=== PATIENT | female | born 1995 | race Caucasian/White ===

== ENCOUNTER 2020-01-22 12:12 | Inpatient (IN) | payer MEDICAID ==
[~2020-01-22] VITALS: Ht 165.1 cm; Wt 64.2 kg
[~2020-01-22 12:12] MED LIST: NO HOME MEDS
[2020-01-22] MEDS ORDERED: acetaminophen 325mg tablet PO PRN (14:10)
[2020-01-22] MEDS ORDERED: mag hydrox/Alum hydrox/simeth 30ml oral suspension PO PRN (14:10)
[2020-01-22] MEDS ORDERED: loperamide 2mg capsule PO PRN (14:10)
--- NOTE | 2020-01-22 18:29 | NUR ---
Nursing Admit Note: Patient admitted to [facility] on 01/21/20. She was brought to [facility] on 01/22/20 at 1350 and placed on a 5150 for GD. Patient is unable to provide food, clothing, or halfway for herself due to exasperated mental health condition that includes delusional an disorganized thought process. Patients mother reports that patient has not been sleeping for the last 5days and has not been medication compliant. Patient makes statements that are aggressive like I dont know you, you fucking bitch and then Please pray for me, Im scared. She is not cooperative with assessment or questions.
[2020-01-22 19:00] VITALS: BP 117/71
[2020-01-22] MEDS: LORazepam 1 MG tablet PO PRN (19:56)
[2020-01-22] MEDS: traZODone 50mg tablet PO PRN (19:57)
--- NOTE | 2020-01-23 00:13 | NUR ---
REFUSED MRSA SWAB TWICE.
[2020-01-23] MEDS: LORazepam 1 MG tablet PO PRN ×4 (02:59→15:45)
[2020-01-23] MEDS: traZODone 50mg tablet PO PRN (02:59)
--- NOTE | 2020-01-23 05:39 | NUR ---
Nursing Progress Note: Legal hold: 5150 Client on voluntary/involuntary status for GD. Report received from SHELLIE Law with use of SBAR. Why are they here: Patient admitted to [facility] on 01/21/20. She was brought to [facility] on 01/22/20 at 1350 and placed on a 5150 for GD. Patient is unable to provide food, clothing, or usp for herself due to exasperated mental health condition that includes delusional an disorganized thought process. Patients mother reports that patient has not been sleeping for the last 5days and has not been medication compliant. Patient makes statements that are aggressive like I dont know you, you fucking bitch and then Please pray for me, Im scared. She is not cooperative with assessment or questions. Assessment What has happened this shift: Patient observed laying in bed at the beginning of shift. Shortly after patient observed holding a conversation with herself in different accents. When this software writer approach the patient she agitatedly questioned, "What do you want?" Joggle Press Operator then offered patient Ativan r/t visible agitation and anxiety as patient began pacing her room and talking rapidly. Patient stated, "I don't care what you give me I am " and theatrically placed hand around her neck and hung her head. Patient received both PRN Ativan and Trazodone at this time. She then stated, "Oooh yay more drugs. Nighty night." Patient later in the shift escalated again and found with her bedding piled on top of her night stand as she paced her room. She agreed to take PRNs Trazodone and Ativan again and while taking them states, "here you go making me sleepy sleepy once again." Shortly after patient yelling in her room again and this time found nude by this software writer. When questioned if her clothing was off she stated, "what do you think and stomped back to the bathroom." Patient compliant with putting her clothing back and was provided third dose of Ativan. S/I, H/I: Unable to assess A/VH: Unable to assess- appears to be responding to internal stimuli Sleep: Refe refer to sleep assessment ADL's: Needs staff direction Group attendance: No groups this shift Were meds taken: No scheduled meds; PRNs provided Any med S/E: None reported, none observed. Mental Status Exam Appearance: Disheveled, green unit scrubs Eye contact: Avoidant Behavior: Isolative, resistive, agitated Speech: Yelling, hyperverbal Mood: Agitated Affect: Labile Thought process: Tangential Thought Content: Unable to assess Cognition: Unable to assess Insight: Poor Judgment: Poor Interventions PRN's used: Ativan x3, Trazodone x2 Therapeutic interventions: Introduced self and established rapport, ensured contract for safety, maintained a safe and supportive environment, provided clear and simple instructions, reoriented to reality as needed, monitored behavior and provided redirection as needed, and maintained Q 15min safety checks. Restraints/seclusion/emergency medication: None. Justification of Continued Inpatient Treatment: Pt. requires interruption of current crisis, medication adjustments, and a safe and supportive environment
[2020-01-23 07:01] LABS: CHOL/HDL RATIO 2.3 (0.00-4.99); CHOLESTEROL 131 MG/DL (0-200); HDL CHOLESTEROL 56 MG/DL (35-60); LDL CHOLESTEROL 63 MG/DL (50-100); TRIGLYCERIDES 42 MG/DL (20-135)
[2020-01-23 07:23] LABS: HEMOGLOBIN A1C 5.5 % (4.5-6.2)
[2020-01-23 07:41] VITALS: BP 120/73
[2020-01-23] MEDS ORDERED: tuberculin, purif. prot. deriv. 5 units/0.1ml ID ONE (09:40)
--- NOTE | 2020-01-23 14:59 | NUR ---
PHONE CALL W/MOM Sample Wrapper was informed that Steffen's mom did not know her whereabouts. Asked Steffen if she could call her mom and she said that medical technical writer could. Clarified that medical technical writer would inform her mother where she is. Steffen was speaking in different accents and stated she either wants to go to [facility] or home. She did not want to speak with medical technical writer. Caller her mother, Sara (ph# [phone]), and informed her that Steffen is at [facility]. She thanked medical technical writer for calling and stated she was quite happy Steffen is not at [facility] again. She reported Steffen had not slept for the past several days and she had been staying up with her. She reported Steffen had not been taking her medication or was taking incorrectly. Suggested she may want to wait a day or two to visit. CHACHO uS
--- NOTE | 2020-01-23 18:05 | NUR ---
Nursing Progress Note: Legal hold: 5150, GD Report received from JERRY Ortiz with use of SBAR. Why are they here: Patient admitted to [facility] on 01/21/20. She was brought to [facility] on 01/22/20 at 1350 and placed on a 5150 for GD. Patient is unable to provide food, clothing, or snf for herself due to exasperated mental health condition that includes delusional an disorganized thought process. Patients mother reports that patient has not been sleeping for the last 5days and has not been medication compliant. Assessment What has happened this shift: Patient is observed standing in front of her mirror and yelling/talking to herself. She is not wanting to engage in conversation. Patient does go to the group room for breakfast but is only observed playing with her food. After knocking first patient invites RN into her room and talks. Patient states I wanna go back to [facility]! No, home with the green grass. I just wanna sleep and all through the night I hear [place]k, squeak (patient makes nighttime animal noises and looks back and forth across the room). Patient huffs and puts her head in her hands then says and the nurse comes in here and says why are you naked and I was like I dont know, there was a boy over there (looks at wall)! Patient agrees to take an Ativan and requests water. When RN returns patient takes the medication in an aggressive manner from RN and mumbles to self. She then holds RNs hand and asks How are fish? RN and patient discuss pets and patient tells RN she is no longer working. Conversation increases in loose associations. MRSA swab collected and sent to lab. PPD placed 01/23/20 at 1338 in patients LFA Patient is observed stacking bedding and trash cans in her room. Patient appears anxious, offered Ativan, patient refused. S/I, H/I: Unable to assess A/VH: Unable to assess- appears to be responding to internal stimuli Sleep: 2hrs NOC ADL's: Needs staff direction Group attendance: No groups this shift Were meds taken: No scheduled meds; PRNs provided Any med S/E: None reported, none observed. Mental Status Exam Appearance: Disheveled, green unit scrubs Eye contact: Avoidant Behavior: Isolative, resistive, and agitated Speech: hyperverbal Mood: Agitated Affect: Labile Thought process: Tangential, loose associations Thought Content: Unable to assess Cognition: Unable to assess Insight: Poor Judgment: Poor Interventions PRN's used: Ativan x1 Therapeutic interventions: 1:1 therapeutic assessment, maintained safe therapeutic milieu, provided active listening with positive reinforcement, provided medication administration/education/monitoring as needed; Q15 safety checks. Restraints/seclusion/emergency medication: N/A Justification of Continued Inpatient Treatment: Continued therapeutic support and medication management needed to provide stabilization, prevent decompensation, and improve coping mechanisms decreasing risk to patient and re-admittance.
[2020-01-23 19:00] VITALS: BP 125/74
[2020-01-23] MEDS ORDERED: LORazepam 1 MG tablet PO ONE (19:30)
--- NOTE | 2020-01-23 19:39 | NUR ---
Client temp was 100.4. A Rapid Flu Test was ordered. Client was given 300 mg Seroquel Tab PO and 2 mg Ativan Tab PO was administered. Client was encouraged to stay in room pending results of Flu test.
[2020-01-23] MEDS ORDERED: quetiapine 100mg tablet PO ONE (19:45)
[2020-01-23] MEDS: quetiapine 100mg tablet PO SCH (20:44)
--- NOTE | 2020-01-23 22:40 | NUR ---
Nurse Note: Patient allowed staff to retake temperature. Oral temp at 2130 was 98.7. Patient uncooperative for flu swab. Patient has not been drinking her water, and has been dumping her water pitcher on her floor along with refusing meals. Encouragement needed for patient to drink fluids at this time.
--- NOTE | 2020-01-23 22:43 | NUR ---
Nursing Progress Note: Legal hold: 5150, GD Report received from JERRY Zuñiga with use of SBAR. Why are they here: Patient admitted to [facility] on 01/21/20. She was brought to [facility] on 01/22/20 at 1350 and placed on a 5150 for GD. Patient is unable to provide food, clothing, or prison for herself due to exasperated mental health condition that includes delusional an disorganized thought process. Patients mother reports that patient has not been sleeping for the last 5days and has not been medication compliant. Assessment What has happened this shift: Patient is uncooperative this evening for assessment, at change of shift patient is noted to be hiding in a [place] corner on the phone, it is determined that patient was calling 911 as dispatched called the unit to inform them of her calls. Patients temp is noted to be 100.[address] is informed and order for influenza testing is ordered. patient is uncooperative for influenza testing. She is agreeable to take her medications. About an hour after patient takes her medications influenza swab is tried again and patient is uncooperative again. She does allow staff to obtain another temperature which at this time is 98.7. It is noted that patient has not been drinking her meals and dumping out all her water pitchers. Patient is encouraged to drink fluids. Will continue to monitor patient and try to obtain flu swab. S/I, H/I: Unable to assess A/VH: Unable to assess- appears to be responding to internal stimuli Sleep: Currently sleeping, see sleep assessment ADL's: Needs staff direction Group attendance: No groups this shift Were meds taken: Yes Any med S/E: None reported, none observed. Mental Status Exam Appearance: Disheveled, green unit scrubs Eye contact: Avoidant Behavior: Isolative, resistive, and agitated Speech: Hyperverbal Mood: Agitated Affect: Labile Thought process: Tangential, loose associations Thought Content: Unable to assess Cognition: Unable to assess Insight: Poor Judgment: Poor Interventions PRN's used: Ativan x1 Therapeutic interventions: 1:1 therapeutic assessment, maintained safe therapeutic milieu, provided active listening with positive reinforcement, provided medication administration/education/monitoring as needed; Q15 safety checks. Restraints/seclusion/emergency medication: N/A Justification of Continued Inpatient Treatment: Continued therapeutic support and medication management needed to provide stabilization, prevent decompensation, and improve coping mechanisms decreasing risk to patient and re-admittance.
[2020-01-24 07:31] VITALS: BP 111/84
[2020-01-24] MEDS: ARIPIPRAZOLE 10 MG TABLET PO SCH (09:10)
--- NOTE | 2020-01-24 14:25 | NUR ---
PSYCHOSOCIAL ASSESSMENT Steffen is a 24 y/o single female who was initially brought to [facility] by her mother as a walk-in. Steffen had been sleeping very little for the previous 5 days, was experiencing anxiety, paranoia, hearing voices, disorganized thoughts, mood lability, and presented as delusional. Steffen has a history of being diagnosed with Schizoaffective Disorer, Bipolar Type. She is connected with [facility] and sees Dr Fisher. Plan is for her to go to [facility] upon discharge. Steffen was a poor historian and continues to be disorganized, delusional, paranoid, with rapid pressured speech. CHACHO Su Addendum: 01/24/20 at 1426 by Vicky Mora Amended: Links added.
--- NOTE | 2020-01-24 17:43 | NUR ---
Nursing Progress Note: Legal hold: 5150, GD Report received from JERRY Tejeda with use of SBAR. Why are they here: Patient admitted to [facility] on 01/21/20. She was brought to [facility] on 01/22/20 at 1350 and placed on a 5150 for GD. Patient is unable to provide food, clothing, or usp for herself due to exasperated mental health condition that includes delusional an disorganized thought process. Patients mother reports that patient has not been sleeping for the last 5days and has not been medication compliant. Assessment What has happened this shift: Patient temp 98.7 this AM. Pt denies any flu symptoms at this time. Pt spent most of this shift in her room. Pt was handed 8 cups of 8ozs of water today and with supervision drank all of the glasses. She also ate with a P&J sandwich, a bag of chips, a cheese stick, applesauce and dinner with prompting throughout and supervision. Pt will not eat or drink if left to do it on her own. Thought process remains tangential w/loose associations. S/I, H/I: Unable to assess A/VH: Unable to assess- appears to be RIS Sleep: Awake throughout the shift ADL's: Remained in hospital scrubs throughout the day Group attendance: Attended outside group Were Meds taken: Yes Any med S/E: None reported, none observed. Mental Status Exam Appearance: Disheveled, green unit scrubs Eye contact: Fair Behavior: Isolative Speech: pressured at times Mood: Sad/irritable Affect: Labile Thought process: Tangential, loose associations Thought Content: Unable to assess Cognition: Unable to assess Insight: Poor Judgment: Poor Interventions PRN's used: N/A Therapeutic interventions: Provided therapeutic communications and active listening, prompted and encouraged pt by sitting w/her to eat and drink fluids, medication administration/education/monitoring, maintained q 15 min. safety checks. Restraints/seclusion/emergency medication: N/A Justification of Continued Inpatient Treatment: Continued therapeutic support and medication management needed to provide stabilization, prevent decompensation, and improve coping mechanisms decreasing risk to patient and re-admittance.
[2020-01-24] MEDS: QUEtiapine 25mg tablet PO SCH (18:16)
[2020-01-24 19:00] VITALS: BP 142/89
[2020-01-24] MEDS: oseltamivir phos 75mg capsule PO SCH (20:00)
[2020-01-24] MEDS: LORazepam 1 MG tablet PO PRN (20:22)
[2020-01-24] MEDS: quetiapine 100mg tablet PO SCH (20:22)
--- NOTE | 2020-01-25 03:36 | NUR ---
Nursing Progress Note: Legal hold: 5150, GD Report received from JERRY Law with use of SBAR. Why are they here: Patient admitted to [facility] on 01/21/20. She was brought to [facility] on 01/22/20 at 1350 and placed on a 5150 for GD. Patient is unable to provide food, clothing, or fdc for herself due to exasperated mental health condition that includes delusional an disorganized thought process. Patients mother reports that patient has not been sleeping for the last 5days and has not been medication compliant. Assessment What has happened this shift: Patient temp is 99.1 this evening. She denies any flu symptoms and refuses to be flu swabbed. patient presents as delusional, disorganized and paranoid of staff. She is not cooperative for assessment and becomes agitated when staff is in her room. She does take her PM medications, but expresses discontent about it. When she does approach staff most of her words come out as word salad, it appears like she is trying to express something but it is incoherent. Fluids encouraged this evening. S/I, H/I: Unable to assess A/VH: Unable to assess- appears to be RIS Sleep: See sleep assessment ADL's: Remained in hospital scrubs Group attendance: Attended outside group Were Meds taken: Yes Any med S/E: None reported, none observed. Mental Status Exam Appearance: Disheveled, green unit scrubs Eye contact: Fair Behavior: Isolative Speech: Pressured Mood: Irritable, paranoid Affect: Labile Thought process: Tangential, loose associations Thought Content: Unable to assess Cognition: Unable to assess Insight: Poor Judgment: Poor Interventions PRN's used: Ativan Therapeutic interventions: Provided therapeutic communications and active listening, prompted and encouraged pt by sitting w/her to eat and drink fluids, medication administration/education/monitoring, maintained q 15 min. safety checks. Restraints/seclusion/emergency medication: N/A Justification of Continued Inpatient Treatment: Continued therapeutic support and medication management needed to provide stabilization, prevent decompensation, and improve coping mechanisms decreasing risk to patient and re-admittance.
[2020-01-25] MEDS: LORazepam 1 MG tablet PO PRN ×3 (06:23→21:13)
[2020-01-25 07:56] VITALS: BP 115/75
[2020-01-25] MEDS: oseltamivir phos 75mg capsule PO SCH ×2 (08:00→09:33)
[2020-01-25] MEDS: QUEtiapine 25mg tablet PO SCH ×3 (08:38→19:47)
[2020-01-25] MEDS: ARIPIPRAZOLE 10 MG TABLET PO SCH (08:38)
--- NOTE | 2020-01-25 16:08 | NUR ---
Nursing Progress Note: Legal hold: 5250, GD Report received from JERRY Tejeda with use of SBAR. Why are they here: Patient admitted to [facility] on 01/21/20. She was brought to [facility] on 01/22/20 at 1350 and placed on a 5150 for GD. Patient is unable to provide food, clothing, or fci for herself due to exasperated mental health condition that includes delusional an disorganized thought process. Patients mother reports that patient has not been sleeping for the last 5days and has not been medication compliant. Assessment What has happened this shift: Patient up in her room at the BR sink. Pt remains delusional states, "I know about the coding" then shouts "boom, boom." She endorses that she hears voices stating, "but not at the minute." Pt was observed throwing paper pamphlets all over her room later she picked them up on her own. Pt drank 600mL H2O this shift. S/I, H/I: denies A/VH: Unable to assess- appears to be RIS Sleep: Awake all shift ADL's: Remained in hospital scrubs Group attendance: Did not go out this shift Were Meds taken: Yes Any med S/E: None reported, none observed. Mental Status Exam Appearance: Disheveled, green unit scrubs Eye contact: Fair Behavior: Isolative, angry today after served 5250 Speech: pressured at times Mood: Sad/irritable Affect: Labile Thought process: Tangential, loose associations Thought Content: Unable to assess Cognition: Unable to assess Insight: Poor Judgment: Poor Interventions PRN's used: N/A Therapeutic interventions: Provided therapeutic communications and active listening, prompted and encouraged pt by sitting w/her to drink fluids, medication administration/education/monitoring, maintained q 15 min. safety checks. Restraints/seclusion/emergency medication: N/A Justification of Continued Inpatient Treatment: Continued therapeutic support and medication management needed to provide stabilization, prevent decompensation, and improve coping mechanisms decreasing risk to patient and re-admittance.
[2020-01-25 20:05] VITALS: BP 118/82
[2020-01-25] MEDS: quetiapine 100mg tablet PO SCH (21:13)
[2020-01-25] MEDS ORDERED: OLANZapine 2.5MG tablet PO ONE (22:30)
--- NOTE | 2020-01-26 01:42 | NUR ---
Nursing Progress Note: Legal hold: 5250, GD Report received from JERRY Law with use of SBAR. Why are they here: Patient admitted to [facility] on 01/21/20. She was brought to [facility] on 01/22/20 at 1350 and placed on a 5150 for GD. Patient is unable to provide food, clothing, or intermediate for herself due to exasperated mental health condition that includes delusional an disorganized thought process. Patients mother reports that patient has not been sleeping for the last 5 days and has not been medication compliant. Assessment What has happened this shift: Pt hypomanic, thoughts are disorganized tangential "I came here because they cancelled January Mad" Pt Laughs and smiles inappropriately. Cooperative and pleasant took all medications. Unable to sleep pt agreed to take something for sleep if the DrAmparo would order something. YARI Gonzalez Ordered 5 mg Zyprexa x1 Pt took. Pt continued to be restless making several trips to Nurses station. Fell asleep at 0130. S/I, H/I: denies A/VH: Unable to assess- appears to be RIS Sleep: Fell asleep at 0130 ADL's: Remained in hospital scrubs Group attendance: NA Were Meds taken: Yes Any med S/E: None reported, none observed. Mental Status Exam Appearance: Disheveled, green unit scrubs Eye contact: Fair Behavior: Isolative, angry today after served 5250 Speech: pressured at times Mood: Sad/irritable Affect: Labile Thought process: Tangential, loose associations Thought Content: Unable to assess Cognition: Unable to assess Insight: Poor Judgment: Poor Interventions PRN's used: Ativan for anxiety x1 Zyprexa for sleep. Therapeutic interventions: Provided therapeutic communications and active listening, prompted and encouraged pt by sitting w/her to drink fluids, medication administration/education/monitoring, maintained q 15 min. safety checks. Restraints/seclusion/emergency medication: N/A Justification of Continued Inpatient Treatment: Continued therapeutic support and medication management needed to provide stabilization, prevent decompensation, and improve coping mechanisms decreasing risk to patient and re-admittance.
[2020-01-26] MEDS: LORazepam 1 MG tablet PO PRN ×2 (03:47→08:13)
[2020-01-26] MEDS ORDERED: OLANZapine 2.5MG tablet PO ONE (04:00)
[2020-01-26] MEDS: diphenhydrAMINE 25mg capsule PO PRN ×2 (04:35→15:01)
--- NOTE | 2020-01-26 05:19 | NUR ---
Pt slept about one hour up again becoming agitated order for 10 Zyprexa 50 Benadryl obtained and given 430. Pt is still awake encouraged to lay down and try to sleep.
[2020-01-26 07:43] VITALS: BP 112/72
[2020-01-26] MEDS: ARIPIPRAZOLE 10 MG TABLET PO SCH (08:13)
[2020-01-26] MEDS: oseltamivir phos 75mg capsule PO SCH (08:13)
[2020-01-26] MEDS: QUEtiapine 25mg tablet PO SCH ×3 (08:14→17:57)
--- NOTE | 2020-01-26 14:33 | NUR ---
Met with Steffen in the tv room. She was looking out the window and flipping through a Kin Mora book. She was friendly and talkative. Speech was disorganized with oriental orthodox preoccupation. She reported she was really tired and did not sleep much last night. She was emotionally labile throughout the conversation. She has been accepted at [facility] when she is ready to discharge. CHACHO Su
--- NOTE | 2020-01-26 14:45 | NUR ---
Nursing Progress Note: Legal hold: 5250, GD Report received from JERRY Tomlin with use of SBAR. Why are they here: Patient admitted to [facility] on 01/21/20. She was brought to [facility] on 01/22/20 at 1350 and placed on a 5150 for GD. Patient is unable to provide food, clothing, or correction for herself due to exasperated mental health condition that includes delusional an disorganized thought process. Patients mother reports that patient has not been sleeping for the last 5 days and has not been medication compliant. Assessment What has happened this shift: Pt standing at the BR sink scrubbing her hands over and over at he start of the shift. Pt distracted by this nurse and moved over to the corner of her room standing at the bedside table she began speaking in a loud voice, "I'm not eating because you put something in my food, you're a Julian you have my father's heart, I know you do the night I was at [facility] I saw the eye, eyeron on the ceiling, I heard my daughter is that you put down coding not schizophrenia." She is compliant with taking her medications. She continues to need reminders to drink fluids, she is doing better eating on her own. S/I, H/I: denies A/VH: Unable to assess Sleep: Slept in the afternoon ADL's: Remained in hospital scrubs Group attendance: NA Were Meds taken: Yes Any med S/E: None reported, none observed. Mental Status Exam Appearance: Disheveled, green unit scrubs Eye contact: Fair Behavior: hypomanic Speech: Pressured Mood: Irritable Affect: Labile Thought process: Tangential, loose associations Thought Content: Unable to assess Cognition: Unable to assess Insight: Poor Judgment: Poor Interventions PRN's used: Ativan x1, Benadryl x1 Therapeutic interventions: Provided therapeutic communications w/active listening, encouraged pt to eat and drink, prompted pt to slow down on washing her hands and to not rub them dry with a rough paper towel, provided a soft cloth, edication administration/education/monitoring, maintained q 15 min. safety checks. Restraints/seclusion/emergency medication: N/A Justification of Continued Inpatient Treatment: Continued therapeutic support and medication management needed to provide stabilization, prevent decompensation, and improve coping mechanisms decreasing risk to patient and re-admittance.
[2020-01-26 20:09] VITALS: BP 133/85
[2020-01-26] MEDS: quetiapine 100mg tablet PO SCH (20:21)
--- NOTE | 2020-01-26 21:40 | NUR ---
Nursing Progress Note: Legal hold: 5250, GD Report received from JERRY Law with use of SBAR. Why are they here: Patient admitted to [facility] on 01/21/20. She was brought to [facility] on 01/22/20 at 1350 and placed on a 5150 for GD. Patient is unable to provide food, clothing, or correction for herself due to exasperated mental health condition that includes delusional an disorganized thought process. Patients mother reports that patient has not been sleeping for the last 5 days and has not been medication compliant. Assessment What has happened this shift: The patient was seen in the rec room for 1:1. She is unable to complete thoughts, and is delusional and tangential. She will start with one thought, stop, look away, then on to another thought. She was willing to take her medications, but was paranoid about what they were, and what for. She went to bed right after HS med pass. S/I, H/I: Denies A/VH: Denies Sleep: See sleep assessment ADL's: Independent Group attendance: NA Were Meds taken: Yes Any med S/E: None reported, none observed. Mental Status Exam Appearance: Disheveled young lady with long black hair wearing green unit scrubs Eye contact: Fair Behavior: Isolative, angry, irritable Speech: pressured at times Mood: Irritable Affect: Labile Thought process: Tangential, loose associations Thought Content: Unable to assess Cognition: Unable to assess Insight: Poor Judgment: Poor Interventions PRN's used: Therapeutic interventions: Provided therapeutic communications and active listening, prompted and encouraged pt by sitting w/her to drink fluids, medication administration/education/monitoring, maintained q 15 min. safety checks. Restraints/seclusion/emergency medication: N/A Justification of Continued Inpatient Treatment: Continued therapeutic support and medication management needed to provide stabilization, prevent decompensation, and improve coping mechanisms decreasing risk to patient and re-admittance.
[2020-01-27] MEDS: oseltamivir phos 75mg capsule PO SCH (07:34)
[2020-01-27] MEDS: QUEtiapine 25mg tablet PO SCH ×3 (07:34→18:42)
[2020-01-27] MEDS: ARIPIPRAZOLE 10 MG TABLET PO SCH (07:34)
[2020-01-27 07:37] VITALS: BP 89/63
--- NOTE | 2020-01-27 11:22 | NUR ---
Initial: Pt admit w/ schizoaffective disorder bipolar type and delusions on 5150 per MD. PO 75-100% avg regular diet meeting needs. LBM 01/24. No nutrition concerns at this time. Will continue to monitor. Rec: 1. continue regular diet 2. bowel care as needed 3. wt per rx Addendum: 01/27/20 at [address] Amended: Links added.
--- NOTE | 2020-01-27 17:22 | NUR ---
Nursing Progress Note: Legal hold: 5250, GD Report received from JERRY Gandhi with use of SBAR. Why are they here: Patient admitted to [facility] on 01/21/20. She was brought to [facility] on 01/22/20 at 1350 and placed on a 5150 for GD. Patient is unable to provide food, clothing, or custodial for herself due to exasperated mental health condition that includes delusional an disorganized thought process. Patients mother reports that patient has not been sleeping for the last 5 days and has not been medication compliant. Assessment What has happened this shift: Patient is resting in bed peacefully at change of shift. She is tangential and appears paranoid, making statements, "you know what is best for me", "you're trying to poison me", when given her medications, however, she does take her medications. She is seen sitting in her room and occasionally in the day room. She appears to be responding to internal stimuli at times, talking to people who are not there, but she refuses to participate in assessment. S/I, H/I: unable to assess, but does not make any statements nor does she exhibit self injurious or injurious behaviors A/VH: Unable to assess Sleep: up all shift ADL's: Remained in hospital scrubs Group attendance: NA Were Meds taken: Yes Any med S/E: None reported, none observed. Mental Status Exam Appearance: Disheveled, green unit scrubs Eye contact: Fair Behavior: hypomanic Speech: Pressured Mood: Irritable Affect: Labile Thought process: Tangential, loose associations Thought Content: Unable to assess Cognition: Unable to assess Insight: Poor Judgment: Poor Interventions PRN's used: none Therapeutic interventions: Provided therapeutic communications w/active listening, encouraged pt to eat and drink, prompted pt to slow down on washing her hands and to not rub them dry with a rough paper towel, provided a soft cloth, education administration/education/monitoring, maintained q 15 min. safety checks. Restraints/seclusion/emergency medication: N/A Justification of Continued Inpatient Treatment: Continued therapeutic support and medication management needed to provide stabilization, prevent decompensation, and improve coping mechanisms decreasing risk to patient and re-admittance.
[2020-01-27 19:07] VITALS: BP 124/75
[2020-01-27] MEDS: quetiapine 100mg tablet PO SCH (20:56)
[2020-01-27] MEDS: LORazepam 1 MG tablet PO PRN (21:50)
--- NOTE | 2020-01-28 02:25 | NUR ---
Nursing Progress Note: Legal hold: 5250, GD Report received from JERRY Gandhi with use of SBAR. Why are they here: Patient admitted to [facility] on 01/21/20. She was brought to [facility] on 01/22/20 at 1350 and placed on a 5150 for GD. Patient is unable to provide food, clothing, or longterm for herself due to exasperated mental health condition that includes delusional an disorganized thought process. Patients mother reports that patient has not been sleeping for the last 5 days and has not been medication compliant. Assessment What has happened this shift: Pt was in the group room at change of shift. She was responding to internal stimuli but pleasantly interacting with staff and other patients. She later went into her room and was loudly talking to herself. Went into talk w/patient and she was crouched in the corner of her room crying and shouted she was "praying to God". Pt was med compliant but agitated during med pass and grabbed her med cup forcefully, took her meds, and threw her med cup on her bed. Pt continued to talk to herself and took her bedding off her bed. Pt asked if she looked weird because she wasnt wearing her clothing then decided she would stay in scrubs. Pt was offered clean bedding and she declined stating she would make it herself. Pt is labile, laughing then crying and yelling, smiling and pleasant then agitated. S/I, H/I: unable to assess A/VH: Responding to internal stimuli Sleep: pt sleeping well ADL's: Remained in hospital scrubs Group attendance: NA Were Meds taken: Yes Any med S/E: None reported, none observed. Mental Status Exam Appearance: Disheveled, green unit scrubs Eye contact: Fair Behavior: hypomanic Speech: Pressured Mood: Irritable Affect: Labile Thought process: Tangential, loose associations Thought Content: Unable to assess Cognition: Unable to assess Insight: Poor Judgment: Poor Interventions PRN's used: none Therapeutic interventions: Provided therapeutic communications w/active listening, encouraged pt to eat and drink, prompted pt to slow down on washing her hands and to not rub them dry with a rough paper towel, provided a soft cloth, education administration/education/monitoring, maintained q 15 min. safety checks. Restraints/seclusion/emergency medication: N/A Justification of Continued Inpatient Treatment: Continued therapeutic support and medication management needed to provide stabilization, prevent decompensation, and improve coping mechanisms decreasing risk to patient and re-admittance. Addendum: 01/28/20 at 0401 by Jane Osorio RN Pt woke and was talking to herself, labile crying laughing. Pt is attempting to explain "the meaning of life" by drawing directions in the air w/her hands. Pt speech is disorganized, hyperreligious, pt is having some thought blocking. She is unable to state why she is here. She reports a headache. Pt was assisted with making her bed and she appears tired but is having difficulty going back to sleep. Pt was given prn ativan and tylenol
[2020-01-28] MEDS: acetaminophen 325mg tablet PO PRN (03:57)
[2020-01-28] MEDS: LORazepam 1 MG tablet PO PRN ×2 (03:57→12:07)
[2020-01-28] MEDS: oseltamivir phos 75mg capsule PO SCH (08:19)
[2020-01-28] MEDS: QUEtiapine 25mg tablet PO SCH ×3 (08:19→17:28)
[2020-01-28] MEDS: ARIPIPRAZOLE 10 MG TABLET PO SCH (08:19)
[2020-01-28 08:33] VITALS: BP 120/81
[2020-01-28] MEDS: diphenhydrAMINE 25mg capsule PO PRN (12:07)
--- NOTE | 2020-01-28 13:34 | NUR ---
Nursing Progress Note: Legal hold: 5250 for GD Report received from JERRY Gandhi with use of SBAR. Why are they here: Patient admitted to [facility] on 01/21/20. She was brought to [facility] on 01/22/20 at 1350 and placed on a 5150 for GD. Patient is unable to provide food, clothing, or residential for herself due to exasperated mental health condition that includes delusional an disorganized thought process. Patients mother reports that patient has not been sleeping for the last 5 days and has not been medication compliant. Assessment What has happened this shift: Pt is labile, disorganized, paranoid, and delusional. Pt initially presented as pleasant and bright before breakfast. She introduced herself as "Susana." She was cooperative with medications, smiled and commented on how this RN's hair reminded her of her mother's. Pt's speech was pressured and she was tangential. Pt did not have a water pitcher in her room so one was provided for her. Pt stated, "I don't drink much water, I stopped after 4th grade, you know, the stress from high school, I know I should drink more, my dad says I should drink more." Pt nervously laughed. Pt observed fervently washing her hands and cleaning her sink and her room. Pt comes out of her room and spends some time in the community room watching TV. Pt attempted to be helpful with redirecting another pt out of the community room. Around 1100 heard pt loudly responding to internal stimuli in her room. She was agitated;talking and yelling at unseen persons as well as banging and slapping things like her night stand. Speech was extremely pressured. Knocked on pt's room door before entering, announced this RN's presence and offered pt some PO PRN medications Ativan 1 mg and Benadryl 50 mg. Pt observed with some psychomotor agitation; rapid body movements and gestures. Her room was spotless there was no water pitcher or anything else in sight on her night stand, bedside table or shelves, there was a large pool of blue soap in her sink. Asked pt where her water pitcher had gone. Pt angrily replied that this RN had said someone would bring her water but no one ever did. (This RN had witnessed the PCT bring the pitcher of water to her room.) Pt loudly exclaimed, "You totally forgot! That's alright, I forgive you!" Pt refused to take the medication, stating that we were trying to control her life, trying to drug her. Attempted reality orientation that she was here to get well and we were trying to help her so she could get back to living her life. Pt replied, "you're lying! I can see it in your eyes!" "I see visions, I see dicks floating in the air and eyeballs." Pt took the water this nurse had brought her but adamantly refused the medication. As this RN left the room heard the pt loudly state to unseen persons, "you don't have to knock like her." She went on to have an animated one sided conversation though remained in her room. Around an hour later asked the molded candles wicker to accompany this RN to the pt's room as a show of support in trying to get pt to take her routine Seroquel as well as the PRNs. Pt was sitting on her bed, pt looked despondent. Pt stated, "I don't care, drug me up." Pt took her Seroquel as well as PO prn Ativan 1 mg & Benadryl 50 mg @ 1207. After lunch pt approached this RN asking if we could talk, if everyone could get together and talk. Pt was tearful. Found pt sitting in her room. Pt stated, "you're just here to give me more pills and drug me up." Reminded pt that she had asked to talk, reassured pt that this nurse was not trying to give her anymore pills. Pt was tearful, pt stated that she hurt, she was in pain, she dramatically placed her hand over her heart. Pt was speaking of emotional pain not chest pain. Pt stated again that we were trying to control her life. After expressing how she felt, pt was not receptive to therapeutic conversation but wished to continue making paranoid, accusatory statements, reality orientation ineffective. Reassured pt that she was safe, that staff was here to help and left the pt alone in her room. S/I, H/I: Pt too disorganized to answer the questions. A/VH: Pt observed responding to internal stimuli, speaking/yelling at unseen persons, pt states she sees visions of dicks and eyeballs. Sleep: Per noc shift report, pt only slept 3 hours last night despite PRN medication. Pt did not nap during the day. ADL's: Independent, needs encouragement to drink fluids. Group attendance: No groups today. Were Meds taken: Yes though reluctantly. Any med S/E: None noted or reported. Mental Status Exam Appearance: Disheveled young woman with medium length brown hair down, dressed in clean, green hospital scrubs. Eye contact: Good Behavior: Disorganized, hypomanic, obsessively cleans her room over and over again. Speech: Pressured Mood: Labile Affect: Labile Thought process: Paranoid, delusional, disorganized with loose associations, racing thoughts. Thought Content: We are trying to drug her up and control her life. Cognition: A/O X 3 Insight: Poor Judgment: Poor Interventions PRN's used: Ativan 1 mg, Benadryl 50 mg Therapeutic interventions: Establishment of rapport, 1:1 assessment, active listening, medication administration/education/monitoring, encouragement to drink fluids, behavior monitoring and intervention; reality orientation, verbal de-escalation, redirection, show of support, positive reinforcement, Q 15 min safety checks. Restraints/seclusion/emergency medication: N/A Justification of Continued Inpatient Treatment: Continued therapeutic support and medication management needed to provide stabilization, prevent decompensation, and improve coping mechanisms decreasing risk to patient and re-admittance. Addendum: 01/28/20 at 1741 by Clarita Finney RN (Lee) Pt is calm and cooperative at this time, she seems much less disorganized. Pt stated that she doesn't eat much "because I think that the food is poisoned." Pt stated it in such a way to indicated that she was aware that this was a symptom, not said in a paranoid fashion. Then pt stated that a lot of foods hurt her stomach and this just started around a year ago. Pt states she like almond milk and salads, chicken caesar salad in particular. Modified diet to request almond milk and salads with lunch and dinner. Pt indicated that she would like to speak with a hotel superintendent. Put in dietary consult order. Addendum: 01/28/20 at 1742 by Clarita Finney RN (Lee) Pt slept for awhile after lunch.
--- NOTE | 2020-01-28 19:08 | NUR ---
Nutrition consult re: poor PO. Spoke with bedside RN reporting poor PO r/t possible paranoia with un-packaged foods, RN states pt requesting almond milk, salads, and may benefit from some pre-packaged foods. PO intake average of 43% over the course of her admission with six meals >75% PO intake. D/w dietary to send almond milk with meals and variety of pre-packaged sandwiches with lunch and dinner. Rec: 1. continue regular diet- send almond milk with meals per patient request and trial sending pre-packaged sandwiches with lunch and dinner. 2. bowel care as needed 3. wt per rx Addendum: 01/28/20 at [address] Amended: Links added.
[2020-01-28] MEDS: temazepam 15mg capsule PO PRN (20:21)
[2020-01-28] MEDS: quetiapine 100mg tablet PO SCH (20:21)
[2020-01-28 20:31] VITALS: BP 126/79
[2020-01-29] MEDS: LORazepam 1 MG tablet PO PRN ×2 (01:36→07:56)
--- NOTE | 2020-01-29 01:45 | NUR ---
Nursing Progress Note: Legal hold: 5250 for GD Report received from JERRY Gandhi with use of SBAR. Why are they here: Patient admitted to [facility] on 01/21/20. She was brought to [facility] on 01/22/20 at 1350 and placed on a 5150 for GD. Patient is unable to provide food, clothing, or intermediate for herself due to exasperated mental health condition that includes delusional an disorganized thought process. Patients mother reports that patient has not been sleeping for the last 5 days and has not been medication compliant. Assessment What has happened this shift: Pt was walking in the [place] at change of shift, she states she would like to talk and she reports having a good day. 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 Pt continues to have disorganized thought and is unable to answer questions appropriately. She is pleasant cooperative and took medications at [facility] easily. About 0130 pt woke and began loudly conversing alone in her room. As I walked into the room, pt took her pitcher of water and threw it at the mirror above her sink. She yelled "dont worry about it I got it!" I told pt I would bring in some towels and handed her a prn. 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 Explained to pt I am giving her ativan, she replies "Ok boomer, It's a song alright?" She takes prn then I took in towels to clean up the water. Pt thanked me for the towels and whispered, "I will lower my voice now, it will be ok." Pt is quietly cleaning her room and when checked on she states "Im ok, Im at a peace." However speech is somewhat pressured. Pts arms were very red at beginning of shift and she was showing me them and reports "this is eczema, it reminds me of nicole, he's my brother." Pt was observed squeezing her arms tightly and scratching them. She shows me lotion she has in the room and states the lotion is helping. She also reports never having eczema prior to today. When pt woke later in the night her arms still appear to be reddened but seem to be improving. She began splashing her arms with water. No broken skin noted. Asked pt if she was having itching again, she replied in a sarcastic tone, "they're ok, youre not my mother." Pt took Benadryl prn. S/I, H/I: unable to assess A/VH: Pt observed responding to internal stimuli, speaking/yelling at unseen persons Sleep: not sleeping well this shift. ADL's: Independent Group attendance: No groups today. Were Meds taken: Yes Any med S/E: None noted or reported. Mental Status Exam Appearance: disheveled, wearing green scrubs Eye contact: Good Behavior: Disorganized, hypomanic, obsessively cleans her room over and over again. Speech: Pressured Mood: Labile Affect: Labile Thought process: Paranoid, delusional, disorganized with loose associations, racing thoughts. Thought Content: God, praying, Cognition: A/O X 3 Insight: Poor Judgment: Poor Interventions PRN's used: Ativan 1 mg, Benadryl 50mg Therapeutic interventions: Establishment of rapport, 1:1 assessment, active listening, medication administration/education/monitoring, encouragement to drink fluids, behavior monitoring and intervention; reality orientation, verbal de-escalation, redirection, show of support, positive reinforcement, Q 15 min safety checks. Restraints/seclusion/emergency medication: N/A Justification of Continued Inpatient Treatment: Continued therapeutic support and medication management needed to provide stabilization, prevent decompensation, and improve coping mechanisms decreasing risk to patient and re-admittance. Addendum: 01/29/20 at 0614 by Jane Osorio RN pt did not go back to sleep, came out at change of shift and is "holding a meeting' with staff. 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 pt states she wants a decrease in her medicine because she was lowering her medicine before she came in.
[2020-01-29 07:56] VITALS: BP 133/89
[2020-01-29] MEDS: oseltamivir phos 75mg capsule PO SCH (07:56)
[2020-01-29] MEDS: ARIPIPRAZOLE 10 MG TABLET PO SCH (07:56)
[2020-01-29] MEDS: QUEtiapine 25mg tablet PO SCH ×3 (07:56→17:47)
--- NOTE | 2020-01-29 15:07 | NUR ---
PHONE CALL W/MOM: SARA Gonzalez's mom, Sara, called. Steffen Gonzalez signed consent for Sara. Called Sara back (ph# [phone]) and she reported Steffen Gonzalez requested she drop off some clothing. Sara reported she will call magazine writer tomorrow and meet magazine writer in the lobby with Steffen Gonzalez's belongings. CHACHO Su
--- NOTE | 2020-01-29 16:33 | NUR ---
Nursing Progress Note: Legal hold: 5250 for GD Report received from JERRY Gandhi with use of SBAR. Why are they here: Patient admitted to [facility] on 01/21/20. She was brought to [facility] on 01/22/20 at 1350 and placed on a 5150 for GD. Patient is unable to provide food, clothing, or residential for herself due to exasperated mental health condition that includes delusional an disorganized thought process. Patients mother reports that patient has not been sleeping for the last 5 days and has not been medication compliant. Assessment What has happened this shift: Pt was friendlier and more cooperative with staff today. Pt admits to AH, denies CAH, denies VH. Pt appeared fearful/paranoid while talking to this nurse about the voices. Pt softly stated, "I'm talking to you in code." When went to give pt her morning meds, pt was in the bathroom. This nurse could see under the bathroom door that the pt's breakfast tray was on the bathroom floor with pt standing in front of it facing away from the toilet. Carter pt rummaging on tray then saw pt's green nonskid sock cladded feet turn around to face the toilet and heard pt flush the toilet, pt then turned around to face the tray on the floor once more. This RN left the room and returned a few minutes later. Pt and breakfast tray were out of the bathroom. It appeared that greater than 50% of food was still on the pt's breakfast tray. Pt stated to this RN, "I'm sorry I was rude to you." (Pt had not been rude to this RN today.) Pt went on to say, "I told Dr Freitas...I don't want to have to take pills but..." Pt waved her hands up around her head. Pt took her medication. Pt continues to be disorganized though is more pleasantly psychotic today. Pt's verbalizations are tangential and often nonsensical but she is smiling while verbalizing them. Pt showered today. Later in the afternoon the SW approached this RN to ask if I had seen the pt's arms, that they were really red. PCT approached a few minutes later to ask the same. Assessed pt's arms. Redness noted below the elbows down to her wrists and upper portions of her hands. Pt had been seen before vigorously washing her hands and arms repeatedly at her bedroom sink with soap and water. Pt denies any itching, no s/sx of dyspnea or SOB, no wheals noted. No other areas of pt's skin are reddened; no redness on legs, torso, abdomen, or face. Pt's arms had been bare this morning and this RN had not noticed the redness. Pt stated that it looks like eczema like Sam has. She also stated that she had applied lotion to her arms and she had rubbed it in really good, pt mimed vigorous rubbing motion. Noted silicone containing protective hypoallergenic lotion on the shelf in her room. Reassessed pt's arms around an hour or so later. Arms were less red, some areas of dry roughened skin patches noted. It appears as though her skin may have been irritated from excessive washing, scrubbing, and rubbing. Reported to lost charge card clerk, PA had left for the day. Will continue to monitor and endorse to evening shift to do the same. S/I, H/I: Pt denies. A/VH: Pt admits to AH, denies VH. Did not observe pt talking or yelling to herself today. Sleep: Per noc shift report, pt slept 4 hours last night after taking both Ativan and Restoril. ADL's: Independent, needs encouragement to drink fluids. Group attendance: No groups today. Were Meds taken: Yes Any med S/E: Redness on lower arms only, though does not have the appearance of an allergic reaction and pt has no s/sx of an adverse reaction to meds. Mental Status Exam Appearance: Clean, dressed in clean [facility] scrubs, wearing a knit cap today. Eye contact: Good Behavior: Disorganized, restless, obsessively cleans her room and washes her hands/arms over and over again. Speech: Pressured, nonsensical at times. Mood: Improved, somewhat elevated. Affect: Bright, anxious Thought process: Paranoid, tangential, racing thoughts. Thought Content: Thinks she has eczema, doesn't like that she needs to take pills. Cognition: A/O X 3 Insight: Poor Judgment: Poor Interventions PRN's used: Ativan 1 mg @ 0756 Therapeutic interventions: 1:1 assessment, active listening, therapeutic conversation, ensured contract for safety, medication administration/education/monitoring, encouragement to drink fluids, reflection, positive reinforcement, behavior monitoring and intervention; reality orientation, redirection, Q 15 min safety checks. Restraints/seclusion/emergency medication: N/A Justification of Continued Inpatient Treatment: Continued therapeutic support and medication management needed to provide stabilization, prevent decompensation, and improve coping mechanisms decreasing risk to patient and re-admittance.
[2020-01-29 19:00] VITALS: BP 102/77
[2020-01-29] MEDS: quetiapine 100mg tablet PO SCH (20:46)
[2020-01-29] MEDS: acetaminophen 325mg tablet PO PRN (20:55)
[2020-01-29] MEDS: temazepam 15mg capsule PO PRN ×2 (22:15→23:23)
[2020-01-30] MEDS: LORazepam 1 MG tablet PO PRN ×2 (02:42→09:26)
[2020-01-30 04:15] LABS: CLARITY,URINE SLIGHTLY CLOUDY (Clear); COLOR,URINE YELLOW (Yellow); GLUCOSE, URINE NEGATIVE (Neg); KETONES,URINE NEGATIVE (Neg); LEUKOCYTE ESTERASE ,URINE NEGATIVE (Neg); NITRITES, URINE NEGATIVE (Neg); OCCULT BLOOD,URINE NEGATIVE (Neg); PROTEIN,URINE NEGATIVE (Neg); UROBILINOGEN,URINE 0.2 E.U/dL (0.2-1.0)
[2020-01-30 04:21] LABS: UA COLLECTION TYPE CLN CATCH MIDSTREAM
[2020-01-30 04:23] LABS: BACTERIA,URINE 1+ /HPF (Neg); RBC,URINE NONE SEEN /HPF (0-2); SQUAMOUS EPITHELIAL CELL,UR MODERATE /LPF (FEW); WBC,URINE 50-100 /HPF (0-4)
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
[2020-01-30] MEDS: diphenhydrAMINE 25mg capsule PO PRN (07:04)
[2020-01-30] MEDS: oseltamivir phos 75mg capsule PO SCH (07:05)
[2020-01-30] MEDS: ARIPIPRAZOLE 10 MG TABLET PO SCH (07:06)
[2020-01-30] MEDS: QUEtiapine 25mg tablet PO SCH ×3 (07:06→17:05)
[2020-01-30 07:16] VITALS: BP 122/75
[2020-01-30] MEDS: clonazePAM 1mg tablet PO SCH ×2 (12:54→20:38)
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
[2020-01-30 19:06] VITALS: BP 129/92
[2020-01-30] MEDS: quetiapine 100mg tablet PO SCH (20:38)
[2020-01-30] MEDS: lithium carbonate 150mg capsule PO SCH (20:38)
--- NOTE | 2020-01-31 02:59 | NUR ---
Nursing Progress Note: Legal hold: 5250 for GD Report received from JERRY Bajwa with use of SBAR. Why are they here: Patient admitted to [facility] on 01/21/20. She was brought to [facility] on 01/22/20 at 1350 and placed on a 5150 for GD. Patient is unable to provide food, clothing, or mcfp for herself due to exasperated mental health condition that includes delusional an disorganized thought process. Patients mother reports that patient has not been sleeping for the last 5 days and has not been medication compliant. Assessment What has happened this shift: Patient pacing in her bedroom and responding to internal stimuli at the beginning of shift. Shortly after patient approached this administrative underwriter asking how to help "the two ladies behind [her]" and requesting gloves to help. Refrigeration Service Inspector asked patient if she felt she was experiencing A/VH in which she denied and administrative underwriter explained the "two ladies" she's talking about were not visible to others and she stated, "right right, they are not real," smiled thanked administrative underwriter and went back to her bedroom to lay down. Later in the shift patient came and wrote a note sitting in the hallway; her writing was presented to staff and placed in her folder upon request. Patient continues to report sexuality and mosque comments about demons and visuals of people in her bedroom. Patient remains pleasant and cooperative with care; compliant with medications. [place] 900mg and Clonazepam 1mg started this shift with no ASE reported or observed. Patient's bilateral forearms remain red and dry but patient reports improvement with lotion use and is encouraged to continue use. No comments of discomfort during urination and no urgency of frequent urination reported or observed this shift. S/I, H/I: Patient denies A/VH: +A/VH but patient continues to deny Sleep: Refer to sleep assessment ADL's: Independent, needs encouragement to drink fluids. Group attendance: No groups this shift Were Meds taken: Yes Any med S/E: Redness on lower arms only, though does not have the appearance of an allergic reaction and pt has no s/sx of an adverse reaction to meds. Mental Status Exam Appearance: Clean, dressed in clean [facility] hospital scrubs, wearing a knit cap. Eye contact: Good Behavior: Disorganized, restless, pacing, obsessively cleans her room and washes her hands/arms Speech: Hyperverbal, pressured, nonsensical at times. Mood: Euphoric Affect: Labile Thought process: Tangential Thought Content: Hypersexual, adventism Cognition: A/O X 3 Insight: Poor Judgment: Poor Interventions PRN's used: None Therapeutic interventions: 1:1 assessment, active listening, therapeutic conversation, ensured contract for safety, medication administration/education/monitoring, encouragement to drink fluids, reflection, positive reinforcement, behavior monitoring and intervention; reality orientation, redirection, Q 15 min safety checks. Restraints/seclusion/emergency medication: N/A Justification of Continued Inpatient Treatment: Continued therapeutic support and medication management needed to provide stabilization, prevent decompensation, and improve coping mechanisms decreasing risk to patient and re-admittance.
[2020-01-31] MEDS: ARIPIPRAZOLE 10 MG TABLET PO SCH (07:43)
[2020-01-31] MEDS: oseltamivir phos 75mg capsule PO SCH (07:43)
[2020-01-31] MEDS: QUEtiapine 25mg tablet PO SCH ×3 (07:43→17:41)
[2020-01-31] MEDS: clonazePAM 1mg tablet PO SCH ×3 (07:43→20:31)
[2020-01-31 08:56] VITALS: BP 119/72
--- NOTE | 2020-01-31 13:13 | NUR ---
NURSING PROGRESS NOTE Legal hold: 5250 for GD Report received from JERRY Rodriguez with use of SBAR. Why are they here: Patient admitted to [facility] on 01/21/20. She was brought to [facility] on 01/22/20 at 1350 and placed on a 5150 for GD. Patient is unable to provide food, clothing, or halfway for herself due to exasperated mental health condition that includes delusional an disorganized thought process. Patients mother reports that patient has not been sleeping for the last 5 days and has not been medication compliant. Assessment What has happened this shift: Awake in room at change of shift, up and pacing around in room. Tangential and disorganized thinking. Cooperative and smiling, polite demeanor. Med compliant. RIS behind bed curtain in room, having full on conversation with someone she believed was in room, talking about malcolm virus, colors, and clothing. Has reddened bilateral forearms. Stated, "I am washing them, I guess I shouldn't wash them so much, but it's OK if I put on lotion, it feels better." No open areas on skin. Encouraged to give her arms a rest and no need to "wash", she agreed. TAC cream is ordered for possible eczema on forearms per SAMMY Kumar. S/I, H/I: Patient denies A/VH: +A/VH but patient continues to deny Sleep: Refer to sleep assessment ADL's: Independent Group attendance: No groups this shift Were Meds taken: Yes Any med S/E: Reddened bilat forearms, MERCHANDISE DISPLAYER aware Mental Status Exam Appearance: Clean and neat Eye contact: Good Behavior: Disorganized, restless, pacing, obsessively cleans her room and washes her hands/arms Speech: Hyperverbal, pressured, nonsensical at times. Mood: Euphoric Affect: Labile Thought process: Tangential Thought Content: unable to assess Cognition: Alert Insight: Poor Judgment: Poor Interventions PRN's used: None Therapeutic interventions: 1:1 assessment, active listening, therapeutic conversation, ensured contract for safety, medication administration/education/monitoring, encouragement to drink fluids, reflection, positive reinforcement, behavior monitoring and intervention; reality orientation, redirection, Q 15 min safety checks. Restraints/seclusion/emergency medication: N/A Justification of Continued Inpatient Treatment: Continued therapeutic support and medication management needed to provide stabilization, prevent decompensation, and improve coping mechanisms decreasing risk to patient and re-admittance.
[2020-01-31 19:34] VITALS: BP 116/81
[2020-01-31] MEDS: triamcinolone acet 0.1% cream 15gm TP SCH (20:31)
[2020-01-31] MEDS: quetiapine 100mg tablet PO SCH (20:31)
[2020-01-31] MEDS: lithium carbonate 150mg capsule PO SCH (20:32)
[2020-01-31] MEDS: nitrofurantoin macrocrystal 100mg capsule PO SCH (21:40)
[2020-01-31] MEDS: temazepam 15mg capsule PO PRN (22:28)
--- NOTE | 2020-02-01 04:17 | NUR ---
Nursing Progress Note: Legal hold: 5250 for GD Report received from JERRY Bajwa with use of SBAR. Why are they here: Patient admitted to [facility] on 01/21/20. She was brought to [facility] on 01/22/20 at 1350 and placed on a 5150 for GD. Patient is unable to provide food, clothing, or skilled nursing for herself due to exasperated mental health condition that includes delusional an disorganized thought process. Patients mother reports that patient has not been sleeping for the last 5 days and has not been medication compliant. Assessment What has happened this shift: Patient pacing from [place] to bedroom at the beginning of shift. Constantly rearranging bedroom furniture. Patient cooperative with care; compliant with medications. Patient approaching staff and not make statements that staff is understanding and when she done talking states, "I'm talking and code" and walks away. She provided paranoid delusions this shift that government and staff were out to harm her and stated several times throughout the shift, "ok ok just don't hurt me." Patient continuously reassured she's in a safe environment with staff that want to help. Patient showered this shift, however, placed the same clothing on and hair unbrushed. Patient stated, VH of seeing "a body," and had typewriter mechanic check her room and continued, "I don't know if I'm hallucinating." Sprinkler Worker assured patient that what she had described is a hallucination and patient repeated, "ya, hallucination," and walked back toward her bed. Patient provided Temazepam this shift with positive effect as she has remained in bed at this time. Patient began Triamcinolone cream for bilateral FA rashes and began Macrodantin for strep B in urine this shift; no ASE observed or reported at this time. S/I, H/I: Patient denies A/VH: +A/VH; unable to separate hallucinations from reality Sleep: Refer to sleep assessment ADL's: Independent, needs encouragement to drink fluids. Group attendance: No groups this shift Were Meds taken: Yes Any med S/E: Redness on lower arms only, though does not have the appearance of an allergic reaction and pt has no s/sx of an adverse reaction to meds. Mental Status Exam Appearance: Disheveled, showered but placed dirty clothing back on and hair unbrushed Eye contact: Good Behavior: Disorganized, restless, pacing, obsessive cleaning and rearranging Speech: Hyperverbal, pressured, nonsensical at times. Mood: Distressed Affect: Labile Thought process: Tangential, paranoid delusions Thought Content: Government and staff wanting to harm her Cognition: A/O X 3 Insight: Poor Judgment: Poor Interventions PRN's used: Temazepam Therapeutic interventions: 1:1 assessment, active listening, therapeutic conversation, ensured contract for safety, medication administration/education/monitoring, encouragement to drink fluids, reflection, positive reinforcement, behavior monitoring and intervention; reality orientation, redirection, Q 15 min safety checks. Restraints/seclusion/emergency medication: N/A Justification of Continued Inpatient Treatment: Continued therapeutic support and medication management needed to provide stabilization, prevent decompensation, and improve coping mechanisms decreasing risk to patient and re-admittance.
[2020-02-01 07:24] VITALS: BP 119/76
[2020-02-01] MEDS: nitrofurantoin macrocrystal 100mg capsule PO SCH ×2 (07:48→17:24)
[2020-02-01] MEDS: ARIPIPRAZOLE 10 MG TABLET PO SCH (07:48)
[2020-02-01] MEDS: triamcinolone acet 0.1% cream 15gm TP SCH ×2 (07:48→20:36)
[2020-02-01] MEDS: clonazePAM 1mg tablet PO SCH ×3 (07:48→20:13)
[2020-02-01] MEDS: QUEtiapine 25mg tablet PO SCH ×3 (07:48→17:23)
[2020-02-01] MEDS: oseltamivir phos 75mg capsule PO SCH (07:48)
[2020-02-01] MEDS: polyethylene glycol 3350 17gm powd pack PO SCH (09:15)
--- NOTE | 2020-02-01 10:20 | NUR ---
Reassessment: Pt PO ~75% avg past 5 days receiving prepackaged foods per request given paranoia. PO continues to fluctuate likely r/t ALOC AOx2 today though currently meeting needs. LB 01/28. Will continue to monitor. Rec: 1. continue regular diet- send almond milk with meals per patient request and trial sending pre-packaged sandwiches with lunch and dinner. 2. bowel care as needed 3. wt per rx Addendum: 02/01/20 at [address] Amended: Links added.
[2020-02-01] MEDS ORDERED: aripiprazole 400mg suspension ER syringe IM ONE (15:15)
[2020-02-01] MEDS: lactobacillus acidophilus cap PO SCH (17:23)
--- NOTE | 2020-02-01 17:36 | NUR ---
NURSING PROGRESS NOTE Legal hold: 5250 for GD Report received from JERRY Rodriguez with use of SBAR. Why are they here: Patient admitted to [facility] on 01/21/20. She was brought to [place] on 01/22/20 at 1350 and placed on a 5150 for GD. Patient is unable to provide food, clothing, or correction for herself due to exasperated mental health condition that includes delusional an disorganized thought process. Patients mother reports that patient has not been sleeping for the last 5 days and has not been medication compliant. Assessment What has happened this shift: Received pt awake in her room. Pt extremely psychotic upon initial interaction in am. Pt tangential, never getting to the point of anything. Pt did endorse auditory hallucinations, Im hearing voices and it sucks! Pt paranoid and thought the cream for her arms was acid and would burn. She wouldnt put in on until the nurse touched it. Pt also highly disorganized at times and hit the call russo while in the shower and when staff showed up, pt had a towel in the drain, was standing in the shower and trying to dry herself off and couldnt understand why she wasnt getting dry. Pt less paranoid and friendlier as the day went on. Pt agreed to Abilify Maintenna and she received that at 1730 in left gluteal. Pt tolerated well. S/I, H/I: Patient denies A/VH: +Aud. felton Sleep: Refer to sleep assessment ADL's: Independent Group attendance: No groups this shift Were Meds taken: Yes Any med S/E: Reddened bilat forearms, [employer] PICKER aware Mental Status Exam Appearance: Clean and neat Eye contact: Good Behavior: Disorganized, restless, pacing, obsessively cleans her room and washes her hands/arms Speech: Hyperverbal, pressured, nonsensical at times. Mood: Euphoric Affect: Labile Thought process: Tangential Thought Content: unable to assess Cognition: Alert Insight: Poor Judgment: Poor Interventions PRN's used: None Therapeutic interventions: 1:1 assessment, active listening, therapeutic conversation, ensured contract for safety, medication administration/education/monitoring, encouragement to drink fluids, reflection, positive reinforcement, behavior monitoring and intervention; reality orientation, redirection, Q 15 min safety checks. Restraints/seclusion/emergency medication: N/A Justification of Continued Inpatient Treatment: Continued therapeutic support and medication management needed to provide stabilization, prevent decompensation, and improve coping mechanisms decreasing risk to patient and re-admittance.
[2020-02-01 19:00] VITALS: BP 138/86
[2020-02-01] MEDS: quetiapine 100mg tablet PO SCH (20:12)
[2020-02-01] MEDS: lithium carbonate 150mg capsule PO SCH (20:13)
--- NOTE | 2020-02-01 21:01 | NUR ---
NURSING PROGRESS NOTE Legal hold: 5250 for GD Report received from JERRY Bajwa with use of SBAR. Why are they here: Patient admitted to [facility] on 01/21/20. She was brought to [facility] on 01/22/20 at 1350 and placed on a 5150 for GD. Patient is unable to provide food, clothing, or care home for herself due to exasperated mental health condition that includes delusional an disorganized thought process. Patients mother reports that patient has not been sleeping for the last 5 days and has not been medication compliant. Assessment What has happened this shift: Received pt awake in rec room watching tv with peers. Pt extremely psychotic upon initial interaction in am. Pt tangential, never getting to the point of anything. Pt did endorse auditory hallucinations, Im hearing voices and it sucks! Pt paranoid and thought the lithium would explode in her mouth but took it with a little delay to convince her self its ok. Pt less paranoid and friendlier as the shift went on. S/I, H/I: Patient denies A/VH: +Aud. felton Sleep: Refer to sleep assessment ADL's: Independent Group attendance: No groups this shift Were Meds taken: Yes Any med S/E: Reddened bilat forearms, VP & GENERAL COUNSEL aware Mental Status Exam Appearance: Clean and neat Eye contact: Good Behavior: Disorganized, restless, pacing, obsessively cleans her room and washes her hands/arms Speech: Hyperverbal, pressured, nonsensical at times. Mood: Euphoric Affect: Labile Thought process: Tangential Thought Content: unable to assess Cognition: Alert Insight: Poor Judgment: Poor Interventions PRN's used: None Therapeutic interventions: 1:1 assessment, active listening, therapeutic conversation, ensured contract for safety, medication administration/education/monitoring, encouragement to drink fluids, reflection, positive reinforcement, behavior monitoring and intervention; reality orientation, redirection, Q 15 min safety checks. Restraints/seclusion/emergency medication: N/A Justification of Continued Inpatient Treatment: Continued therapeutic support and medication management needed to provide stabilization, prevent decompensation, and improve coping mechanisms decreasing risk to patient and re-admittance.
[2020-02-02] MEDS ORDERED: LORazepam 2 mg/ml vial IM ONE (00:20)
[2020-02-02] MEDS ORDERED: quetiapine 100mg tablet PO ONE (00:20)
[2020-02-02] MEDS ORDERED: haloperidol lactate 5mg/ml inj IM ONE (00:20)
[2020-02-02] MEDS ORDERED: diphenhydrAMINE 50 mg/ml inj IM ONE (00:20)
[2020-02-02] MEDS: temazepam 15mg capsule PO PRN (00:26)
[2020-02-02] MEDS ORDERED: diphenhydrAMINE 25mg capsule PO ONE (03:05)
[2020-02-02] MEDS ORDERED: LORazepam 1 MG tablet PO ONE (03:05)
[2020-02-02] MEDS ORDERED: haloperidol 5mg tablet PO ONE (03:05)
[2020-02-02 07:14] VITALS: BP 114/74
[2020-02-02] MEDS: nitrofurantoin macrocrystal 100mg capsule PO SCH ×2 (07:49→17:47)
[2020-02-02] MEDS: oseltamivir phos 75mg capsule PO SCH (07:49)
[2020-02-02] MEDS: QUEtiapine 25mg tablet PO SCH ×3 (07:50→17:47)
[2020-02-02] MEDS: triamcinolone acet 0.1% cream 15gm TP SCH ×2 (07:50→20:34)
[2020-02-02] MEDS: ARIPIPRAZOLE 15 MG TABLET PO SCH (07:50)
[2020-02-02] MEDS: clonazePAM 1mg tablet PO SCH ×3 (07:50→20:34)
[2020-02-02] MEDS: lactobacillus acidophilus cap PO SCH ×3 (07:50→17:47)
[2020-02-02] MEDS: polyethylene glycol 3350 17gm powd pack PO SCH (07:50)
--- NOTE | 2020-02-02 17:49 | NUR ---
NURSING PROGRESS NOTE Legal hold: 5250 for GD Report received from Pan CLANCY with use of SBAR. Why are they here: Patient admitted to [facility] on 01/21/20. She was brought to [facility] on 01/22/20 at 1350 and placed on a 5150 for GD. Patient is unable to provide food, clothing, or alf for herself due to exasperated mental health condition that includes delusional an disorganized thought process. Patients mother reports that patient has not been sleeping for the last 5 days and has not been medication compliant. Assessment What has happened this shift: Pt observed responding to internal stimuli in her room this morning before breakfast. She was talking in different voices. Carter pt state, "please God no." Then heard pt respond to herself in a deeper voice, "You're already exterminated!" Pt had both beds in her room stripped of linens. Pt was cooperative with medications and was apologetic to this RN for her behavior last night. Pt apologized for being loud and for"show boating," pt stated that she was stupid. Pt stated "I haven't slept," then corrected herself and said she slept a little bit. Pt said that she was scared last night, pt stated "what the enemy is trying to do to me." Reassured pt that she is safe here. Pt replied, "I know." Pt also stated, "I just want you to know whatever you do, I trust you." "I want you to know that I'm ready to do whatever must be done." Pt is disorganized in speech and thought but does manage to express herself fairly clearly at times. Pt stated that she wanted to go back to [place]. Pt expressed guilt and sadness that her parents aren't living together she believes because of her. Made statements about how a child like her with mental illness can cause separation. Pt mentioned a cousin who is in the [facility] who is chained up in a mental institution. Pt stated that the female cousin was chained up because of (made up and down motions with her finger in front of her crotch area.) Clarified that pt thought the cousin was chained up for having sex. Pt made statements to the effect that she the pt is single and should not have sexual relations until she is . Walked past room another time and heard pt asking, "am I delusional? I'm talking to someone right there, Goddamn it!" Pt is disorganized,she is hypomanic and can't sit still for very long. She is constantly cleaning her room. She asked today if she could mop her room. Pt has pressured speech and is hyperverbal. She talks to herself nearly nonstop in her room. Pt claps her hands together loudly at times. Pt is tangential and has flight of ideas. Pt is labile, she was in fairly good spirits today, she was cheerful at times and would socialize and offer encouraging words to select peers. Other times she would appear fearful or become tearful and state that she felt like crying. Pt responded well to gentle redirection and was able to focus and process better today. Pt frequently expressed or attempted to express thoughts and feelings and seemed to believe that this RN was actually listening to her today as opposed to previous days when she would frequently state/accuse that this nurse was not listening. Pt called this RN "[place]." She stated it is a term her family uses. Pt will often times say, "I love you" when this RN walks out of her room but then seem to realize that it is an inappropriate statement and quickly apologize for it, "I'm sorry, I'm sorry!" then turn away. Redness/dryness bilateral lower arms is more rash-like in appearance today with some diffuse blotchiness. Kenalog cream applied per orders. S/I, H/I: Pt denies A/VH: +AH/ + VH Sleep: Pt slept a total of 2.25 hours per noc shift report. ADL's: Independent Group attendance: No groups this shift Were Meds taken: Yes Any med S/E: None noted or reported Mental Status Exam Appearance: Clean, neat in T-shirt, hospital scrub pants and a yellow knit slouchy beanie. Eye contact: Good Behavior: Disorganized, hypomanic, cooperative with staff today, socializes with select peers. Speech: Hyperverbal, pressured, nonsensical at times. Mood: Labile, elevated mood fluctuates with fearfulness and tearfulness Affect: Labile Thought process: Tangential, flight of ideas, paranoid, delusional, religiously preoccupied Thought Content: Feels guilty for her behavior here and at home, for her thoughts, and for what she perceives she has done to her family. Cognition: A/O X 2 Insight: Fair, has some insight despite her level of illness and disorganization Judgment: Poor Interventions PRN's used: None Therapeutic interventions: 1:1 assessment, active listening, therapeutic conversation, ensured contract for safety, medication administration/education/monitoring, reassurance provided that pt is safe, behavior monitoring and intervention; reality orientation, redirection, positive reinforcement, verbal de-escalation, Q 15 min safety checks. Restraints/seclusion/emergency medication: N/A Justification of Continued Inpatient Treatment: Continued therapeutic support and medication management and monitoring needed to provide stabilization, prevent decompensation, and improve coping mechanisms decreasing risk to patient and re-admittance.
[2020-02-02 20:26] VITALS: BP 136/75
[2020-02-02] MEDS: lithium carbonate 150mg capsule PO SCH (20:33)
[2020-02-02] MEDS: quetiapine 100mg tablet PO SCH (20:34)
--- NOTE | 2020-02-02 22:00 | NUR ---
NURSING PROGRESS NOTE Legal hold: 5250 for GD Report received from JERRY Bajwa with use of SBAR. Why are they here: Patient admitted to [facility] on 01/21/20. She was brought to [facility] on 01/22/20 at 1350 and placed on a 5150 for GD. Patient is unable to provide food, clothing, or correction for herself due to exasperated mental health condition that includes delusional an disorganized thought process. Patients mother reports that patient has not been sleeping for the last 5 days and has not been medication compliant. Assessment What has happened this shift: Pt engaging with peers during change of shift, occasionally going to the rec room to watch some TV. During 1:1 pt remains tangential and disorganized jumping from topic to topic and talking at length until redirected and the initial question is repeated. Pt denying all sx/x this evening, stating she is feeling "fantastic" because everything is "so great here". Pt did mention she knows she had to have "extra medications to help me sleep last night because I got a little oogly/googly". Pt states she hasn't had a BM in 4 days but does not wish to take MOM until morning. This RN received verbal order at 2018 from YARI Gonzalez for a PO Benadryl 50mg, Haldol 5mg (with may repeat 5mg dose in 45 minutes), and Ativan 2mg should patient need it later this evening. S/I, H/I: Denies Both A/VH: Denies Both, does not appear to be responding to IS Sleep: See sleep assessment ADL's: Independent Group attendance: N/A Were Meds taken: Yes Any med S/E: Reddened bilat forearms, None reported Mental Status Exam Appearance: Clean in green scrubs and yellow beanie with hair down Eye contact: Good Behavior: Engaging with peers, watching TV Speech: Hyperverbal, Clear Mood: Euphoric Affect: Blunted with frequent brightening Thought process: Tangential, Disorganized Thought Content: Pt discussed parents and the stress of going home, how she wants to lower her medications eventually Cognition: A/Ox3 (off for circumstance) Insight: Poor Judgment: Poor Interventions PRN's used: None Therapeutic interventions: 1:1 assessment, active listening, therapeutic conversation, ensured contract for safety, medication administration/education/monitoring, encouragement to drink fluids, reflection, positive reinforcement, behavior monitoring and intervention; reality orientation, redirection, Q 15 min safety checks. Restraints/seclusion/emergency medication: N/A Justification of Continued Inpatient Treatment: Continued therapeutic support and medication management needed to provide stabilization, prevent decompensation, and improve coping mechanisms decreasing risk to patient and re-admittance. Addendum: 02/03/20 at 0047 by Carmen Whiting RN Pt awoke in room and is hyperverbal, making loud, nonsensical statements, like "the CV needs to be checked from [place]" and "Everything in the mirror is an illusion". Pt changed positions multiple times and would laugh randomly. Eye contact was intermittent. Pt unable to be calmed or redirected to back to bed; PO Benadryl 50mg, Ativan 2mg, and Haldol 5mg given.
[2020-02-03] MEDS ORDERED: haloperidol 5mg tablet PO ONE (00:15)
[2020-02-03] MEDS ORDERED: LORazepam 1 MG tablet PO ONE (00:15)
[2020-02-03] MEDS ORDERED: diphenhydrAMINE 25mg capsule PO ONE (00:15)
[2020-02-03 07:50] VITALS: BP 107/63
[2020-02-03] MEDS: QUEtiapine 25mg tablet PO SCH ×3 (08:35→17:53)
[2020-02-03] MEDS: clonazePAM 1mg tablet PO SCH ×3 (08:35→21:07)
[2020-02-03] MEDS: ARIPIPRAZOLE 15 MG TABLET PO SCH (08:35)
[2020-02-03] MEDS: lactobacillus acidophilus cap PO SCH ×2 (08:35→12:53)
[2020-02-03] MEDS: nitrofurantoin macrocrystal 100mg capsule PO SCH ×2 (08:35→17:54)
[2020-02-03] MEDS: oseltamivir phos 75mg capsule PO SCH (08:35)
[2020-02-03] MEDS: triamcinolone acet 0.1% cream 15gm TP SCH ×2 (08:36→20:00)
[2020-02-03] MEDS: polyethylene glycol 3350 17gm powd pack PO SCH (08:38)
[2020-02-03] MEDS: magnesium hydroxide 30ml (MOM) UD suspension PO PRN (12:53)
[2020-02-03] MEDS ORDERED: lactobacillus rhamnosus 10,000 MMU CELLS/CAPSULE PO SCH (13:46)
--- NOTE | 2020-02-03 14:57 | NUR ---
NURSING PROGRESS NOTE Legal hold: 5250 for GD Report received from Oksana EDWARDS with use of SBAR. Why are they here: Patient admitted to [facility] on 01/21/20. She was brought to [facility] on 01/22/20 at 1350 and placed on a 5150 for GD. Patient is unable to provide food, clothing, or nursing home for herself due to exasperated mental health condition that includes delusional an disorganized thought process. Patients mother reports that patient has not been sleeping for the last 5 days and has not been medication compliant. Assessment What has happened this shift: Pt was up in the rec room before breakfast today. She greeted this RN and stated, "I have codeine on the brain." Pt raised her hands to her temples and closed her eyes. "But I still can't sleep." Pt indicated that she felt this way from the meds she was given last night. 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 She requested more soap,paper towels, and toilet paper for her room. Skin on pt's hands his very dry and cracked from over washing. Pt was provided with a bottle of shampoo/body wash and encouraged to use this instead of the soap from the dispenser in her room as it is less harsh. Observed pt applying the shampoo/body wash to her hands and cracked areas on her fingers and not washing it off. Educated that this was soap and needs to be rinsed off or it will make her skin worse. Pt stated she was applying lotion. Encouraged pt to apply actual lotion, Kenalog cream applied to rash on arms, rash appears to be resolving though skin is still dry and blotchy. Pt continues to be disorganized though did not appear to be responding to internal stimuli today. She continues to be hypomanic and hyperverbal thought was pleasant,friendly,and cooperative today with staff. Pt watched movies and socialized with peers. Pt was cooperative with medications. Pt took some MOM for constipation before lunch. S/I, H/I: Pt denies A/VH: Pt not observed responding to internal stimuli today. Sleep: Pt had broken sleep last night despite being medicated with PO B52 (Haldol 5, Benadryl 50, Ativan 2.) ADL's: Independent Group attendance: No groups this shift Were Meds taken: Yes Any med S/E: Pt c/o of having "codeine brain this morning." Mental Status Exam Appearance: Clean, neat in T-shirt, hospital scrub pants and a yellow knit slouchy beanie. Eye contact: Good Behavior: Disorganized, hypomanic, cooperative with staff today, socializes with select peers. Speech: Hyperverbal, pressured, nonsensical at times. Mood: Elevated Affect: Bright Thought process: Disorganized, tangential Thought Content: Knows she needs sleep, know the meds aren't working but wants to cooperate with treatment. Cognition: A/O X 3 Insight: Fair, has some insight despite her level of illness and disorganization Judgment: Poor Interventions PRN's used: None Therapeutic interventions: 1:1 assessment, active listening, therapeutic conversation, medication administration/education/monitoring, behavior monitoring and intervention; reality orientation, redirection, positive reinforcement, Q 15 min safety checks. Restraints/seclusion/emergency medication: N/A Justification of Continued Inpatient Treatment: Continued therapeutic support and medication management and monitoring needed to provide stabilization, prevent decompensation, and improve coping mechanisms decreasing risk to patient and re-admittance.
[2020-02-03] MEDS: lactobacillus rhamnosus 10,000 MMU CELLS/CAPSULE PO SCH (17:54)
[2020-02-03 20:00] VITALS: BP 126/78
[2020-02-03] MEDS: temazepam 15mg capsule PO PRN (21:08)
[2020-02-03] MEDS: quetiapine 100mg tablet PO SCH (21:08)
[2020-02-03] MEDS ORDERED: lithium carbonate 150mg capsule PO SCH (21:22)
--- NOTE | 2020-02-03 23:36 | NUR ---
NURSING PROGRESS NOTE Legal hold: 5250 for GD Report received from JERRY Bajwa with use of SBAR. Why are they here: Patient admitted to [facility] on 01/21/20. She was brought to [facility] on 01/22/20 at 1350 and placed on a 5150 for GD. Patient is unable to provide food, clothing, or jail for herself due to exasperated mental health condition that includes delusional an disorganized thought process. Patients mother reports that patient has not been sleeping for the last 5 days and has not been medication compliant. Assessment What has happened this shift: Pt walking around unit engaging with peers at change of shift. Pt is observed to be laughing and carrying on conversation with staff and peers alike. Pts behavior is appropriate and she is bright. She retired to her room at 2014, and her demeanor had changed. Her responses were short and she began making many nonsensical statements like, Im a Christianity, its okay everybody knows now and I need to be in (inaudible) right now, I understand, okay? and Yes, Yes, I know, thank you come again. Pt compliant with medications Just give me whatever you guys need. Whatever. You can leave now. Pts bilateral arm rash is improving; she refused her ointment this evening stating the other lotion is better and she'd rather continue to use that only. Per MD Ruano: Li level STAT (result of 0.5), Lowered Li dose to 600mg HS, increase Seroquel to 600mg HS, and give Restoril 30mg HS. RN to call MD if pt unable to sleep. S/I, H/I: Denies Both A/VH: Denies Both, does not appear to be responding to IS Sleep: See sleep assessment ADL's: Independent Group attendance: N/A Were Meds taken: Yes, Refused arm ointment Any med S/E: Reddened bilat forearms, None reported Mental Status Exam Appearance: Clean in green scrub pants and personal shirt with hair down Eye contact: Good Behavior: Engaging with peers, watching TV, Isolating to self, organizing her room Speech: Hyperverbal, Clear Mood: Euphoric, Irritable Affect: Blunted with frequent brightening Thought process: Tangential, Disorganized Thought Content: Delusional statements Cognition: A/Ox3 (off for circumstance) Insight: Poor Judgment: Poor Interventions PRN's used: Restoril 30mg for sleep Therapeutic interventions: 1:1 assessment, active listening, therapeutic conversation, ensured contract for safety, medication administration/education/monitoring, encouragement to drink fluids, reflection, positive reinforcement, behavior monitoring and intervention; reality orientation, redirection, Q 15 min safety checks. Restraints/seclusion/emergency medication: N/A Justification of Continued Inpatient Treatment: Continued therapeutic support and medication management needed to provide stabilization, prevent decompensation, and improve coping mechanisms decreasing risk to patient and re-admittance. Addendum: 02/04/20 at 0111 by Carmen Whiting RN Pt awoke manic, hyperverbal, and delusional. language and literature division chair called MD Ruano, order of Restoril 30mg given. Addendum: 02/04/20 at 0341 by Carmen Whiting RN Pt awoke @ 0300 having stripped the bed, making nonsensical statements. Pt bed remade. Pt not minimal to no eye contact, stating things like "I know, it's in my arms. Just make the bed". She changes positions in the room frequently, unable to stay in one place for more than 3 seconds. Pt redirected back to bed-- pt got up again, pacing around room, mumbling to herself. Redirected back to her bed. "Okay, okay, yes, yes, i will go to bed". This RN conferred with charge; plan is to redirect as needed and inform day shift of pt not sleeping and needing differ medication regimen at night. Pt appears exhausted but remains manic, and has had a total of 60mg Restoril this evening to little to no effect. Addendum: 02/04/20 at 0549 by Carmen Whiting RN Pt did not go back to sleep. Washed her hands multiple times and reorganized room multiple times. RN redirected pt to sleep, read, or color. Pt would rotate through these tasks and continues to make delusional statements related to God.
[2020-02-04] MEDS ORDERED: temazepam 15mg capsule PO ONE (00:35)
[2020-02-04] MEDS: ARIPIPRAZOLE 15 MG TABLET PO SCH (07:49)
[2020-02-04] MEDS: QUEtiapine 25mg tablet PO SCH ×3 (07:49→17:08)
[2020-02-04] MEDS: triamcinolone acet 0.1% cream 15gm TP SCH ×2 (07:49→20:39)
[2020-02-04] MEDS: clonazePAM 1mg tablet PO SCH ×3 (07:49→20:39)
[2020-02-04] MEDS: nitrofurantoin macrocrystal 100mg capsule PO SCH ×2 (07:49→17:08)
[2020-02-04] MEDS: lactobacillus rhamnosus 10,000 MMU CELLS/CAPSULE PO SCH ×3 (07:49→17:07)
[2020-02-04 07:55] VITALS: BP 96/58
[2020-02-04] MEDS: acetaminophen 325mg tablet PO PRN ×2 (12:02→19:02)
[2020-02-04] MEDS ORDERED: QUEtiapine 25mg tablet PO ONE (12:15)
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
[2020-02-04 19:53] VITALS: BP 120/71
[2020-02-04] MEDS: miconazole nitrate 28.35 gm derm cream TP SCH (20:22)
[2020-02-04] MEDS: quetiapine 100mg tablet PO SCH (20:37)
[2020-02-04] MEDS: lithium carbonate 150mg capsule PO SCH (20:38)
[2020-02-04] MEDS: temazepam 15mg capsule PO PRN (20:38)
[2020-02-04] MEDS: levoFLOXACIN 500mg tablet PO SCH (20:39)
[2020-02-04] MEDS: phenazopyridine 100mg tablet PO SCH (20:39)
[2020-02-04] MEDS ORDERED: benzocaine/menthol oral lozeng 1 EACH BOX MM PRN (21:00)
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
[2020-02-05] MEDS: lithium carbonate 150mg capsule PO SCH ×3 (07:37→21:06)
[2020-02-05] MEDS: quetiapine 100mg tablet PO SCH ×3 (07:37→21:40)
[2020-02-05] MEDS: phenazopyridine 100mg tablet PO SCH ×3 (07:37→17:48)
[2020-02-05] MEDS: triamcinolone acet 0.1% cream 15gm TP SCH ×2 (07:39→20:00)
[2020-02-05] MEDS: miconazole nitrate 28.35 gm derm cream TP SCH ×2 (07:40→20:00)
[2020-02-05] MEDS: lactobacillus rhamnosus 10,000 MMU CELLS/CAPSULE PO SCH ×3 (07:40→17:48)
[2020-02-05 07:41] VITALS: BP 117/66
[2020-02-05] MEDS: clonazePAM 1mg tablet PO SCH ×3 (07:41→21:06)
--- NOTE | 2020-02-05 14:35 | NUR ---
Reassessment: Pt PO fluctuates overall roughly 75% avg meals meeting needs receiving prepackaged foods and almond milk TID. RN reports LBM 02/03. No nutrition concerns at this time. Will continue to monitor. Rec: 1. continue regular diet- send almond milk with meals per patient request and trial sending pre-packaged sandwiches with lunch and dinner. 2. bowel care as needed 3. wt per rx Addendum: 02/05/20 at [address] Amended: Links added.
--- NOTE | 2020-02-05 14:39 | NUR ---
1:1 w/Steffen Gonzalez. She was quite delusional, paranoid, and circumstantial. She was labile throughout the conversation. She was religiously preoccupied and spoke at length about witchcraft and the Holy Spirit and her experiences at [facility]. At times it was rather difficult to understand what she was talking about. She is still getting very little sleep. [facility] is the plan upon discharge. Once she has improved some she will interview for [facility]. CHACHO Su
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
[2020-02-05 19:00] VITALS: BP 116/82
[2020-02-05] MEDS: temazepam 15mg capsule PO PRN (21:06)
[2020-02-05] MEDS: levoFLOXACIN 500mg tablet PO SCH (21:06)
[2020-02-06] MEDS ORDERED: diphenhydrAMINE 25mg capsule PO ONE (03:25)
[2020-02-06] MEDS ORDERED: LORazepam 1 MG tablet PO ONE (03:25)
[2020-02-06] MEDS ORDERED: haloperidol 5mg tablet PO ONE (03:25)
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
[2020-02-06 07:29] VITALS: BP 114/79
[2020-02-06] MEDS: phenazopyridine 100mg tablet PO SCH ×3 (07:31→17:32)
[2020-02-06] MEDS: clonazePAM 1mg tablet PO SCH ×3 (07:32→20:44)
[2020-02-06] MEDS: lithium carbonate 150mg capsule PO SCH ×3 (07:32→20:44)
[2020-02-06] MEDS: quetiapine 100mg tablet PO SCH ×2 (07:32→12:49)
[2020-02-06] MEDS: lactobacillus rhamnosus 10,000 MMU CELLS/CAPSULE PO SCH ×3 (07:32→17:32)
[2020-02-06] MEDS: triamcinolone acet 0.1% cream 15gm TP SCH ×2 (07:40→20:46)
[2020-02-06] MEDS: miconazole nitrate 28.35 gm derm cream TP SCH ×2 (07:40→20:46)
[2020-02-06] MEDS ORDERED: LORazepam 1 MG tablet PO PRN (10:55)
--- NOTE | 2020-02-06 15:12 | NUR ---
NURSING PROGRESS NOTE Legal hold: 5250 for GD Report received from Oksana EDWARDS with use of SBAR. Why are they here: Patient admitted to [facility] on 01/21/20. She was brought to [facility] on 01/22/20 at 1350 and placed on a 5150 for GD. Patient is unable to provide food, clothing, or long-term for herself due to exasperated mental health condition that includes delusional an disorganized thought process. Patients mother reports that patient has not been sleeping for the last 5 days and has not been medication compliant. Assessment What has happened this shift: Up early hyperverbal and active. Became very afraid and paranoid when a "Code Blue" was called over the loudspeaker, was trying to get out the window and barricade the room. Tangential and disorganized thoughts and speech to the point of not being able to interpret a common theme that patient is trying to say. Medication compliant and took prn Ativan which seemed to help anxiety quite a bit. Redirectable and kind to other patients, trying to help others in her own way. S/I, H/I: denies A/VH: denies Sleep: None ADL's: Independent Group attendance: No groups Were Meds taken: Yes Any med S/E: Pt is on ABX for group B strep and E-coli in her urine. Probable vaginal yeast infection. Pt is taking Culturelle and now has miconazole cream ordered. Mental Status Exam Appearance: hospital scrubs Eye contact: Good Behavior: Disorganized, redirectable Speech: Hyperverbal, pressured, disorganized and tangential. Mood: Labile Affect: Labile Thought process: Paranoid, disorganized, tangential Thought Content: unable to assess due to disorganization Cognition: Alert Insight: poor Judgment: Poor Interventions PRN's used: Ativan Therapeutic interventions: 1:1 assessment, active listening, therapeutic conversation, medication administration/education/monitoring, behavior monitoring and intervention; reality orientation, redirection, positive reinforcement, reassurance pt is safe, Q 15 min safety checks. Restraints/seclusion/emergency medication: N/A Justification of Continued Inpatient Treatment: Pt is not stable, she is labile, she continues to be psychotic and manic with paranoid delusions. Continued therapeutic support and medication management and monitoring needed to provide stabilization, prevent decompensation, and improve coping mechanisms decreasing risk to patient and re-admittance.
[2020-02-06 19:15] VITALS: BP 113/53
[2020-02-06] MEDS: temazepam 15mg capsule PO PRN (20:43)
[2020-02-06] MEDS: levoFLOXACIN 500mg tablet PO SCH (20:43)
[2020-02-06] MEDS ORDERED: quetiapine 100mg tablet PO SCH (21:00)
--- NOTE | 2020-02-07 02:31 | NUR ---
NURSING PROGRESS NOTE Legal hold: 5250 for GD Report received from SHELLIE Law with use of SBAR. Why are they here: Patient admitted to [facility] on 01/21/20. She was brought to [facility] on 01/22/20 at 1350 and placed on a 5150 for GD. Patient is unable to provide food, clothing, or care home for herself due to exasperated mental health condition that includes delusional an disorganized thought process. Patients mother reports that patient has not been sleeping for the last 5 days and has not been medication compliant. Assessment What has happened this shift: Patient observed socializing with peers and watching TV and playing board games. Pleasant and cooperative with care; compliant with medication. Patient remains on her period and clean scrubs, pads and mesh underwear provided. Patient continues Miconazole for labia and patient pleasant and cooperative; performed hand hygiene, provided and explained use of gaby wipes before medication. Before patient went to bed she began slurring her words and swaying and encouraged to lay down; she was slightly resistive but with encouragement laid down and fell asleep for a few hours. Patient woke around 0200 and shut her door holding the handle so the PCT was unable to get in. Exhibit Specialist opened patient's door and she appeared anxious and stating, "a women is in my room." Exhibit Specialist explained she's experiencing hallucinations and patient resistive lay back down. At this time patient talking with staff and staff unable to follow her stories as she jumps from several ideas never circling back to her point. She continuously apologizes and explains, "I know I need to go back to bed I will go back," and comes back to staff stating, "just a minute," and continues to talk. Patient is observed responding to internal stimuli between conversations with staff. Continues ABX for Group B Strep and E-coli in urine. S/I, H/I: Pt denies A/VH: +A/VH Sleep: Refer to sleep assessment; PRN Temazepam ADL's: Independent Group attendance: No groups this shift Were Meds taken: Yes Any med S/E: None reported, none observed. Mental Status Exam Appearance: Disheveled, hospital scrubs and a yellow knit beanie. Eye contact: Good Behavior: Disorganized, hypomanic, socializes with peers. Speech: Clear, hyperverbal Mood: Labile Affect: Congruent to mood Thought process: Paranoid, disorganized, tangential Thought Content: Mandaeism and sexual preoccupation Cognition: A/O X 3 Insight: Fair Judgment: Poor Interventions PRN's used: Temazepam 30mg Therapeutic interventions: 1:1 assessment, active listening, therapeutic conversation, medication administration/education/monitoring, behavior monitoring and intervention; reality orientation, redirection, positive reinforcement, reassurance pt is safe, Q 15 min safety checks. Restraints/seclusion/emergency medication: N/A Justification of Continued Inpatient Treatment: Pt is not stable, she is labile, she continues to be psychotic and manic with paranoid delusions. Continued therapeutic support and medication management and monitoring needed to provide stabilization, prevent decompensation, and improve coping mechanisms decreasing risk to patient and re-admittance.
[2020-02-07] MEDS: temazepam 15mg capsule PO PRN ×2 (03:37→20:19)
[2020-02-07] MEDS: quetiapine 100mg tablet PO SCH ×3 (06:49→20:20)
[2020-02-07] MEDS: clonazePAM 1mg tablet PO SCH ×3 (06:49→20:19)
[2020-02-07 07:07] VITALS: BP 120/73
[2020-02-07] MEDS: lithium carbonate 150mg capsule PO SCH ×3 (07:30→20:19)
[2020-02-07] MEDS: lactobacillus rhamnosus 10,000 MMU CELLS/CAPSULE PO SCH ×3 (08:28→18:01)
[2020-02-07] MEDS: miconazole nitrate 28.35 gm derm cream TP SCH ×2 (08:28→20:22)
[2020-02-07] MEDS: triamcinolone acet 0.1% cream 15gm TP SCH ×2 (08:29→20:22)
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
[2020-02-07] MEDS ORDERED: LORazepam 1 MG tablet PO STA (14:30)
--- NOTE | 2020-02-07 17:33 | NUR ---
NURSING PROGRESS NOTE: [facility] Legal hold: 5250 for GD Report received from Oksana EDWARDS with use of SBAR. Why are they here: Patient admitted to [facility] on 01/21/20. She was brought to [facility] on 01/22/20 at 1350 and placed on a 5150 for GD. Patient is unable to provide food, clothing, or longterm for herself due to exasperated mental health condition that includes delusional an disorganized thought process. Patients mother reports that patient has not been sleeping for the last 5 days and has not been medication compliant. Assessment What has happened this shift: Patient awake at shift change. Pacing hallways, appears anxious, unable to complete a sentence. Medications given early with good benefit. Reported that patient is not sleeping well, remains tangential with loose associations. At noon med pass, patient stated "I know that you know Jaspreet, and you are broadcasting his sexual behavior on the unit, you bitch, I know what you are doing. At approximately 2:00 patient came out of her room in an agitated state yelling and pounding on her chest, stating that she wanted to start hitting the araujo. Order obtained for Ativan 2 mg, and patient was able to calm down and take a 3 hour nap. Depakote is being increased to 500 mg b.i.d., Seroquel 600 mg h.s. S/I, H/I: denies A/VH: denies Sleep: None ADL's: Independent Group attendance: No groups Were Meds taken: Yes Any med S/E: Pt is on ABX for group B strep and E-coli in her urine. Probable vaginal yeast infection. Pt is taking Culturelle and now has miconazole cream ordered. Mental Status Exam Appearance: Clean and neat in unit attire. Eye contact: Good Behavior: Disorganized, redirectable Speech: Hyperverbal, pressured Mood: Labile Affect: Appropriate to mood. Thought process: Paranoid, disorganized, tangential, loose associations Thought Content: Pt. is unable to express herself in meaningful way. Cognition: Alert Insight: Impaired. Judgment: Impaired. Interventions PRN's used: Therapeutic interventions: 1:1 assessment, active listening, therapeutic conversation, medication administration/education/monitoring, behavior monitoring and intervention; reality orientation, redirection, positive reinforcement, reassurance pt is safe, Q 15 min safety checks. Restraints/seclusion/emergency medication: N/A Justification of Continued Inpatient Treatment: Pt is not stable, she is labile, she continues to be psychotic and manic with paranoid delusions. Continued therapeutic support and medication management and monitoring needed to provide stabilization, prevent decompensation, and improve coping mechanisms decreasing risk to patient and re-admittance.
[2020-02-07 19:26] VITALS: BP 122/80
[2020-02-07] MEDS: levoFLOXACIN 500mg tablet PO SCH (20:19)
[2020-02-07] MEDS: divalproex sodium 500mg tablet.DR PO SCH (20:20)
--- NOTE | 2020-02-08 01:40 | NUR ---
NURSING PROGRESS NOTE Legal hold: 5250 for GD Report received from SHELLIE Law with use of SBAR. Why are they here: Patient admitted to [facility] on 01/21/20. She was brought to [facility] on 01/22/20 at 1350 and placed on a 5150 for GD. Patient is unable to provide food, clothing, or custodial for herself due to exasperated mental health condition that includes delusional an disorganized thought process. Patients mother reports that patient has not been sleeping for the last 5 days and has not been medication compliant. Assessment What has happened this shift: Patient observed watching TV and socializing with peers at the beginning of shift. Pleasant and cooperative with all care; compliant with all medication. Patient started 500mg Depakote HS this shift with no ASE observed or reported. PRN Temazepam 30mg PO provided with HS medication. Patient performed hand hygiene in front of functional tester typewriters and able to explain how to use gaby wipes before performing self gaby-care and application of Miconazole to labia. Patient continues ABX for Group B Strep and E-coli in urine. She remains on her period and provided disposable underwear, pads and clean scrubs this shift. Photocopier Technician is able to follow along with patient's stories more often this shift but patient often talks without a main focus. Patient held several linear discussions this shift; "I know I need sleep and I'm going to lay down after I'm done taking my medications." "Sleep is good for my mind." She talked to functional tester typewriters about five peers on the unit she considers her friends and described physical features and personalities of each of them. Patient denies SI, HI and continues to explain +A/VH. S/I, H/I: Pt denies A/VH: +A/VH Sleep: Refer to sleep assessment; PRN Temazepam ADL's: Independent Group attendance: No groups this shift Were Meds taken: Yes Any med S/E: None reported, none observed. Mental Status Exam Appearance: Hair down, clean unit scrubs and non skid socks Eye contact: Good Behavior: Socializing, active on the unit Speech: Clear, hyperverbal Mood: Euthymic Affect: Animated Thought process: Paranoid, disorganized, tangential Thought Content: Peers that are friends, sleep Cognition: A/O X 3 Insight: Fair Judgment: Poor Interventions PRN's used: Temazepam 30mg Therapeutic interventions: 1:1 assessment, active listening, therapeutic conversation, medication administration/education/monitoring, behavior monitoring and intervention; reality orientation, redirection, positive reinforcement, reassurance pt is safe, Q 15 min safety checks. Restraints/seclusion/emergency medication: N/A Justification of Continued Inpatient Treatment: Pt is not stable, she is labile, she continues to be psychotic and manic with paranoid delusions. Continued therapeutic support and medication management and monitoring needed to provide stabilization, prevent decompensation, and improve coping mechanisms decreasing risk to patient and re-admittance.
[2020-02-08] MEDS: temazepam 15mg capsule PO PRN ×2 (02:44→20:20)
[2020-02-08 07:32] VITALS: BP 107/71
[2020-02-08] MEDS: QUEtiapine 25mg tablet PO SCH ×2 (08:19→12:39)
[2020-02-08] MEDS: quetiapine 100mg tablet PO SCH ×3 (08:19→20:20)
[2020-02-08] MEDS: lithium carbonate 150mg capsule PO SCH ×3 (08:20→20:21)
[2020-02-08] MEDS: lactobacillus rhamnosus 10,000 MMU CELLS/CAPSULE PO SCH ×3 (08:20→17:29)
[2020-02-08] MEDS: clonazePAM 1mg tablet PO SCH ×3 (08:20→20:20)
[2020-02-08] MEDS: divalproex sodium 500mg tablet.DR PO SCH ×2 (08:20→20:20)
[2020-02-08] MEDS: triamcinolone acet 0.1% cream 15gm TP SCH ×2 (08:20→20:23)
[2020-02-08] MEDS: miconazole nitrate 28.35 gm derm cream TP SCH ×2 (08:21→20:23)
--- NOTE | 2020-02-08 15:39 | NUR ---
NURSING PROGRESS NOTE: Legal hold: 5250 for GD Report received from Oksana EDWARDS with use of SBAR. Why are they here: Patient admitted to [facility] on 01/21/20. She was brought to [facility] on 01/22/20 at 1350 and placed on a 5150 for GD. Patient is unable to provide food, clothing, or jail for herself due to exasperated mental health condition that includes delusional an disorganized thought process. Patients mother reports that patient has not been sleeping for the last 5 days and has not been medication compliant. Assessment What has happened this shift: Received patient awake and animated at shift change. She is walking down the hallways and attempting to speak to multiple staff about how happy she is today. Patient was able to sleep six hours last night, and is not as labile as yesterday. Patient is able to express some thoughts, read out loud some poetry. No agitation noted. S/I, H/I: denies A/VH: denies Sleep: None ADL's: Independent Group attendance: No groups Were Meds taken: Yes Any med S/E: Pt is on ABX for group B strep and E-coli in her urine. Probable vaginal yeast infection. Pt is taking Culturelle and now has miconazole cream ordered. Mental Status Exam Appearance: Freshly showered in green unit attire. Eye contact: Good Behavior: Disorganized, cooperative. Speech: Hyperverbal, pressured Mood: Euphoric, happy. Affect: Bright. Thought process: Paranoid, disorganized, tangential Thought Content: Meeting social needs on unit. Cognition: Alert Insight: Impaired. Judgment: Impaired. Interventions PRN's used: Therapeutic interventions: 1:1 assessment, active listening, therapeutic conversation, medication administration/education/monitoring, behavior monitoring and intervention; reality orientation, redirection, positive reinforcement, reassurance pt is safe, Q 15 min safety checks. Restraints/seclusion/emergency medication: N/A Justification of Continued Inpatient Treatment: Pt is not stable, she is labile, she continues to be psychotic and manic with paranoid delusions. Continued therapeutic support and medication management and monitoring needed to provide stabilization, prevent decompensation, and improve coping mechanisms decreasing risk to patient and re-admittance.
[2020-02-08 19:23] VITALS: BP 118/79
[2020-02-08] MEDS: levoFLOXACIN 500mg tablet PO SCH (20:20)
--- NOTE | 2020-02-08 23:22 | NUR ---
NURSING PROGRESS NOTE Legal hold: 5270 for GD Report received from SHELLIE Law with use of SBAR. Why are they here: Patient admitted to [facility] on 01/21/20. She was brought to [facility] on 01/22/20 at 1350 and placed on a 5150 for GD. Patient is unable to provide food, clothing, or fci for herself due to exasperated mental health condition that includes delusional an disorganized thought process. Patients mother reports that patient has not been sleeping for the last 5 days and has not been medication compliant. Assessment What has happened this shift: Patient socializing with peers and watching TV in the group room at the beginning of shift. Patient amplified, laughing and smiling. Chatting excessively with peers and staff. Pleasant and cooperative with all care; compliant with all medication. PRN Temazepam provided with HS medication. She continues to perform hand hygiene and explain proper use of gaby wipes prior to applying Miconazole to vaginal area. Patient remains on ABX for Group B Strep and E-coli in urine with no ASE reported or observed. Patient denies SI, HI, A/VH and does not appear to be responding to internal stimuli this shift. Patient asleep with out s/s of distress at this time; will continue to monitor. S/I, H/I: Denies A/VH: Denies, does not appear to be responding to internal stimuli Sleep: Refer to sleep assessment; PRN Temazepam ADL's: Independent Group attendance: No groups this shift Were Meds taken: Yes Any med S/E: None reported, none observed. Mental Status Exam Appearance: Hair down, clean unit scrubs and non skid socks Eye contact: Good Behavior: Socializing, active on the unit, hypomanic Speech: Clear, hyperverbal Mood: Euthymic Affect: Animated Thought process: Paranoid, disorganized, tangential Thought Content: Friends, sleep, meeting needs Cognition: A/O X 3 Insight: Fair Judgment: Poor Interventions PRN's used: Temazepam 30mg Therapeutic interventions: 1:1 assessment, active listening, therapeutic conversation, medication administration/education/monitoring, behavior monitoring and intervention; reality orientation, redirection, positive reinforcement, reassurance pt is safe, Q 15 min safety checks. Restraints/seclusion/emergency medication: N/A Justification of Continued Inpatient Treatment: Pt is not stable, she is labile, she continues to be psychotic and manic with paranoid delusions. Continued therapeutic support and medication management and monitoring needed to provide stabilization, prevent decompensation, and improve coping mechanisms decreasing risk to patient and re-admittance.
[2020-02-09] MEDS: temazepam 15mg capsule PO PRN ×2 (02:24→20:53)
[2020-02-09 07:14] VITALS: BP 133/77
[2020-02-09] MEDS: lactobacillus rhamnosus 10,000 MMU CELLS/CAPSULE PO SCH ×3 (07:58→17:33)
[2020-02-09] MEDS: clonazePAM 1mg tablet PO SCH ×3 (07:58→20:39)
[2020-02-09] MEDS: lithium carbonate 150mg capsule PO SCH ×3 (07:58→20:39)
[2020-02-09] MEDS: divalproex sodium 500mg tablet.DR PO SCH (07:58)
[2020-02-09] MEDS: triamcinolone acet 0.1% cream 15gm TP SCH ×2 (08:00→20:40)
[2020-02-09] MEDS: miconazole nitrate 28.35 gm derm cream TP SCH ×2 (08:00→20:40)
[2020-02-09] MEDS: quetiapine 100mg tablet PO SCH ×3 (08:06→20:39)
[2020-02-09] MEDS: QUEtiapine 25mg tablet PO SCH ×2 (08:06→13:25)
[2020-02-09] MEDS ORDERED: clonazePAM 1mg tablet PO ONE (14:15)
--- NOTE | 2020-02-09 16:42 | NUR ---
NURSING PROGRESS NOTE: Legal hold: 5250 for GD Report received from Oksana EDWARDS with use of SBAR. Why are they here: Patient admitted to [facility] on 01/21/20. She was brought to [facility] on 01/22/20 at 1350 and placed on a 5150 for GD. Patient is unable to provide food, clothing, or snf for herself due to exasperated mental health condition that includes delusional an disorganized thought process. Patients mother reports that patient has not been sleeping for the last 5 days and has not been medication compliant. Assessment What has happened this shift: Received patient awake and animated at shift change. Pt has spent majority of the day up and visible on the unit, interacting with multiple people in a hypomanic, hyperverbal state. During interaction, pt is extremely tangential and delusional and mostly disorganized in speech a least; thus, making it difficult to accurately assess her thoughts. Pt seemed to focus on relational connections between a current male patient and one that has already discharged. This appears delusional in nature as she also weaves Yazan Elliott into the story. Toward the middle of the day, pt became more anxious r/t her 5270 hearing and she began yelling in the hallway. Staff was able to verbally deescalate her once excessive stimuli was removed and she took an extra klonopin. After her hearing, she was calmer and no more evidence of agiation. S/I, H/I: denies A/VH: denies Sleep: None ADL's: Independent Group attendance: No groups Were Meds taken: Yes Any med S/E: Pt is on ABX for group B strep and E-coli in her urine. Probable vaginal yeast infection. Pt is taking Culturelle and now has miconazole cream ordered. Mental Status Exam Appearance: Freshly showered in green unit attire. Eye contact: Good Behavior: Disorganized, cooperative. Speech: Hyperverbal, pressured Mood: Euphoric, happy. Affect: Bright. Thought process: Paranoid, disorganized, tangential Thought Content: Meeting social needs on unit. Cognition: Alert Insight: Impaired. Judgment: Impaired. Interventions PRN's used: klonopin Therapeutic interventions: 1:1 assessment, active listening, therapeutic conversation, medication administration/education/monitoring, behavior monitoring and intervention; reality orientation, redirection, positive reinforcement, reassurance pt is safe, Q 15 min safety checks. Restraints/seclusion/emergency medication: N/A Justification of Continued Inpatient Treatment: Pt is not stable, she is labile, she continues to be psychotic and manic with paranoid delusions. Continued therapeutic support and medication management and monitoring needed to provide stabilization, prevent decompensation, and improve coping mechanisms decreasing risk to patient and re-admittance.
[2020-02-09 19:26] VITALS: BP 127/79
[2020-02-09] MEDS: divalproex sod 250mg ER (24-hour) tablet PO SCH (20:39)
[2020-02-09] MEDS: levoFLOXACIN 500mg tablet PO SCH (20:40)
--- NOTE | 2020-02-10 03:09 | NUR ---
NURSING PROGRESS NOTE Legal hold: 5270 for GD Report received from SHELLIE Law with use of SBAR. Why are they here: Patient admitted to [facility] on 01/21/20. She was brought to [facility] on 01/22/20 at 1350 and placed on a 5150 for GD. Patient is unable to provide food, clothing, or assisted for herself due to exasperated mental health condition that includes delusional an disorganized thought process. Patients mother reports that patient has not been sleeping for the last 5 days and has not been medication compliant. Assessment What has happened this shift: Patient on the unit socializing with staff and peers at the beginning of shift. She remains hypomanic, laughing inappropriately at times and hyperverbal sometimes not allowing the other person she is conversing with to finish talking. She is pleasant and cooperative with all care this shift; compliant with all medication. Patient reports vaginal irritation/discomfort has been resolved and wishes for Miconazole to be d/c'd. Patient reports BM today but explained discomfort; fluid encouraged and account underwriter talked to her about possible bowel regimens, such as Colace and she is welcoming of the idea. Patient started on increased dose of Depakote this shift and no ASE observed or reported. PRN Temazepam provided with HS meds. Patient denies SI, HI, A/VH this shift and does not appear to be responding to internal stimuli. She continues to make delusional statements that can be hard to follow at times. Patient has had no agitated outbursts this shift and laid down when she began feeling tire for the night. Patient briefly read her book before falling asleep and has remained in bed asleep at this time. S/I, H/I: Denies A/VH: Denies, does not appear to be responding to internal stimuli Sleep: Refer to sleep assessment; PRN Temazepam ADL's: Independent Group attendance: No groups this shift Were Meds taken: Yes Any med S/E: None reported, none observed. Mental Status Exam Appearance: Hair down, personal attire appropriate for the unit and non skid socks Eye contact: Intense Behavior: Socializing, active on the unit, hypomanic, cooperative Speech: Clear, hyperverbal Mood: Euthymic Affect: Animated Thought process: Disorganized, tangential Thought Content: Book she is reading, meeting needs Cognition: A/O X 3 Insight: Fair Judgment: Poor Interventions PRN's used: Temazepam 30mg Therapeutic interventions: 1:1 assessment, active listening, therapeutic conversation, medication administration/education/monitoring, behavior monitoring and intervention; reality orientation, redirection, positive reinforcement, reassurance pt is safe, Q 15 min safety checks. Restraints/seclusion/emergency medication: N/A Justification of Continued Inpatient Treatment: Pt is not stable, she is labile, she continues to be psychotic and manic with paranoid delusions. Continued therapeutic support and medication management and monitoring needed to provide stabilization, prevent decompensation, and improve coping mechanisms decreasing risk to patient and re-admittance.
[2020-02-10] MEDS: quetiapine 100mg tablet PO SCH ×3 (07:24→20:52)
[2020-02-10] MEDS: lithium carbonate 150mg capsule PO SCH ×3 (07:24→20:54)
[2020-02-10] MEDS: QUEtiapine 25mg tablet PO SCH ×2 (07:24→11:55)
[2020-02-10] MEDS: divalproex sodium 500mg tablet.DR PO SCH (07:24)
[2020-02-10] MEDS: clonazePAM 1mg tablet PO SCH ×3 (07:24→20:55)
[2020-02-10] MEDS: triamcinolone acet 0.1% cream 15gm TP SCH ×2 (07:25→20:56)
[2020-02-10] MEDS: magnesium hydroxide 30ml (MOM) UD suspension PO PRN (07:25)
[2020-02-10] MEDS: miconazole nitrate 28.35 gm derm cream TP SCH (07:25)
[2020-02-10] MEDS: lactobacillus rhamnosus 10,000 MMU CELLS/CAPSULE PO SCH ×3 (07:35→17:25)
[2020-02-10 08:00] VITALS: BP 102/61
[2020-02-10] MEDS: acetaminophen 325mg tablet PO PRN (12:02)
--- NOTE | 2020-02-10 15:25 | NUR ---
NURSING PROGRESS NOTE Legal hold: 5270 for GD Report received from Garett EWDARDS with use of SBAR. Why are they here: Patient admitted to [facility] on 01/21/20. She was brought to [facility] on 01/22/20 at 1350 and placed on a 5150 for GD. Patient is unable to provide food, clothing, or halfway for herself due to exasperated mental health condition that includes delusional an disorganized thought process. Patients mother reports that patient has not been sleeping for the last 5 days and has not been medication compliant. Assessment What has happened this shift: Pt continues to be paranoid, delusional, disorganized ,labile, and manic. Pt started out before breakfast in an elevated mood laughing loudly and frequently inappropriately, verbalizations tangential and/or nonsensical. Pt approached this RN to c/o constipation and then to whisper that she overdid it on the pills last night. Pt mimed sleeping, seemed to be indicating that she slept too much. Pt asked about a male nurse who was not here today, disappointed he was not her nurse today. She then indicated that she wished another male nurse on the unit today was her nurse. Pt fixated on the male nurse for a bit with flirtacious expressions and girlish giggling as well as repeating his name with a last name that was not his but a famous celebrity's, "Osmin Ortiz, Osmin Ortiz!" Pt was given MOM for constipation. Discussed ongoing c/o constipation with HIDES AND SKINS COLORER William who ordered Colace 100 mg BID. Pt is both verbally and physically impulsive. Pt has racing thoughts she has difficulty expressing with her disorganized and tangential verbalizations. She exhibits some psychomotor agitation. She continues to obsessively clean her room including stripping the beds. She asked this RN to wipe down her bedside table with a Sani-wipe. Pt asked for some clean clothes from her locker which this RN provided. Pt observed frantically rearranging the furniture in her room; moving chairs, night stands and tables around. Pt jokingly described herself as "Mr Miller" from the TV show. Pt reported to this RN that she is not on her period anymore, that she only had it for 3 to 4 days, she usually has it longer. Pt stated that there are cliques going on here on the unit like in high school, pt repeated this several times as though attempting to convey some secret message to this RN. Pt squealed extremely loudly, excited when a movie she had not seen came on though was unable to maintain focus or sit in one place long enough to watch the movie. Patient in her disorganized/tangential fashion expressed some guilt for her family fighting due to her. Pt apologized for her behavior, pt expressed appreciation to this RN. Pt was cooperative with medications. Pt c/o a headache before lunch and was given prn Tylenol 650 mg @ 1202. After taking her routine noontime meds, she stated she was going to lie down for a nap. She only stayed in bed for a few minutes then came out and reported to this nurse that she had some weird nightmares. Reminded pt she had only been in bed for a few minutes. She then stated that while she had her eyes closed she had some strange visions. She then rambled on about things she had experienced during past psychotic breaks like hearing the enemy inside her head. Pt has been intrusive today, approaching RNs in charting room multiple times to ramble on or rant incoherently and vehemently with a wide eyed intense stare. It appeared as though her eyes were bulging out of the sockets at times. Pt frequently utters loud profanities. Pt was redirected away from the charting room. A few minutes after the lunch trays were served pt came out of her room, approached this RN in the hallway and accusatorily stated that she threw up again. Pt had not mentioned throwing up previously at anytime during the shift. Pt presented as angry, hostile, paranoid, and agitated. She was posturing and attempting to get in this RN's face. Security was present on the unit and stepped between pt and this RN. Pt stated, "I know what's going on." She then accused this RN of poisoning her, of putting poison in her juice. Earlier with noon meds pt had requested cranberry juice. An unopened juice box was provided. Pt watched this RN unwrap the straw and spike the juice box open in front of her. Pt perseverated on delusion of being poisoned then stated that she had the Coronavirus while she was at [facility]. Pt perseverated on the Coronavirus for awhile then began speaking about her mother, then stated with some distress that her family was . This nurse removed face mask thinking this may convey openness and honesty, as well as decrease pt's paranoia, attempted reality orientation, reassurance, and verbal de-escalation. Pt angrily stated, "Oh now you take your mask off! I don't like you! I want to punch you right now!" Pt remained fixated on this RN convinced that I had poisoned her. This RN realized that pt was not receptive to any interventions by me at the time so I removed myself by walking through the nurses' station into the med room. Charge nurse and security continued to intervene in de-escalating the pt. This RN went to lunch and upon returning, pt was no longer fixated on me. At around 1615 pt approached the charting room to show this RN a piece of pink construction paper with a large red heart drawn in the middle of it with marker. Surrounding the heart were written words and sentences. The paper had the appearance of a Nye. Pt was giddily laughing, the laughter became hysterical with pt clutching the paper to her chest. Pt slumped/slid down the door jam to her knees. Pt asked this nurse who wrote the note, insisted she had not done it, seemed to believe it was left for her by a male. Observed Bible verses and sentences involving buddhism preoccupation written in very nice, neat artistic type handwriting. Pt showed the paper to another female patient then began following 2 young male peers down the hallway. manager books alerted to pt's delusional and hypersexual behaviors. S/I, H/I: Pt denies, pt stated she wanted to punch this nurse in the face, postured and looked as though she meant it. A/VH: Pt reported having "visions" while she was lying in bed with her eyes closed before lunch. Sleep: Per noc shift report pt has less broken sleep last night after receiving Depakote, it was reported that she slept 5.25 hours. Pt was unable to nap during the day though indicated that she wished to do so. ADL's: Independent Group attendance: No groups this shift Were Meds taken: Yes Any med S/E: Pt reported vomiting after took noon time meds, emesis was not observed. Mental Status Exam Appearance: Young woman with long dark brown wavy hair and large, protruding eyes dressed in PJs and T-shirt. Eye contact: Intense wide bulging eyed stare. Behavior: Manic, rushes around room frantically cleaning and rearranging furniture. Fixates/flirts with male staff members and male peers. Speech: Pressured, rambles, rants, tangential and nonsensical verbalizations, becomes very loud at times. Mood: Labile; elevated mood fluctuates with tearfulness/despondence and angry, hostile agitation. Affect: Manic Thought process: Disorganized, tangential, paranoid, delusional, hypersexuality Thought Content: Paranoid delusions that she is being poisoned, buddhism preoccupation, fixates on male staff and peers. Cognition: A/O X 2 Insight: Impaired Judgment: Impaired Interventions PRN's used: MOM, Tylenol 650 mg. Therapeutic interventions: 1:1 assessment, active listening, therapeutic conversation, medication administration/education/monitoring, behavior monitoring and intervention; reality orientation, redirection, show of support, verbal de-escalation, limit setting, positive reinforcement, reassurance pt is safe, Q 15 min safety checks. Restraints/seclusion/emergency medication: N/A Justification of Continued Inpatient Treatment: Pt is not stable, she is labile, she continues to be psychotic and manic with paranoid delusions. Continued therapeutic support and medication management and monitoring needed to provide stabilization, prevent decompensation, and improve coping mechanisms decreasing risk to patient and re-admittance.
[2020-02-10 20:11] VITALS: BP 124/89
[2020-02-10] MEDS: divalproex sod 250mg ER (24-hour) tablet PO SCH (20:51)
[2020-02-10] MEDS: levoFLOXACIN 500mg tablet PO SCH (20:52)
[2020-02-10] MEDS: docusate sod 100mg capsule PO SCH (20:56)
[2020-02-10] MEDS: risperiDONE 0.5mg tablet PO SCH (20:57)
--- NOTE | 2020-02-11 04:43 | NUR ---
MARILINING PROGRESS NOTE Legal hold: 5270 for GD Report received from JERRY Law with use of SBAR. Why are they here: Patient admitted to [facility] on 01/21/20. She was brought to [facility] on 01/22/20 at 1350 and placed on a 5150 for GD. Patient is unable to provide food, clothing, or senior care for herself due to exasperated mental health condition that includes delusional an disorganized thought process. Patients mother reports that patient has not been sleeping for the last 5 days and has not been medication compliant. Assessment What has happened this shift: Patient is awake and ambulating around the unit. Patient met with this science writer in her room for 1:1 interview. Patients bed is stripped. When this science writer asked patient if she didn't like making her bed? The patient dismissed this question and giggled. The patient then rambled about the multiple churches she attends. Patient then spoke in the past tense of her parents, stating "they are ." This patient is oriented to person, place, somewhat to situation. She presents as delusional most of the time. Patient flirts with this science writer then makes statements about how men look at her. The patient states she wants to play guitar for this science writer. Patient denies H/I or S/I. She presents with books yet does not read them. Patient needs redirection often. The patient is cooperative with this science writer. She is medication compliant. Patient only takes on med at a time leading to a very drawn out medication process. Patient remains delusional throughout the shift. During medication administration patient states "I might vomit." The patient is redirected and she finishes her medication without problem. S/I, H/I: Patient denies. A/VH: Denies. Sleep: Intermittent. ADL's: Independent Group attendance: No groups this shift Were Meds taken: Yes Any med S/E: None. Mental Status Exam Appearance: Marcos looking eyes, long brown hair, clean appearance. Sweat shirt and scrub pants. Eye contact: Direct. Behavior: Manic and flirtatious. Speech: Pressured, rambles, rants, tangential and nonsensical verbalizations. Mood: Sad at times then upbeat. Affect: Manic. Thought process: Books, buddhism, music, paranoia, delusional. Thought Content: Yazidi preoccupation, hypersexuality. Cognition: Person and place. Insight: Impaired Judgment: Impaired Interventions PRN's used: None. Therapeutic interventions: 1:1 assessment, active listening, therapeutic conversation, medication administration/education/monitoring, behavior monitoring and intervention; reality orientation, redirection, show of support, verbal de-escalation, limit setting, positive reinforcement, reassurance pt is safe, Q 15 min safety checks. Restraints/seclusion/emergency medication: N/A Justification of Continued Inpatient Treatment: Pt is not stable, she is labile, she continues to be psychotic and manic with paranoid delusions. Continued therapeutic support and medication management and monitoring needed to provide stabilization, prevent decompensation, and improve coping mechanisms decreasing risk to patient and re-admittance.
[2020-02-11] MEDS: divalproex sodium 500mg tablet.DR PO SCH (07:27)
[2020-02-11] MEDS: clonazePAM 1mg tablet PO SCH ×3 (07:27→20:05)
[2020-02-11] MEDS: lactobacillus rhamnosus 10,000 MMU CELLS/CAPSULE PO SCH ×3 (07:28→17:54)
[2020-02-11] MEDS: docusate sod 100mg capsule PO SCH ×2 (07:28→20:06)
[2020-02-11] MEDS: lithium carbonate 150mg capsule PO SCH ×3 (07:28→20:06)
[2020-02-11] MEDS: quetiapine 100mg tablet PO SCH ×3 (07:29→20:09)
[2020-02-11] MEDS: risperiDONE 0.5mg tablet PO SCH ×2 (07:29→20:07)
[2020-02-11] MEDS: QUEtiapine 25mg tablet PO SCH ×2 (07:29→11:39)
[2020-02-11 08:00] VITALS: BP 106/70
[2020-02-11] MEDS: triamcinolone acet 0.1% cream 15gm TP SCH ×2 (08:00→20:00)
--- NOTE | 2020-02-11 14:23 | NUR ---
1:1 with Steffen Gonzalez. She asked to meet in the 's office for privacy. She was labile throughout the conversation, crying at times, and laughing at others. Her speech was rapid and rather disjointed. It was difficult to follow her thought process. She referenced having sex with a male named "Abimael" darron. She talked about bringing churches together in the [facility]. She spoke of witchcraft. She exhibited a little insight and stated she knows she needs to stay here. She stated she thinks she is the "CV...covid". She complimented curriculum writer and stated she is trying to be "encouraging" to curriculum writer vs "being prophetic". She asked if she could sing and play the guitar. She exhibited paranoid delusions throughout the conversation and stated someone stole her songs. She reported she got a little more sleep last night and woke up at 6 am. CHACHO Su
--- NOTE | 2020-02-11 16:56 | NUR ---
NURSING PROGRESS NOTE: Legal hold: 5250 for GD Report received from RN with use of SBAR. Why are they here: Patient admitted to [facility] on 01/21/20. She was brought to [facility] on 01/22/20 at 1350 and placed on a 5150 for GD. Patient is unable to provide food, clothing, or group home for herself due to exasperated mental health condition that includes delusional an disorganized thought process. Patients mother reports that patient has not been sleeping for the last 5 days and has not been medication compliant. Assessment What has happened this shift: Received Pt in her room in no distress at beginning of shift. Pt cooperative with vitals and ate breakfast and all meals in her room. Pt took a long time to take AM meds, needing certain beverages and taking one pill at a time. She interrupted herself often to tell this RN what to do with other Pts. Pt is tangential, bizarre, provocative, and condescending in her speech and avoids depth of conversation after inviting staff to participate. Pt enjoys playing Adonit, but is not responsible with it, leaving it unattended. S/I, H/I: denies A/VH: denies Sleep: None ADL's: Independent Group attendance: No groups Were Meds taken: Yes Any med S/E: None observed or reported Mental Status Exam Appearance: Casual in own clothes. Eye contact: Good Behavior: Disorganized, cooperative. Speech: Hyperverbal, pressured Mood: Euphoric, happy. Affect: Bright. Thought process: Paranoid, disorganized, tangential Thought Content: Meeting physical and social needs. Cognition: Alert Insight: Impaired. Judgment: Impaired. Interventions PRN's used: None Therapeutic interventions: 1:1 assessment, active listening, therapeutic conversation, medication administration/education/monitoring, behavior monitoring and intervention; reality orientation, redirection, positive reinforcement, reassurance pt is safe, Q 15 min safety checks. Restraints/seclusion/emergency medication: N/A Justification of Continued Inpatient Treatment: Pt is not stable, she is labile, she continues to be psychotic and manic with paranoid delusions. Continued therapeutic support and medication management and monitoring needed to provide stabilization, prevent decompensation, and improve coping mechanisms decreasing risk to patient and re-admittance.
[2020-02-11 19:30] VITALS: BP 116/74
[2020-02-11] MEDS: divalproex sod 250mg ER (24-hour) tablet PO SCH (20:07)
[2020-02-11] MEDS: temazepam 15mg capsule PO PRN (22:51)
--- NOTE | 2020-02-12 01:46 | NUR ---
NURSING PROGRESS NOTE: Legal hold: 5270 Client on involuntary status for GD Report received from JERRY Osorio with use of SBAR. Why are they here: Patient admitted to [facility] on 01/21/20. She was brought to [facility] on 01/22/20 at 1350 and placed on a 5150 for GD. Patient is unable to provide food, clothing, or long term for herself due to exasperated mental health condition that includes delusional an disorganized thought process. Patients mother reports that patient has not been sleeping for the last 5 days and has not been medication compliant. Assessment What has happened this shift: Patient was sitting in group room watching or appeared to be watching T.V Pt. presents as cooperative, but is paranoid and tangential. Why am I being poisoned? Why are people bitches? Pt. wanders the [place] and interacts with other peers. Pt. appears to be acting appropriately. Pt. is medication compliant and takes pills one at a time. This story writer was later told that pt. had vomited, when asked, there was no visible signs of medication if undigested medication. Pt.s speech at times is mumbled and difficult to understand at times. Pt. states The enemy is doing something to my voice. Medications had been administered 30 mins. prior to episode. Pt. reports last BM was 4 days ago, but refuses any interventions. Bowel sounds x4, no pain w/ palpation. [place] level 0.5 on 02/02. S/I, H/I: Pt. denies, none observed. A/VH: Pt. denies, none observed. Sleep: Pt has difficult time falling asleep, Temazepam is administered, pt. vomits up medication, but falls asleep a short time later. See Sleep Assessment for total hours. 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 Were Meds taken: Takes medication without issue. Likes to take one pill at a time. Any med S/E: None observed or reported Mental Status Exam Appearance: Clean, neat, wearing own clothes. Eye contact: Good Behavior: Disorganized, cooperative, paranoid Speech: Hyperverbal, pressured, mumbled Mood: Happy, hypomanic. Affect: Bright. Thought process: Paranoid, disorganized, tangential Thought Content: Circumstantial Cognition: Alert Insight: Impaired. Judgment: Impaired. Interventions PRN's used: None Therapeutic interventions: 1:1 assessment, active listening, therapeutic conversation, medication administration/education/monitoring, behavior monitoring and intervention; reality orientation, redirection, positive reinforcement, reassurance patient is safe, Q 15 min safety checks. Restraints/seclusion/emergency medication: N/A Justification of Continued Inpatient Treatment: Patient is unable to formulate a plan to safely meet her basic needs of food, clothing, and long term due to the severity r/t mental illness. Continued therapeutic support and medication management and monitoring needed to provide stabilization, prevent decompensation, and improve coping mechanisms decreasing risk to patient and re-admittance. Addendum: 02/12/20 at 0343 by Maty Troncoso RN Temazepam 30 mg waste: Administered 15mg capsule to patient. Pt. vomited up capsule, capsule was retrieved from vomitus. Pt. refused 2nd 15mg capsule. Medication was appropriately wasted through [employer] with 2nd nurse witness, Asaf Nice.
[2020-02-12] MEDS: quetiapine 100mg tablet PO SCH ×3 (07:59→21:07)
[2020-02-12] MEDS: divalproex sodium 500mg tablet.DR PO SCH (07:59)
[2020-02-12] MEDS: risperiDONE 0.5mg tablet PO SCH ×2 (07:59→20:57)
[2020-02-12] MEDS: lactobacillus rhamnosus 10,000 MMU CELLS/CAPSULE PO SCH ×3 (07:59→17:33)
[2020-02-12] MEDS: clonazePAM 1mg tablet PO SCH ×3 (07:59→21:08)
[2020-02-12] MEDS: docusate sod 100mg capsule PO SCH ×2 (08:00→21:08)
[2020-02-12] MEDS: lithium carbonate 150mg capsule PO SCH ×3 (08:00→21:09)
[2020-02-12] MEDS: triamcinolone acet 0.1% cream 15gm TP SCH ×2 (08:02→21:10)
--- NOTE | 2020-02-12 12:38 | NUR ---
Reassessment: Pt PO 75-100% avg meals meeting needs. LBM 02/08. No nutrition concerns at this time. Will continue to monitor. Rec: 1. continue regular diet- send almond milk with meals per patient request and trial sending pre-packaged sandwiches with lunch and dinner. 2. bowel care as needed 3. wt per rx Addendum: 02/12/20 at [address] Amended: Links added.
--- NOTE | 2020-02-12 17:13 | NUR ---
NURSING PROGRESS NOTE: Legal hold: 5250 for GD Report received from JERRY Rutledge with use of SBAR. Why are they here: Patient admitted to [facility] on 01/21/20. She was brought to [facility] on 01/22/20 at 1350 and placed on a 5150 for GD. Patient is unable to provide food, clothing, or detention for herself due to exasperated mental health condition that includes delusional an disorganized thought process. Patients mother reports that patient has not been sleeping for the last 5 days and has not been medication compliant. Assessment What has happened this shift: Pt up and visible on the unit early this am. Pt initiated taking a shower. Pt remains hyperverbal and extremely tangential, rarely getting to the point, at least an organized conclusion to any topic making it very difficult to follow her or participate in a conversation. Pt then becomes frustrated and upset when she cant get a point across. At one point this morning, she called 911 and told tech she was trying to get discharged. Pt did appear paranoid at times, but then would pull it together. Pt would come back and apologize for her behavior later in the shift. Pt denies depression, suicidal thoughts and denies a/v hallucinations at this time. Pt does state she just wants to leave and says she will be returning home to her mother. Pt took all medications as prescribed. S/I, H/I: denies A/VH: denies Sleep: None ADL's: Independent Group attendance: No groups Were Meds taken: Yes Any med S/E: None observed or reported Mental Status Exam Appearance: Casual in own clothes. Eye contact: Good Behavior: Disorganized, cooperative. Speech: Hyperverbal, pressured Mood: Euphoric, happy. Affect: Bright. Thought process: Paranoid, disorganized, tangential Thought Content: Meeting physical and social needs. Cognition: Alert Insight: Impaired. Judgment: Impaired. Interventions PRN's used: None Therapeutic interventions: 1:1 assessment, active listening, therapeutic conversation, medication administration/education/monitoring, behavior monitoring and intervention; reality orientation, redirection, positive reinforcement, reassurance pt is safe, Q 15 min safety checks. Restraints/seclusion/emergency medication: N/A Justification of Continued Inpatient Treatment: Pt is not stable, she is labile, she continues to be psychotic and manic with paranoid delusions. Continued therapeutic support and medication management and monitoring needed to provide stabilization, prevent decompensation, and improve coping mechanisms decreasing risk to patient and re-admittance.
[2020-02-12 19:00] VITALS: BP 112/76
[2020-02-12] MEDS: divalproex sod 250mg ER (24-hour) tablet PO SCH (20:59)
--- NOTE | 2020-02-13 00:38 | NUR ---
NURSING PROGRESS NOTE: Legal hold: 5270 Client on involuntary status for GD Report received from JERRY Bajwa with use of SBAR. Why are they here: Patient admitted to [facility] on 01/21/20. She was brought to [facility] on 01/22/20 at 1350 and placed on a 5150 for GD. Patient is unable to provide food, clothing, or [place] [facility] [place] for herself due to exasperated mental health condition that includes delusional an disorganized thought process. Patients mother reports that patient has not been sleeping for the last 5 days and has not been medication compliant. Assessment What has happened this shift: Patient is visible on unit socializing with peers at shift change. Patient presents to this health technical writer and begins to ask What is your name again and begins talking about a girl with the same name and then laughs. Patient states You remind me of my mother. Patient laughs inappropriately at what she is saying. Patient is cooperative with care. Patient is observed palling around with another peer her age. Patient is less intrusive and tangential this shift. Patient is medication compliant and no c/o of N/V. Patient later asked to play the guitar and sat with another peer. Patient tends to become a little more agitated when HS medications begin to take effect, patient resists sleep. Therapeutic conversation and soft music was played, with effect. Patient fell asleep around 2230 and remains asleep as of this writing. S/I, H/I: Pt. denies, none observed. A/VH: Pt. denies, none observed. Sleep: Patient fell asleep around 2230. Pt. has difficulty staying asleep, listening to soft music is effective. See Sleep Assessment for total hours. 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 Were Meds taken: Takes medication without issue. Likes to take one pill at a time. Any med S/E: None observed or reported Mental Status Exam Appearance: Clean, neat, wearing own clothes. Eye contact: Good Behavior: Disorganized, cooperative, paranoid Speech: Hyperverbal, pressured, mumbled Mood: Happy, elated Affect: Bright. Thought process: Disorganized, tangential Thought Content: Circumstantial Cognition: Alert Insight: Impaired. Judgment: Impaired. Interventions PRN's used: None Therapeutic interventions: 1:1 assessment, active listening, therapeutic conversation, medication administration/education/monitoring, behavior monitoring and intervention; reality orientation, redirection, positive reinforcement, reassurance patient is safe, Q 15 min safety checks. Restraints/seclusion/emergency medication: N/A Justification of Continued Inpatient Treatment: Patient is unable to formulate a plan to safely meet her basic needs of food, clothing, and [place] [facility] [place] facility due to the severity r/t mental illness. Continued therapeutic support and medication management and monitoring needed to provide stabilization, prevent decompensation, and improve coping mechanisms decreasing risk to patient and re-admittance.
[2020-02-13 07:27] VITALS: BP 116/74
[2020-02-13] MEDS: lithium carbonate 150mg capsule PO SCH ×3 (07:58→23:00)
[2020-02-13] MEDS: divalproex sodium 500mg tablet.DR PO SCH (07:58)
[2020-02-13] MEDS: lactobacillus rhamnosus 10,000 MMU CELLS/CAPSULE PO SCH ×3 (07:58→17:30)
[2020-02-13] MEDS: docusate sod 100mg capsule PO SCH ×2 (07:58→20:00)
[2020-02-13] MEDS: quetiapine 100mg tablet PO SCH ×3 (07:58→21:00)
[2020-02-13] MEDS: clonazePAM 1mg tablet PO SCH ×2 (08:02→12:39)
[2020-02-13] MEDS: risperiDONE 0.5mg tablet PO SCH (08:02)
[2020-02-13] MEDS: triamcinolone acet 0.1% cream 15gm TP SCH ×2 (08:02→20:00)
--- NOTE | 2020-02-13 16:13 | NUR ---
NURSING PROGRESS NOTE: Legal hold: 5250 for GD Report received from JERRY Robertson with use of SBAR. Why are they here: Patient admitted to [facility] on 01/21/20. She was brought to [facility] on 01/22/20 at 1350 and placed on a 5150 for GD. Patient is unable to provide food, clothing, or senior care for herself due to exasperated mental health condition that includes delusional an disorganized thought process. Patients mother reports that patient has not been sleeping for the last 5 days and has not been medication compliant. Assessment What has happened this shift: Pt up and visible on the unit early this am. Pt remains hyperverbal and extremely tangential, rarely getting to the point, at least an organized conclusion to any topic making it very difficult to follow her or participate in a conversation. Pt did appear slightly paranoid at times. Pt stated to the health unit supervisor, Im reading your thoughts and I dont like what youre thinking. Pt denies depression, suicidal thoughts and denies a/v hallucinations at this time. Pt does endorse some PTSD anxiety r/t some things triggering her. She was unable to go into details and she was able to move on. Pt took all medications as prescribed. S/I, H/I: denies A/VH: denies Sleep: None ADL's: Independent Group attendance: No groups Were Meds taken: Yes Any med S/E: None observed or reported Mental Status Exam Appearance: Casual in own clothes. Eye contact: Good Behavior: Disorganized, cooperative. Speech: Hyperverbal, pressured Mood: Euphoric, happy. Affect: Bright. Thought process: Paranoid, disorganized, tangential Thought Content: Meeting physical and social needs. Cognition: Alert Insight: Impaired. Judgment: Impaired. Interventions PRN's used: None Therapeutic interventions: 1:1 assessment, active listening, therapeutic conversation, medication administration/education/monitoring, behavior monitoring and intervention; reality orientation, redirection, positive reinforcement, reassurance pt is safe, Q 15 min safety checks. Restraints/seclusion/emergency medication: N/A Justification of Continued Inpatient Treatment: Pt is not stable, she is labile, she continues to be psychotic and manic with paranoid delusions. Continued therapeutic support and medication management and monitoring needed to provide stabilization, prevent decompensation, and improve coping mechanisms decreasing risk to patient and re-admittance.
[2020-02-13] MEDS ORDERED: bisacodyl 10mg suppository rectal RC STA (17:10)
[2020-02-13] MEDS ORDERED: magnesium citrate 296ml oral solution PO ONE (17:15)
[2020-02-13 20:00] VITALS: BP 109/72
[2020-02-13] MEDS: risperiDONE 2mg tablet PO SCH (20:00)
[2020-02-13] MEDS: clonazePAM 0.5mg tablet PO SCH (21:00)
[2020-02-13] MEDS ORDERED: divalproex sodium 250mg tablet PO SCH (21:00)
[2020-02-13] MEDS: divalproex sod 250mg ER (24-hour) tablet PO SCH (21:00)
[2020-02-13] MEDS ORDERED: ondansetron 4mg rapidly disintigrating tab PO ONE ×2 (21:50→22:00)
--- NOTE | 2020-02-14 01:39 | NUR ---
NURSING PROGRESS NOTE: Legal hold: 5270 Client on involuntary status for GD Report received from JERRY Bajwa with use of SBAR. Why are they here: Patient admitted to [facility] on 01/21/20. She was brought to [facility] on 01/22/20 at 1350 and placed on a 5150 for GD. Patient is unable to provide food, clothing, or long-term for herself due to exasperated mental health condition that includes delusional an disorganized thought process. Patients mother reports that patient has not been sleeping for the last 5 days and has not been medication compliant. Assessment What has happened this shift: Patient is happy and animated at shift change. She walks around the unit engaging with staff and peers with enthusiasm. She remains disorganized in her speech, jumping around in topics or assuming staff knows what she is explaining. Pt begins to take her HS medications, which is 20 pills, she swallows the first 8, then 2 minutes later throws them up in her sink. Staff witnessed vomiting. Pt states she is not able to take any of her medications due to nausea. Pt ordered 4mg zofran RD tablet which she took. Waited 30 minutes until her nausea had subsided and offered her HS medications with krystal. She was able to take her Depakote and lithium, but could not stomach any other medications. Medications wasted. Pt still has not been able to have a BM. She was unwilling to try the Mag citrate due to her nausea, and wanted to "wait until tomorrow" for the suppository. S/I, H/I: Pt. denies, none observed. A/VH: Pt. denies, none observed. 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 Were Meds taken: took depakote and lithium, but vomited the rest of meds. Any med S/E: None observed or reported Mental Status Exam Appearance: Clean, neat, wearing own clothes. Eye contact: Good Behavior: Disorganized, cooperative Speech: Hyperverbal, pressured, mumbled Mood: Happy, hypomanic. Affect: Bright. Thought process: Paranoid, disorganized, tangential Thought Content: Circumstantial Cognition: Alert Insight: Impaired. Judgment: Impaired. Interventions PRN's used: zofran Therapeutic interventions: 1:1 assessment, active listening, therapeutic conversation, medication administration/education/monitoring, behavior monitoring and intervention; reality orientation, redirection, positive reinforcement, reassurance patient is safe, Q 15 min safety checks. Restraints/seclusion/emergency medication: N/A Justification of Continued Inpatient Treatment: Patient is unable to formulate a plan to safely meet her basic needs of food, clothing, and long-term due to the severity r/t mental illness. Continued therapeutic support and medication management and monitoring needed to provide stabilization, prevent decompensation, and improve coping mechanisms decreasing risk to patient and re-admittance.
[2020-02-14 07:06] VITALS: BP 105/62
[2020-02-14] MEDS: QUEtiapine 25mg tablet PO SCH ×2 (07:41→12:36)
[2020-02-14] MEDS: lithium carbonate 150mg capsule PO SCH ×3 (07:42→20:51)
[2020-02-14] MEDS: docusate sod 100mg capsule PO SCH ×2 (07:42→20:50)
[2020-02-14] MEDS: risperiDONE 2mg tablet PO SCH ×2 (07:42→20:49)
[2020-02-14] MEDS: clonazePAM 0.5mg tablet PO SCH ×3 (07:42→20:49)
[2020-02-14] MEDS: divalproex sodium 500mg tablet.DR PO SCH (07:42)
[2020-02-14] MEDS: lactobacillus rhamnosus 10,000 MMU CELLS/CAPSULE PO SCH ×3 (07:42→17:14)
[2020-02-14] MEDS: triamcinolone acet 0.1% cream 15gm TP SCH ×2 (08:00→20:52)
--- NOTE | 2020-02-14 11:28 | NUR ---
NURSING PROGRESS NOTE: Legal hold: 5270 for GD Report received from JERRY Robertson with use of SBAR. Why are they here: Patient admitted to [facility] on 01/21/20. She was brought to [facility] on 01/22/20 at 1350 and placed on a 5150 for GD. Patient is unable to provide food, clothing, or jail for herself due to exasperated mental health condition that includes delusional an disorganized thought process. Patients mother reports that patient has not been sleeping for the last 5 days and has not been medication compliant. Assessment What has happened this shift: Awake and up at change of shift. Out on unit engaging with anyone who is awake. Very tangential and very difficult to follow patient's train of thought. When taking morning medications stops and states, "I know you're wanting me to swallow right now but I'm praying and consulting Truman, yes Truman, give me the strength." Then gets emesis basin "Just in case I need it." Makes lists of all her meds and the reason she takes each one, and another list about songs, music and the radio stations. No outbursts. Redirectable and generally cooperative. S/I, H/I: denies A/VH: denies Sleep: None ADL's: Independent Group attendance: yes, patio Were Meds taken: Yes Any med S/E: None observed or reported Mental Status Exam Appearance: slightly disheveled Eye contact: Good Behavior: Disorganized, cooperative. Speech: Hyperverbal, pressured Mood: labile Affect: labile Thought process: disorganized, tangential Thought Content: making lists Cognition: Alert Insight: poor Judgment: fair Interventions PRN's used: None Therapeutic interventions: 1:1 assessment, active listening, therapeutic conversation, medication administration/education/monitoring, behavior monitoring and intervention; reality orientation, redirection, positive reinforcement, reassurance pt is safe, Q 15 min safety checks. Restraints/seclusion/emergency medication: N/A Justification of Continued Inpatient Treatment: Pt is not stable, she is labile, she continues to be psychotic and manic with paranoid delusions. Continued therapeutic support and medication management and monitoring needed to provide stabilization, prevent decompensation, and improve coping mechanisms decreasing risk to patient and re-admittance.
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
[2020-02-14 19:08] VITALS: BP 110/72
[2020-02-14] MEDS: temazepam 15mg capsule PO PRN (20:49)
[2020-02-14] MEDS: quetiapine 100mg tablet PO SCH (20:49)
[2020-02-14] MEDS: divalproex sod 250mg ER (24-hour) tablet PO SCH (20:49)
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
[2020-02-15 08:00] VITALS: BP 101/65
[2020-02-15] MEDS: docusate sod 100mg capsule PO SCH ×2 (08:11→20:10)
[2020-02-15] MEDS: divalproex sodium 500mg tablet.DR PO SCH (08:12)
[2020-02-15] MEDS: triamcinolone acet 0.1% cream 15gm TP SCH ×2 (08:12→20:35)
[2020-02-15] MEDS: lithium carbonate 150mg capsule PO SCH ×3 (08:12→20:09)
[2020-02-15] MEDS: risperiDONE 2mg tablet PO SCH ×2 (08:12→20:10)
[2020-02-15] MEDS: clonazePAM 0.5mg tablet PO SCH (08:12)
[2020-02-15] MEDS: magnesium hydroxide 30ml (MOM) UD suspension PO PRN (10:49)
[2020-02-15] MEDS: CLONAZEPAM 0.25 MG oral disentigrating tablet (ODT) PO SCH ×2 (12:29→20:10)
--- NOTE | 2020-02-15 15:46 | NUR ---
NURSING PROGRESS NOTE: Legal hold: 5270 for GD Report received from JERRY Robertson with use of SBAR. Why are they here: Patient admitted to [facility] on 01/21/20. She was brought to [facility] on 01/22/20 at 1350 and placed on a 5150 for GD. Patient is unable to provide food, clothing, or [facility] for herself due to exasperated mental health condition that includes delusional an disorganized thought process. Patients mother reports that patient has not been sleeping for the last 5 days and has not been medication compliant. Assessment What has happened this shift: Sleeping at change of shift. Up for breakfast with her papers and books. Tells nurse "I love you, you know the friendship kind of love." Tells nurse several times today she had a BM. Tangential and disorganized. Difficult to follow patient's train of thought. When taking morning medications stops and states, "Will you please just pray for me now, I need help to swallow the pills, ask Truman to help me." Pleasant and kind all day. Went out on patio with the group. S/I, H/I: denies A/VH: denies Sleep: None ADL's: Independent Group attendance: yes, patio Were Meds taken: Yes Any med S/E: None observed or reported Mental Status Exam Appearance: neat and clean Eye contact: Good Behavior: Disorganized, cooperative. Speech: Hyperverbal, soft Mood: labile Affect: labile Thought process: disorganized, tangential Thought Content: love for others Cognition: Alert Insight: poor Judgment: fair Interventions PRN's used: None Therapeutic interventions: 1:1 assessment, active listening, therapeutic conversation, medication administration/education/monitoring, behavior monitoring and intervention; reality orientation, redirection, positive reinforcement, reassurance pt is safe, Q 15 min safety checks. Restraints/seclusion/emergency medication: N/A Justification of Continued Inpatient Treatment: Pt is not stable, she is labile, she continues to be psychotic and manic with paranoid delusions. Continued therapeutic support and medication management and monitoring needed to provide stabilization, prevent decompensation, and improve coping mechanisms decreasing risk to patient and re-admittance.
[2020-02-15 19:10] VITALS: BP 132/68
[2020-02-15] MEDS: divalproex sod 250mg ER (24-hour) tablet PO SCH (20:09)
[2020-02-15] MEDS: quetiapine 100mg tablet PO SCH (20:09)
[2020-02-15] MEDS: temazepam 15mg capsule PO PRN (20:10)
[2020-02-15] MEDS: risperiDONE 0.5mg tablet PO SCH (20:10)
--- NOTE | 2020-02-16 02:19 | NUR ---
NURSING PROGRESS NOTE: Legal hold: 5270 for GD Report received from JERRY Bajwa with use of SBAR. Why are they here: Patient admitted to [facility] on 01/21/20. She was brought to [facility] on 01/22/20 at 1350 and placed on a 5150 for GD. Patient is unable to provide food, clothing, or correction for herself due to exasperated mental health condition that includes delusional an disorganized thought process. Patients mother reports that patient has not been sleeping for the last 5 days and has not been medication compliant. Assessment What has happened this shift: Patient observed on the unit socializing with peers at the beginning of shift. Patient briefly played [employer] in the rec room for peers and staff. Pleasant and cooperative with all care and no outbursts this shift. Patient is compliant with all medication, observed struggling with nausea/gagging during med administration. Patient encouraged to slow down and talk with lead technical writer. She ate her HS snack while talking with lead technical writer and taking her medications in between this appeared to have settled the patient and no emesis observed or reported this shift. Patient denies SI, HI, A/VH and does not appear to be responding to internal stimuli. She reported having "good conversations" with her mom "two days in a row." Patient also talked with lead technical writer about tuning the unit guitar and how she needed to watch Youtube tutorials. Patient recognizes when she is feeling tired and less resistive to go to be; patient did not need encouragement to lay down this shift. S/I, H/I: Denies A/VH: Denies; does not appear to be responding to internal stimuli this shift Sleep: Refer to sleep assessment ADL's: Independent Group attendance: No groups this shift Were Meds taken: Yes Any med S/E: Nausea and constipation Mental Status Exam Appearance: Green unit scrubs with non skid socks and hair neat and down. Eye contact: Good Behavior: Socializing, cooperative Speech: Hyperverbal, clear, audible Mood: Labile Affect: Congruent to mood Thought process: Disorganized Thought Content: Tuning unit guitar, talking with her mom Cognition: Alert Insight: poor Judgment: fair Interventions PRN's used: Temazepam 30mg Therapeutic interventions: 1:1 assessment, active listening, therapeutic conversation, medication administration/education/monitoring, behavior monitoring and intervention; reality orientation, redirection, positive reinforcement, reassurance pt is safe, Q 15 min safety checks. Restraints/seclusion/emergency medication: N/A Justification of Continued Inpatient Treatment: Pt is not stable, she is labile, she continues to be psychotic and manic with paranoid delusions. Continued therapeutic support and medication management and monitoring needed to provide stabilization, prevent decompensation, and improve coping mechanisms decreasing risk to patient and re-admittance.
[2020-02-16] MEDS: docusate sod 100mg capsule PO SCH ×2 (07:56→20:28)
[2020-02-16] MEDS: CLONAZEPAM 0.25 MG oral disentigrating tablet (ODT) PO SCH ×3 (07:57→20:27)
[2020-02-16] MEDS: lithium carbonate 150mg capsule PO SCH ×3 (07:57→20:26)
[2020-02-16] MEDS: risperiDONE 0.5mg tablet PO SCH (07:57)
[2020-02-16] MEDS: risperiDONE 2mg tablet PO SCH (07:57)
[2020-02-16 08:00] VITALS: BP 97/60
[2020-02-16] MEDS: triamcinolone acet 0.1% cream 15gm TP SCH ×2 (08:00→20:28)
[2020-02-16] MEDS: ondansetron 4mg rapidly disintigrating tab PO PRN ×2 (13:04→17:17)
--- NOTE | 2020-02-16 15:33 | NUR ---
NURSING PROGRESS NOTE: Legal hold: 5270 for GD Report received from JERRY Tomlin with use of SBAR. Why are they here: Patient admitted to [facility] on 01/21/20. She was brought to [facility] on 01/22/20 at 1350 and placed on a 5150 for GD. Patient is unable to provide food, clothing, or alf for herself due to exasperated mental health condition that includes delusional an disorganized thought process. Patients mother reports that patient has not been sleeping for the last 5 days and has not been medication compliant. Assessment What has happened this shift: Hard to arouse this morning, slept through breakfast, up later and took meds. At lunchtime was vomiting in sink, green bile and some food. Given Zofran and 40 minutes later was able to take noon meds and keep them down. Not eating much today. Offered crackers but declined. During afternoon feeling better, went outside on patio with the group. During afternoon comes to nurses and expresses her love and gratitude. Mumbles, disorganized thinking and tangential pressured speech. Pleasant and cooperative. Encouraged to eat. S/I, H/I: denies A/VH: denies Sleep: napped ADL's: Independent Group attendance: yes, patio Were Meds taken: Yes Any med S/E: Nausea and vomiting Mental Status Exam Appearance: neat and clean, showered Eye contact: Good Behavior: Disorganized, cooperative. Speech: Hyperverbal, soft Mood: labile Affect: labile Thought process: disorganized, tangential Thought Content: love for others Cognition: Alert Insight: poor Judgment: fair Interventions PRN's used: Zofran x1 Therapeutic interventions: 1:1 assessment, active listening, therapeutic conversation, medication administration/education/monitoring, behavior monitoring and intervention; reality orientation, redirection, positive reinforcement, reassurance pt is safe, Q 15 min safety checks. Restraints/seclusion/emergency medication: N/A Justification of Continued Inpatient Treatment: Pt is not stable, she is labile, she continues to be psychotic and manic with paranoid delusions. Continued therapeutic support and medication management and monitoring needed to provide stabilization, prevent decompensation, and improve coping mechanisms decreasing risk to patient and re-admittance.
[2020-02-16 20:00] VITALS: BP 102/53
[2020-02-16] MEDS: quetiapine 100mg tablet PO SCH (20:25)
[2020-02-16] MEDS: divalproex sod 250mg ER (24-hour) tablet PO SCH (20:25)
[2020-02-16] MEDS ORDERED: risperiDONE 2mg tablet PO ONE (21:00)
[2020-02-16] MEDS ORDERED: ondansetron 4mg rapidly disintigrating tab PO ONE (21:35)
--- NOTE | 2020-02-16 23:12 | NUR ---
NURSING PROGRESS NOTE: Legal hold: 5270 for GD Report received from JERRY Bajwa with use of SBAR. Why are they here: Patient admitted to [facility] on 01/21/20. She was brought to [facility] on 01/22/20 at 1350 and placed on a 5150 for GD. Patient is unable to provide food, clothing, or snf for herself due to exasperated mental health condition that includes delusional an disorganized thought process. Patients mother reports that patient has not been sleeping for the last 5 days and has not been medication compliant. Assessment What has happened this shift: Patient was up and in [place] talking to staff. Pt states she had a bad dream about her dad that woke her. She states she did not feel good earlier in the day but was ok at the moment. After med pass that was given with snacks. Pt came out of her room and reported vomiting. Pt helped to clean up her floor and bed. Pt Vt's taken and temp 99.2. The provider was called an notified of temp and requested order for Zofran. Pt was prompted to stay in her room this shift will continue to monitor. S/I, H/I: denies A/VH: denies Sleep: napped ADL's: Independent Group attendance: yes, patio Were Meds taken: Yes Any med S/E: Nausea and vomiting Mental Status Exam Appearance: neat and clean, showered Eye contact: Good Behavior: Disorganized, cooperative. Speech: Hyperverbal, soft Mood: labile Affect: labile Thought process: disorganized, tangential Thought Content: love for others Cognition: Alert Insight: poor Judgment: fair Interventions PRN's used: Zofran x1 Therapeutic interventions: 1:1 assessment, active listening, therapeutic conversation, medication administration/education/monitoring, behavior monitoring and intervention; reality orientation, redirection, positive reinforcement, reassurance pt is safe, Q 15 min safety checks. Restraints/seclusion/emergency medication: N/A Justification of Continued Inpatient Treatment: Pt is not stable, she is labile, she continues to be psychotic and manic with paranoid delusions. Continued therapeutic support and medication management and monitoring needed to provide stabilization, prevent decompensation, and improve coping mechanisms decreasing risk to patient and re-admittance.
[2020-02-17] MEDS: ondansetron 4mg rapidly disintigrating tab PO PRN (07:13)
[2020-02-17] MEDS: CLONAZEPAM 0.25 MG oral disentigrating tablet (ODT) PO SCH ×3 (07:13→20:26)
[2020-02-17 08:00] VITALS: BP 133/54
[2020-02-17 08:42] LABS: BASOPHILS % (AUTO) 0.2 % (0-1); EOSINOPHILS # (AUTO) 0.6 X10'3 (0-0.9); EOSINOPHILS % (AUTO) 5.9 % (0-6); HEMATOCRIT 41.9 % (35.0-45.0); HEMOGLOBIN 13.7 g/dl (12.0-16.0); LYMPHOCYTES # (AUTO) 1.2 X10'3 (1.1-4.8); LYMPHOCYTES % (AUTO) 13.3 % (21-51); MEAN CORPUSCULAR HEMOGLOBIN 30.1 PG (27.0-31.0); MEAN CORPUSCULAR HGB CONC 32.7 g/dL (33.0-36.5); MEAN CORPUSCULAR VOLUME 91.9 FL (78-98); MEAN PLATELET VOLUME 9.5 FL (7.4-10.4); MONOCYTES # (AUTO) 0.8 X10'3 (0-0.9); MONOCYTES % (AUTO) 8.3 % (2-12); NEUTROPHILS # (AUTO) 6.8 X10'3 (1.8-7.7); NEUTROPHILS % (AUTO) 72.3 % (42-75); PLATELET COUNT 185 X10'3 (140-440); RED BLOOD COUNT 4.56 X10'6 (4.20-5.60); RED CELL DISTRIBUTION WIDTH 12.7 % (11.5-14.5); WHITE BLOOD COUNT 9.4 X10'3 (4.5-11.0)
[2020-02-17] MEDS: docusate sod 100mg capsule PO SCH ×2 (09:01→20:26)
[2020-02-17] MEDS: triamcinolone acet 0.1% cream 15gm TP SCH ×2 (09:01→20:38)
[2020-02-17] MEDS: lithium carbonate 150mg capsule PO SCH ×3 (09:01→20:27)
[2020-02-17] MEDS: risperiDONE 0.5mg tablet PO SCH (09:01)
[2020-02-17 09:05] LABS: ALANINE AMINOTRANSFERASE 11 U/L (12-78); ALBUMIN 3.8 G/DL (3.4-5.0); ALBUMIN/GLOBULIN RATIO 0.9 (1.1-1.5); ALKALINE PHOSPHATASE 59 IU/L (46-116); ANION GAP 8 (8-16); ASPARTATE AMINO TRANSFERASE 15 U/L (10-37); BILIRUBIN,TOTAL 0.3 MG/DL (0.1-1.0); BLOOD UREA NITROGEN 8 MG/DL (7-18); BUN/CREATININE RATIO 7.9 (6.6-38.0); CALCIUM 9.4 MG/DL (8.5-10.1); CHLORIDE 108 MMOL/L (99-107); CREATININE 1.01 MG/DL (0.40-0.90); GLUCOSE 105 MG/DL (70-104); POTASSIUM 3.5 MMOL/L (3.5-5.1); SODIUM 144 MMOL/L (135-145); TOTAL CARBON DIOXIDE 28.4 MMOL/L (24-32); VALPROATE 103 UG/ML (50-100); eGFR 67 ML/MIN
[2020-02-17] MEDS: ondansetron 4mg rapidly disintigrating tab PO SCH (16:27)
--- NOTE | 2020-02-17 18:38 | NUR ---
NURSING PROGRESS NOTE: Legal hold: 5270 for GD Report received from JERRY Tomlin with use of SBAR. Why are they here: Patient admitted to [facility] on 01/21/20. She was brought to [facility] on 01/22/20 at 1350 and placed on a 5150 for GD. Patient is unable to provide food, clothing, or [place] [facility] for herself due to exasperated mental health condition that includes delusional an disorganized thought process. Patients mother reports that patient has not been sleeping for the last 5 days and has not been medication compliant. Assessment What has happened this shift: Pt c/o nausea this morning, medicated with prn Zofran 4 mg @ 0713 with good effect. Obtained a bottle of Gatorade from the kitchen for pt which she drank. Pt expressed frustration, "I don't do this, I never throw up or poop and poop and poop like this...I'm not sick! I have the flu! I don't have Coronavirus!" Pt has an intermittent dry non-productive cough. She c/o feeling hot at times (and will remove her shirt in her room) and then cold at other times. Pt had labs drawn today, her creatinine was slightly elevated at 1.01, her BUN was WNL. Encouraged fluids today, pt drank a pitcher of iced tea and some juice boxes in addition to the Gatorade, she was also provided with cup of ice. Valproic acid level came back elevated at 103. HS Depakote was decreased to 750 mg, next level to be checked on 02/20/20. Pt's Zofran was changed from prn to routine. Pt showered today. Pt was less disorganized and able to express her thought more coherently today. Pt requested a new water pitcher stating it had bacteria on it. "I get OCD! I need all my ducks in a row!" Pt also stated that she had racing thoughts, "I'm all over the place." She apologized for her ADHD. Mom Sara called and spoke with this nurse about medication changes. Pt was encouraged to stay in her room today or wear a mask when she leaves her room. S/I, H/I Pt denies A/VH: Pt denies Sleep: Pt slept well per noc shift report. ADL's: Independent Group attendance: No groups today Were Meds taken: Yes Any med S/E: Nausea Mental Status Exam Appearance: Pale,neat and clean, showered Eye contact: Good Behavior: less disorganized, mostly pleasant and cooperative, socialized with staff and peers. Speech: Hyperverbal, pressured at times Mood: mostly elevated with periods of increased anxiety or irritation, easily redirected Affect: Tired this morning then animated Thought process: disorganized, tangential Thought Content: Thinks she has the flu Cognition: A/O x2 Insight: poor Judgment: fair Interventions PRN's used: Zofran 4 mg Therapeutic interventions: 1:1 assessment, active listening, therapeutic conversation, medication administration/education/monitoring, nausea management, behavior monitoring and intervention; reality orientation, redirection, positive reinforcement, Q 15 min safety checks. Restraints/seclusion/emergency medication: N/A Justification of Continued Inpatient Treatment: Continued therapeutic support and medication management and monitoring needed to provide stabilization, prevent decompensation, and improve coping mechanisms decreasing risk to patient and re-admittance.
[2020-02-17 19:28] VITALS: BP 115/73
[2020-02-17] MEDS: divalproex sod 250mg ER (24-hour) tablet PO SCH (20:28)
[2020-02-17] MEDS: risperiDONE 2mg tablet PO SCH (20:29)
[2020-02-17] MEDS: quetiapine 100mg tablet PO SCH (20:29)
--- NOTE | 2020-02-18 00:12 | NUR ---
NURSING PROGRESS NOTE: Legal hold: 5270 for GD Report received from JERRY Bajwa with use of SBAR. Why are they here: Patient admitted to [facility] on 01/21/20. She was brought to [facility] on 01/22/20 at 1350 and placed on a 5150 for GD. Patient is unable to provide food, clothing, or long-term for herself due to exasperated mental health condition that includes delusional an disorganized thought process. Patients mother reports that patient has not been sleeping for the last 5 days and has not been medication compliant. Assessment What has happened this shift: Patient up and social with several peers. Pt states no feelings of nausea at this time. Pt shows a little more insight this shift. Pt was med compliant and went to bed after meds and wrote in her journal. Pt talked about having thoughts or dreams she was writing about. When she showed me the journsl nothing made sense. 0000 Zofran held due to pt sleeping. S/I, H/I Pt denies A/VH: Pt denies Sleep: Pt slept well per noc shift report. ADL's: Independent Group attendance: No groups today Were Meds taken: Yes Any med S/E: Nausea Mental Status Exam Appearance: Pale,neat and clean, showered Eye contact: Good Behavior: less disorganized, mostly pleasant and cooperative, socialized with staff and peers. Speech: Hyperverbal, pressured at times Mood: mostly elevated with periods of increased anxiety or irritation, easily redirected Affect: Tired this morning then animated Thought process: disorganized, tangential Thought Content: Thinks she has the flu Cognition: A/O x2 Insight: poor Judgment: fair Interventions PRN's used: Zofran 4 mg Therapeutic interventions: 1:1 assessment, active listening, therapeutic conversation, medication administration/education/monitoring, nausea management, behavior monitoring and intervention; reality orientation, redirection, positive reinforcement, Q 15 min safety checks. Restraints/seclusion/emergency medication: N/A Justification of Continued Inpatient Treatment: Continued therapeutic support and medication management and monitoring needed to provide stabilization, prevent decompensation, and improve coping mechanisms decreasing risk to patient and re-admittance.
[2020-02-18 07:44] VITALS: BP 100/66
[2020-02-18] MEDS: triamcinolone acet 0.1% cream 15gm TP SCH ×2 (08:05→20:51)
[2020-02-18] MEDS: lithium carbonate 150mg capsule PO SCH ×3 (08:06→20:59)
[2020-02-18] MEDS: docusate sod 100mg capsule PO SCH ×2 (08:07→21:00)
[2020-02-18] MEDS: risperiDONE 0.5mg tablet PO SCH (08:07)
[2020-02-18] MEDS: CLONAZEPAM 0.25 MG oral disentigrating tablet (ODT) PO SCH ×3 (08:07→20:58)
[2020-02-18] MEDS: ondansetron 4mg rapidly disintigrating tab PO SCH ×2 (08:08)
[2020-02-18] MEDS: magnesium hydroxide 30ml (MOM) UD suspension PO PRN ×2 (12:49→21:02)
--- NOTE | 2020-02-18 17:16 | NUR ---
NURSING PROGRESS NOTE: Legal hold: 5270 for GD Report received from JERRY Pyle with use of SBAR. Why are they here: Patient admitted to [facility] on 01/21/20. She was brought to [facility] on 01/22/20 at 1350 and placed on a 5150 for GD. Patient is unable to provide food, clothing, or [facility] for herself due to exasperated mental health condition that includes delusional an disorganized thought process. Patients mother reports that patient has not been sleeping for the last 5 days and has not been medication compliant. Assessment What has happened this shift: Pt continues to c/o constipation. MOM given as requested. Offered prune juice she declined. Pt states her LBM was 02/15/20. Pt continues to be hyperverbal and irritable when she is misunderstood and not given what she wants at the time. However, she is easily redirected and later apologizes. She is intrusive w/staff and peers throughout the day. S/I, H/I Pt denies A/VH: Pt denies Sleep: did not sleep this shift ADL's: Independent Group attendance: Outside Were Meds taken: Yes Any med S/E: None noted or reported Mental Status Exam Appearance: Clean wearing personal clothing Eye contact: Good Behavior: disorganized and irritable at times Speech: Hyperverbal, pressured Mood: anxious, elated, and irritable at times Affect: Elevated Thought process: disorganized, tangential Thought Content: preoccupied delusional thinking Cognition: A/O x2 Insight: poor Judgment: fair Interventions PRN's used: MOM Therapeutic interventions: 1:1 assessment, active listening, medication administration/education/monitoring, bowel monitoring, behavior monitoring and intervention; reality orientation, redirection, positive reinforcement, Q 15 min safety checks. Restraints/seclusion/emergency medication: N/A Justification of Continued Inpatient Treatment: Continued therapeutic support and medication management and monitoring needed to provide stabilization, prevent decompensation, and improve coping mechanisms decreasing risk to patient and re-admittance.
[2020-02-18 20:23] VITALS: BP 113/78
[2020-02-18] MEDS: prazosin 1mg capsule PO SCH (20:57)
[2020-02-18] MEDS: divalproex sod 250mg ER (24-hour) tablet PO SCH (20:58)
[2020-02-18] MEDS: risperiDONE 2mg tablet PO SCH (21:00)
[2020-02-18] MEDS: quetiapine 100mg tablet PO SCH (21:01)
--- NOTE | 2020-02-19 00:48 | NUR ---
NURSING PROGRESS NOTE: Legal hold: 5270 for GD Report received from JERRY Osorio with use of SBAR. Why are they here: Patient admitted to [facility] on 01/21/20. She was brought to [facility] on 01/22/20 at 1350 and placed on a 5150 for GD. Patient is unable to provide food, clothing, or senior living for herself due to exasperated mental health condition that includes delusional an disorganized thought process. Patients mother reports that patient has not been sleeping for the last 5 days and has not been medication compliant. Assessment What has happened this shift: Patient was up on the unit social with peers. Pt a little more agitated this shift. She complained constipation after reporting a large bowl movement. She was very tangental and labile. After med pass she watched tv till 2300 then went to bed. S/I, H/I Pt denies A/VH: Pt denies Sleep: poor ADL's: Independent Group attendance: Outside Were Meds taken: Yes Any med S/E: None noted or reported Mental Status Exam Appearance: Clean wearing personal clothing Eye contact: Good Behavior: disorganized and irritable at times Speech: Hyperverbal, pressured Mood: anxious, elated, and irritable at times Affect: Elevated Thought process: disorganized, tangential Thought Content: preoccupied delusional thinking Cognition: A/O x2 Insight: poor Judgment: fair Interventions PRN's used: MOM Therapeutic interventions: 1:1 assessment, active listening, medication administration/education/monitoring, bowel monitoring, behavior monitoring and intervention; reality orientation, redirection, positive reinforcement, Q 15 min safety checks. Restraints/seclusion/emergency medication: N/A Justification of Continued Inpatient Treatment: Continued therapeutic support and medication management and monitoring needed to provide stabilization, prevent decompensation, and improve coping mechanisms decreasing risk to patient and re-admittance.
[2020-02-19 07:14] VITALS: BP 109/78
[2020-02-19] MEDS: risperiDONE 0.5mg tablet PO SCH (07:58)
[2020-02-19] MEDS: prazosin 1mg capsule PO SCH ×2 (07:58→20:41)
[2020-02-19] MEDS: docusate sod 100mg capsule PO SCH ×2 (07:58→20:43)
[2020-02-19] MEDS: ondansetron 4mg rapidly disintigrating tab PO PRN (07:58)
[2020-02-19] MEDS: lithium carbonate 150mg capsule PO SCH ×3 (07:59→20:42)
[2020-02-19] MEDS: triamcinolone acet 0.1% cream 15gm TP SCH ×2 (07:59→20:41)
[2020-02-19] MEDS: CLONAZEPAM 0.25 MG oral disentigrating tablet (ODT) PO SCH ×3 (07:59→20:41)
[2020-02-19] MEDS: magnesium hydroxide 30ml (MOM) UD suspension PO PRN (11:16)
--- NOTE | 2020-02-19 14:12 | NUR ---
Reassessment: Pt PO has declined roughly 50% avg meals though fluctuates to 75% avg PO followed by refusals. 5270 r/t mental disability at this time per [employer] note. LBM 02/18 large/hard and documented as having nausea though no constipation at this time; unsure if documentation accurate. Ensure pudding w/ lunches added for additional protein/kcal needs given PO status. Will continue to monitor. Rec: 1. continue regular diet- send almond milk with meals per patient request and trial sending pre-packaged sandwiches with lunch and dinner. 2. ensure pudding at lunches 3. bowel care as needed 4. wt per rx Addendum: 02/19/20 at [address] Amended: Links added.
--- NOTE | 2020-02-19 18:14 | NUR ---
NURSING PROGRESS NOTE: Legal hold: 5270 for GD Report received from RN with use of SBAR. Why are they here: Patient admitted to [facility] on 01/21/20. She was brought to [facility] on 01/22/20 at 1350 and placed on a 5150 for GD. Patient is unable to provide food, clothing, or custodial for herself due to exasperated mental health condition that includes delusional an disorganized thought process. Patients mother reports that patient has not been sleeping for the last 5 days and has not been medication compliant. Assessment What has happened this shift: Pt continues to c/o constipation. MOM given as requested and patient reported to YARI Kumar that she had a hard stool this morning followed by loose stool, a large amount. She takes her medications as ordered and prescribed and continues to have disorganized speech but is less labile today than in shifts past. Pt proceeds to be hyperverbal and becomes somewhat agitated when misunderstood. Her speech almost presents like aphasia where she has difficulty finding words in conversation and to make her needs clearly known. She is redirectable even in moments of agitation. She is intrusive w/staff and peers throughout the day, but redirects well. S/I, H/I Pt denies A/VH: Pt denies Sleep: did not sleep this shift ADL's: Independent Group attendance: no groups Were Meds taken: Yes Any med S/E: None noted or reported Mental Status Exam Appearance: disheveled, wearing personal clothing, green scrub pants, took a shower this morning Eye contact: Good, intense at times Behavior: disorganized and irritable at times Speech: Hyperverbal, pressured, disorganized Mood: anxious, elated, and irritable at times, labile Affect: Elevated Thought process: disorganized, tangential Thought Content: preoccupied delusional thinking Cognition: A/O x2 Insight: poor Judgment: fair Interventions PRN's used: MOM, effective Therapeutic interventions: 1:1 assessment, active listening, medication administration/education/monitoring, bowel monitoring, behavior monitoring and intervention; reality orientation, redirection, positive reinforcement, Q 15 min safety checks. Restraints/seclusion/emergency medication: N/A Justification of Continued Inpatient Treatment: Continued therapeutic support and medication management and monitoring needed to provide stabilization, prevent decompensation, and improve coping mechanisms decreasing risk to patient and re-admittance.
[2020-02-19 19:00] VITALS: BP 122/74
[2020-02-19] MEDS: risperiDONE 2mg tablet PO SCH (20:41)
[2020-02-19] MEDS: quetiapine 100mg tablet PO SCH (20:43)
[2020-02-19] MEDS: divalproex sod 250mg ER (24-hour) tablet PO SCH (20:44)
--- NOTE | 2020-02-19 23:41 | NUR ---
NURSING PROGRESS NOTE: Legal hold: 5270 Expires 03/09 Report received from JERRY Law with use of SBAR. Why are they here: Patient admitted to [facility] on 01/21/20. She was brought to [facility] on 01/22/20 at 1350 and placed on a 5150 for GD. 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 Patients mother reports that patient has not been sleeping for the last 5 days and has not been medication compliant. Assessment What has happened this shift: Patient is visible on unit at shift change. Patient is observed playing cards with other peers and acting appropriately. Patient appears to get along with her peers, but randomly thinks they are talking about her behind her back. Patient presents as less agitated as other shifts. Patient randomly calls this display card writer mom, "you remind me of my mother." Pt c/o of abdomen pain 08/14 when vitals were obtained, but during 1:1 assessment pt denies all somatic complaints. Pt's hands are red and irritated, pt. has a history of eczema. Kenalog cream was applied with effect. Pt. reports LBM today was hard "at first, but then was soft." Pt. took all medications and is sleeping as of this writing , will continue to monitor. S/I, H/I Pt denies, none observed. A/VH: Pt denies, none observed. Sleep: Patient up once just after taking medications. Pt. sleeping as of this writing. See Sleep Assessment for total hours. 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 Were Meds taken: Takes medication without hesitation. Takes a couple pills at a time, sometimes one at a time. Any med S/E: None reported or observed. Mental Status Exam Appearance: Clean wearing green unity scrubs and own sweatshirt. Eye contact: Good Behavior: Less agitated this shift. Playing cards with other peers, acting appropriately. Speech: Hyperverbal Mood: Cooperative, a little elevated. Affect: Constricted, with some brightening. Thought process: , a little ideas of reference (pt. thinks other people periodically talk about her) Thought Content: What is happening at that time. Cognition: A/O x3 Insight: Fair, getting better. Judgment: Fair Interventions PRN's used: None Therapeutic interventions: 1:1 therapeutic assessment, active listening, medication administration/education/monitoring, behavior monitoring and intervention; reality orientation, redirection, positive reinforcement, Q 15 min safety checks. Restraints/seclusion/emergency medication: N/A Justification of Continued Inpatient Treatment: Patient gravely disabled. Patient is unable to formulate a plan to safely meet her basic needs of food, clothing, custodial due to the severity of her mental illness. Continued therapeutic support and medication and monitoring needed for stabilization.
[2020-02-20 07:36] VITALS: BP 114/70
[2020-02-20] MEDS: triamcinolone acet 0.1% cream 15gm TP SCH ×2 (08:07→21:00)
[2020-02-20] MEDS: prazosin 1mg capsule PO SCH ×2 (08:07→21:01)
[2020-02-20] MEDS: risperiDONE 0.5mg tablet PO SCH (08:07)
[2020-02-20] MEDS: docusate sod 100mg capsule PO SCH ×2 (08:07→20:56)
[2020-02-20] MEDS: lithium carbonate 150mg capsule PO SCH ×3 (08:08→20:57)
[2020-02-20] MEDS: CLONAZEPAM 0.25 MG oral disentigrating tablet (ODT) PO SCH ×3 (08:08→20:55)
--- NOTE | 2020-02-20 11:08 | NUR ---
DISCHARGE PLANNING Faxed signed consent to [facility] at their request. Elida requested it so they can speak to Max's mom regarding field based medication services. CHACHO Su
--- NOTE | 2020-02-20 17:25 | NUR ---
NURSING PROGRESS NOTE: Legal hold: 5250 for GD Report received from JERRY Robertson with use of SBAR. Why are they here: Patient admitted to [facility] on 01/21/20. She was brought to [facility] on 01/22/20 at 1350 and placed on a 5150 for GD. Patient is unable to provide food, clothing, or half-way for herself due to exasperated mental health condition that includes delusional an disorganized thought process. Patients mother reports that patient has not been sleeping for the last 5 days and has not been medication compliant. Assessment What has happened this shift: Pt up and visible on the unit early this am. Pt remains hyperverbal and pressured, but without the agitation and she frequently will say, I know I talk too much, just stop me if I get going too much. Pt took all medications as prescribed. Pt denies depression and suicidal ideation today and denies a/v hallucinations. Pt is friendly to her peers. S/I, H/I: denies A/VH: denies Sleep: None ADL's: Independent Group attendance: No groups Were Meds taken: Yes Any med S/E: None observed or reported Mental Status Exam Appearance: Casual in own clothes. Eye contact: Good Behavior: Disorganized, cooperative. Speech: Hyperverbal, pressured Mood: Euphoric, happy. Affect: Bright. Thought process: Paranoid, disorganized, tangential Thought Content: Meeting physical and social needs. Cognition: Alert Insight: Impaired. Judgment: Impaired. Interventions PRN's used: None Therapeutic interventions: 1:1 assessment, active listening, therapeutic conversation, medication administration/education/monitoring, behavior monitoring and intervention; reality orientation, redirection, positive reinforcement, reassurance pt is safe, Q 15 min safety checks. Restraints/seclusion/emergency medication: N/A Justification of Continued Inpatient Treatment: Pt is not stable, she is labile, she continues to be psychotic and manic with paranoid delusions. Continued therapeutic support and medication management and monitoring needed to provide stabilization, prevent decompensation, and improve coping mechanisms decreasing risk to patient and re-admittance.
[2020-02-20 19:52] VITALS: BP 117/77
[2020-02-20] MEDS: risperiDONE 2mg tablet PO SCH (20:57)
[2020-02-20] MEDS: divalproex sod 250mg ER (24-hour) tablet PO SCH (21:00)
[2020-02-20] MEDS: quetiapine 100mg tablet PO SCH (21:00)
--- NOTE | 2020-02-21 00:34 | NUR ---
NURSING PROGRESS NOTE: Legal hold: 5270 Expires 03/09 Report received from JERRY Law with use of SBAR. Why are they here: Patient admitted to [facility] on 01/21/20. She was brought to [facility] on 01/22/20 at 1350 and placed on a 5150 for GD. Patient is unable to provide food, clothing, or half-way for herself due to exacerbate mental health condition that includes delusional an disorganized thought process. Patients mother reports that patient has not been sleeping for the last 5 days and has not been medication compliant. Assessment What has happened this shift: Patient is observed socializng with peers and staff at shift change. Patient's mood appears to be slightly elevated. Patient is friendly and shows no agitation this shift. Patient is quite social throughout shift. Pt. is compliant with care and medications. Valproic level 78 drawn on 02/20/20. S/I, H/I Pt denies, none observed. A/VH: Pt denies, none observed. Sleep: Patient up once just after taking medications. Pt. sleeping as of this writing. See Sleep Assessment for total hours. 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 Were Meds taken: Takes medication without hesitation. Takes a couple pills at a time, sometimes one at a time. Any med S/E: None reported or observed. Mental Status Exam Appearance: Clean wearing green unity scrubs and own sweatshirt. Eye contact: Good Behavior: Social, cooperative, less intrusive. Speech: Hyperverbal Mood: Cooperative, a little elevated. Affect: Constricted, with some brightening. Thought process: Disorganized, tangential Thought Content: What is happening at that time. Cognition: A/O x3 Insight: Fair, getting better. Judgment: Fair Interventions PRN's used: None Therapeutic interventions: 1:1 therapeutic assessment, active listening, medication administration/education/monitoring, behavior monitoring and intervention; reality orientation, redirection, positive reinforcement, Q 15 min safety checks. Restraints/seclusion/emergency medication: N/A Justification of Continued Inpatient Treatment: Patient gravely disabled. Patient is unable to formulate a plan to safely meet her basic needs of food, clothing, half-way due to the severity of her mental illness. Continued therapeutic support and medication and monitoring needed for stabilization.
[2020-02-21 08:00] VITALS: BP 103/68
[2020-02-21] MEDS: triamcinolone acet 0.1% cream 15gm TP SCH ×2 (08:07→20:37)
[2020-02-21] MEDS: docusate sod 100mg capsule PO SCH ×2 (08:08→20:41)
[2020-02-21] MEDS: prazosin 1mg capsule PO SCH ×2 (08:09→20:41)
[2020-02-21] MEDS: lithium carbonate 150mg capsule PO SCH ×3 (08:09→20:41)
[2020-02-21] MEDS: risperiDONE 0.5mg tablet PO SCH (08:09)
[2020-02-21] MEDS: CLONAZEPAM 0.25 MG oral disentigrating tablet (ODT) PO SCH ×3 (08:15→20:38)
[2020-02-21] MEDS: terbinafine cream 30gm TP SCH ×2 (11:31→20:37)
--- NOTE | 2020-02-21 17:23 | NUR ---
NURSING PROGRESS NOTE: Legal hold: 5250 for GD Report received from JERRY Robertson with use of SBAR. Why are they here: Patient admitted to [facility] on 01/21/20. She was brought to [facility] on 01/22/20 at 1350 and placed on a 5150 for GD. Patient is unable to provide food, clothing, or correction for herself due to exasperated mental health condition that includes delusional an disorganized thought process. Patients mother reports that patient has not been sleeping for the last 5 days and has not been medication compliant. Assessment What has happened this shift: Pt up and visible on the unit early this am. Pt remains hyperverbal and pressured, but without the agitation and she frequently will say, Pt took all medications as prescribed. Pt denies depression and suicidal ideation today and denies a/v hallucinations. Pt is friendly to her peers. Pt did perseverate a bit over a male pt that she apparently had a crush on. She gave him a friendship note before he discharged. Pt also began to get overwhelmed with activity on the unit from the other patients, one, male, who seemed to be targeting her. Pt was able to take a self-imposed quiet time in her room. Later, pt did go on off unit patio walk and she was caring for the other pts, making sure all were included in activities who wanted to be. S/I, H/I: denies A/VH: denies Sleep: None ADL's: Independent Group attendance: No groups Were Meds taken: Yes Any med S/E: None observed or reported Mental Status Exam Appearance: Casual in own clothes. Eye contact: Good Behavior: Disorganized, cooperative. Speech: Hyperverbal, pressured Mood: Euphoric, happy. Affect: Bright. Thought process: Paranoid, disorganized, tangential Thought Content: Meeting physical and social needs. Cognition: Alert Insight: Impaired. Judgment: Impaired. Interventions PRN's used: None Therapeutic interventions: 1:1 assessment, active listening, therapeutic conversation, medication administration/education/monitoring, behavior monitoring and intervention; reality orientation, redirection, positive reinforcement, reassurance pt is safe, Q 15 min safety checks. Restraints/seclusion/emergency medication: N/A Justification of Continued Inpatient Treatment: Pt is not stable, she is labile, she continues to be psychotic and manic with paranoid delusions. Continued therapeutic support and medication management and monitoring needed to provide stabilization, prevent decompensation, and improve coping mechanisms decreasing risk to patient and re-admittance.
[2020-02-21 19:00] VITALS: BP 115/63
[2020-02-21] MEDS: quetiapine 100mg tablet PO SCH (20:37)
[2020-02-21] MEDS: divalproex sod 250mg ER (24-hour) tablet PO SCH (20:40)
[2020-02-21] MEDS: risperiDONE 2mg tablet PO SCH (20:41)
--- NOTE | 2020-02-21 23:32 | NUR ---
NURSING PROGRESS NOTE: Legal hold: 5270 Expires 03/09 Report received from JERRY Law with use of SBAR. Why are they here: Patient admitted to [facility] on 01/21/20. She was brought to [facility] on 01/22/20 at 1350 and placed on a 5150 for GD. Patient is unable to provide food, clothing, or nursing home for herself due to exacerbate mental health condition that includes delusional an disorganized thought process. Patients mother reports that patient has not been sleeping for the last 5 days and has not been medication compliant. Assessment What has happened this shift: Patient is visibile on unit at shift change. Pt. keeps her self busy walking throughout the unit socializing with peers and staff. Patient is tangential in her speech and tends to not complete sentences or changes topics quickly. Pt. is pleasant and is showing better insight. Pt. tends to be more flirty towards the opposite sex, but is appropriate. Patient is talking more about discharge. Patient's HS Depakote was increased to 1,000mg. Pt. took medications without incident. Kenalog cream was applied to red, irritated hands and Lamisil cream to bilateral feet. Patient reports a normal, but small BM today "Finally." S/I, H/I Pt denies, none observed. A/VH: Pt denies, none observed. Sleep: Patient up twice after HS medication administration. Pt. sleeping as of this writing. See Sleep Assessment for total hours. 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 Were Meds taken: Takes medication without hesitation. Takes a couple pills at a time, sometimes one at a time. Any med S/E: None reported or observed. Mental Status Exam Appearance: Clean wearing green unity scrubs and own sweatshirt. Eye contact: Fair Behavior: Social, cooperative, flirty Speech: Hyperverbal, less pressured. Mood: Cooperative, a little elevated. Affect: Bright, laughing Thought process: Disorganized, tangential Thought Content: What is happening at that time. Relationships with peers. Cognition: A/O x3 Insight: Fair, getting better. Judgment: Fair Interventions PRN's used: None Therapeutic interventions: 1:1 therapeutic assessment, active listening, medication administration/education/monitoring, behavior monitoring and intervention; reality orientation, redirection with positive reinforcement, Q 15 min safety checks. Restraints/seclusion/emergency medication: N/A Justification of Continued Inpatient Treatment: Patient gravely disabled. Patient is unable to formulate a plan to safely meet her basic needs of food, clothing, nursing home due to the severity of her mental illness. Continued therapeutic support and medication and monitoring needed for stabilization.
[2020-02-22] MEDS: docusate sod 100mg capsule PO SCH ×2 (07:06→20:38)
[2020-02-22] MEDS: prazosin 1mg capsule PO SCH ×2 (07:06→20:38)
[2020-02-22] MEDS: risperiDONE 0.5mg tablet PO SCH (07:07)
[2020-02-22] MEDS: lithium carbonate 150mg capsule PO SCH ×3 (07:07→20:39)
[2020-02-22] MEDS: CLONAZEPAM 0.25 MG oral disentigrating tablet (ODT) PO SCH ×3 (07:08→20:38)
[2020-02-22 07:31] VITALS: BP 113/62
[2020-02-22 07:59] VITALS: BP 113/62
[2020-02-22] MEDS: terbinafine cream 30gm TP SCH ×2 (08:00→20:43)
[2020-02-22] MEDS: triamcinolone acet 0.1% cream 15gm TP SCH ×2 (08:00→20:00)
--- NOTE | 2020-02-22 15:59 | NUR ---
NURSING PROGRESS NOTE: Legal hold: 5270 for GD Report received from JERRY Robertson with use of SBAR. Why are they here: Patient admitted to [facility] on 01/21/20. She was brought to [facility] on 01/22/20 at 1350 and placed on a 5150 for GD. Patient is unable to provide food, clothing, or retirement for herself due to exasperated mental health condition that includes delusional an disorganized thought process. Patients mother reports that patient has not been sleeping for the last 5 days and has not been medication compliant. Assessment What has happened this shift: Up early on unit talking with others before breakfast. Eating most of meals and drinking fluids, asks for juice often. Medication compliant and better/faster at taking meds. Speech remains hyperverbal and pressured. Does not become easily agitated and has remained calm, cooperative and helps others. Reports having a confrontation with her mother on the phone today involving a male friend she would like to come over to the house when she goes home. After discussed she made a decision to not worry or confront her mother again as she felt her mother was just "trying to protect her." S/I, H/I: denies A/VH: denies Sleep: None ADL's: Independent Group attendance: No groups Were Meds taken: Yes Any med S/E: None observed or reported Mental Status Exam Appearance: Neat and clean Eye contact: Good Behavior: Intrusive, cooperative. Speech: Hyperverbal, pressured Mood: labile Affect: smiling Thought process: tangential Thought Content: conversation with mom Cognition: Alert Insight: poor Judgment: poor Interventions PRN's used: None Therapeutic interventions: 1:1 assessment, active listening, therapeutic conversation, medication administration/education/monitoring, behavior monitoring and intervention; reality orientation, redirection, positive reinforcement, reassurance pt is safe, Q 15 min safety checks. Restraints/seclusion/emergency medication: N/A Justification of Continued Inpatient Treatment: Pt is not stable, she is labile, she continues to be psychotic and manic with paranoid delusions. Continued therapeutic support and medication management and monitoring needed to provide stabilization, prevent decompensation, and improve coping mechanisms decreasing risk to patient and re-admittance.
[2020-02-22 20:00] VITALS: BP 113/64
[2020-02-22] MEDS: risperiDONE 2mg tablet PO SCH (20:39)
[2020-02-22] MEDS: divalproex sod 250mg ER (24-hour) tablet PO SCH (20:39)
[2020-02-22] MEDS: quetiapine 100mg tablet PO SCH (20:40)
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
[2020-02-23 07:37] VITALS: BP 92/60
[2020-02-23] MEDS: CLONAZEPAM 0.25 MG oral disentigrating tablet (ODT) PO SCH ×3 (07:50→20:34)
[2020-02-23] MEDS: lithium carbonate 150mg capsule PO SCH ×3 (07:51→20:34)
[2020-02-23] MEDS: risperiDONE 0.5mg tablet PO SCH (07:51)
[2020-02-23] MEDS: prazosin 1mg capsule PO SCH ×2 (07:52→20:34)
[2020-02-23] MEDS: docusate sod 100mg capsule PO SCH ×2 (07:52→20:34)
[2020-02-23] MEDS: terbinafine cream 30gm TP SCH ×2 (08:10→20:36)
[2020-02-23] MEDS: triamcinolone acet 0.1% cream 15gm TP SCH ×2 (08:10→20:40)
--- NOTE | 2020-02-23 13:16 | NUR ---
NURSING PROGRESS NOTE: Legal hold: 5270 for GD Report received from JERRY Robertson with use of SBAR. Why are they here: Patient admitted to [facility] on 01/21/20. She was brought to [facility] on 01/22/20 at 1350 and placed on a 5150 for GD. Patient is unable to provide food, clothing, or prison for herself due to exasperated mental health condition that includes delusional an disorganized thought process. Patients mother reports that patient has not been sleeping for the last 5 days and has not been medication compliant. Assessment What has happened this shift: Asleep at change of shift. Awakens for breakfast and is eating well at all meals. Hyperverbal, pressured and tangential speech. Medication compliant. Does not become agitated, remains cooperative and redirectable. Still thinking about conversation she had with her mother yesterday in which she called her mother a "bitch." Showed quite a bit of insight into her relationship with her mother in that she talked repeatedly about the fact her mother loves her and that she should always be respectful to "her elders." S/I, H/I: denies A/VH: denies Sleep: None ADL's: Independent Group attendance: No groups Were Meds taken: Yes Any med S/E: None observed or reported Mental Status Exam Appearance: Neat and clean Eye contact: Good Behavior: Intrusive, cooperative. Speech: Hyperverbal, pressured Mood: labile Affect: smiling Thought process: tangential Thought Content: conversation with mom Cognition: Alert Insight: poor Judgment: poor Interventions PRN's used: None Therapeutic interventions: 1:1 assessment, active listening, therapeutic conversation, medication administration/education/monitoring, behavior monitoring and intervention; reality orientation, redirection, positive reinforcement, reassurance pt is safe, Q 15 min safety checks. Restraints/seclusion/emergency medication: N/A Justification of Continued Inpatient Treatment: Pt is not stable, she is labile, she continues to be psychotic and manic with paranoid delusions. Continued therapeutic support and medication management and monitoring needed to provide stabilization, prevent decompensation, and improve coping mechanisms decreasing risk to patient and re-admittance.
[2020-02-23 20:16] VITALS: BP 110/68
[2020-02-23] MEDS: divalproex sod 250mg ER (24-hour) tablet PO SCH (20:33)
[2020-02-23] MEDS: quetiapine 100mg tablet PO SCH (20:33)
[2020-02-23] MEDS: risperiDONE 2mg tablet PO SCH (20:34)
[2020-02-23] MEDS ORDERED: diphenhydrAMINE 25mg capsule PO PRN (21:25)
--- NOTE | 2020-02-24 02:00 | NUR ---
NURSING PROGRESS NOTE: Legal hold: 5270 Expires 03/09 Report received from JERRY Law with use of SBAR. Why are they here: Patient admitted to [facility] on 01/21/20. She was brought to [facility] on 01/22/20 at 1350 and placed on a 5150 for GD. 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 Patients mother reports that patient has not been sleeping for the last 5 days and has not been medication compliant. Assessment What has happened this shift: The patient was seen at bedside for 1:1. She asked if she could talk about what she is thinking and feeling. The patient has trouble with making conversation that is understandable. The patient begins by talking about "Gilmer" who is a former patient here that she exchanged information with. She relates that she is not interested in being anything but friends. Then she says, "I've only had sex two times in my life. I'm a Zoroastrian, you know?" She says that her family is hyper-anabaptism and believes that sex should not be done with anybody, unless you are to that person. She knows that she'll be going back to live with them, and believes her mother thinks less of her for it, so she is punishing herself, and can't let it go. "My soul hurts." The patient does not feel that she is forgiven, so can't for give herself. "The phone call with my mother yesterday made it worse." The patient's thoughts were less tangential and fairly linear tonight. She was able to get her thoughts out with less metaphors and was not hyper-verbal. The patient does not like to be interrupted or re-directed when talking. "Don't interrupt me when I'm talking, you're not listening to what I'm saying." This conversation went pretty well, with only minor twists and turns, and a couple delusional statements, but pretty straight forward. This documentation writer believes he understood what her point was, but can't be sure. S/I, H/I: Denies. A/VH: Denies. Sleep: See sleep assessment. 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 Were Meds taken: Yes. Any med S/E: None reported or observed. Mental Status Exam Appearance: Clean, wearing green unity scrubs and own sweatshirt. Eye contact: Direct Behavior: Social, disorganized, tangential, intrusive, serious. Speech: Pressured. Mood: Labile. Affect: Bright, laughing then serious Thought process: Disorganized, tangential Thought Content: God, family, men. Cognition: A/O x3 Insight: Fair. Judgment: Fair Interventions PRN's used: None Therapeutic interventions: 1:1 therapeutic assessment, active listening, medication administration/education/monitoring, behavior monitoring and intervention; reality orientation, redirection with positive reinforcement, Q 15 min safety checks. Restraints/seclusion/emergency medication: N/A Justification of Continued Inpatient Treatment: Patient gravely disabled. Patient is unable to formulate a plan to safely meet her basic needs of food, clothing, mcfp due to the severity of her mental illness. Continued therapeutic support and medication and monitoring needed for stabilization.
[2020-02-24 07:50] VITALS: BP 91/58
[2020-02-24] MEDS: lithium carbonate 150mg capsule PO SCH ×3 (08:50→20:20)
[2020-02-24] MEDS: risperiDONE 0.5mg tablet PO SCH (08:51)
[2020-02-24] MEDS: docusate sod 100mg capsule PO SCH ×2 (08:51→20:19)
[2020-02-24] MEDS: CLONAZEPAM 0.25 MG oral disentigrating tablet (ODT) PO SCH ×3 (08:51→20:22)
[2020-02-24] MEDS: prazosin 1mg capsule PO SCH ×2 (08:51→20:00)
[2020-02-24] MEDS: terbinafine cream 30gm TP SCH ×2 (08:52→20:32)
[2020-02-24] MEDS: triamcinolone acet 0.1% cream 15gm TP SCH ×2 (08:52→20:32)
[2020-02-24] MEDS ORDERED: risperiDONE 0.25mg tablet PO ONE (11:25)
--- NOTE | 2020-02-24 11:28 | NUR ---
Reassessment: Pt continues with fluctuating PO intake, averaging 50% with some 25% and 100% PO intake of meals. Pt receiving Ensure Pudding q lunch as well as additional special requested items in diet order. Pt closely meeting nutrient needs at this time. Patient's weight has remained stable. LBM 02/22. Will continue to follow and monitor need for further nutrition intervention. Rec: 1. continue regular diet- send almond milk with meals per patient request and trial sending pre-packaged sandwiches with lunch and dinner. 2. ensure pudding at lunches 3. routine bowel care 4. wt per rx Addendum: 02/24/20 at [address] Amended: Links added.
[2020-02-24] MEDS ORDERED: risperiDONE 2mg tablet PO ONE (11:50)
--- NOTE | 2020-02-24 13:20 | NUR ---
NURSING PROGRESS NOTE: Legal hold: 5270 for GD Report received from JERRY Gandhi with use of SBAR. Why are they here: Patient admitted to [facility] on 01/21/20. She was brought to [facility] on 01/22/20 at 1350 and placed on a 5150 for GD. Patient is unable to provide food, clothing, or residential for herself due to exasperated mental health condition that includes delusional an disorganized thought process. Patients mother reports that patient has not been sleeping for the last 5 days and has not been medication compliant. Assessment What has happened this shift: Patient was awake at change of shift, up in hallway talking and interacting with peers. Medication compliant and eating well at every meal. Denies suicidal thoughts. Hyperverbal pressured speech. Tangential. Flight of ideas: boyfriend to parent, to rash to used no condom to the light, and please pray for me. (She is understandable in a sense if you can listen for a long time it is apparent what she is thinking about and trying to express.) Active on unit and social. Does no become agitated or angry. Calm, cooperative and redirectable. S/I, H/I: denies A/VH: denies Sleep: None ADL's: Independent Group attendance: yes, 1100am group with Director Were Meds taken: Yes Any med S/E: None observed or reported Mental Status Exam Appearance: Neat and clean Eye contact: Good Behavior: Intrusive, cooperative. Speech: Hyperverbal, pressured Mood: elevated and bright, positive Affect: smiling Thought process: tangential Thought Content: family and relationships Cognition: Alert Insight: poor Judgment: poor Interventions PRN's used: None Therapeutic interventions: 1:1 assessment, active listening, therapeutic conversation, medication administration/education/monitoring, behavior monitoring and intervention; reality orientation, redirection, positive reinforcement, reassurance pt is safe, Q 15 min safety checks. Restraints/seclusion/emergency medication: N/A Justification of Continued Inpatient Treatment: Pt is not stable, she is labile, she continues to be psychotic and manic with paranoid delusions. Continued therapeutic support and medication management and monitoring needed to provide stabilization, prevent decompensation, and improve coping mechanisms decreasing risk to patient and re-admittance.
[2020-02-24 19:15] VITALS: BP 104/70
[2020-02-24] MEDS: divalproex sod 250mg ER (24-hour) tablet PO SCH (20:19)
[2020-02-24] MEDS: temazepam 15mg capsule PO PRN (20:20)
[2020-02-24] MEDS: quetiapine 100mg tablet PO SCH (20:20)
[2020-02-24] MEDS: risperiDONE 2mg tablet PO SCH (20:22)
--- NOTE | 2020-02-24 23:54 | NUR ---
Nursing Progress Note Legal hold: 5270 Client is on an involuntary hold for being gravely disabled Report received from Ani EDWARDS with the use of the SBAR format Why are they here; She was brought to [facility] on 01/22/20 at 1350 and placed on a 5150 for GD. Patient is unable to provide food, clothing, or alf for herself due to exasperated mental health condition that includes delusional an disorganized thought process. Patients mother reports that patient has not been sleeping for the last 5days and has not been medication compliant. Assessment What has happened this shift: The patient has been observed up on the unit and mildly intrusive with others. She has difficulty staying on task and is easily distracted. She is hyper verbal and her replies are difficult to follow. She was asked if she had any auditory or visual hallucinations and she replied that she felt more "centered and focused" She appears to have an elevated mood. She denies that she feels anxious and stated "no because I know how to handle anxiety...Mostly hot of everything" S/I, H/I: denies A/VH: denies ADL's: Appeared clean and well groomed. She was dressed appropriately for the weather Were meds taken: yes Any med S/E none were reported or observed Mental Status Exam Appearance: appropriate for the unit Eye contact: Direct Behavior: mildly intrusive but accepts redirection Speech: hyper verbal, rapid Mood: mood is elevated "I feel great" Affect: congruent to mood Thought process: tangential, poor focus, lacks insight Thought Content: content is all over the place Cognition: alert oriented Insight: poor Judgment: poor Interventions PRN's used: restoril Therapeutic interventions: One to one with the patient to assess severity of manic symptoms. Provided medication education Restraints/seclusion/emergency medication: Justification of Continued Inpatient Treatment: The patient continues to demonstrate poor insight and judgement. She is having her medications adjusted
[2020-02-25 08:00] VITALS: BP 96/60
[2020-02-25] MEDS ORDERED: risperiDONE 0.5mg tablet PO SCH (08:00)
[2020-02-25] MEDS: prazosin 1mg capsule PO SCH ×2 (08:00→21:43)
[2020-02-25] MEDS: terbinafine cream 30gm TP SCH ×2 (08:38→20:00)
[2020-02-25] MEDS: triamcinolone acet 0.1% cream 15gm TP SCH ×2 (08:39→20:00)
[2020-02-25] MEDS: lithium carbonate 150mg capsule PO SCH ×3 (08:46→21:43)
[2020-02-25] MEDS: docusate sod 100mg capsule PO SCH ×2 (08:47→21:42)
[2020-02-25] MEDS: CLONAZEPAM 0.25 MG oral disentigrating tablet (ODT) PO SCH ×3 (08:48→21:41)
--- NOTE | 2020-02-25 15:48 | NUR ---
NURSING PROGRESS NOTE: Legal hold: 5270 for GD Report received from JERRY Gandhi with use of SBAR. Why are they here: Patient admitted to [facility] on 01/21/20. She was brought to [facility] on 01/22/20 at 1350 and placed on a 5150 for GD. Patient is unable to provide food, clothing, or senior living for herself due to exasperated mental health condition that includes delusional an disorganized thought process. Patients mother reports that patient has not been sleeping for the last 5 days and has not been medication compliant. Assessment What has happened this shift: Pt was sleepy this morning, slept through most of breakfast. She did awaken and eat her breakfast around 0845. Held Prazosin this morning as pt's BP was 96/60. Pt was pleasant and cooperative with meds and unit procedures, pt is hyperverbal at times. Verbalizations are becoming more organized, pt has less difficulty expressing her thoughts though thoughts still seem to be racing at times. Pt has loose associations. Pt has nicknames for staff members to help her remember their names. Pt calls this RN "Osman Guevara." Pt's mood is mostly elevated. Pt reported that she is "good" but "my head is kind of foggy from the medications. Pt socializes and jokes with peers and staff. Pt thanked this RN for all the help. Pt stated that she is going to the [facility] before going home. "I need to be replicated...no replicated...that's a bad word (said with a smile)...rehab, I need to be..." Pt faded off, this RN suggested the word "rehabilitated." Pt nodded and agreed, stated that her soul needs to be rehabilitated. Pt showered today. Pt had a letter returned to her, pt was perplexed as she stated that it was the address she had used before. Pt then stated that the letter had been to a boy, pt smiled and stated, "maybe I shouldn't be sending any letters while I'm in here." S/I, H/I: Pt denies A/VH: Pt denies Sleep: Pt slept 8.5 hours last night per noc shift report, pt nearly slept through breakfast, got up around 0845. ADL's: Independent Group attendance: yes Were Meds taken: Yes Any med S/E: Pt reports that the meds make her feel foggy headed. Mental Status Exam Appearance: Neat, clean, showered today. Eye contact: Good Behavior: Cooperative, friendly, socializes with staff and peers. Speech: Hyperverbal Mood: "Good," elevated Affect: Bright, animated Thought process: Racing thoughts, loose associations Thought Content: Focused on discharge Cognition: Alert Insight: Improved, fair to good Judgment: Fair Interventions PRN's used: None Therapeutic interventions: 1:1 assessment, active listening, therapeutic conversation, medication administration/education/monitoring, behavior monitoring and intervention; reality orientation, redirection, positive reinforcement, Q 15 min safety checks. Restraints/seclusion/emergency medication: N/A Justification of Continued Inpatient Treatment: Pt is improving. Continued therapeutic support and medication management and monitoring needed to prevent decompensation, and improve coping mechanisms decreasing risk to patient and re-admittance.
[2020-02-25 20:25] VITALS: BP 125/77
[2020-02-25] MEDS: temazepam 15mg capsule PO PRN (21:41)
[2020-02-25] MEDS: quetiapine 100mg tablet PO SCH (21:42)
[2020-02-25] MEDS: divalproex sod 250mg ER (24-hour) tablet PO SCH (21:42)
[2020-02-25] MEDS: risperiDONE 2mg tablet PO SCH (21:43)
--- NOTE | 2020-02-26 01:07 | NUR ---
NURSING PROGRESS NOTE: Legal hold: 5270 for GD Report received from JERRY Osorio with use of SBAR. Why are they here: Patient admitted to [facility] on 01/21/20. She was brought to [facility] on 01/22/20 at 1350 and placed on a 5150 for GD. Patient is unable to provide food, clothing, or mcc for herself due to exasperated mental health condition that includes delusional an disorganized thought process. Patients mother reports that patient has not been sleeping for the last 5 days and has not been medication compliant. Assessment What has happened this shift: Pt was sleepy this morning, slept through most of breakfast. She did awaken and eat her breakfast around 0845. Held Prazosin this morning as pt's BP was 96/60. Pt was pleasant and cooperative with meds and unit procedures, pt is hyperverbal at times. Verbalizations are becoming more organized, pt has less difficulty expressing her thoughts though thoughts still seem to be racing at times. Pt has loose associations. Pt has nicknames for staff members to help her remember their names. Pt calls this RN "Osman Guevara." Pt's mood is mostly elevated. Pt reported that she is "good" but "my head is kind of foggy from the medications. Pt socializes and jokes with peers and staff. Pt thanked this RN for all the help. Pt stated that she is going to the [facility] before going home. "I need to be replicated...no replicated...that's a bad word (said with a smile)...rehab, I need to be..." Pt faded off, this RN suggested the word "rehabilitated." Pt nodded and agreed, stated that her soul needs to be rehabilitated. Pt showered today. Pt had a letter returned to her, pt was perplexed as she stated that it was the address she had used before. Pt then stated that the letter had been to a boy, pt smiled and stated, "maybe I shouldn't be sending any letters while I'm in here." S/I, H/I: Pt denies A/VH: Pt denies Sleep: Pt slept 8.5 hours last night per noc shift report, pt nearly slept through breakfast, got up around 0845. ADL's: Independent Group attendance: yes Were Meds taken: Yes Any med S/E: Pt reports that the meds make her feel foggy headed. Mental Status Exam Appearance: Neat, clean, showered today. Eye contact: Good Behavior: Cooperative, friendly, socializes with staff and peers. Speech: Hyperverbal Mood: "Good," elevated Affect: Bright, animated Thought process: Racing thoughts, loose associations Thought Content: Focused on discharge Cognition: Alert Insight: Improved, fair to good Judgment: Fair Interventions PRN's used: None Therapeutic interventions: 1:1 assessment, active listening, therapeutic conversation, medication administration/education/monitoring, behavior monitoring and intervention; reality orientation, redirection, positive reinforcement, Q 15 min safety checks. Restraints/seclusion/emergency medication: N/A Justification of Continued Inpatient Treatment: Pt is improving. Continued therapeutic support and medication management and monitoring needed to prevent decompensation, and improve coping mechanisms decreasing risk to patient and re-admittance.
[2020-02-26 07:13] VITALS: BP 92/59
[2020-02-26] MEDS: divalproex sodium 250mg tablet PO SCH ×2 (07:23→12:02)
[2020-02-26] MEDS: lithium carbonate 150mg capsule PO SCH ×3 (07:24→21:53)
[2020-02-26] MEDS: docusate sod 100mg capsule PO SCH ×2 (07:25→21:52)
[2020-02-26] MEDS: terbinafine cream 30gm TP SCH ×2 (07:25→21:54)
[2020-02-26] MEDS: risperiDONE 2mg tablet PO SCH ×2 (07:25→21:53)
[2020-02-26] MEDS: CLONAZEPAM 0.25 MG oral disentigrating tablet (ODT) PO SCH ×3 (07:25→21:54)
[2020-02-26] MEDS: triamcinolone acet 0.1% cream 15gm TP SCH ×2 (07:26→20:00)
[2020-02-26] MEDS: prazosin 1mg capsule PO SCH (07:30)
[2020-02-26] MEDS ORDERED: divalproex sodium 500mg tablet.DR PO SCH (07:30)
--- NOTE | 2020-02-26 15:17 | NUR ---
NURSING PROGRESS NOTE: Legal hold: 5270 for GD Report received from JERRY Gandhi with use of SBAR. Why are they here: Patient admitted to [facility] on 01/21/20. She was brought to [facility] on 01/22/20 at 1350 and placed on a 5150 for GD. Patient is unable to provide food, clothing, or usp for herself due to exasperated mental health condition that includes delusional an disorganized thought process. Patients mother reports that patient has not been sleeping for the last 5 days and has not been medication compliant. Assessment What has happened this shift: Held pt's prazosin again this morning as BP was decreased at 92/59. Notified YARI Gonzalez who D/c'd prazosin. Pt has order for Risperdal 2 mg daily. She had been receiving four 0.5 mg tabs, changed order to one 2 mg tab daily. HS Depakote 1000 mg changed from ER to DR, pt will now take two 500 mg tabs instead of four 250 mg tabs. Too many pills have contributed to increased nausea previously. Pt was pleasant and cooperative with unit procedures and meds. Pt is able to communicate her thoughts and needs though speech continues to be somewhat disorganized. Pt c/o her meds being too sedating, stated that before she came here, before all this happened, she had perfect grammar. YARI Kumar aware of pt's complaints. S/I, H/I: Pt denies A/VH: Pt denies Sleep: Pt slept 7 hours last night per noc shift report. ADL's: Independent Group attendance: yes Were Meds taken: Yes Any med S/E: Pt reports feeling too sedated from her medications. Mental Status Exam Appearance: Neat, clean Eye contact: Good Behavior: Cooperative, friendly, participates in groups and unit activities, socializes with staff and peers. Speech: Somewhat disorganized, talkative. Mood: Tired Affect: Fatigued Thought process: Mild disorganization Thought Content: Concerned her meds are too sedating and she can't speak correctly. Cognition: A/O X 4 Insight: Fair to good Judgment: Fair Interventions PRN's used: None Therapeutic interventions: 1:1 assessment, active listening, therapeutic conversation, medication administration/education/monitoring, behavior monitoring and intervention as needed; reality orientation, redirection, positive reinforcement, Q 15 min safety checks. Restraints/seclusion/emergency medication: N/A Justification of Continued Inpatient Treatment: Pt is improving. Continued therapeutic support and medication management and monitoring needed to prevent decompensation, and improve coping mechanisms decreasing risk to patient and re-admittance.
[2020-02-26 19:00] VITALS: BP 114/80
[2020-02-26] MEDS: divalproex sodium 500mg tablet.DR PO SCH (21:52)
[2020-02-26] MEDS: quetiapine 100mg tablet PO SCH (21:53)
--- NOTE | 2020-02-27 01:41 | NUR ---
NURSING PROGRESS NOTE: Legal hold: 5270 for GD Report received from JERRY Bajwa with use of SBAR. Why are they here: Patient admitted to [facility] on 01/21/20. She was brought to [facility] on 01/22/20 at 1350 and placed on a 5150 for GD. Patient is unable to provide food, clothing, or group home for herself due to exasperated mental health condition that includes delusional an disorganized thought process. Patients mother reports that patient has not been sleeping for the last 5 days and has not been medication compliant. Assessment What has happened this shift: Patient ambulated the unit throughout the evening shift. She is awake and cooperative with staff. Patient exhibits more organized thought tonight compared to the previous evening. This patient is medication compliant. She eats her full dinner. Patient denies S/I or H/I. Patient is very meticulous about taking her night time medications. She consumes one or two at a time and does so slowly. The patient has no nausea following medication consumption. Patient is upbeat, she occasionally makes a joke. The patient denies S/I or H/I at this time. S/I, H/I: Pt denies. A/VH: Pt denies. Sleep: Will tally at 0500 hour. ADL's: Independent Group attendance: No group on nights. Were Meds taken: Yes, patient is medication compliant. Any med S/E: Mental Status Exam Appearance: Neat, clean Eye contact: Good Behavior: Friendly and upbeat. Speech: Mildly disorganized, talkative. Mood: Upbeat. Affect: Fatigued Thought process: Mild disorganization. Thought Content: Just wants to discuss anything and everything with staff and other patients. Cognition: Alert and oriented X4, Insight: Fair. Judgment: Fair. Interventions PRN's used: None Therapeutic interventions: 1:1 assessment, active listening, therapeutic conversation, medication administration/education/monitoring, behavior monitoring and intervention as needed; reality orientation, redirection, positive reinforcement, Q 15 min safety checks. Restraints/seclusion/emergency medication: N/A Justification of Continued Inpatient Treatment: Pt is improving. Continued therapeutic support and medication management and monitoring needed to prevent decompensation, and improve coping mechanisms decreasing risk to patient and re-admittance.
[2020-02-27 07:24] VITALS: BP 84/55
[2020-02-27] MEDS: terbinafine cream 30gm TP SCH ×2 (08:00→21:02)
[2020-02-27] MEDS: triamcinolone acet 0.1% cream 15gm TP SCH ×2 (08:00→20:00)
[2020-02-27] MEDS: CLONAZEPAM 0.25 MG oral disentigrating tablet (ODT) PO SCH ×3 (08:19→20:57)
[2020-02-27] MEDS: lithium carbonate 150mg capsule PO SCH ×3 (08:19→21:01)
[2020-02-27] MEDS: divalproex sodium 250mg tablet PO SCH ×2 (08:20→12:31)
[2020-02-27] MEDS: docusate sod 100mg capsule PO SCH ×2 (08:20→21:00)
[2020-02-27] MEDS: risperiDONE 2mg tablet PO SCH (08:20)
[2020-02-27] MEDS ORDERED: paliperidone palmitate inj 234 MG/1.5 ML SYRINGE IM ONE (11:55)
--- NOTE | 2020-02-27 16:18 | NUR ---
ADMINISTERED INVEGA SUSTENNA 234MG IM R. GLUTEAL
--- NOTE | 2020-02-27 16:44 | NUR ---
NURSING PROGRESS NOTE: Legal hold: 5270 Report received from Anisa Carrasquillo RN with use of SBAR. Why are they here: Patient admitted to [facility] on 01/21/20. She was brought to [facility] on 01/22/20 at 1350 and placed on a 5150 for GD. Patient is unable to provide food, clothing, or care home for herself due to exasperated mental health condition that includes delusional an disorganized thought process. Patients mother reports that patient has not been sleeping for the last 5 days and has not been medication compliant. Assessment What has happened this shift: Pt given Invega Sustenna 234mg IM today. She is also taking her oral medications as prescribed. Pt up on the floor most of the shift she engages well with staff and peers. S/I, H/I: Pt denies A/VH: Pt denies Sleep: Pt states she sleeps well at night; up all shift ADL's: Independent Group attendance: yes Were Meds taken: Yes Any med S/E: Pt reports feeling sedated from her medications Mental Status Exam Appearance: Showers daily and puts on clean clothes Eye contact: Good Behavior: Cooperative, friendly, participates in groups and unit activities, socializes with staff and peers. Speech: Somewhat disorganized, talkative. Mood: Calm Affect: Bright Thought process: Mild disorganization Thought Content: She talked about going back to school Cognition: A/O X 4 Insight: Fair Judgment: Fair Interventions PRN's used: None Therapeutic interventions: 1:1 assessment, active listening, medication administration/education/monitoring, redirection, positive reinforcement, Q 15 min safety checks. Restraints/seclusion/emergency medication: N/A Justification of Continued Inpatient Treatment: Pt is improving. Continued therapeutic support and medication management and monitoring needed to prevent decompensation, and improve coping mechanisms decreasing risk to patient and re-admittance.
[2020-02-27 19:00] VITALS: BP 112/71
[2020-02-27] MEDS: divalproex sodium 500mg tablet.DR PO SCH (20:59)
[2020-02-27] MEDS: quetiapine 100mg tablet PO SCH (20:59)
[2020-02-27] MEDS ORDERED: risperiDONE 2mg tablet PO SCH (21:00)
--- NOTE | 2020-02-28 00:16 | NUR ---
NURSING PROGRESS NOTE: Legal hold: 5270 Expires 03/09 Client on involuntary status for GD. Report received from JERRY Bajwa with use of SBAR. Why are they here: Patient admitted to [facility] on 01/21/20. She was brought to [facility] on 01/22/20 at 1350 and placed on a 5150 for GD. Patient is unable to provide food, clothing, or retirement for herself due to exasperated mental health condition that includes delusional an disorganized thought process. Patients mother reports that patient has not been sleeping for the last 5 days and has not been medication compliant. Assessment What has happened this shift: Patient is up and visible on unit at shift change. Patient is engaging appropriately with peers and staff. Patient presents as less disorganized and elevated. Patient is observed talking on phone to her mother, patient is animated in conversation and talking about "being able to cook" with her mom when she gets back from [facility]. Patient denies S/I and H/I, A/H and V/H. Patient talks often of being discharged "I am leaving on March 09, it is sort of sad, I am going to miss everyone." Patient still has moments of disorganized or random thoughts. Patient takes medication without hesitation. Pt c/o of her buttocks being sore from the Invega Injection. Tylenol was offered, but patient declined intervention. No c/o of rash or itching this shift. Patient reports normal bowel movement today. Patient's next Invega injection is due on 03/03. S/I, H/I: Pt denies, none observed. A/VH: Pt denies, none observed. Sleep: Patient falls asleep without incident. See Sleep Assessment for total hours. 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 Were Meds taken: Yes, takes medication without issue. Any med S/E: None observed or reported. Mental Status Exam Appearance: Neat, clean wearing pajama bottoms and a black sweatshirt. Eye contact: Good Behavior: Calm, cooperative, friendly Speech: Mildly disorganized, talkative, less pressured. Mood: Friendly, slightly sedated. Affect: Congruent with mood. Thought process: Less disorganized. Thought Content: Being discharged. Cognition: A&O x4 Insight: Gaining insight Judgment: Fair. Interventions PRN's used: None Therapeutic interventions: 1:1 assessment, active listening, therapeutic conversation, medication administration/education/monitoring, behavior monitoring and intervention as needed; reality orientation, redirection, positive reinforcement, Q 15 min safety checks. Restraints/seclusion/emergency medication: N/A Justification of Continued Inpatient Treatment: Pt is improving. Continued therapeutic support and medication management and monitoring needed to prevent decompensation, and improve coping mechanisms decreasing risk to patient and re-admittance.
[2020-02-28 08:00] VITALS: BP 101/61
[2020-02-28] MEDS: lithium carbonate 150mg capsule PO SCH ×3 (08:01→20:28)
[2020-02-28] MEDS: divalproex sodium 250mg tablet PO SCH ×2 (08:02→11:55)
[2020-02-28] MEDS: docusate sod 100mg capsule PO SCH ×2 (08:02→20:28)
[2020-02-28] MEDS: CLONAZEPAM 0.25 MG oral disentigrating tablet (ODT) PO SCH ×2 (08:02→13:50)
[2020-02-28] MEDS: terbinafine cream 30gm TP SCH ×2 (08:03→20:29)
[2020-02-28] MEDS: triamcinolone acet 0.1% cream 15gm TP SCH ×2 (08:03→20:00)
--- NOTE | 2020-02-28 17:38 | NUR ---
NURSING PROGRESS NOTE: Legal hold: 5270 Report received from Anisa Carrasquillo RN with use of SBAR. Why are they here: Patient admitted to [facility] on 01/21/20. She was brought to [facility] on 01/22/20 at 1350 and placed on a 5150 for GD. Patient is unable to provide food, clothing, or prison for herself due to exasperated mental health condition that includes delusional an disorganized thought process. Patients mother reports that patient has not been sleeping for the last 5 days and has not been medication compliant. Assessment What has happened this shift: Pt up most of the shift. She spends time engaging in visits with peers on different levels. At times she is seen singing w/peers to a music video, or walking the halls with one while engaging in the afternoon. She spends time with various staff members conversing on various topics usually she likes to discuss books, words and their various meanings, and school. Clonazepam discontinued per YARI Boo. S/I, H/I: Pt denies A/VH: Pt denies Sleep: Pt states she sleeps well at night; up all shift ADL's: Independent Group attendance: yes Were Meds taken: Yes Any med S/E: Pt reports feeling sedated from her medications; consulted with Stacy today and medication, Clonazepam discontinued. Mental Status Exam Appearance: Showered in the AM. Eye contact: Good Behavior: Cooperative, friendly, participates in groups and unit activities, socializes with staff and peers. Speech: Somewhat disorganized, talkative. Mood: Calm Affect: Bright Thought process:Mild disorganization Thought Content: Requested something in writing on her current medication orders Cognition: A/O X 4 Insight: Fair Judgment: Fair Interventions PRN's used: None Therapeutic interventions: 1:1 assessment, active listening, medication administration/education/monitoring, redirection, positive reinforcement, Q 15 min safety checks. Restraints/seclusion/emergency medication: N/A Justification of Continued Inpatient Treatment: Pt is improving. Continued therapeutic support and medication management and monitoring needed to prevent decompensation, and improve coping mechanisms decreasing risk to patient and re-admittance. Addendum: 02/28/20 at 1739 by Tosha Scruggs RN Per YARI Wilson next Annalise Gamboa is due on March 14.
[2020-02-28 19:00] VITALS: BP 109/62
[2020-02-28] MEDS: quetiapine 100mg tablet PO SCH (20:28)
[2020-02-28] MEDS: divalproex sodium 500mg tablet.DR PO SCH (20:28)
[2020-02-28] MEDS: clonazePAM 0.5mg tablet PO SCH (20:28)
--- NOTE | 2020-02-29 01:48 | NUR ---
NURSING PROGRESS NOTE: Legal hold: 5270 Expires 03/09 Client on involuntary status for GD. Report received from JERRY Bajwa with use of SBAR. Why are they here: Patient admitted to [facility] on 01/21/20. She was brought to [facility] on 01/22/20 at 1350 and placed on a 5150 for GD. Patient is unable to provide food, clothing, or jail for herself due to exasperated mental health condition that includes delusional an disorganized thought process. Patients mother reports that patient has not been sleeping for the last 5 days and has not been medication compliant. Assessment What has happened this shift: Patient is up and visible on unit. Pt. is her usually friendly and outgoing self, but is much calmer and seems to have a more linear thought process then past shifts. Patient is cooperative with 1:1 assessment and care. During night medication pass, patient voices frustration about her meds making her tired. This typewriter operator automatic did explain that her provider was making changes to help alleviate this side effect. Patient continues to socialize with peers, had a good conversation with mother then retired to bed. S/I, H/I: Pt denies, none observed. A/VH: Pt denies, none observed. Sleep: Patient falls asleep without incident. See Sleep Assessment for total hours. 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 Were Meds taken: Yes, takes medication without issue. Any med S/E: None observed or reported. Mental Status Exam Appearance: Neat, clean wearing pajama bottoms and a black sweatshirt. Eye contact: Good Behavior: Calm, cooperative, friendly with staff and peers. Speech: Mildly disorganized, talkative, less pressured. Mood: Friendly, slightly sedated. Affect: Bright Thought process: Less disorganized. Thought Content: Being discharged. Cognition: A&O x4 Insight: Gaining insight. Judgment: Fair. Interventions PRN's used: None Therapeutic interventions: 1:1 assessment, active listening, therapeutic conversation, medication administration/education/monitoring, behavior monitoring and intervention as needed; reality orientation, redirection, positive reinforcement, Q 15 min safety checks. Restraints/seclusion/emergency medication: N/A Justification of Continued Inpatient Treatment: Pt is improving. Continued therapeutic support and medication management and monitoring needed to prevent decompensation, and improve coping mechanisms decreasing risk to patient and re-admittance.
[2020-02-29 07:35] VITALS: BP 102/66
[2020-02-29] MEDS: divalproex sodium 250mg tablet PO SCH ×2 (07:49→12:18)
[2020-02-29] MEDS: clonazePAM 0.5mg tablet PO SCH ×2 (07:49→20:33)
[2020-02-29] MEDS: docusate sod 100mg capsule PO SCH ×2 (07:49→20:33)
[2020-02-29] MEDS: lithium carbonate 150mg capsule PO SCH ×3 (07:49→20:34)
[2020-02-29] MEDS: terbinafine cream 30gm TP SCH ×2 (07:52→20:00)
[2020-02-29] MEDS: triamcinolone acet 0.1% cream 15gm TP SCH ×2 (07:53→20:00)
--- NOTE | 2020-02-29 10:16 | NUR ---
Reassessment: Pt PO continues to fluctuate roughly 50% avg past 5 days though some 0-25%/refusals and 100% PO meals. Receiving ensure pudding at lunches, almond milk, and side salad BIDLD. [facility] 02/26 receiving colace and MoM for bowel care. Will continue to monitor. Rec: 1. continue regular diet- send almond milk with meals, ensure pudding and side salad w/ ranch BIDLD per patient request 2. routine bowel care 3. wt per rx Addendum: 02/29/20 at [address] Amended: Links added.
--- NOTE | 2020-02-29 16:52 | NUR ---
NURSING PROGRESS NOTE: Legal hold: 5270 Expires 03/09 Client on involuntary status for GD. Report received from Anisa Carrasquillo RN with use of SBAR. Why are they here: Patient admitted to [facility] on 01/21/20. She was brought to [facility] on 01/22/20 at 1350 and placed on a 5150 for GD. Patient is unable to provide food, clothing, or long-term for herself due to exasperated mental health condition that includes delusional an disorganized thought process. Patients mother reports that patient has not been sleeping for the last 5 days and has not been medication compliant. Assessment What has happened this shift: Pt up on the unit at start of shift. She is cooperative during AM assessment and administration of her medications. Again, she is asleep prior to her 1300 meds and lunch. She is observed talking with peers and playing [employer]. Pt spent most of this shift visiting with various people on the unit. S/I, H/I: Denies A/VH: Denies Sleep: Slept 2 hours in AM ADL's: Independent Group attendance: Played corn hole on the unit Were Meds taken: Yes Any med S/E: None observed or reported. Mental Status Exam Appearance: Neat, clean wearing pajama bottoms and a black sweatshirt. Eye contact: Good Behavior: Calm, cooperative, friendly with staff and peers. Speech: Mildly disorganized, less pressured. Mood: Friendly, slightly sedated. Affect: Bright Thought process: Less disorganized. Thought Content: Being discharged. Cognition: A&O x4 Insight: Improved Judgment: Fair. Interventions PRN's used: None Therapeutic interventions: Provided 1:1 assessment w/therapeutic communication and active listening, medication administration/education/monitoring, behavior monitoring and intervention as needed, positive reinforcement, Q 15 min safety checks. Restraints/seclusion/emergency medication: N/A Justification of Continued Inpatient Treatment: Pt is improving. Continued therapeutic support and medication management and monitoring needed to prevent decompensation, and improve coping mechanisms decreasing risk to patient and re-admittance.
[2020-02-29 20:00] VITALS: BP 114/75
[2020-02-29] MEDS: quetiapine 100mg tablet PO SCH (20:34)
[2020-02-29] MEDS: divalproex sodium 500mg tablet.DR PO SCH (20:34)
--- NOTE | 2020-03-01 03:09 | NUR ---
NURSING PROGRESS NOTE: Legal hold: 5270 Expires 03/09 Report received from JERRY Bajwa with use of SBAR. Why are they here: Patient admitted to [facility] on 01/21/20. She was brought to [facility] on 01/22/20 at 1350 and placed on a 5150 for GD. 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 Patients mother reports that patient has not been sleeping for the last 5 days and has not been medication compliant. Assessment What has happened this shift: The patient was seen on the unit at shift change. 1:1 at her bedside. "Are you back from the future?" The patient reports that she is doing well, "I threw away all Gilmer's personal info, including his phone number. He wants to be more than friends, and I can't have that. I was counseled to try not to get involved with other patients, but I have a big heart and its hard." The patient still has a hard time expressing what she means, "not focusing. Med changes to help the brain. you know, traumatizing anxiety that gives aches and pains in the stomach?" She then goes on to say, "I'm scared of the dark. A phobia, that's what it is." The patient says, "things that go bump in the night." After HS med pass, she looked real tired, but had a hard time agreeing to go to sleep. She has slept all night. S/I, H/I: Denies. A/VH: Denies. Sleep: See sleep assessment. 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 Were Meds taken: Yes. Any med S/E: None reported or observed. Mental Status Exam Appearance: Clean, long black hair worn down wearing green unit scrubs and own sweatshirt. Eye contact: Direct Behavior: Social, disorganized, tangential, intrusive, serious. Speech: Pressured. Mood: Labile. Affect: Blunted with brightening Thought process: Disorganized, tangential Thought Content: God, family, men. Cognition: A/O x3 Insight: Fair. Judgment: Fair Interventions PRN's used: None Therapeutic interventions: 1:1 therapeutic assessment, active listening, medication administration/education/monitoring, behavior monitoring and intervention; reality orientation, redirection with positive reinforcement, Q 15 min safety checks. Restraints/seclusion/emergency medication: N/A Justification of Continued Inpatient Treatment: Patient gravely disabled. Patient is unable to formulate a plan to safely meet her basic needs of food, clothing, skilled nursing due to the severity of her mental illness. Continued therapeutic support and medication and monitoring needed for stabilization.
[2020-03-01] MEDS: docusate sod 100mg capsule PO SCH ×2 (07:59→20:37)
[2020-03-01] MEDS: divalproex sodium 250mg tablet PO SCH ×2 (07:59→12:22)
[2020-03-01] MEDS: lithium carbonate 150mg capsule PO SCH ×2 (08:00→20:37)
[2020-03-01] MEDS: clonazePAM 0.5mg tablet PO SCH ×2 (08:00→20:37)
[2020-03-01] MEDS: triamcinolone acet 0.1% cream 15gm TP SCH ×2 (08:00→21:06)
[2020-03-01] MEDS: terbinafine cream 30gm TP SCH ×2 (08:00→20:00)
[2020-03-01 08:01] VITALS: BP 99/60
--- NOTE | 2020-03-01 11:48 | NUR ---
Follow up: Patient no longer drinking almond milk with meals, preferring cows milk instead, d/w bedside regarding the patient's preference and will remove almond milk from meals. Addendum: 03/01/20 at [address] Amended: Links added.
--- NOTE | 2020-03-01 17:03 | NUR ---
NURSING PROGRESS NOTE: Legal hold: 5270 Report received from JERRY Pyle with use of SBAR. Why are they here: Patient admitted to [facility] on 01/21/20. She was brought to [facility] on 01/22/20 at 1350 and placed on a 5150 for GD. Patient is unable to provide food, clothing, or intermediate for herself due to exacerbate mental health condition that includes delusional an disorganized thought process. Patients mother reports that patient has not been sleeping for the last 5 days and has not been medication compliant. Assessment What has happened this shift: Pt up standing in her room at start of the shift. She stands and spins around and around touching everything in her room. She is smiling. Pt states, Dr. Ruano helped me a lot today, you know to focus, we talked about my plans from here and my focus. Later she came up and said, Sorry, guys usually I am so use to people here you know not professionals, ten four, ten four. Pt socializes well w/both peers and staff. S/I, H/I: Denies. A/VH: Denies. Sleep:Up all shift ADL's: Independent Group attendance:N/A Were Meds taken: Yes. Any med S/E: None reported or observed. Mental Status Exam Appearance: Tall thin dark haired female with gold beanie and personal clothing Eye contact: Direct Behavior: Social, disorganized, intrusive Speech: Pressured. Mood: Labile. Affect: Blunted with brightening Thought process: Disorganized, tangential Thought Content: Men and concerts Cognition: A/O x3 Insight: Fair. Judgment: Fair Interventions PRN's used: None Therapeutic interventions: provided 1:1 assessment at her bedside during medication pass; medication administration/education/monitoring, education provided on [place] and lab requirements; redirection with positive reinforcement, Q 15 min safety checks. Restraints/seclusion/emergency medication: N/A Justification of Continued Inpatient Treatment: Patient is unable to formulate a plan to safely meet her basic needs of food, clothing, intermediate due to the severity of her mental illness. Continued therapeutic support and medication and monitoring needed for stabilization.
[2020-03-01] MEDS: divalproex sodium 500mg tablet.DR PO SCH (20:38)
[2020-03-01] MEDS: quetiapine 100mg tablet PO SCH (20:38)
[2020-03-01 20:42] VITALS: BP 122/69
[2020-03-01] MEDS: temazepam 15mg capsule PO PRN (23:46)
--- NOTE | 2020-03-02 01:43 | NUR ---
NURSING PROGRESS NOTE: Legal hold: 5270 Expires 03/09 Report received from JERRY Bajwa with use of SBAR. Why are they here: Patient admitted to [facility] on 01/21/20. She was brought to [facility] on 01/22/20 at 1350 and placed on a 5150 for GD. 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 Patients mother reports that patient has not been sleeping for the last 5 days and has not been medication compliant. Assessment What has happened this shift: The patient was seen on the unit at shift change. 1:1 at her bedside. "I have a compassionate heart. I've been out talking to other clients. Not getting involved or anything. Just learning to be aware...and increasing awareness about the people around me." The patient spent the evening socializing and being intrusive with staff while seeking attention. If she doesn't get the attention she desires, she keeps trying. Multiple times tonight the patient says she wants to talk about something. When she starts talking, she is so tangential that she never finishes a thought. She uses similes, metaphors, hand waving, and repetitive words...and never gets to the point of what she wants to say. She does not like to be interrupted. "You're not listening, you're not hearing me, or you don't understand, just listen." It gets worse around bed time, due to her being afraid of the dark. After bedtime, she stated to another staff member that she wouldn't go to bed until this nurse came to talk to her. She started ranting about how [facility] she[facility], and the [facility]. She was asking how she can be normal and not have to be medicated all the time. She is also upset that the Doctor is making her go the [facility] for a month before she can go home to her parents. "I'm not mental, but I know I have to go there to get my head back." S/I, H/I: Denies. A/VH: Denies. Sleep: See sleep assessment. 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 Were Meds taken: Yes. Any med S/E: None reported or observed. Mental Status Exam Appearance: Clean, long black hair worn down wearing appropriate street clothes. Eye contact: Direct Behavior: Social, disorganized, tangential, intrusive, serious. Speech: Pressured. Mood: Labile. Affect: Blunted with brightening Thought process: Disorganized, tangential Thought Content: God, family, men, [facility], [employer] Cognition: A/O x3 Insight: Fair. Judgment: Fair Interventions PRN's used: Restoril for sleep. Therapeutic interventions: 1:1 therapeutic assessment, active listening, medication administration/education/monitoring, behavior monitoring and intervention; reality orientation, redirection with positive reinforcement, Q 15 min safety checks. Restraints/seclusion/emergency medication: N/A Justification of Continued Inpatient Treatment: Patient gravely disabled. Patient is unable to formulate a plan to safely meet her basic needs of food, clothing, detention due to the severity of her mental illness. Continued therapeutic support and medication and monitoring needed for stabilization.
[2020-03-02] MEDS: divalproex sodium 250mg tablet PO SCH ×2 (07:30→11:54)
[2020-03-02 08:01] VITALS: BP 101/67
[2020-03-02] MEDS: docusate sod 100mg capsule PO SCH ×2 (08:02→20:23)
[2020-03-02] MEDS: clonazePAM 0.5mg tablet PO SCH ×2 (08:02→20:23)
[2020-03-02] MEDS: lithium carbonate 150mg capsule PO SCH (08:02)
[2020-03-02] MEDS: triamcinolone acet 0.1% cream 15gm TP SCH ×2 (08:03→20:23)
[2020-03-02] MEDS: terbinafine cream 30gm TP SCH ×2 (08:03→20:23)
[2020-03-02] MEDS: magnesium hydroxide 30ml (MOM) UD suspension PO PRN ×2 (08:08→21:17)
--- NOTE | 2020-03-02 13:09 | NUR ---
1:1 with Max Santana continues to exhibit rapid speech with tangential and circumstantial thought process. She was labile throughout the meeting in that she was tearful at times and laughing at others. 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 She expressed frustration about not being able to achieve some of her goals due to her mental illness. She reported she hates taking medications, yet, understands how they help her (clearer thought process). She is agreeable to going to [facility] upon discharge. CHACHO Su
--- NOTE | 2020-03-02 15:10 | NUR ---
NURSING PROGRESS NOTE: Legal hold: 5270 Expires 03/09 Report received from JERRY Gandhi with use of SBAR. Why are they here: Patient admitted to [facility] on 01/21/20. She was brought to [facility] on 01/22/20 at 1350 and placed on a 5150 for GD. 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 Patients mother reports that patient has not been sleeping for the last 5 days and has not been medication compliant. Assessment What has happened this shift: Pt appeared fatigued this morning before breakfast although quickly perked up afterwards and became hyperverbal and animated. Pt continues to have disorganized thoughts and speech, she is tangential and seems to have some thought blocking at times. Pt can be intrusive and needy. She requires frequent redirection from the charting room where she will stand and demand attention wishing nurses to listen to her ramble on making very little sense. Mood is mostly elevated and pt socializes with staff and peers in her enthusiastic, disorganized, circumstantial, tangential way. Pt reported throwing up last night, she believes because all she ate last night was ice cream. Pt stated she didn't sleep very well because she was "scared of the dark and frustrated with everything...my meds." Pt stated, "I'm having an awesome day...are you having a good day? 'Cause if I'm having an awesome day, you should be having one too!" Pt frequently requests juice, encouraged her to sip ice water, pt stated that she gets sick. Pt requested iced tea be made for her water pitcher. Pt had a Valproic Acid level drawn this morning before breakfast, it came back elevated at 122. Held pt's morning Depakote, notified Dr Ruano. Dr Ruano stated that the level was drawn at an incorrect time since she gets her largest dose of Depakote at HS. He stated that it was a false elevation, that it was okay to give noon Depakote dose and that he would order a redraw for tonight at 1800. S/I, H/I: Pt denies. A/VH: Pt denies. Sleep: Pt slept 4.5 hours last night per noc shift report. ADL's: Independent Group attendance: N/A Were Meds taken: Yes. Any med S/E: Pt reported throwing up last night after taking her pills, no nausea or vomiting today. Mental Status Exam Appearance: Young pale woman with long wavy hair and dark circles under her eyes wearing a yellow slouchy knitted beanie, green scrub pants, an oversized sweatshirt, and pink slippers. Eye contact: Good Behavior: Hypomanic, intrusive, needy though cooperative and easily redirectable. Speech: Hyperverbal, disorganized Mood: Elevated Affect: Exaggerated blunting with periods of animation Thought process: Disorganized, tangential, circumstantial. Thought Content: Likes juice, afraid of the dark, threw up last night, meds and water make her sick, tired of meds, going to the [facility]. Cognition: A/O X 4 with reality distortion. Insight: Fair Judgment: Fair Interventions PRN's used: MOM Therapeutic interventions: 1:1 assessment, active listening, therapeutic conversation, medication administration/education/monitoring, behavior monitoring and intervention; reality orientation, limit setting, redirection, positive reinforcement, Q 15 min safety checks. Restraints/seclusion/emergency medication: N/A Justification of Continued Inpatient Treatment: Patient is gravely disabled. Pt is on a 5270. Patient is unable to formulate a plan to safely meet her basic needs of food, clothing, mcfp. Continued medication adjustment and monitoring as well as therapeutic support needed for stabilization. Plan is for pt to discharge to the [facility] once stable. Addendum: 03/02/20 at 1744 by Clarita Finney RN (Lee) Pt's [place] was changed to 450 CR BID, her HS Seroquel was increased to 400 mg.
[2020-03-02] MEDS: divalproex sodium 500mg tablet.DR PO SCH (20:23)
[2020-03-02] MEDS: lithium carbonate 450mg CR tablet PO SCH (20:23)
[2020-03-02] MEDS: quetiapine 100mg tablet PO SCH (20:24)
[2020-03-02 20:32] VITALS: BP 117/63
--- NOTE | 2020-03-03 00:34 | NUR ---
NURSING PROGRESS NOTE: Legal hold: 5270 Expires 03/09 Report received from JERRY Bajwa with use of SBAR. Why are they here: Patient admitted to [facility] on 01/21/20. She was brought to [facility] on 01/22/20 at 1350 and placed on a 5150 for GD. Patient is unable to provide food, clothing, or snf for herself due to exacerbate mental health condition that includes delusional an disorganized thought process. Patients mother reports that patient has not been sleeping for the last 5 days and has not been medication compliant. Assessment What has happened this shift: The patient was seen on the unit at shift change. 1:1 at her bedside. The patient, at this time, doesn't have much to say. She seems distracted, and only answers yes or no. There is none of the hyperverbal animations that were prevalent last night. She continues to socialize with her peers through the evening until snack time and HS med pass. "Oh goody, more medicine. I'm going right to bed." She didn't. the patient then started being intrusive, coming to the observation room to seek attention and be needy. "Okay, I'm going to bed now." She didn't. This went on for about an hour, and she came back 6 times. She finally stopped getting the attention she desires and went to her room. A little later, her roommate asked for Trazodone, and the patient was on her bed with her head at the foot end of the bed. S/I, H/I: Denies. A/VH: Denies. Sleep: See sleep assessment. 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 Were Meds taken: Yes. Any med S/E: None reported or observed. Mental Status Exam Appearance: Clean, long black hair worn down wearing appropriate street clothes. Eye contact: Direct Behavior: Social, disorganized, tangential, intrusive, serious. Speech: Pressured. Mood: Labile. Affect: Blunted with brightening Thought process: Disorganized, tangential Thought Content: Medicine, God, family, men, [facility], [employer] Cognition: A/O x3 Insight: Fair. Judgment: Fair Interventions PRN's used: Therapeutic interventions: 1:1 therapeutic assessment, active listening, medication administration/education/monitoring, behavior monitoring and intervention; reality orientation, redirection with positive reinforcement, Q 15 min safety checks. Restraints/seclusion/emergency medication: N/A Justification of Continued Inpatient Treatment: Patient gravely disabled. Patient is unable to formulate a plan to safely meet her basic needs of food, clothing, snf due to the severity of her mental illness. Continued therapeutic support and medication and monitoring needed for stabilization.
[2020-03-03 07:45] VITALS: BP 86/60
[2020-03-03] MEDS: lithium carbonate 450mg CR tablet PO SCH ×2 (08:22→20:29)
[2020-03-03] MEDS: clonazePAM 0.5mg tablet PO SCH ×2 (08:22→20:28)
[2020-03-03] MEDS: docusate sod 100mg capsule PO SCH ×2 (08:22→20:29)
[2020-03-03] MEDS: divalproex sodium 250mg tablet PO SCH ×2 (08:22→12:39)
[2020-03-03] MEDS: acetaminophen 325mg tablet PO PRN (08:23)
[2020-03-03] MEDS: terbinafine cream 30gm TP SCH ×2 (08:23→20:00)
[2020-03-03] MEDS: triamcinolone acet 0.1% cream 15gm TP SCH ×2 (08:23→20:00)
--- NOTE | 2020-03-03 15:18 | NUR ---
NURSING PROGRESS NOTE: Legal hold: 5270 Expires 03/09 Report received from JERRY Gandhi with use of SBAR. Why are they here: Patient admitted to [facility] on 01/21/20. She was brought to [facility] on 01/22/20 at 1350 and placed on a 5150 for GD. Patient is unable to provide food, clothing, or jail for herself due to exacerbate mental health condition that includes delusional an disorganized thought process. Patients mother reports that patient has not been sleeping for the last 5 days and has not been medication compliant. Assessment What has happened this shift: Pt appeared fatigued and was somewhat irritable this morning. She requested that her bedroom door be shut before breakfast as she had no top on, just her bra. She did not feel comfortable getting out of bed in her bra with her curtain between the bed being closed, even though she is in the window bed and the shades were down. Pt was initially reluctant to take her medications this morning, mumbling about how she didn't want to take anymore pills. However, pt changed her mind after breakfast and was cooperative with medications. Pt c/o 10/10 neck pain this morning and was given prn Tylenol 650 mg @ 0823 with good effect. Pt appeared blunted and subdued today, her mood was not elevated, she was quieter than yesterday. Pt did continue with her attention seeking behavior and approached the nurses, in particular the male nurses many times today for random requests or to ramble without making a point. Pt needed to be redirected away from the charting room several times, pt is for the most part easily redirectable. Pt's valproic acid level came back at 96, WNL. S/I, H/I: Pt denies. A/VH: Pt denies. Sleep: Pt slept 9 hours last night per noc shift report. ADL's: Independent Group attendance: N/A Were Meds taken: Yes. Any med S/E: None noted or reported. Mental Status Exam Appearance: Young pale woman with long wavy hair wearing plaid pajama pants and a sweatshirt. Eye contact: Good Behavior: Cooperative, attention-seeking, insecure; needs constant re-assurance and validation from staff. Speech: Clear, audible, still somewhat disorganized. Mood: Irritable, needy. Affect: Blunted Thought process: Disorganized, loose associations, perseverative, compulsive. Thought Content: Tired of taking pills, constantly wants something fresh to drink; fresh ice water or tea, juice, a new water pitcher, wants staff to reassure her and say nice things about her. Cognition: A/O X 4 with reality distortion. Insight: Fair Judgment: Fair Interventions PRN's used: Tylenol 650 mg Therapeutic interventions: 1:1 assessment, active listening, therapeutic conversation, encouragement to continue to cooperate with medication adjustments, medication administration/education/monitoring, behavior monitoring and intervention; reality orientation, limit setting, redirection, re-assurance, positive reinforcement, Q 15 min safety checks. Restraints/seclusion/emergency medication: N/A Justification of Continued Inpatient Treatment: Patient is gravely disabled. Pt is on a 5270. Patient is unable to formulate a plan to safely meet her basic needs of food, clothing, jail. Continued medication adjustment and monitoring as well as therapeutic support needed for stabilization. Plan is for pt to discharge to the [facility] once stable.
[2020-03-03 20:00] VITALS: BP 106/68
[2020-03-03] MEDS: divalproex sodium 500mg tablet.DR PO SCH (20:28)
[2020-03-03] MEDS: quetiapine 100mg tablet PO SCH (20:29)
--- NOTE | 2020-03-04 02:01 | NUR ---
NURSING PROGRESS NOTE: Legal hold: 5270 Client on involuntary status for GD Report received from JERRY Otto with use of SBAR. Why are they here: Patient admitted to [facility] on 01/21/20. She was brought to [facility] on 01/22/20 at 1350 and placed on a 5150 for GD. Patient is unable to provide food, clothing, or fpc for herself due to exasperated mental health condition that includes delusional an disorganized thought process. Patients mother reports that patient has not been sleeping for the last 5 days and has not been medication compliant. Assessment What has happened this shift: Patient is happy and animated at shift change. She walks around the unit engaging with staff and peers with enthusiasm. She laughs frequently and jokes around with peers. Pt is hyperverbal but very pleasant. She is linear at times, but becomes disorganized the longer a story goes on. She denies AH/VH/SI/HI at this time. She is not observed responding to internal stimuli at all this shift. She is medication compliant, but expresses sadness that she has to take pills. "I really don't like that I have to take these, but I guess they do help." Pt was reassured and she became bright again. She is very caring towards others and inquisitive. S/I, H/I: Pt. denies, none observed. A/VH: Pt. denies, none observed. Sleep: see sleep assessment ADL's: Independent Group attendance: shift supervisor rn, no group. Were Meds taken:yes Any med S/E: None observed or reported Mental Status Exam Appearance: Clean, neat, wearing own clothes. Eye contact: Good Behavior: talkative, social Speech: Hyperverbal, clear Mood: Happy, upbeat Affect: Bright Thought process: linear to disorganized Thought Content: Circumstantial Cognition: Alert Insight: Impaired. Judgment: Impaired. Interventions PRN's used: none Therapeutic interventions: 1:1 assessment, active listening, therapeutic conversation, medication administration/education/monitoring, behavior monitoring and intervention; reality orientation, redirection, positive reinforcement, reassurance patient is safe, Q 15 min safety checks. Restraints/seclusion/emergency medication: N/A Justification of Continued Inpatient Treatment: Patient is unable to formulate a plan to safely meet her basic needs of food, clothing, and fpc due to the severity r/t mental illness. Continued therapeutic support and medication management and monitoring needed to provide stabilization, prevent decompensation, and improve coping mechanisms decreasing risk to patient and re-admittance.
[2020-03-04 07:35] VITALS: BP 107/57
[2020-03-04] MEDS: lithium carbonate 450mg CR tablet PO SCH ×2 (08:00→20:50)
[2020-03-04] MEDS: clonazePAM 0.5mg tablet PO SCH ×2 (08:00→20:51)
[2020-03-04] MEDS: terbinafine cream 30gm TP SCH ×2 (08:00→20:00)
[2020-03-04] MEDS: divalproex sodium 250mg tablet PO SCH ×2 (08:00→12:42)
[2020-03-04] MEDS: docusate sod 100mg capsule PO SCH ×2 (08:00→20:51)
[2020-03-04] MEDS: triamcinolone acet 0.1% cream 15gm TP SCH (08:01)
[2020-03-04] MEDS: magnesium hydroxide 30ml (MOM) UD suspension PO PRN (08:08)
[2020-03-04] MEDS: ondansetron 4mg rapidly disintigrating tab PO PRN (08:09)
[2020-03-04] MEDS ORDERED: paliperidone palmitate 156 mg/ml inj.**IM only IM ONE (11:20)
--- NOTE | 2020-03-04 14:34 | NUR ---
[facility] Spoke to [facility] and plan is for Kathytavia to discharge and go to [facility] on 03/09/20. Kathytavia is agreeable to this plan. CHACHO Su
--- NOTE | 2020-03-04 16:02 | NUR ---
Reassessment: Pt PO improving, eating about 50-75% of meals, appetite is good. Receiving ensure pudding at lunches, and side salad BIDLD. Last BM 03/02 per physical documentation. Per PA note patient had KUB showing mild to moderate constipation with no evidence of bowel obstruction. Receiving colace and milk of magnesia prn for bowel care. Weight stable through admission with the exception of the last standing scale weight taken on 02/25 being 3.5 kg less than admission bedcale weight, may be due to fluids and difference in scales being used. Will continue to monitor. Rec: 1. continue regular diet- ensure pudding and side salad w/ ranch BIDLD per patient request 2. routine bowel care 3. weekly weights Addendum: 03/04/20 at [address] Amended: Links added.
--- NOTE | 2020-03-04 16:22 | NUR ---
NURSING PROGRESS NOTE: Legal hold: 5270 Expires 03/09 Report received from JERRY Gandhi with use of SBAR. Why are they here: Patient admitted to [facility] on 01/21/20. She was brought to [facility] on 01/22/20 at 1350 and placed on a 5150 for GD. 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 Patients mother reports that patient has not been sleeping for the last 5 days and has not been medication compliant. Assessment What has happened this shift: Pt c/o some mild nausea and constipation this morning at breakfast. Administered MOM and Zofran 4 mg @ 0809. No episodes of emesis. Pt was in a better mood today. She was pleasant, cooperative, and friendly. Observed pt interacting with peers playing the guitar and singing, as well as joking, smiling, and laughing. Zara Rae from [facility] came in to see pt and let her know that she will be working with her once she is discharged to the [facility]. Pt was extremely happy and pleased to see Zara stated that she knew her. Speech is a little disorganized at times but patient is able to communicate her needs. Pt was given an Invega Sustenna 156 mg injection in her left deltoid today at 1540. Pt stated, "that was good, thank you Osman Guevara, you have the magic touch...sometimes when they give me shots, I get scared, but I was blessed by you today." S/I, H/I: Pt denies. A/VH: Pt denies. Sleep: Pt slept 7.75 hours last night per noc shift report. ADL's: Independent Group attendance: N/A Were Meds taken: Yes. Any med S/E: None noted or reported. Mental Status Exam Appearance: Young pale woman with long wavy hair wearing plaid pajama pants and a sweatshirt. Eye contact: Good Behavior: Pleasant, cooperative, socializes with staff and peers, sings and plays guitar. Speech: Clear, audible, still somewhat disorganized. Mood: Good, elevated. Affect: Calm, animated at times. Thought process: Some disorganization of thoughts though pt is A/O X 4 Thought Content: Enjoys music and interacting with peers, happy that Shae from [facility] will be following with her at the [facility]. Cognition: A/O X 4 with some reality distortion. Insight: Fair to good Judgment: Fair Interventions PRN's used: MOM Maxime Therapeutic interventions: 1:1 assessment, active listening, therapeutic conversation, medication administration/education/monitoring, behavior monitoring and intervention; reality orientation, re-assurance, positive reinforcement, Q 15 min safety checks. Restraints/seclusion/emergency medication: N/A Justification of Continued Inpatient Treatment: Pt's symptoms have improved though some adjustments/titrations are still being done with her medications. Pt received her 2nd Invega Sustenna injection today. Plan is for pt to discharge to the [facility] on Sunday03/09/20, [facility] will be following her there.
[2020-03-04 19:56] VITALS: BP 115/69
[2020-03-04] MEDS: quetiapine 100mg tablet PO SCH (20:51)
[2020-03-04] MEDS: divalproex sodium 500mg tablet.DR PO SCH (20:51)
--- NOTE | 2020-03-05 01:32 | NUR ---
NURSING PROGRESS NOTE: Legal hold: 5270 Expires 03/09 Report received from JERRY Law with use of SBAR. Why are they here: Patient admitted to [facility] on 01/21/20. She was brought to [facility] on 01/22/20 at 1350 and placed on a 5150 for GD. 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 Patients mother reports that patient has not been sleeping for the last 5 days and has not been medication compliant. Assessment What has happened this shift: Patient is awake and well oriented, she is animated and playing guitar, she sings for staff and fellow patients. At times this patient is hyperactive. Patient denies S/I, H/I, or hallucinations. On occasion patients thought process is still disorganized. Patient is cooperative with staff, she is medication compliant. The patient is given her evening medications slowly with some distraction provided by this designer/writer. No nausea presented with this medication pass. The patient showered and was given clean scrubs. This patient states excitement about being transferred soon from [facility] to the [facility]. S/I, H/I: Pt denies. A/VH: Pt denies. Sleep: Will tally at 0500 hours. . ADL's: Independent Group attendance: N/A Were Meds taken: Yes, patient is medication compliant. Any med S/E: None noted or reported. Mental Status Exam Appearance: A clean and well groomed young woman with Keen like eyes wearing green scrubs. Eye contact: Good. Behavior: Pleasant, cooperative, socializes with staff and peers, sings and plays guitar. Speech: Clear, audible, still somewhat disorganized. Mood: Good, elevated. Affect: Calm, animated at times. Thought process: Well oriented with some disorganized thoughts. Thought Content: Concerned about other patients, happy about pending discharge to [facility]. Cognition: Some disorganized thoughts. Fair cognition. Insight: Fair to good. Judgment: Fair. Interventions PRN's used: Therapeutic interventions: 1:1 assessment, active listening, therapeutic conversation, medication administration/education/monitoring, behavior monitoring and intervention; reality orientation, re-assurance, positive reinforcement, Q 15 min safety checks. Restraints/seclusion/emergency medication: N/A Justification of Continued Inpatient Treatment: Pt's symptoms have improved though some adjustments/titrations are still being done with her medications. Pt received her 2nd Invega Sustenna injection today. Plan is for pt to discharge to the [facility] on Sunday03/09/20, [facility] will be following her there.
[2020-03-05 08:00] VITALS: BP 99/58
[2020-03-05] MEDS: clonazePAM 0.5mg tablet PO SCH ×2 (08:22→20:25)
[2020-03-05] MEDS: docusate sod 100mg capsule PO SCH ×2 (08:22→20:25)
[2020-03-05] MEDS: divalproex sodium 250mg tablet PO SCH ×2 (08:23→12:44)
[2020-03-05] MEDS: lithium carbonate 450mg CR tablet PO SCH ×2 (08:23→20:25)
[2020-03-05] MEDS: terbinafine cream 30gm TP SCH ×2 (08:31→20:27)
[2020-03-05] MEDS ORDERED: LORazepam 0.5 MG tablet PO ONE (10:15)
[2020-03-05] MEDS: magnesium hydroxide 30ml (MOM) UD suspension PO PRN ×2 (13:05→20:30)
--- NOTE | 2020-03-05 16:36 | NUR ---
NURSING PROGRESS NOTE: Legal hold: 5270 Expires 03/09 Report received from JERRY Robbins with use of SBAR. Why are they here: Patient admitted to [facility] on 01/21/20. She was brought to [facility] on 01/22/20 at 1350 and placed on a 5150 for GD. 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 Patients mother reports that patient has not been sleeping for the last 5 days and has not been medication compliant. Assessment What has happened this shift: Pt up and visible on the unit at beginning of shift. Pt extremely tangential, hyperverbal and pressured, but kept apologizing for talking too much. Pt affect and mood was bright and she was able to hear redirection without getting angry, I know, I know, I talk too much, Ill be quiet Pt had interview for the [facility] at 1100 and Ativan was offered to help her calm down and be able to focus. Pt did not want to take the Ativan and was able to pull herself together without it. She interviewed well and according to SW, will be leaving on Sunday. Pt sat in rec room periodically and played guitar and sang Congregation songs. Pt compassionate re: other patients and always asking how to help. Pt pleasant remainder of shift. S/I, H/I: Pt denies. A/VH: Pt denies. Sleep: Pt slept 7.5 hours last night per noc shift report. ADL's: Independent Group attendance: N/A Were Meds taken: Yes. Any med S/E: None noted or reported. Mental Status Exam Appearance: Young pale woman with long wavy hair wearing plaid pajama pants and a sweatshirt. Eye contact: Good Behavior: Pleasant, cooperative, socializes with staff and peers, sings and plays guitar. Speech: Clear, audible, still somewhat disorganized. Mood: Good, elevated. Affect: Calm, animated at times. Thought process: Some disorganization of thoughts though pt is A/O X 4 Thought Content: Enjoys music and interacting with peers, happy that Shae from [facility] will be following with her at the [facility] Cognition: A/O X 4 with some reality distortion. Insight: Fair to good Judgment: Fair Interventions PRN's used: MOM, Zofran Therapeutic interventions: 1:1 assessment, active listening, therapeutic conversation, medication administration/education/monitoring, behavior monitoring and intervention; reality orientation, re-assurance, positive reinforcement, Q 15 min safety checks. Restraints/seclusion/emergency medication: N/A Justification of Continued Inpatient Treatment: Pt's symptoms have improved though some adjustments/titrations are still being done with her medications. Pt received her 2nd Invega Sustenna injection today. Plan is for pt to discharge to the [facility] on Sunday03/09/20, [facility] will be following her there.
[2020-03-05 19:35] VITALS: BP 133/73
[2020-03-05 19:37] VITALS: BP 115/79
[2020-03-05] MEDS: divalproex sodium 500mg tablet.DR PO SCH (20:25)
[2020-03-05] MEDS: quetiapine 100mg tablet PO SCH (20:25)
--- NOTE | 2020-03-06 04:43 | NUR ---
NURSING PROGRESS NOTE: Legal hold: 5270 Expires 03/09 Report received from JERRY Law with use of SBAR. Why are they here: Patient admitted to [facility] on 01/21/20. She was brought to [facility] on 01/22/20 at 1350 and placed on a 5150 for GD. 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 Patients mother reports that patient has not been sleeping for the last 5 days and has not been medication compliant. Assessment What has happened this shift: Patient socializing with staff and peers at the beginning of shift. Pleasant and cooperative with all care; compliant with all medication. Denies SI, HI, A/VH. Patient stated, in mid sentence, several times this shift, "I don't know what I'm saying. 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 She continues to sing and play guitar for peers. Patient laid down for bed and quickly called for advertising writer as her "rash is stinging." She allowed for advertising writer to look and rash is red and irritated. Patient explained she has sensitive skin and feels strongly that unit laundry detergent is causing the rash. Patient took a shower to alleviate the irritation and went straight to bed following shower. S/I, H/I: Pt denies. A/VH: Pt denies. Sleep: Refer to sleep assessment ADL's: Independent Group attendance: N/A Were Meds taken: Yes Any med S/E: None reported or observed Mental Status Exam Appearance: Showered, neat, wearing green unit scrubs Eye contact: Good Behavior: Pleasant, cooperative, socializes with staff and peers, sings and plays guitar. Speech: Clear, audible, still somewhat disorganized. Mood: Euthymic Affect: Animated Thought process: Well oriented with some disorganized thoughts. Thought Content: Happy about pending discharge to [facility]. Cognition: A/O x4 Insight: Fair to good. Judgment: Fair. Interventions PRN's used: None Therapeutic interventions: 1:1 assessment, active listening, therapeutic conversation, medication administration/education/monitoring, behavior monitoring and intervention; reality orientation, re-assurance, positive reinforcement, Q 15 min safety checks. Restraints/seclusion/emergency medication: N/A Justification of Continued Inpatient Treatment: Pt's symptoms have improved though some adjustments/titrations are still being done with her medications. Pt received her 2nd Invega Sustenna injection today. Plan is for pt to discharge to the [facility] on Sunday03/09/20, [facility] will be following her there
[2020-03-06 07:07] VITALS: BP 96/58
[2020-03-06] MEDS: divalproex sodium 250mg tablet PO SCH ×2 (08:10→12:45)
[2020-03-06] MEDS: clonazePAM 0.5mg tablet PO SCH ×2 (08:10→20:03)
[2020-03-06] MEDS: lithium carbonate 450mg CR tablet PO SCH ×2 (08:10→20:03)
[2020-03-06] MEDS: docusate sod 100mg capsule PO SCH ×2 (08:14→20:03)
[2020-03-06] MEDS: terbinafine cream 30gm TP SCH ×2 (08:45→20:08)
--- NOTE | 2020-03-06 17:14 | NUR ---
NURSING PROGRESS NOTE: Legal hold: 5270 Expires 03/09 Report received from JERRY Rizvi with use of SBAR. Why are they here: Patient admitted to [facility] on 01/21/20. She was brought to [facility] on 01/22/20 at 1350 and placed on a 5150 for GD. 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 Patients mother reports that patient has not been sleeping for the last 5 days and has not been medication compliant. Assessment What has happened this shift: Pt up and visible on the unit at beginning of shift. Pt less tangential, hyperverbal and pressured, and was much calmer today. Pt affect and mood was bright and she was able to hear redirection without getting angry. Pt did share with staff her goals and her walk with the Lord. It was a very feasible and mature plan; though, the relaying of it was tangential at times. Pt denies depression and denies suicidal thoughts. Pt denies auditory hallucinations. Pt interacting appropriately with staff and select peers. Pt sat in dayroom in the afternoon and played the guitar and sang with peers. S/I, H/I: Pt denies. A/VH: Pt denies. Sleep: no napping today ADL's: Independent Group attendance: N/A Were Meds taken: Yes. Any med S/E: None noted or reported. Mental Status Exam Appearance: Young pale woman with long wavy hair wearing plaid pajama pants and a sweatshirt. Eye contact: Good Behavior: Pleasant, cooperative, socializes with staff and peers, sings and plays guitar. Speech: Clear, audible, still somewhat disorganized. Mood: Good, elevated. Affect: Calm, animated at times. Thought process: Some disorganization of thoughts though pt is A/O X 4 Thought Content: Enjoys music and interacting with peers, happy that Shae from [facility] will be following with her at the [facility]. Cognition: A/O X 4 with some reality distortion. Insight: Fair to good Judgment: Fair Interventions PRN's used: Therapeutic interventions: 1:1 assessment, active listening, therapeutic conversation, medication administration/education/monitoring, behavior monitoring and intervention; reality orientation, re-assurance, positive reinforcement, Q 15 min safety checks. Restraints/seclusion/emergency medication: N/A Justification of Continued Inpatient Treatment: Pt's symptoms have improved though some adjustments/titrations are still being done with her medications. Pt received her 2nd Invega Sustenna injection today. Plan is for pt to discharge to the [facility] on Sunday03/09/20, [facility] will be following her there.
[2020-03-06 19:45] VITALS: BP 105/53
[2020-03-06] MEDS: quetiapine 100mg tablet PO SCH (20:03)
[2020-03-06] MEDS: divalproex sodium 500mg tablet.DR PO SCH (20:03)
--- NOTE | 2020-03-07 05:19 | NUR ---
NURSING PROGRESS NOTE: Legal hold: 5270 Expires 03/09 Report received from JERRY Law with use of SBAR. Why are they here: Patient admitted to [facility] on 01/21/20. She was brought to [facility] on 01/22/20 at 1350 and placed on a 5150 for GD. 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 Patients mother reports that patient has not been sleeping for the last 5 days and has not been medication compliant. Assessment What has happened this shift: Patient socializing with peers and staff at the beginning of shift. She continues to play guitar and sing with peers throughout the shift. Pleasant and cooperative with all care; compliant with all medication. Patient continues to c/o bilateral inner thigh rash and showered to alleviate discomfort. Patient denies SI, HI, A/VH this shift. She reported looking forward to her upcoming discharge to [facility]. S/I, H/I: Pt denies. A/VH: Pt denies. Sleep: Refer to sleep assessment ADL's: Independent Group attendance: N/A Were Meds taken: Yes Any med S/E: None reported or observed Mental Status Exam Appearance: Showered, neat, wearing green unit scrubs Eye contact: Good Behavior: Pleasant, cooperative, socializes with staff and peers, sings and plays guitar. Speech: Clear, audible, still somewhat disorganized. Mood: Euthymic Affect: Animated Thought process: Well oriented with some disorganized thoughts. Thought Content: Happy about pending discharge to [facility] Cognition: A/O x4 Insight: Fair to good. Judgment: Fair. Interventions PRN's used: None Therapeutic interventions: 1:1 assessment, active listening, therapeutic conversation, medication administration/education/monitoring, behavior monitoring and intervention; reality orientation, re-assurance, positive reinforcement, Q 15 min safety checks. Restraints/seclusion/emergency medication: N/A Justification of Continued Inpatient Treatment: Pt's symptoms have improved though some adjustments/titrations are still being done with her medications. Pt received her 2nd Invega Sustenna injection today. Plan is for pt to discharge to the [facility] on Sunday03/09/20, [facility] will be following her there
[2020-03-07 07:26] VITALS: BP 108/63
[2020-03-07] MEDS: docusate sod 100mg capsule PO SCH ×2 (07:50→20:29)
[2020-03-07] MEDS: clonazePAM 0.5mg tablet PO SCH ×2 (07:50→20:29)
[2020-03-07] MEDS: divalproex sodium 250mg tablet PO SCH ×2 (07:50→12:15)
[2020-03-07] MEDS: lithium carbonate 450mg CR tablet PO SCH ×2 (07:50→20:29)
[2020-03-07] MEDS: terbinafine cream 30gm TP SCH ×2 (07:51→20:31)
--- NOTE | 2020-03-07 15:01 | NUR ---
NURSING PROGRESS NOTE: Legal hold: 5270 Expires 03/09 Report received from JERRY Bajwa with use of SBAR. Why are they here: Patient admitted to [facility] on 01/21/20. She was brought to [facility] on 01/22/20 at 1350 and placed on a 5150 for GD. 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 Patients mother reports that patient has not been sleeping for the last 5 days and has not been medication compliant. Assessment What has happened this shift: Pt up before breakfast. Pt is animated and hyperverbal. Her mood is elevated. She socializes with staff and peers. She can be intrusive at times and needs redirected. Pt's speech continues to be somewhat disorganized but she is able to make her needs known. Pt rambles at times with loose associations, she continues to be somewhat religiously pre-occupied. Observed pt at another pt's doorway rambling on about presybeterian ideology, "the enemy" and prayer. Pt stated that she is praying for protection, she is being "cautious." Pt likes to play the guitar and sing. When she learned that she was getting a new roommate today, she returned the guitar stating, "I'm nonchalant...I don't want to be all peppy and be like 'hey girl, I play the guitar, do you play the guitar? You do?! OMG!'...I want her to be cool like me." S/I, H/I: Pt denies. A/VH: Pt denies. Sleep: Pt slept 6 hours last night per noc shift report. ADL's: Independent Group attendance: N/A Were Meds taken: Yes Any med S/E: None noted or reported. Mental Status Exam Appearance: Showered, neat, clean long dark-haired young woman dressed in a camo sweatshirt, a black beanie, and green scrubs. Eye contact: Good Behavior: Pleasant, cooperative, socializes with staff and peers, sings and plays guitar. Speech: Clear, audible, hyperverbal, still somewhat disorganized. Mood: Elevated Affect: Animated Thought process: Racing thoughts, loose associations. Thought Content: She is cautious, she is nonchalant, she is cool. Cognition: A/O x4 Insight: Fair to good. Judgment: Fair Interventions PRN's used: None Therapeutic interventions: 1:1 assessment, active listening, therapeutic conversation, medication administration/education/monitoring, behavior monitoring and intervention; reality orientation, redirection, re-assurance, positive reinforcement, Q 15 min safety checks. Restraints/seclusion/emergency medication: N/A Justification of Continued Inpatient Treatment: Pt's symptoms have improved though some adjustments/titrations are still being done with her medications. Plan is for pt to discharge to the [facility] on Sunday03/09/20, [facility] will be following her there
[2020-03-07 19:29] VITALS: BP 107/65
[2020-03-07] MEDS: divalproex sodium 500mg tablet.DR PO SCH (20:29)
[2020-03-07] MEDS: quetiapine 100mg tablet PO SCH (20:29)
--- NOTE | 2020-03-08 04:59 | NUR ---
NURSING PROGRESS NOTE: Legal hold: 5270 Expires 03/09 Report received from JERRY Law with use of SBAR. Why are they here: Patient admitted to [facility] on 01/21/20. She was brought to [facility] on 01/22/20 at 1350 and placed on a 5150 for GD. 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 Patients mother reports that patient has not been sleeping for the last 5 days and has not been medication compliant. Assessment What has happened this shift: Patient socializing with peers and staff at the beginning of shift. Remains hyperverbal and animated. She reports, "I'm just being silly," several times throughout the shift. Pleasant and cooperative with care; compliant with all medication. She played the guitar and sang for peers and staff. She explained to several staff members this shift that she wants to get a job here after her hold. Patient continues to look forward to going to [facility] and denies anxiousness. She continues to deny SI, HI, A/VH. Patient continues to c/o rash on bilateral inner thighs. S/I, H/I: Pt denies. A/VH: Pt denies. Sleep: Refer to sleep assessment ADL's: Independent Group attendance: N/A Were Meds taken: Yes Any med S/E: None reported or observed Mental Status Exam Appearance: Neat, clean, wearing personal attire Eye contact: Good Behavior: Pleasant, cooperative, socializes with staff and peers, sings and plays guitar. Speech: Clear, audible, still somewhat disorganized. Mood: Euthymic Affect: Animated Thought process: Disorganized Thought Content: "being silly," wants to get a job here Cognition: A/O x4 Insight: Fair to good. Judgment: Fair. Interventions PRN's used: None Therapeutic interventions: 1:1 assessment, active listening, therapeutic conversation, medication administration/education/monitoring, behavior monitoring and intervention; reality orientation, re-assurance, positive reinforcement, Q 15 min safety checks. Restraints/seclusion/emergency medication: N/A Justification of Continued Inpatient Treatment: Pt's symptoms have improved though some adjustments/titrations are still being done with her medications. Pt received her 2nd Invega Sustenna injection today. Plan is for pt to discharge to the [facility] on Sunday03/09/20, [facility] will be following her there
[2020-03-08 08:00] VITALS: BP 94/62
[2020-03-08] MEDS: lithium carbonate 450mg CR tablet PO SCH ×2 (08:27→20:33)
[2020-03-08] MEDS: docusate sod 100mg capsule PO SCH ×2 (08:27→20:33)
[2020-03-08] MEDS: divalproex sodium 250mg tablet PO SCH ×2 (08:27→12:10)
[2020-03-08] MEDS: clonazePAM 0.5mg tablet PO SCH ×2 (08:27→20:34)
[2020-03-08] MEDS: terbinafine cream 30gm TP SCH ×2 (08:28→20:34)
[2020-03-08] MEDS: magnesium hydroxide 30ml (MOM) UD suspension PO PRN (08:38)
[2020-03-08] MEDS ORDERED: lithium carbonate 450mg CR PO (13:06)
[2020-03-08] MEDS ORDERED: QUET400T12 PO (13:06)
[2020-03-08] MEDS ORDERED: CLON0.5T4 PO (13:06)
[2020-03-08] MEDS ORDERED: DIVA500T2 PO (13:06)
[2020-03-08] MEDS ORDERED: DIVA250T4 PO (13:06)
--- NOTE | 2020-03-08 13:20 | NUR ---
NURSING PROGRESS NOTE: Legal hold: 5270 Expires 03/09 Report received from Diana CLANCY with use of SBAR. Why are they here: Patient admitted to [facility] on 01/21/20. She was brought to [facility] on 01/22/20 at 1350 and placed on a 5150 for GD. 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 Patients mother reports that patient has not been sleeping for the last 5 days and has not been medication compliant. Assessment What has happened this shift: Pt's mood was elevated today. She was hyperverbal and happy, socializing with staff and peers. Pt is kind, appreciative, and full of compliments for others. She offers kind words of encouragement to her peers in a rambling and sometimes inappropriate fashion. Pt is still intrusive at times. Pt will catch herself and apologize, "wow, this is awkward, I think I said something that tripped him up." Pt is excitable and exuberant. Observed pt dancing in the hallway in front of the nurses' charting room. Pt stated, "Osman Guevara! I'm dancing, I'm alive and well!" "I just love everybody today." Pt's valproic acid level was 100, [place] level was 0.5. Pt c/o constipation and was given prn MOM after breakfast. S/I, H/I: Pt denies. A/VH: Pt denies. Sleep: Pt slept 5.5 hours last night per noc shift report. ADL's: Independent Group attendance: N/A Were Meds taken: Yes Any med S/E: None noted or reported. Mental Status Exam Appearance: Showered, neat, clean long dark-haired young woman. Eye contact: Good Behavior: Pleasant, cooperative, socializes with staff and peers, dances and sings. Speech: Clear, audible, hyperverbal, still somewhat disorganized. Mood: Elevated Affect: Animated Thought process: Racing thoughts, mild disorganization. Thought Content: Cognition: A/O x4 Insight: Fair to good. Judgment: Fair Interventions PRN's used: MOM Therapeutic interventions: 1:1 assessment, active listening, therapeutic conversation, medication administration/education/monitoring, behavior monitoring and intervention; redirection, re-assurance, positive reinforcement, Q 15 min safety checks. Restraints/seclusion/emergency medication: N/A Justification of Continued Inpatient Treatment: Pt's symptoms have improved. Plan is for pt to discharge to the [facility] on Sunday03/09/20, [facility] will be following her there Addendum: 03/08/20 at 1441 by Clarita Finney RN (Lee) Pt reports she had a bowel movement.
--- NOTE | 2020-03-08 13:31 | NUR ---
DCP Pt's scheduled to d/c and go to [facility] tomorrow. SS consulted w/attending PA, per consultation, PA will finalize meds today and have it faxed into [facility] on [address]. Plan: Pt to d/c tomorrow and will be picked up by [facility] NICHOL's residential recycle driver to go to [facility]. Angi Goodwin LCSW Addendum: 03/08/20 at 1333 by Angi FRANCISCO Amended: Links added.
--- NOTE | 2020-03-08 17:33 | NUR ---
1:1 Presenting Issues: Pt requests 1:1 time w/this clinician as she is experiencing emotional difficulties with d/c. Interventions: SS met with pt, utilized DE & CBT strategies to support pt with the emotional process of d/c, of letting go and moving forward. Pt expressed gratitude for & care team here. SS validated & normalized pt's emotional experiences with d/c. Pt left session with upbeat mood. Plan: Pt's scheduled to d/c tomorrow & go to [facility]. Angi Goodwin [facility] Addendum: 03/08/20 at 1737 by Angi Goodwin Amended: Links added.
[2020-03-08 20:00] VITALS: BP 112/66
[2020-03-08] MEDS: divalproex sodium 500mg tablet.DR PO SCH (20:34)
[2020-03-08] MEDS: quetiapine 100mg tablet PO SCH (20:35)
--- NOTE | 2020-03-09 01:18 | NUR ---
NURSING PROGRESS NOTE: Legal hold: 5270 Expires 03/09 Report received from Diana CLANCY with use of SBAR. Why are they here: Patient admitted to [facility] on 01/21/20. She was brought to [facility] on 01/22/20 at 1350 and placed on a 5150 for GD. 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 Patients mother reports that patient has not been sleeping for the last 5 days and has not been medication compliant. Assessment What has happened this shift: Pt continues to be hyperverbal. She is pleasant and kind to staff and other pts. Pt expressed sadness about leaving the unit but has been to the [facility] multiple times and says it is a "good place". Pt verbalized she is looking foward to being able to go outside. Pt played guitar and sang a song she had written. Cooperative with care took all HS meds. S/I, H/I: Pt denies. A/VH: Pt denies. Sleep: Pt slept 5.5 hours last night per noc shift report. ADL's: Independent Group attendance: N/A Were Meds taken: Yes Any med S/E: None noted or reported. Mental Status Exam Appearance: Showered, neat, clean long dark-haired young woman. Eye contact: Good Behavior: Pleasant, cooperative, socializes with staff and peers, dances and sings. Speech: Clear, audible, hyperverbal, still somewhat disorganized. Mood: Elevated Affect: Animated Thought process: Racing thoughts, mild disorganization. Thought Content: Cognition: A/O x4 Insight: Fair to good. Judgment: Fair Interventions PRN's used: none Therapeutic interventions: 1:1 assessment, active listening, therapeutic conversation, medication administration/education/monitoring, behavior monitoring and intervention; redirection, re-assurance, positive reinforcement, Q 15 min safety checks. Restraints/seclusion/emergency medication: N/A Justification of Continued Inpatient Treatment: Pt's symptoms have improved. Plan is for pt to discharge to the [facility] on Sunday03/09/20, [facility] will be following her there
[2020-03-09 07:46] VITALS: BP 95/73
[2020-03-09] MEDS: clonazePAM 0.5mg tablet PO SCH (07:56)
[2020-03-09] MEDS: docusate sod 100mg capsule PO SCH (07:56)
[2020-03-09] MEDS: terbinafine cream 30gm TP SCH (07:56)
[2020-03-09] MEDS: divalproex sodium 250mg tablet PO SCH ×2 (07:56→12:32)
[2020-03-09] MEDS: lithium carbonate 450mg CR tablet PO SCH (07:56)
--- NOTE | 2020-03-09 14:21 | NUR ---
DISCHARGE NOTE: Pt discharged to the [facility] at 1400. Ambulated off the unit accompanied by PCT. All belongings returned. Pt expressed understanding of discharge instructions and follow up care.
== END 2020-03-09 14:00 | disposition short-term general hospital (02) | DRG 750 ==
LOC: ADULT MH 14:05
PROVIDERS: ADMIT Psychiatry & Neurology Psychiatry; ATTEND Psychiatry & Neurology Psychiatry
DX: F25.0 Schizoaffective disorder, bipolar type (principal); F30.9 Manic episode, unspecified; G47.00 Insomnia, unspecified; K59.00 Constipation, unspecified; L30.9 Dermatitis, unspecified; N94.3 Premenstrual tension syndrome; N39.0 Urinary tract infection, site not specified
CPT/HCPCS: 36415; 74018; 80053; 80061; 80164; 80178; 81001; 83036; 85025; 87077; 87081; 87088; 87186; 87502; 87503; 99285; Q0163

== ENCOUNTER 2021-02-15 10:52 | Emergency (ER) | payer MEDICAID ==
[~2021-02-15] VITALS: Ht 170.2 cm; Wt 85.9 kg
[~2021-02-15 10:52] MED LIST changes: +CLON0.5T4 PO; +DIVA250T4 PO; +DIVA500T2 PO; -NO HOME MEDS; +QUET400T12 PO; +lithium carbonate 450mg CR PO
[2021-02-15 11:44] LABS: BASOPHILS % (AUTO) 0.4 % (0-1); EOSINOPHILS % (AUTO) 0.6 % (0-6); HEMATOCRIT 42.6 % (35.0-45.0); HEMOGLOBIN 14.1 g/dl (12.0-16.0); LYMPHOCYTES # (AUTO) 1.9 X10'3 (1.1-4.8); LYMPHOCYTES % (AUTO) 23.4 % (21-51); MEAN CORPUSCULAR HEMOGLOBIN 29.5 PG (27.0-31.0); MEAN CORPUSCULAR HGB CONC 33.1 g/dL (33.0-36.5); MEAN CORPUSCULAR VOLUME 89.3 FL (78-98); MEAN PLATELET VOLUME 8.4 FL (7.4-10.4); MONOCYTES # (AUTO) 0.6 X10'3 (0-0.9); MONOCYTES % (AUTO) 7.8 % (2-12); NEUTROPHILS # (AUTO) 5.4 X10'3 (1.8-7.7); NEUTROPHILS % (AUTO) 67.8 % (42-75); PLATELET COUNT 250 X10'3 (140-440); RED BLOOD COUNT 4.77 X10'6 (4.20-5.60); RED CELL DISTRIBUTION WIDTH 12.4 % (11.5-14.5)
[2021-02-15 12:07] LABS: ALANINE AMINOTRANSFERASE 36 U/L (12-78); ALBUMIN 4.4 G/DL (3.4-5.0); ALBUMIN/GLOBULIN RATIO 1.1 (1.1-1.5); ALKALINE PHOSPHATASE 68 IU/L (46-116); ANION GAP 11 (8-16); ASPARTATE AMINO TRANSFERASE 24 U/L (10-37); BILIRUBIN,TOTAL 0.5 MG/DL (0.1-1.0); BLOOD UREA NITROGEN 10 MG/DL (7-18); CALCIUM 9.3 MG/DL (8.5-10.1); CHLORIDE 105 MMOL/L (99-107); CREATININE 0.83 MG/DL (0.40-0.90); GLUCOSE 104 MG/DL (70-104); POTASSIUM 3.8 MMOL/L (3.5-5.1); SODIUM 142 MMOL/L (135-145); TOTAL CARBON DIOXIDE 26.2 MMOL/L (24-32); TOTAL PROTEIN 8.4 G/DL (6.4-8.2); eGFR 83 ML/MIN
[2021-02-15 12:17] LABS: ETHANOL < 0.010 GM/DL (0.0-0.010)
[2021-02-15 12:24] LABS: ACETAMINOPHEN < 2.0 UG/ML (10-30)
[2021-02-15 12:56] LABS: CLARITY,URINE SLIGHTLY CLOUDY (Clear); COLOR,URINE STRAW (Yellow); GLUCOSE, URINE NEGATIVE (Neg); KETONES,URINE NEGATIVE (Neg); LEUKOCYTE ESTERASE ,URINE MODERATE (Neg); NITRITES, URINE NEGATIVE (Neg); OCCULT BLOOD,URINE NEGATIVE (Neg); PROTEIN,URINE NEGATIVE (Neg); UA COLLECTION TYPE CLN CATCH MIDSTREAM; UROBILINOGEN,URINE 0.2 E.U/dL (0.2-1.0)
[2021-02-15 13:00] LABS: URINE HCG NEGATIVE (NEG)
[2021-02-15 13:07] LABS: MUCUS STRANDS FEW /LPF (Neg); SQUAMOUS EPITHELIAL CELL,UR FEW /LPF (FEW); TRANSITIONAL EPI CELLS,URINE FEW /HPF
[2021-02-15 13:08] LABS: BACTERIA,URINE 1+ /HPF (Neg); RBC,URINE 0-2 /HPF (0-2)
[2021-02-15 13:10] LABS: URINE AMPHETAMINE SCREEN NEGATIVE (Neg); URINE BARBITUATE SCREEN NEGATIVE (Neg); URINE BENZODIAZEPINES SCREEN NEGATIVE (Neg); URINE CANNABINOID SCREEN NEGATIVE (Neg); URINE COCAINE SCREEN NEGATIVE (Neg); URINE METHADONE SCREEN NEGATIVE (Neg); URINE OPIATE SCREEN NEGATIVE (Neg); URINE PHENCYCLIDINE SCREEN NEGATIVE (Neg)
--- NOTE | 2021-02-15 18:49 | NUR ---
Patient up and agitated, she seems to be halucinating so I will inform MD.
[2021-02-15] MEDS ORDERED: OLANZapine 5mg rapidly disint. tablet PO ONE (19:15)
[2021-02-15] MEDS ORDERED: CLON-528 PO (19:19)
--- NOTE | 2021-02-15 19:19 | NUR ---
WHEN TRYING TO COMPLETE MED RECONCILLIATION, PT REPORTS TAKING CLONAZEPAM, INVEGA, ABILITY, AND SEROQUEL. STATES THE SEROQUEL WAS DISCONTINUED AND WAS "MAYBE" TAKING THE INVEGA AND ABILITY TABS. REPORTS ALL MEDS ARE PICKED UP AT [facility]. WHEN CHECKING EXTERNAL HISTORY, ONLY CLONAZEPAM IS RECENTLY LISTED MEDICATION
--- NOTE | 2021-02-15 21:14 | NUR ---
PT LYING ON THE BED ON HER STOMACH WITH NO BLANKETS COVERING. RESTING PEACFULLY. SITTER WITHIN VIEW OF PT AAT.
[2021-02-16] MEDS ORDERED: clonazePAM 0.5mg tablet PO SCH (00:50)
[2021-02-16] MEDS ORDERED: LORazepam 1 MG tablet PO ONE (00:50)
--- NOTE | 2021-02-16 01:05 | NUR ---
PT WAS BECOMING VERY ANXIOUS AND KEEPS PRESSING THE CODE BLUE BUTTON, PT WAS GIVEN PO ATIVAN AND COLOPINE, WILL CONTINUE TO MONITOR
--- NOTE | 2021-02-16 02:22 | NUR ---
Pt assisted to the bathroom and back to bed. Pt given extra blankets. Upon tucking in pt she asked if we could pray. Pt prayed to have relief from the voices she hears. Pt stated she was thankful for the prayer and seemed relaxed and layed down.
--- NOTE | 2021-02-16 04:00 | NUR ---
PT IS SLEEPING ON LEFT SIDE, RESPIRATIONS EVEN AND UNLABORED, NO SIGNS OF DISTRESS AT THIS TIME.
--- NOTE | 2021-02-16 05:45 | NUR ---
PT IS NOW AWAKE, PACING IN ROOM, COOPERATIVE AT THIS TIME.
--- NOTE | 2021-02-16 06:08 | NUR ---
PT WENT TO BATHROOM AND HELPED HERSELF GET BACK INTO BED
--- NOTE | 2021-02-16 06:55 | NUR ---
PT C/O VAGINAL DISCHARGE, INFORMED DR. RAMAN. HE ORDERED WET MOUNT. WILL COLLECT IF DISCHARGE CONTINUES.
--- NOTE | 2021-02-16 07:52 | NUR ---
PACKET FAXED TO [facility]
--- NOTE | 2021-02-16 10:36 | NUR ---
PATIENT ASLEEP WE WILL MONITOR.
--- NOTE | 2021-02-16 12:32 | NUR ---
PT SLEEPING QUIETLY, NO ACUTE DISTRESS AT THIS TIME.
--- NOTE | 2021-02-16 13:23 | NUR ---
RACHEL CONNORS CALLED AND GIVEN, REPORT. WILL RUN BY THERE PROVIDER FOR OK FOR ADMISSION.
--- NOTE | 2021-02-16 13:51 | NUR ---
patient in the room awake.We will monitor.
--- NOTE | 2021-02-16 14:00 | NUR ---
PER [facility]/RODRICK,PT WAS ACCEPTED AT [facility],WILL SWAB PATIENT FOR COVID.
--- NOTE | 2021-02-16 19:21 | NUR ---
The patient was moved to bed 24 in the main ER. She is disorganized and with odd behaviors. She is putting her mask over her eyes. She did not eat any dinner but is taking some food that was given to her in closed containers. She approached the nursing station and stated she was hearing voices but was disorganized. She is not having any behaviors that are requiring redirection.
[2021-02-16 20:40] VITALS: BP 122/71
== END 2021-02-16 20:43 ==
LOC: ER 10:52
DX: R45.851 Suicidal ideations (principal); Z20.822 Contact with and (suspected) exposure to COVID-19; F41.9 Anxiety disorder, unspecified; F31.9 Bipolar disorder, unspecified; F20.9 Schizophrenia, unspecified; F12.90 Cannabis use, unspecified, uncomplicated; Z72.89 Other problems related to lifestyle; Z79.899 Other long term (current) drug therapy
CPT/HCPCS: 36415; 80053; 80178; 80305; 80320; 80329; 81001; 81025; 84443; 85025; 87635; 99285; C9803

== ENCOUNTER 2023-01-07 08:24 | Emergency (ER) | payer MEDICAID, OTHER ==
[~2023-01-07] VITALS: Ht 167.6 cm; Wt 53.8 kg
[~2023-01-07 08:24] MED LIST changes: +CLON-528 PO; -CLON0.5T4 PO; -DIVA250T4 PO; -DIVA500T2 PO; -QUET400T12 PO; -lithium carbonate 450mg CR PO
[2023-01-07 10:49] LABS: BASOPHILS % (AUTO) 0.4 % (0-1); EOSINOPHILS # (AUTO) 0.2 X10'3 (0-0.9); EOSINOPHILS % (AUTO) 1.7 % (0-6); HEMATOCRIT 42.9 % (35.0-45.0); HEMOGLOBIN 14.3 g/dl (12.0-16.0); LYMPHOCYTES # (AUTO) 1.7 X10'3 (1.1-4.8); MEAN CORPUSCULAR HEMOGLOBIN 30.7 PG (27.0-31.0); MEAN CORPUSCULAR HGB CONC 33.2 g/dL (33.0-36.5); MEAN CORPUSCULAR VOLUME 92.2 FL (78-98); MONOCYTES # (AUTO) 0.6 X10'3 (0-0.9); MONOCYTES % (AUTO) 6.7 % (2-12); NEUTROPHILS # (AUTO) 6.8 X10'3 (1.8-7.7); NEUTROPHILS % (AUTO) 73.2 % (42-75); PLATELET COUNT 262 X10'3 (140-440); RED BLOOD COUNT 4.65 X10'6 (4.20-5.60); RED CELL DISTRIBUTION WIDTH 12.1 % (11.5-14.5); WHITE BLOOD COUNT 9.3 X10'3 (4.5-11.0)
[2023-01-07 10:59] LABS: ALANINE AMINOTRANSFERASE 26 U/L (12-78); ALBUMIN 4.2 G/DL (3.4-5.0); ALBUMIN/GLOBULIN RATIO 1.1 (1.1-1.5); ALKALINE PHOSPHATASE 55 IU/L (46-116); ANION GAP 8 (8-16); ASPARTATE AMINO TRANSFERASE 25 U/L (10-37); BILIRUBIN,TOTAL 0.4 MG/DL (0.1-1.0); BLOOD UREA NITROGEN 12 MG/DL (7-18); BUN/CREATININE RATIO 17.4 (6.6-38.0); CHLORIDE 102 MMOL/L (99-107); CREATININE 0.69 MG/DL (0.40-0.90); GLUCOSE 100 MG/DL (70-104); POTASSIUM 3.8 MMOL/L (3.5-5.1); SODIUM 139 MMOL/L (135-145); TOTAL CARBON DIOXIDE 28.6 MMOL/L (24-32); TOTAL PROTEIN 7.9 G/DL (6.4-8.2); eGFR > 90 ML/MIN
[2023-01-07 11:11] LABS: ETHANOL < 0.010 GM/DL (0.0-0.010)
[2023-01-07 12:06] LABS: URINE HCG NEGATIVE (NEG)
[2023-01-07 12:11] LABS: URINE AMPHETAMINE SCREEN NEGATIVE (Neg); URINE BARBITUATE SCREEN NEGATIVE (Neg); URINE BENZODIAZEPINES SCREEN NEGATIVE (Neg); URINE CANNABINOID SCREEN NEGATIVE (Neg); URINE COCAINE SCREEN NEGATIVE (Neg); URINE METHADONE SCREEN NEGATIVE (Neg); URINE OPIATE SCREEN NEGATIVE (Neg); URINE PHENCYCLIDINE SCREEN NEGATIVE (Neg)
[2023-01-07 14:37] LABS: CLARITY,URINE SLIGHTLY CLOUDY (Clear); COLOR,URINE YELLOW (Yellow); GLUCOSE, URINE NEGATIVE (Neg); KETONES,URINE 15 mg/dl (Neg); LEUKOCYTE ESTERASE ,URINE NEGATIVE (Neg); NITRITES, URINE NEGATIVE (Neg); OCCULT BLOOD,URINE TRACE-INTACT (Neg); PROTEIN,URINE NEGATIVE (Neg); UROBILINOGEN,URINE 0.2 E.U/dL (0.2-1.0)
[2023-01-07 14:43] LABS: UA COLLECTION TYPE CLN CATCH MIDSTREAM
[2023-01-07 14:44] LABS: BACTERIA,URINE 2+ /HPF (Neg); CAL OXALATE CRYSTALS 3+ /HPF (NEGATIVE); MUCUS STRANDS MODERATE /LPF (Neg); RBC,URINE 0-2 /HPF (0-2); SQUAMOUS EPITHELIAL CELL,UR MODERATE /LPF (FEW); WBC,URINE 0-4 /HPF (0-4)
--- NOTE | 2023-01-07 15:38 | NUR ---
PACKET FAXED TO [facility]
[2023-01-07] MEDS ORDERED: OLANZapine 5mg rapidly disint. tablet PO ONE (16:20)
[2023-01-07 16:37] VITALS: BP 119/67
--- NOTE | 2023-01-07 18:15 | NUR ---
T/C from staff at [facility] for RN/RN report. Plan is to have patient transfer to them this amada.
[2023-01-07] MEDS ORDERED: OLANZapine 5mg rapidly disint. tablet PO SCH (20:00)
== END 2023-01-07 20:41 | disposition still patient (30) ==
LOC: ER 08:24
DX: F20.89 Other schizophrenia (principal); Z20.822 Contact with and (suspected) exposure to COVID-19; F31.9 Bipolar disorder, unspecified; F12.10 Cannabis abuse, uncomplicated
CPT/HCPCS: 36415; 80053; 80305; 80320; 81001; 81025; 84443; 85025; 87811; 99285

== ENCOUNTER 2023-04-09 19:50 | Inpatient (IN) | payer MEDICAID ==
[~2023-04-09] VITALS: Ht 167.6 cm; Wt 65.9 kg
[~2023-04-09 19:50] MED LIST changes: +ARIP20TA4 PO; -CLON-528 PO; +MELA3TAB39 PO; +TRAZ-251 PO
--- NOTE | 2023-04-09 21:01 | NUR ---
UPON ATTEMPTING TO COMPLETE NURSE AX PT BECAME AGITATED SAT STRAIGHT UP FROM BED AND STATED, "I DONT HAVE TO TELL YOU ANYTHING ITS IN THE [employer]ost[employer] COMPUTER!" THIS NURSE PROVIDED EDUCATION REGARDING ER EVALUATION PROCESS AND THAT ITS MY JOB TO ASK QUESTIONS AND TO EVALUATE PTS. PT STATED, "I DONT WANT TO PARTICIPATE IN THIS, ITS IN THE COMPUTER." CRN AND PROVIDER NOTIFIED.
[2023-04-09 22:49] LABS: BASOPHILS % (AUTO) 0.3 % (0-1); EOSINOPHILS % (AUTO) 0.2 % (0-6); HEMATOCRIT 41.1 % (35.0-45.0); HEMOGLOBIN 13.7 g/dl (12.0-16.0); LYMPHOCYTES # (AUTO) 1.9 X10'3 (1.1-4.8); LYMPHOCYTES % (AUTO) 18.7 % (21-51); MEAN CORPUSCULAR HEMOGLOBIN 30.4 PG (27.0-31.0); MEAN CORPUSCULAR HGB CONC 33.3 g/dL (33.0-36.5); MEAN CORPUSCULAR VOLUME 91.3 FL (78-98); MEAN PLATELET VOLUME 8.3 FL (7.4-10.4); MONOCYTES # (AUTO) 0.5 X10'3 (0-0.9); MONOCYTES % (AUTO) 4.5 % (2-12); NEUTROPHILS # (AUTO) 7.6 X10'3 (1.8-7.7); NEUTROPHILS % (AUTO) 76.3 % (42-75); PLATELET COUNT 264 X10'3 (140-440); RED CELL DISTRIBUTION WIDTH 11.9 % (11.5-14.5)
--- NOTE | 2023-04-09 22:56 | NUR ---
she went to the bathroom, was given a cup. She came back without filling a ua sample. She was snotty when she got back. Than laid down. No more than one minute later she was asking to go to the bathroom again. She refuses to tell me why she needs to go again. Commode placed by door entrance if she wants it. Informed her to stay in her room with that attitude.
[2023-04-09] MEDS ORDERED: LORazepam 2 mg/ml vial IM ONE (23:00)
[2023-04-09] MEDS ORDERED: haloperidol lactate 5mg/ml inj IM ONE (23:00)
[2023-04-09] MEDS ORDERED: diphenhydrAMINE 50 mg/ml inj IM ONE (23:00)
[2023-04-09 23:06] LABS: ALANINE AMINOTRANSFERASE 29 U/L (12-78); ALBUMIN 4.3 G/DL (3.4-5.0); ALBUMIN/GLOBULIN RATIO 1.2 (1.1-1.5); ALKALINE PHOSPHATASE 47 IU/L (46-116); ANION GAP 8 (8-16); ASPARTATE AMINO TRANSFERASE 19 U/L (10-37); BILIRUBIN,TOTAL 0.5 MG/DL (0.1-1.0); BLOOD UREA NITROGEN 8 MG/DL (7-18); BUN/CREATININE RATIO 11.3 (10.0-20.0); CALCIUM 9.4 MG/DL (8.5-10.1); CHLORIDE 102 MMOL/L (99-107); CREATININE 0.71 MG/DL (0.40-0.90); ETHANOL < 0.010 GM/DL (0.0-0.010); GLUCOSE 112 MG/DL (70-104); POTASSIUM 3.4 MMOL/L (3.5-5.1); SODIUM 136 MMOL/L (135-145); TOTAL CARBON DIOXIDE 26.3 MMOL/L (24-32); eGFR > 90 ML/MIN
[2023-04-09] MEDS ORDERED: POTASSIUM BICARB 20meq eff tab 20 MEQ TABLET.EFF PO STA (23:20)
--- NOTE | 2023-04-10 01:37 | NUR ---
urine discarded... pt placed arm band in with urine in speciman container. md informed awaitng new urine sample.
--- NOTE | 2023-04-10 06:21 | NUR ---
Assumed care from [facility] Nurse. Pt up in room pacing. Pt in stable condition.
--- NOTE | 2023-04-10 07:20 | NUR ---
Pt up to RR. Pt refused to leave a UA.
--- NOTE | 2023-04-10 08:08 | NUR ---
BONITA came to see pt. Pt laying on gurney. Pt's breakfast is next to her. Pt has not eaten thus far.
[2023-04-10 08:58] LABS: CLARITY,URINE CLOUDY (Clear); COLOR,URINE YELLOW (Yellow); GLUCOSE, URINE NEGATIVE (Neg); KETONES,URINE TRACE mg/dl (Neg); LEUKOCYTE ESTERASE ,URINE NEGATIVE (Neg); NITRITES, URINE NEGATIVE (Neg); OCCULT BLOOD,URINE TRACE-INTACT (Neg); PROTEIN,URINE NEGATIVE (Neg); UROBILINOGEN,URINE 0.2 E.U/dL (0.2-1.0)
[2023-04-10 08:59] LABS: UA COLLECTION TYPE VOIDED
--- NOTE | 2023-04-10 09:07 | NUR ---
Pt laying on gurney resting eyes closed. RR even and unlabored. No s/s of SOB
[2023-04-10 09:09] LABS: MUCUS STRANDS MODERATE /LPF (Neg); SQUAMOUS EPITHELIAL CELL,UR MODERATE /LPF (FEW)
[2023-04-10 09:10] LABS: BACTERIA,URINE 2+ /HPF (Neg)
[2023-04-10 09:11] LABS: TRANSITIONAL EPI CELLS,URINE MODERATE /HPF; URINE HCG NEGATIVE (NEG)
[2023-04-10 09:12] LABS: RBC,URINE 0-2 /HPF (0-2); WBC,URINE 0-4 /HPF (0-4)
[2023-04-10 09:20] LABS: URINE AMPHETAMINE SCREEN NEGATIVE (Neg); URINE BARBITUATE SCREEN NEGATIVE (Neg); URINE BENZODIAZEPINES SCREEN NEGATIVE (Neg); URINE CANNABINOID SCREEN NEGATIVE (Neg); URINE COCAINE SCREEN NEGATIVE (Neg); URINE METHADONE SCREEN NEGATIVE (Neg); URINE OPIATE SCREEN NEGATIVE (Neg); URINE PHENCYCLIDINE SCREEN NEGATIVE (Neg)
--- NOTE | 2023-04-10 09:26 | NUR ---
[facility] PACKET FAXED
--- NOTE | 2023-04-10 10:22 | NUR ---
Pt up walking around room. Pts packet sent to .
--- NOTE | 2023-04-10 11:17 | NUR ---
PT HAS BEEN ACCEPTED TO [facility] @ 8601
--- NOTE | 2023-04-10 12:17 | NUR ---
Pt on gurney resting, eyeys closed. Pt is calm and cooperative.
--- NOTE | 2023-04-10 12:27 | NUR ---
Pt is being transfered via W/C to unit, Pt also has two RNs at her side.
[2023-04-10] MEDS ORDERED: acetaminophen 325mg tablet PO PRN (12:45)
[2023-04-10] MEDS ORDERED: NICOTINE POLACRILEX 2 MG LOZENGE BC PRN (12:45)
[2023-04-10] MEDS ORDERED: magnesium hydroxide 30ml (MOM) UD suspension PO PRN (12:45)
[2023-04-10] MEDS ORDERED: loperamide 2mg capsule PO PRN (12:45)
[2023-04-10 17:04] VITALS: BP 103/67
[2023-04-10] MEDS ORDERED: TRAZ-251 PO (17:42)
[2023-04-10] MEDS ORDERED: MELA3TAB70 PO (17:42)
[2023-04-10] MEDS ORDERED: ARIP20TA21 PO (17:42)
--- NOTE | 2023-04-10 17:52 | NUR ---
Nursing Admission Note Pt admitted to [facility] at 1230 from [facility]. Pt skin check completed and showered independently. Pt placed in single room and belongings inventoried. Pt denies SI/HI and A/VH's. Pt is disorganized and tangential in her speech. She has difficulty formong and expressing her thoughts. Pt does not know why her parents brought her to the ER ans is irritated with them. Pt overall cooperative and was able to laugh and feel comfortable on [facility] and begin to interact with other Pt's.
[2023-04-10 19:48] VITALS: BP 108/68
[2023-04-10] MEDS: Melatonin 3mg tablet PO SCH (21:21)
[2023-04-10] MEDS: traZODone 50mg tablet PO SCH (21:21)
--- NOTE | 2023-04-11 03:43 | NUR ---
Nursing Progress Note: Problem: Pt admitted to [facility] from [facility]. Pt is disorganized and tangential in her speech. She has difficulty forming and expressing her thoughts. Pt does not know why her parents brought her to the ER and is irritated with them. Pt overall cooperative and was able to laugh and feel comfortable on [facility] and began to interact with other Pt's. 5152 written for GD, "confused, thought process is disorganized, and speech is tangential... currently unable to benefit from supports provided by parents." Interventions: Provided 1:1 assessment, maintained a safe and supportive environment, ensured contract for safety, provided clear and simple instructions. Response: Patient is pleasant and cooperative with care; compliant with medication. Patient denied SI, HI, A/VH; she is hyperverbal (can be tangential at times) and expresses frequent disorganized thoughts but no apparent delusions expressed. Patient is social with peers and staff, showered and provided HS snack prior to bed; observed sleeping and does not appear to be having difficulty. Plan: Patient requires interruption of current crisis with possible medication adjustments in a safe and supportive environment.
--- NOTE | 2023-04-11 04:48 | NUR ---
BLOWER BLAST FURNACE documentation: I have reviewed interventions, assessments performed and documented by Diana CLANCY.
[2023-04-11] MEDS: ARIPIPRAZOLE 10 MG TABLET PO SCH (07:40)
[2023-04-11 08:00] VITALS: BP 107/68
[2023-04-11] MEDS ORDERED: nicotine 21mg patch - 24 hr TD SCH (08:00)
--- NOTE | 2023-04-11 15:16 | NUR ---
Pt. attended group today. PETER DoddW
--- NOTE | 2023-04-11 15:56 | NUR ---
Nursing Progress Note: Max Problem: Pt admitted to [facility] from [facility]. 5150 written for GD, "confused, thought process is disorganized, and speech is tangential... currently unable to benefit from supports provided by parents." Interventions: Provided 1:1 assessment, maintained a safe and supportive environment, ensured contract for safety, provided clear and simple instructions. Response: Pt. received awake and ambulating on the unit. She immediately approached this chief writer stating its a good, good day She remains hyper verbal at times and exuberant, with some intrusive episodes. She denies SI, HI, AH, VH and reports her DC plan is to return home, takes her medications without hesitation. She spent most of the shift listening to headphone, socializes with cohorts, and played guitar. She ate all meals in the community room with cohorts often socially engaged, has good hygiene, and is wearing scrubs and a sweater. Plan: Patient requires interruption of current crisis with possible medication adjustments in a safe and supportive environment.
--- NOTE | 2023-04-11 17:18 | NUR ---
VARYING EXCEPTIONALITIES TEACHER documentation: I have reviewed all interventions and assessments performed and documented by JULIETH Fuentes.
[2023-04-11 20:00] VITALS: BP 116/71
[2023-04-11] MEDS: traZODone 50mg tablet PO SCH (20:49)
[2023-04-11] MEDS: Melatonin 3mg tablet PO SCH (20:49)
[2023-04-12] MEDS: mag hydrox/Alum hydrox/simeth 30ml oral suspension PO PRN (04:27)
--- NOTE | 2023-04-12 05:10 | NUR ---
Nursing Progress Note: Max Problem: Pt admitted to [facility] from [facility]. 5150 written for GD, "confused, thought process is disorganized, and speech is tangential... currently unable to benefit from supports provided by parents." Interventions: Provided 1:1 assessment, maintained a safe and supportive environment, ensured contract for safety, provided clear and simple instructions. Response: Pt received in day room eating dinner. Pt appeared elated and making comments about a [employer] artist she had recently heard. She was trying to repeat Lecraes values of community.. and adopt them as her own ideas. She is pleasant and cooperative. Patient denied SI, HI, A/VH. Patient changes subject during interview regarding why she is presently here at [facility]. Later in the evening, pt observed playing DATY. Pt took all medication appropriately and verbalized understanding why she was taking Trazodone/Melatonin. During medication pass, pt stated she had been listening to commentary radio. She was asked why she had initially been admitted to hospital, she stated she didnt want to explain the whole situation but was having communication issues with parents ASB expressing her wanting to talk when her parents dont want to talk and vice versa. She states she has anger issues and verbally/expressively aggressive in her outbursts. She explained that her father loves her through these miscommunication episodes. Pt has her thoughts written down on paper under her mattress, in which she retrieved during interview. Pt has goals of wanting to work this summer including going to take college classes at some point. 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 Pt stated she used to live in the [facility] and lived in 8 places, just in [place]. Pt showered during shift. Pt woke up at 0400hrs complaining of nausea and requested chicken soup. Maalox PRN offered and effective for patient. Pt stated she only needed 7 hours of sleep. Her thoughts this morning are disorganized. She spoke of desires to attend school but her plan is not viable. She discussed how she graduated [employer] with a diploma and had to take 7 classes but then had to drop them. She reported being stressed at school and taking 12 pills which brought her to [facility]. Plan: Patient requires interruption of current crisis with possible medication adjustments in a safe and supportive environment.
--- NOTE | 2023-04-12 05:36 | NUR ---
CORN PICKER documentation: I have reviewed and agree with all interventions, assessments performed and documented by Joe Bergman LVN.
[2023-04-12 08:00] VITALS: BP 120/70
[2023-04-12] MEDS: ARIPIPRAZOLE 10 MG TABLET PO SCH (08:41)
[2023-04-12] MEDS: acetaminophen 325mg tablet PO PRN (08:44)
--- NOTE | 2023-04-12 15:37 | NUR ---
Nursing Progress Note: Max Problem: Pt admitted to [place] from [facility]. 5150 written for GD, "confused, thought process is disorganized, and speech is tangential... currently unable to benefit from supports provided by parents." Interventions: 1:1 assessment, therapeutic communication, active listening, provided a safe and therapeutic environment, medication administration/education/monitoring, provided distraction, redirection, reality orientation, positive reinforcement, and Q15 minute safety checks. Response: Pt was up before breakfast. Per noc shift report, pt woke up around 0300 in the morning and could not get back to sleep. Pt returned to bed for a nap after breakfast. Pt was cooperative with her routine Abilify though somewhat irritable until she awoke from her morning nap. Pt c/o 2/10 right hand pain to the tech during vitals. PRN Tylenol was offered though pt denied having pain to this nurse in a disorganized manner. Pt said, "it was a misunderstanding, see? No bruise." Pt showed this RN the palm of her right hand. She then said she would take the Tylenol anyway but only took one 325 mg tab and refused to take the other one despite encouragement. Pt attended group. Pt socialized with peers in a pleasant although disorganized manner. Pt is distractible. Pt asked this nurse if she could play the guitar after group and then seemed to forget about it. Pt denied SI/HI/AH/VH. Plan: Patient requires interruption of current crisis with possible medication adjustments in a safe and supportive environment.
[2023-04-12 19:52] VITALS: BP 118/64
[2023-04-12] MEDS: Melatonin 3mg tablet PO SCH (20:39)
[2023-04-12] MEDS: traZODone 50mg tablet PO SCH (20:39)
[2023-04-13] MEDS: mag hydrox/Alum hydrox/simeth 30ml oral suspension PO PRN ×3 (01:35→08:24)
--- NOTE | 2023-04-13 05:03 | NUR ---
Nursing Progress Note: Max Problem: Pt admitted to [facility] from [facility]. 5150 written for GD, "confused, thought process is disorganized, and speech is tangential... currently unable to benefit from supports provided by parents." Interventions: Provided 1:1 assessment, maintained a safe and supportive environment, ensured contract for safety, provided clear and simple instructions. Response: Pt received playing guitar in hallways. She asked staff for some tape to protect fingers from finger picking the guitar. She was in good spirits. Pt played a song for staff in hallway. Pt presents pleasantly disorganized in 1:1 interview. LBM today. She stated she had a good day. She paced the hallways. After dinner was observed to have a manic outburst with delusions during a peer interaction. She was able to catch herself in making delusional statements, attempted to stop, but restarted making delusional statements again. Pts observed pacing hallways then able to put on headphones to listen to music. Intervention effective. During medication pass, pt was attempting to help another peer who was crying. She was compliant with taking her medications. Quantitative Analyst Marketing inquired how sleep has been and pt states she has been sleeping about 8 hours. Pt slept approximately 5 hours on 04/11/23. Quantitative Analyst Marketing inquired if medications were effective. Pt guarded in answering question about sleep medication effectiveness. She stated that the current medication regiment is fine. Pt woke up approximately 0115 hours requesting for Maalox. Quantitative Analyst Marketing administered per patient request. Quantitative Analyst Marketing inquired if pt is having difficulty sleeping. Quantitative Analyst Marketing inquired if pt needs anything to help her resume sleeping and pt declined any intervention. Pt reoriented to time and she was easily irritable. Pt was able to go back to room. Pt woke up 0300hrs pt c/o hunger and nausea related to her medication interactions. Quantitative Analyst Marketing followed up with Charge nurse and will be endorsed to provider on day shift. Pt provided snack. Pt paced [place] and requested paper for distraction activity. Plan: Patient requires interruption of current crisis with possible medication adjustments in a safe and supportive environment. Addendum: 04/13/23 at 0519 by Joe Lui LVN, LVN Pt requesting an increase in Trazodone.
[2023-04-13] MEDS: ARIPIPRAZOLE 10 MG TABLET PO SCH (07:54)
[2023-04-13 08:00] VITALS: BP 117/73
--- NOTE | 2023-04-13 15:28 | NUR ---
Nursing Progress Note: Problem: Pt admitted to [facility] from [facility]. 5150 written for GD, "confused, thought process is disorganized, and speech is tangential... currently unable to benefit from supports provided by parents." Interventions: 1:1 assessment, therapeutic conversation, active listening, provided a safe and therapeutic environment, medication administration/education/monitoring, provided distraction, redirection, reality orientation, positive reinforcement, and Q15 minute safety checks. Response: Pt was up before breakfast wandering the unit. Pt is hypomanic; she is hyperverbal with pressured, disorganized speech, she is restless and has racing thoughts. Pt was pleasant and cooperative with care and meds. She c/o nausea and was given PRN Maalox at 0824 with good effect. Pt denied s/sx of constipation. Pt showered this morning. She took awhile in the shower. This nurse noted that her room was disorganized as well with puzzle pieces scattered all over her bathroom floor and papers with drawings on them scattered around her bedroom floor. Upon further inspection, noted that the drawings continued from one piece of paper to another;one image spread out/connected by numerous pages of laid out paper. Pt enjoys crafting things and making art. Pt denied SI/HI/AH/VH. Pt is sociable in her disorganized fashion, pt observed talking, joking, and laughing with staff and peers. Pt listened to the radio headphones. Pt stated she would like to play the guitar later, pt states, "I'm on a mission...I'm always on a mission" pt laughed. Hospitalist Dr Coleman came to see the patient today. Pt has a new order for Zofran 4 mg ODT Q6H PRN nausea/vomiting. LiquidText just gave pt the guitar to play. Pt happily stated, "ooohh, my chariot awaits me, my time of glory!" Pt is playing the guitar and singing happily in the rec room with a small audience of peers. Plan: Patient requires interruption of current crisis with possible medication adjustments in a safe and supportive environment. Addendum: 04/13/23 at 1617 by Clarita Finney RN (Lee) Pt has an order for a CMP to be drawn tomorrow morning.
[2023-04-13 19:23] VITALS: BP 133/63
[2023-04-13] MEDS: Melatonin 3mg tablet PO SCH (20:50)
[2023-04-13] MEDS: olanzapine 10mg tablet PO SCH (20:50)
[2023-04-13] MEDS: traZODone 50mg tablet PO SCH (20:50)
--- NOTE | 2023-04-14 05:51 | NUR ---
Nursing Progress Note: Max Problem: Pt admitted to [facility] from [facility]. 5150 written for GD, "confused, thought process is disorganized, and speech is tangential... currently unable to benefit from supports provided by parents." Interventions: Provided 1:1 assessment, maintained a safe and supportive environment, ensured contract for safety, provided clear and simple instructions. Response: Pt received in dining room. Pt observed during shift pacing hallways, spending time in room, reading books, listening to music, and socializing with staff/peers. Pt present with flight of ideas during interview. Pt denies AH/VH, S/I, and H/I. LBM today. Provider notified of patient insomnia with current POC. Provider Arnulfo added Olanzapine 10mg to Hs regiment. Pt agreeable to medication changes. Pt provided snack with medication due to prior complaints of nausea. Pt awoke at 0500hrs. Pt is hyperverbal, in good spirits, and having flight of ideas. New Olanzapine Hs dose effective. Plan: Patient requires interruption of current crisis with possible medication adjustments in a safe and supportive environment.
[2023-04-14 07:25] VITALS: BP 97/61
[2023-04-14 08:03] LABS: ALANINE AMINOTRANSFERASE 28 U/L (12-78); ALBUMIN/GLOBULIN RATIO 1.1 (1.1-1.5); ANION GAP 9 (8-16); ASPARTATE AMINO TRANSFERASE 17 U/L (10-37); BILIRUBIN,TOTAL 0.4 MG/DL (0.1-1.0); BLOOD UREA NITROGEN 15 MG/DL (7-18); BUN/CREATININE RATIO 21.7 (10.0-20.0); CALCIUM 9.1 MG/DL (8.5-10.1); CHLORIDE 103 MMOL/L (99-107); CREATININE 0.69 MG/DL (0.40-0.90); GLUCOSE 94 MG/DL (70-104); POTASSIUM 4.3 MMOL/L (3.5-5.1); SODIUM 139 MMOL/L (135-145); TOTAL CARBON DIOXIDE 27.1 MMOL/L (24-32); TOTAL PROTEIN 7.6 G/DL (6.4-8.2); eGFR > 90 ML/MIN
[2023-04-14] MEDS: ARIPIPRAZOLE 10 MG TABLET PO SCH (08:08)
[2023-04-14 08:23] LABS: ALKALINE PHOSPHATASE 42 IU/L (46-116)
[2023-04-14] MEDS: ondansetron 4mg rapidly disintigrating tab PO PRN (08:42)
--- NOTE | 2023-04-14 11:42 | NUR ---
Initial: Pt admit for schizoaffective disorder, bipolar type. Currently on a regular diet and eating well, documented with mostly 100% PO intake meeting estimated nutrient needs. Per EMR LBM 04/13. PRN bowel care available. No nutrition intervention implemented at this time. Will continue to follow and make recommendations as appropriate. Recommendations: 1) Continue regular diet 2) Bowel care PRN 3) Weekly scaled weights Addendum: 04/14/23 at [address] Amended: Links added.
--- NOTE | 2023-04-14 17:00 | NUR ---
Nursing Progress Note: Max Problem: Pt admitted to [facility] on 515 written for GD, "confused, thought process is disorganized, and speech is tangential... currently unable to benefit from supports provided by parents." Interventions: Provided 1:1 assessment, maintained a safe and supportive environment, ensured contract for safety, provided clear and simple instructions. Response: Pt. received awake and walking around the unit. She is intrusive with staff and cohorts, hyperverbal stating its the motor it keeps it going, you know, the elbow Pt. denies SI, HI, AH, VH and c/o nausea; PRN Zofran given with good results. Pt. attended group today, socialized with cohorts throughout the day, and ate all meals in the community room. She hung up artwork in her room, and played cards after lunch. Pt. has good hygiene, hair in a bun, and wears scrubs. Plan: Patient requires interruption of current crisis with possible medication adjustments in a safe and supportive environment. Addendum: 04/15/23 at 1838 by Garett Villarreal) RN SOURCING MANAGER documentation: I have reviewed and agree with all interventions, assessments performed and documented by the SOURCING MANAGER .
[2023-04-14 20:00] VITALS: BP 125/81
[2023-04-14] MEDS: traZODone 50mg tablet PO SCH (20:55)
[2023-04-14] MEDS: olanzapine 10mg tablet PO SCH (20:56)
[2023-04-14] MEDS: Melatonin 3mg tablet PO SCH (20:56)
--- NOTE | 2023-04-15 01:47 | NUR ---
Nursing Progress Note: Max Problem: Pt admitted to [facility] on 5150 written for GD, "confused, thought process is disorganized, and speech is tangential... currently unable to benefit from supports provided by parents." Interventions: Provided 1:1 assessment, maintained a safe and supportive environment, ensured contract for safety, provided clear and simple instructions. Response: Pt. received sitting in the felton playing the guitar at change of shift. Pt. continues to be hyperverbal and having disorganized thoughts. She is pleasant and cooperative. Participated in evening snack in the community room and watched Avatar with peers. Pt. is medication compliant. Denies SI/HI/AH/VH. Observed and appears to be sleeping without difficulty. Plan: Patient requires interruption of current crisis with possible medication adjustments in a safe and supportive environment. Addendum: 04/15/23 at 0338 by Giovana Overton LVN Pt. awaken at 0330 c/o nausea. PRN jahfran provided at this time.
[2023-04-15] MEDS: ondansetron 4mg rapidly disintigrating tab PO PRN (03:34)
[2023-04-15 08:00] VITALS: BP 112/69
[2023-04-15] MEDS: ARIPIPRAZOLE 10 MG TABLET PO SCH (08:28)
--- NOTE | 2023-04-15 18:16 | NUR ---
Nursing Progress Note: Max Problem: Pt admitted to [facility] on 5150 written for GD, "confused, thought process is disorganized, and speech is tangential... currently unable to benefit from supports provided by parents." Interventions: Provided 1:1 assessment, maintained a safe and supportive environment, ensured contract for safety, medication administration/education/monitoring, attempted to orient to reality, provided clear and simple instructions, and Q15 minute safety rounds. Response: Patient received sleeping in her room at change of shift. She awoke for breakfast and was noted joining in the group room with peers. Pt retreated back to her room shortly after and was receptive to 1:1 assessment and scheduled medication. Pt presents as guarded and reserved during assessment. When asked questions of or patient endorses, Not that I know of. She denies SI and HI. Patient stated that she is not sure yet when asked where she wants to go from this facility. She was active on the unit the majority of the shift. She is noted to be intrusive with staff and cohorts at times. Pt observed reading a book in the recreation room after lunch. She participated for all meal and snack times in the group room with peers. Plan: Patient requires interruption of current crisis with possible medication adjustments in a safe and supportive environment. Addendum: 04/15/23 at 1835 by Garett Villarreal) RN FIRE INSPECTOR documentation: I have reviewed and agree with all interventions, assessments performed and documented by the FIRE INSPECTOR .
[2023-04-15 19:25] VITALS: BP 124/80
[2023-04-15] MEDS: traZODone 50mg tablet PO SCH (20:56)
[2023-04-15] MEDS: olanzapine 10mg tablet PO SCH (20:56)
[2023-04-15] MEDS: Melatonin 3mg tablet PO SCH (20:56)
--- NOTE | 2023-04-15 21:46 | NUR ---
repeat dose of Trazodone and Zyprexa given. Addendum: 04/16/23 at 0044 by Sada Valdez RN Pt had agreed to take meds but refused meds when taken to her room.
--- NOTE | 2023-04-16 00:45 | NUR ---
Nursing Progress Note: Max Problem: Pt admitted to [facility] on 5150 written for GD, "confused, thought process is disorganized, and speech is tangential... currently unable to benefit from supports provided by parents." Interventions: Provided 1:1 assessment, maintained a safe and supportive environment, ensured contract for safety, medication administration/education/monitoring, attempted to orient to reality, provided clear and simple instructions, and Q15 minute safety rounds. Response: Pt up on unit at start of shift. She appeared agitated. Went to the group room several times but unable to sit still to watch a movie or engage with peers. Pt denied any agitation "I'm just getting my exercise". Pt presents as guarded and reserved during assessment. She denied all MH symptoms before she was asked. She took her HS meds Requested PRN meds but then refused them when taken to her room. Plan: Patient requires interruption of current crisis with possible medication adjustments in a safe and supportive environment.
[2023-04-16 08:00] VITALS: BP 110/69
[2023-04-16] MEDS: ARIPIPRAZOLE 10 MG TABLET PO SCH (08:09)
--- NOTE | 2023-04-16 13:17 | NUR ---
5250 UPHELD FOR GD
[2023-04-16] MEDS: mag hydrox/Alum hydrox/simeth 30ml oral suspension PO PRN ×2 (14:48→22:24)
--- NOTE | 2023-04-16 18:12 | NUR ---
Nursing Progress Note: Max Problem: Pt admitted to [facility] on 5150 written for GD, "confused, thought process is disorganized, and speech is tangential... currently unable to benefit from supports provided by parents." Interventions: Provided 1:1 assessment, maintained a safe and supportive environment, ensured contract for safety, medication administration/education/monitoring, attempted to orient to reality, provided clear and simple instructions, and Q15 minute safety rounds. Response: Patient received walking around the unit socializing with tech at shift change. She joined for breakfast in the group room with peers. Pt is noted to be disorganized, unaware of her date. Patient muttering nonsensical statements of [place] [employer] when asked her last name. She was receptive to scheduled medication this morning. Pt presents as guarded with thought blocking. She is intrusive with staff and other patients on the unit at times. Pt observed listening to music through headphones throughout the day. She was active on the unit the majority of the shift, noted reading a book at times. Pt observed talking to herself loudly while pacing up and down the hallway toward the end of the shift. She was redirected to lower her voice. Pt endorsed that she was talking to herself however, continues to deny AH. Pt denies SI, HI, and VH. She appears to be responding to internal stimuli at times. Pt participated for all meal and snack times in the group room with peers. Plan: Patient requires interruption of current crisis with possible medication adjustments in a safe and supportive environment. Addendum: 04/16/23 at 1826 by Garett Villarreal) JERRY SERVER ENGINEER documentation: I have reviewed and agree with all interventions, assessments performed and documented by Adrianna CLANCY.
[2023-04-16 19:31] VITALS: BP 134/84
[2023-04-16] MEDS: Melatonin 3mg tablet PO SCH (21:46)
[2023-04-16] MEDS: traZODone 50mg tablet PO SCH (21:46)
[2023-04-16] MEDS: acetaminophen 325mg tablet PO PRN (22:23)
--- NOTE | 2023-04-17 00:34 | NUR ---
Nursing Progress Note: Problem: Pt admitted to [facility] on 5150 written for GD, "confused, thought process is disorganized, and speech is tangential... currently unable to benefit from supports provided by parents." Interventions: Provided 1:1 assessment, maintained a safe and supportive environment, ensured contract for safety, medication administration/education/monitoring, attempted to orient to reality, provided clear and simple instructions, and Q15 minute safety rounds. Response: Pt up on unit at start of shift. Pleasant interactions with peers. She requested the guitar and sang and played guitar for the other pts. Pt struggles at times to make her needs known. Her thoughts are disorganized and tangential. She often uses the wrong word when expressing requests. She denies all MH symptoms and was not observed responding to internal stimuli. She took her HS meds, refused PRNs even though she was having some trouble getting to sleep. She did take Tylenol for menstrual cramps and Maalox for upset stomach. She is sleeping at this time. Plan: Patient requires interruption of current crisis with possible medication adjustments in a safe and supportive environment.
[2023-04-17 08:00] VITALS: BP 117/69
[2023-04-17] MEDS: aripiprazole 5mg tablet PO SCH (09:14)
[2023-04-17] MEDS: ondansetron 4mg rapidly disintigrating tab PO PRN (09:14)
[2023-04-17] MEDS: ARIPIPRAZOLE 10 MG TABLET PO SCH (09:14)
--- NOTE | 2023-04-17 15:18 | NUR ---
Pt. attended group today. PETER DoddW
--- NOTE | 2023-04-17 17:58 | NUR ---
Nursing Progress Note: Max Problem: Pt admitted to [facility] on 5150 written for GD, "confused, thought process is disorganized, and speech is tangential... currently unable to benefit from supports provided by parents." Interventions: Provided 1:1 assessment, maintained a safe and supportive environment, ensured contract for safety, medication administration/education/monitoring, attempted to orient to reality, provided clear and simple instructions, and Q15 minute safety rounds. Response: Patient received walking around the unit at change of shift. Pt asking staff if she could take a shower. Staff set up the shower for patient including all toiletries and clean clothing. She noted to be disorganized, making several requests of staff. Pt then declining to take a shower. She joined for breakfast in the group room with peers. Pt presents as guarded with thought blocking. She is intrusive with staff and other patients on the unit at times. When asked how patient is feeling, she endorsed, a sack of shit hole. Pt continues to deny all MH symptoms. She appears to be responding to internal stimuli at times. Patient participated on the patio with peers and in group therapy this shift. She presents as delusional and easily irritable at times. Pt was active on the unit the majority of the shift. She approached this conventional underwriter asking to use the headphones to listen to music because she was talking too much. She participated for all meal and snack times in the group room with peers. Plan: Patient requires interruption of current crisis with possible medication adjustments in a safe and supportive environment.
[2023-04-17 19:25] VITALS: BP 131/83
[2023-04-17] MEDS: Melatonin 3mg tablet PO SCH (20:27)
[2023-04-17] MEDS: traZODone 50mg tablet PO SCH (20:27)
--- NOTE | 2023-04-18 02:07 | NUR ---
Nursing Progress Note: Problem: Pt admitted to [facility] on 5150 written for GD, "confused, thought process is disorganized, and speech is tangential... currently unable to benefit from supports provided by parents." Interventions: Provided 1:1 assessment, maintained a safe and supportive environment, ensured contract for safety, medication administration/education/monitoring, attempted to orient to reality, provided clear and simple instructions, and Q15 minute safety rounds. Response:Pt was wearing headphones at change of shift. Pt is noted to be guarded and often asks if she is "talking to much." Pt assured she is not talking too much. Pt spent time between her room and drawing in the group room. Pt asked to have pencil sharpened for drawing. Pt continues to exhibit thought blocking during communication. Pt had snacks in the group room and took HS meds. Pt requested snacks again and reported that her night medications make her hungry. Pt asked if she had a repeat dose of trazodone if she could have more snacks. Assured patient she could and offered pt repeat dose as she was not able to fall asleep. Pt declined and went back to bed. Plan: Patient requires interruption of current crisis with possible medication adjustments in a safe and supportive environment.
[2023-04-18] MEDS: ondansetron 4mg rapidly disintigrating tab PO PRN ×3 (03:27→20:10)
[2023-04-18 08:00] VITALS: BP 110/59
[2023-04-18] MEDS: ARIPIPRAZOLE 10 MG TABLET PO SCH (08:53)
[2023-04-18] MEDS: aripiprazole 5mg tablet PO SCH (08:53)
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
[2023-04-18 19:55] VITALS: BP 131/52
[2023-04-18] MEDS: carBAMazepine Ext. Release 200 MG TAB.ER.12H PO SCH (20:00)
[2023-04-18] MEDS: traZODone 50mg tablet PO SCH (20:05)
[2023-04-18] MEDS: Melatonin 3mg tablet PO SCH (20:05)
[2023-04-18] MEDS: acetaminophen 325mg tablet PO PRN (20:09)
--- NOTE | 2023-04-18 21:18 | NUR ---
Nursing Progress Note: Max Problem: Pt admitted to [facility] on 5150 written for GD, "confused, thought process is disorganized, and speech is tangential, currently unable to benefit from supports provided by parents." Interventions: Provided 1:1 assessment, maintained a safe and supportive environment, ensured contract for safety, provided clear and simple instructions. Response: Pt came to nurses station at change of shift and stated "sorry for giving you problems this morning and having an attitude." Pt is pleasant and cooperative during the evening, appears to be internally preoccupied. Asks for multiple items, lotion, "liquid zofran", pads, toothbrush, socks, and had also done so prior to shift change this morning. Asked patient why she was asking for so many toothbrushes, and she replied "I have to bite them when Im done using them and then they are no good." Multiple toothbrushes were found in patients trash bag with sanitary napkins, bars of soap etc. Pt was supplied with more sanitary pads, another toothbrush, socks and lotion after she showered. Pt took HS meds and c/o cramps r/t her period requested prn tylenol and zofran for nausea. Pt continues to have disorganized thought process, denies av/h. Plan: Patient requires interruption of current crisis with possible medication adjustments in a safe and supportive environment. Addendum: 04/18/23 at 6399 by Jane Osorio RN pt refused labs at change of shift. die cast technician will return in the AM and attempt again. Addendum: 04/19/23 at 0152 by Jane Osorio RN Pt is awake doing jumping jacks in her room. Pt agreed to take repeat dose of prn trazodone and try to get more sleep.
[2023-04-19] MEDS: traZODone 50mg tablet PO SCH (01:49)
[2023-04-19 08:00] VITALS: BP 94/77
[2023-04-19] MEDS: aripiprazole 5mg tablet PO SCH (08:24)
[2023-04-19] MEDS: carBAMazepine Ext. Release 200 MG TAB.ER.12H PO SCH ×2 (08:25→20:25)
[2023-04-19] MEDS: ARIPIPRAZOLE 10 MG TABLET PO SCH (08:25)
[2023-04-19 13:59] LABS: EOSINOPHILS # (AUTO) 0.1 X10'3 (0-0.9); HEMOGLOBIN 12.8 g/dl (12.0-16.0); MEAN CORPUSCULAR VOLUME 91.3 FL (78-98); MONOCYTES # (AUTO) 0.5 X10'3 (0-0.9); NEUTROPHILS # (AUTO) 5.3 X10'3 (1.8-7.7)
[2023-04-19 14:00] LABS: BASOPHILS % (AUTO) 0.3 % (0-1); EOSINOPHILS % (AUTO) 1.8 % (0-6); HEMATOCRIT 38.2 % (35.0-45.0); LYMPHOCYTES # (AUTO) 1.7 X10'3 (1.1-4.8); LYMPHOCYTES % (AUTO) 21.6 % (21-51); MEAN CORPUSCULAR HEMOGLOBIN 30.6 PG (27.0-31.0); MEAN CORPUSCULAR HGB CONC 33.5 g/dL (33.0-36.5); MEAN PLATELET VOLUME 8.5 FL (7.4-10.4); MONOCYTES % (AUTO) 6.7 % (2-12); NEUTROPHILS % (AUTO) 69.6 % (42-75); PLATELET COUNT 261 X10'3 (140-440); RED BLOOD COUNT 4.19 X10'6 (4.20-5.60); RED CELL DISTRIBUTION WIDTH 11.8 % (11.5-14.5); WHITE BLOOD COUNT 7.7 X10'3 (4.5-11.0)
[2023-04-19] MEDS ORDERED: ondansetron 4mg rapidly disintigrating tab PO PRN (15:05)
--- NOTE | 2023-04-19 17:00 | NUR ---
Nursing Progress Note: Max Problem: Pt admitted to [facility] on 5150 written for GD, "confused, thought process is disorganized, and speech is tangential, currently unable to benefit from supports provided by parents." Interventions: Provided 1:1 assessment, maintained a safe and supportive environment, ensured contract for safety, provided clear and simple instructions. Response: Pt. received awake and pacing around the unit. She took her medications without hesitation. She struggled to get through the 1:1 MH assessment, often presenting as agitated and confused, stating the knees, fold up my bed, whatever She spent most of the shift isolating in her room. She has had episodes of intrusiveness and somewhat forgetfulness, approaching staff stating I want a shower last, actually tonight, and yeah tonight then 10 min later asking for a shower again. Pt. presents as disheveled, wearing a few layers of clothing, and has poor eye contact. Pt. attend all meals in the community room with cohorts, but leaves just as quickly often consuming minimal food. Pt. has not socialized with cohorts today. Plan: Patient requires interruption of current crisis with possible medication adjustments in a safe and supportive environment.
[2023-04-19 20:00] VITALS: BP 112/68
[2023-04-19] MEDS: Melatonin 3mg tablet PO SCH (20:24)
--- NOTE | 2023-04-20 00:15 | NUR ---
Nursing Progress Note: Max Problem: Pt admitted to [facility] on 5150 written for GD, "confused, thought process is disorganized, and speech is tangential, currently unable to benefit from supports provided by parents." Interventions: Provided 1:1 assessment, maintained a safe and supportive environment, ensured contract for safety, provided clear and simple instructions. Response: Pt. received awake and requesting a shower. Pt showered and participated in snacks. Her mood presents as somber with a flat affect. She denies MH symptoms and says she is OK. She is observed in the community room after snacks reading a book, took all HS medications. Pt to bed shortly after med pass. Plan: Patient requires interruption of current crisis with possible medication adjustments in a safe and supportive environment.
[2023-04-20] MEDS: traZODone 50mg tablet PO SCH ×2 (01:32→20:32)
--- NOTE | 2023-04-20 01:34 | NUR ---
Sleep Note: Pt was given 2100 tazadone. Pt was up several times during the night asking for broth, water, soap... pt was given repeat trazadone at 0135. Pt making non-sensical statements.
[2023-04-20] MEDS ORDERED: LORazepam 1 MG tablet PO ONE (02:40)
--- NOTE | 2023-04-20 02:48 | NUR ---
Pt is disorganized, restless, provided notified and order 1MG ativan received and given.
[2023-04-20] MEDS: ARIPIPRAZOLE 10 MG TABLET PO SCH (07:58)
[2023-04-20 08:00] VITALS: BP 126/66
[2023-04-20] MEDS: carBAMazepine Ext. Release 200 MG TAB.ER.12H PO SCH ×2 (08:02→20:32)
[2023-04-20] MEDS: aripiprazole 5mg tablet PO SCH (08:02)
--- NOTE | 2023-04-20 16:10 | NUR ---
Nursing Progress Note: Max Problem: Pt admitted to [facility] on 5150 written for GD, "confused, thought process is disorganized, and speech is tangential, currently unable to benefit from supports provided by parents." Interventions: Provided 1:1 assessment, maintained a safe and supportive environment, ensured contract for safety, provided clear and simple instructions. Response: Pt. received asleep, awoke to take her medications without hesitation. Pt. refused breakfast stating Im tired, just tired She remained in her room most of the morning. She presents as irritable,fatigued, and disorganized at times. Pt. did shower before lunch, c/o nausea and refused lunch; PRN Zofran given with good results, as she ate 100 % She has poor eye contact, refused to participate in 1:1 assessment, isolated in her room most of the shift, fair hygiene, hair worn down, and has two layers of clothing on. Plan: Patient requires interruption of current crisis with possible medication adjustments in a safe and
--- NOTE | 2023-04-20 17:50 | NUR ---
ASSOCIATE DIRECTOR REGULATORY AFFAIRS documentation: I have reviewed documentation by JULIETH Fuentes.
[2023-04-20 19:00] VITALS: BP 107/58
[2023-04-20] MEDS: Melatonin 3mg tablet PO SCH (20:31)
--- NOTE | 2023-04-21 00:30 | NUR ---
Nursing Progress Note: Max Problem: Pt admitted to [facility] on 5150 written for GD, "confused, thought process is disorganized, and speech is tangential, currently unable to benefit from supports provided by parents." Interventions: Provided 1:1 assessment, maintained a safe and supportive environment, ensured contract for safety, provided clear and simple instructions. Response: Pt. received pacing in the hallway with headphones on, smiling. She states she had a good day and was able to sleep a little bit. She apologized for her behavior last night for acting mean but states she fells much better today. She denies MH symptoms and tell this rewriter that if she starts to hear voices she would let the nurse know. She participated in snacks and took all HS medications including PRN trazadone without issue. Pt is currently sleeping. Plan: Patient requires interruption of current crisis with possible medication adjustments in a safe and
[2023-04-21] MEDS: quetiapine 100mg tablet PO ONE ×2 (03:25→03:32)
[2023-04-21 07:00] VITALS: BP 116/67
[2023-04-21] MEDS: carBAMazepine Ext. Release 200 MG TAB.ER.12H PO SCH ×2 (07:48→20:22)
[2023-04-21] MEDS: ARIPIPRAZOLE 10 MG TABLET PO SCH (07:48)
[2023-04-21] MEDS: aripiprazole 5mg tablet PO SCH (07:49)
--- NOTE | 2023-04-21 16:50 | NUR ---
Nursing Progress Note: Max Problem: Pt admitted to [facility] on 5150 written for GD, "confused, thought process is disorganized, and speech is tangential, currently unable to benefit from supports provided by parents." Interventions: Provided 1:1 assessment, maintained a safe and supportive environment, ensured contract for safety, provided clear and simple instructions. Response: Patient was found organizing her room at change of shift. Patient then requested to take a shower. Patient had flat affect and spoke very low. Patient isolated in her room until having to be encouraged to participate in breakfast. Patient immediately returned to room after breakfast until being let into the shower. Patient had to be checked on multiple times due to spending an hour in the shower. After lunch patients mood seemed to perk up. Patient gave eye contacted and even smile and laughed with staff. Patient requested headphones and began pacing around in room. . Plan: Patient requires interruption of current crisis with possible medication adjustments in a safe and
[2023-04-21 19:00] VITALS: BP 120/71
[2023-04-21] MEDS: Melatonin 3mg tablet PO SCH (20:22)
[2023-04-21] MEDS: traZODone 50mg tablet PO SCH (20:22)
[2023-04-22] MEDS ORDERED: traZODone 50mg tablet PO ONE (00:35)
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
[2023-04-22 08:00] VITALS: BP 124/83
[2023-04-22] MEDS: carBAMazepine Ext. Release 200 MG TAB.ER.12H PO SCH ×2 (08:38→20:00)
[2023-04-22] MEDS: ARIPIPRAZOLE 10 MG TABLET PO SCH (08:38)
[2023-04-22] MEDS: aripiprazole 5mg tablet PO SCH (08:38)
--- NOTE | 2023-04-22 18:05 | NUR ---
Nursing Progress Note: Max Problem: Pt admitted to [facility] on 5150 written for GD, "confused, thought process is disorganized, and speech is tangential, currently unable to benefit from supports provided by parents." Interventions: Provided 1:1 assessment, maintained a safe and supportive environment, ensured contract for safety, provided clear and simple instructions. Response: Received Pt in bed sleeping w/o distress. Pt woke and was cooperative with vitals. He took AM and all scheduled meds w/o issue and ate meals well. Pt. denies SI, HI, AH, VH. Pt pleasant and cooperative and also isolative to her room and doing artwork. Pt makes needs known clearly and able to joke with staff but does not interact with other Pts. Pts answers to routine questions begin linear and quickly are tangential and disorganized. Pt showered in afternoon and was seen walking in halls. Pt did not need or request PRN medication this shift. Plan: Patient requires interruption of current crisis with possible medication adjustments in a safe and
[2023-04-22 20:00] VITALS: BP 117/75
[2023-04-22] MEDS: Melatonin 3mg tablet PO SCH (21:30)
[2023-04-22] MEDS: traZODone 50mg tablet PO SCH (21:32)
--- NOTE | 2023-04-23 00:12 | NUR ---
Nursing Progress Note: Max Problem: Pt admitted to [facility] on 5150 written for GD, "confused, thought process is disorganized, and speech is tangential, currently unable to benefit from supports provided by parents." Interventions: Provided 1:1 assessment, maintained a safe and supportive environment, ensured contract for safety, provided clear and simple instructions. Response: Received Pt in community room after dinner, watching TV. Pt pleasant and listening to radio headphones. She was cooperative with vitals. Pt remains smiling and visible with others but sitting alone. Pt participated in snack and requested tea. She continues to deny SI, HI and AV/Hs. Pt is disorganized in responses at times and took HS meds w/o issue and went to bed. Pt remains awake but quiet in her room. Will continue to monitor. Plan: Patient requires interruption of current crisis with possible medication adjustments in a safe a
[2023-04-23] MEDS: traZODone 50mg tablet PO SCH ×2 (01:28→20:12)
[2023-04-23] MEDS: mag hydrox/Alum hydrox/simeth 30ml oral suspension PO PRN (01:33)
[2023-04-23 08:00] VITALS: BP 108/62
[2023-04-23] MEDS: aripiprazole 5mg tablet PO SCH (08:41)
[2023-04-23] MEDS: ARIPIPRAZOLE 10 MG TABLET PO SCH (08:41)
[2023-04-23] MEDS: carBAMazepine Ext. Release 200 MG TAB.ER.12H PO SCH ×2 (08:46→20:11)
--- NOTE | 2023-04-23 18:16 | NUR ---
Nursing Progress Note: Max Problem: Pt admitted to [facility] on 5150 written for GD, "confused, thought process is disorganized, and speech is tangential... currently unable to benefit from supports provided by parents." Interventions: Provided 1:1 assessment, maintained a safe and supportive environment, ensured contract for safety, medication administration/education/monitoring, attempted to orient to reality, provided clear and simple instructions, and Q15 minute safety rounds. Response: Patient received sleeping in her room at shift change. She was noted to refuse scheduled vital signs by tech this morning. Pt awoke for breakfast and endorsed that she is having a bad morning. She is noted to be disorganized, making delusional statements throughout the shift. Pt presents as guarded with thought blocking. She denies SI/HI, AH and VH. Pt was noted to have clogged her bathroom toilet with an abundance of items including post-it notes, bathing wipes, toilet paper and paper towels. She was educated on proper disposal of items into the trash can. Pt was later receptive to scheduled vital signs by this HOUSE PIPING INSPECTOR and unit tech. She presents as delusional and easily irritable at times. Pt was noted sitting in the group room laughing and socializing with other peers. She endorsed that she had a bad morning because she needed to sleep. Pt reporting that she is feeling better not. She participated for all meal and snack times in the group room with peers. Plan: Patient requires interruption of current crisis with possible medication adjustments in a safe and supportive environment.
--- NOTE | 2023-04-23 18:30 | NUR ---
MATERIAL FLOW ANALYST documentation: I have reviewed all interventions, assessments performed and documented by JULIETH Rodas.
[2023-04-23 19:31] VITALS: BP 92/55
[2023-04-23] MEDS: Melatonin 3mg tablet PO SCH (20:12)
--- NOTE | 2023-04-23 23:43 | NUR ---
Nursing Progress Note: Problem: Pt admitted to [facility] on 5149 written for GD, "confused, thought process is disorganized, and speech is tangential... currently unable to benefit from supports provided by parents." Interventions: Provided 1:1 assessment, maintained a safe and supportive environment, ensured contract for safety, medication administration/education/monitoring, attempted to orient to reality, provided clear and simple instructions, and Q15 minute safety rounds. Response: Patient was in group room at change of shift drawing and socializing with peers. Pt denies SI/HI, AH and VH. p. Pt is pleasant, at time irritable, but states 'Im doing better tonight." Pt was med compliant at , had snacks with peers and continued to socialize before going to bed. Plan: Patient requires interruption of current crisis with possible medication adjustments in a safe and supportive environment. Addendum: 04/24/23 at 0212 by Jane Osorio RN Pt has been awake and has been offered repeat dose of trazodone and declines several times. Pt laughs stating "You cabrera remind me of my parents. I don't like people to tell me what to do."
[2023-04-24] MEDS: ARIPIPRAZOLE 10 MG TABLET PO SCH (07:44)
[2023-04-24] MEDS: aripiprazole 5mg tablet PO SCH (07:44)
[2023-04-24] MEDS: carBAMazepine Ext. Release 200 MG TAB.ER.12H PO SCH ×3 (07:44→21:32)
[2023-04-24 08:00] VITALS: BP 104/57
--- NOTE | 2023-04-24 08:38 | NUR ---
Reassessment: PO intake slightly fluctuates however overall pt eating well, documented with average 68% PO intake of meals on regular diet since 04/15 meeting estimated nutrient needs. Per RN/COLLAR PACKER documentation pt participating in snacks. LBM 04/23 per EMR. PRN bowel care available, last documented to be given 04/16. No nutrition intervention implemented at this time. Will continue to follow. Recommendations: 1) Continue regular diet 2) Bowel care PRN 3) Weekly scaled weights Addendum: 04/24/23 at [address] Amended: Links added.
--- NOTE | 2023-04-24 17:22 | NUR ---
Nursing Progress Note: Max Problem: Pt admitted to [facility] on 5150 written for GD, "confused, thought process is disorganized, and speech is tangential... currently unable to benefit from supports provided by parents." Interventions: Provided 1:1 assessment, maintained a safe and supportive environment, ensured contract for safety, medication administration/education/monitoring, attempted to orient to reality, provided clear and simple instructions, and Q15 minute safety rounds. Response: RN received pt. asleep in bed at start of shift. Pt. awoke for breakfast and took all medication. Pt. appears paranoid, stating, Whats in this water? It tastes funny Should I keep drinking it?. Pt. observed socializing with peers in hallway and in community room. 1:1 done at bedside, pt. denies SI/HI, A/V hallucinations. Pt. reports that she is feeling, OK. Pt. states, Im not sure how hopeful I feel about things but you know In the afternoon pt.s appeared to improve, pt. came up to the nurses station, stating, I Just love you all Thanks so much for all you do. Plan: Patient requires interruption of current crisis with possible medication adjustments in a safe and supportive environment.
[2023-04-24 20:22] VITALS: BP 114/56
[2023-04-24] MEDS: traZODone 50mg tablet PO SCH (21:31)
[2023-04-24] MEDS: Melatonin 3mg tablet PO SCH (21:32)
--- NOTE | 2023-04-24 23:05 | NUR ---
Nursing Progress Note: Max Problem: Pt admitted to [facility] on 5150 written for GD, "confused, thought process is disorganized, and speech is tangential... currently unable to benefit from supports provided by parents." Interventions: Provided 1:1 assessment, maintained a safe and supportive environment, ensured contract for safety, medication administration/education/monitoring, attempted to orient to reality, provided clear and simple instructions, and Q15 minute safety rounds. Response: Pt was socializing with pers at change of shift. She came to the nurses station and is in a pleasant mood. Pt continues to have disorganized thoughts. Pt is paranoid and begins a sentence then trails off with out finishing it or saying "nevermind I dont want to say that." Pt reports feeling very tired and napping earlier in the day. Reminded patient she didnt want a repeat dose of trazodone but seemed very tired this morning. We discussed the importance of maintaining a regular sleep schedule and patient seemed receptive to this. Pt stated "well I will take it tonight if I need it, but instead of telling me I need it, maybe we can have code? Can you wink and point at me, so I get the hint to take it?" Pt then asked if she could have meds early. Explained to patient it would be better for her to take them later when she is tired. Pt agreed. Pt spent evening socializing, having snacks and sitting alone drawing. pt remained pleasant during the evening. Plan: Patient requires interruption of current crisis with possible medication adjustments in a safe and supportive environment.
[2023-04-25 07:30] VITALS: BP 106/59
[2023-04-25] MEDS: aripiprazole 5mg tablet PO SCH (08:12)
[2023-04-25] MEDS: ARIPIPRAZOLE 10 MG TABLET PO SCH (08:12)
[2023-04-25 14:42] LABS: CLARITY,URINE CLEAR (Clear); COLOR,URINE STRAW (Yellow); GLUCOSE, URINE NEGATIVE (Neg); KETONES,URINE NEGATIVE (Neg); LEUKOCYTE ESTERASE ,URINE NEGATIVE (Neg); NITRITES, URINE NEGATIVE (Neg); OCCULT BLOOD,URINE NEGATIVE (Neg); PROTEIN,URINE NEGATIVE (Neg); UROBILINOGEN,URINE 0.2 E.U/dL (0.2-1.0)
[2023-04-25 14:47] LABS: UA COLLECTION TYPE NON-SPECIFIED
--- NOTE | 2023-04-25 17:34 | NUR ---
Nursing Progress Note: Problem: Pt admitted to [facility] on 5149 written for GD, "confused, thought process is disorganized, and speech is tangential... currently unable to benefit from supports provided by parents." Interventions: Provided 1:1 assessment, maintained a safe and supportive environment, ensured contract for safety, medication administration/education/monitoring, attempted to orient to reality, provided clear and simple instructions, and Q15 minute safety rounds. Response: RN received pt. asleep in bed at start of shift. Pt. awoke for breakfast and took all medications. Pt. watching TV in community and coloring with peers. During 1:1 pt. reports feeling better today but still feeling some depression and states, Im not sure why. Pt. denies SI/HI, A/V hallucinations. Plan: Patient requires interruption of current crisis with possible medication adjustments in a safe and supportive environment.
[2023-04-25 19:39] VITALS: BP 110/67
[2023-04-25] MEDS: carBAMazepine Ext. Release 200 MG TAB.ER.12H PO SCH (20:40)
[2023-04-25] MEDS: traZODone 50mg tablet PO SCH (21:19)
[2023-04-25] MEDS: Melatonin 3mg tablet PO SCH (21:19)
--- NOTE | 2023-04-25 23:24 | NUR ---
Nursing Progress Note: Problem: Pt admitted to [facility] on 5149 written for GD, "confused, thought process is disorganized, and speech is tangential... currently unable to benefit from supports provided by parents." Interventions: Provided 1:1 assessment, maintained a safe and supportive environment, ensured contract for safety, medication administration/education/monitoring, attempted to orient to reality, provided clear and simple instructions, and Q15 minute safety rounds. Response: Pt is sitting quietly in her room at change of shift. Pt states "Im ok." and smiles. Pt denies s/i, denies a/vh. Pt reports feeling tired today. Pt reports she has no needs this evening and spent time napping in her room. Pt woke for HS meds and went back to sleep. Plan: Patient requires interruption of current crisis with possible medication adjustments in a safe and supportive environment.
[2023-04-26] MEDS ORDERED: ARIPIPRAZOLE 10 MG TABLET PO SCH (06:54)
[2023-04-26 07:22] VITALS: BP 111/57
[2023-04-26] MEDS: ARIPIPRAZOLE 10 MG TABLET PO SCH (08:25)
[2023-04-26] MEDS: carBAMazepine Ext. Release 200 MG TAB.ER.12H PO SCH ×2 (08:26→20:51)
--- NOTE | 2023-04-26 16:34 | NUR ---
Nursing Progress Note: Problem: Pt admitted to [facility] on 5149 written for GD, "confused, thought process is disorganized, and speech is tangential... currently unable to benefit from supports provided by parents." Interventions: Provided 1:1 assessment, maintained a safe and supportive environment, ensured contract for safety, medication administration/education/monitoring, attempted to orient to reality, provided clear and simple instructions, and Q15 minute safety rounds. Response: Patient was found in community room socializing at beginning of shift. Patient was able to visit with her parents today and appears in a overall more positive mood. Patient spent majority of the shift out of room participating in group and game activates. Patient continues to be hyper verbal but appears to notice this behavior and try to stop her self. Patient took all medications without difficulty. Patient also took a shower this shift. Plan: Patient requires interruption of current crisis with possible medication adjustments in a safe and supportive environment. Addendum: 04/26/23 at 1753 by Garett Villarreal) JERRY MEDICAL REVIEWER documentation: I have reviewed and agree with all interventions, assessments performed and documented by MEDICAL REVIEWER.
[2023-04-26 19:00] VITALS: BP 106/65
[2023-04-26] MEDS: Melatonin 3mg tablet PO SCH (20:50)
[2023-04-26] MEDS: traZODone 50mg tablet PO SCH (20:50)
--- NOTE | 2023-04-27 00:35 | NUR ---
Nursing Progress Note: Problem: Pt admitted to [facility] on 515 written for GD, "confused, thought process is disorganized, and speech is tangential... currently unable to benefit from supports provided by parents." Interventions: Provided 1:1 assessment, maintained a safe and supportive environment, ensured contract for safety, medication administration/education/monitoring, attempted to orient to reality, provided clear and simple instructions, and Q15 minute safety rounds. Response: Pt. was received sitting in her room at change of shift. Pt. had consultation with PA shortly after shift change. Pt. is pleasant, cheerful and cooperative. She sat in a chair in the [place] and socialized with peers. Denies SI/HI/AH/VH stating "Im good". At time of medication , pt. was lying in bed wearing headphones. Pt. took night medications without difficulty and went to bed. Plan: Patient requires interruption of current crisis with possible medication adjustments in a safe and supportive environment.
[2023-04-27 07:00] VITALS: BP 106/62
[2023-04-27] MEDS: ARIPIPRAZOLE 10 MG TABLET PO SCH (08:12)
[2023-04-27] MEDS: carBAMazepine Ext. Release 200 MG TAB.ER.12H PO SCH ×2 (08:12→21:15)
--- NOTE | 2023-04-27 17:06 | NUR ---
Nursing Progress Note: Problem: Pt admitted to [facility] on 5150 written for GD, "confused, thought process is disorganized, and speech is tangential... currently unable to benefit from supports provided by parents." Interventions: Provided 1:1 assessment, maintained a safe and supportive environment, ensured contract for safety, medication administration/education/monitoring, attempted to orient to reality, provided clear and simple instructions, and Q15 minute safety rounds. Response: Patient was found sitting in community room at beginning of shift. Patient was Social and mood appears to be continuously improving. Patient played games with patients and colored in between meals. Patient was cooperative with car and took medications without issue. Plan: Patient requires interruption of current crisis with possible medication adjustments in a safe and supportive environment.
[2023-04-27 20:00] VITALS: BP 109/65
[2023-04-27] MEDS: traZODone 50mg tablet PO SCH (21:14)
[2023-04-27] MEDS: Melatonin 3mg tablet PO SCH (21:14)
--- NOTE | 2023-04-28 00:07 | NUR ---
Nursing Progress Note: Problem: Pt admitted to [facility] on 5150 written for GD, "confused, thought process is disorganized, and speech is tangential... currently unable to benefit from supports provided by parents." Interventions: Provided 1:1 assessment, maintained a safe and supportive environment, ensured contract for safety, medication administration/education/monitoring, attempted to orient to reality, provided clear and simple instructions, and Q15 minute safety rounds. Response: Received pt. lying in bed wearing headphones and reading a book at change of shift. Pt. is pleasant and cooperative. She reports feeling better the last 2 days and getting plenty of sleep. Pt. continues to interact and socialize with others on the unit. She denies SI/HI/AH/VH. Pt. took all night medications. Observed and appears to be sleeping without difficulty. Plan: Patient requires interruption of current crisis with possible medication adjustments in a safe and supportive environment.
[2023-04-28 07:00] VITALS: BP 101/60
[2023-04-28] MEDS: ARIPIPRAZOLE 10 MG TABLET PO SCH (08:18)
[2023-04-28] MEDS: carBAMazepine Ext. Release 200 MG TAB.ER.12H PO SCH ×2 (08:19→21:03)
--- NOTE | 2023-04-28 16:19 | NUR ---
Nursing Progress Note: Problem: Pt admitted to [facility] on 5149 written for GD, "confused, thought process is disorganized, and speech is tangential... currently unable to benefit from supports provided by parents." Interventions: Provided 1:1 assessment, maintained a safe and supportive environment, ensured contract for safety, medication administration/education/monitoring, attempted to orient to reality, provided clear and simple instructions, and Q15 minute safety rounds. Response: Patient was found sitting in community room socializing with other patients at change of shift. Patient was out of room all shift talking to others, playing games and playing guitar for a couple hours. Patient was cooperative with all medications. Patient denies ah/vh. When talking about if patient was ready to go home she became distant and quickly changed the topic. Plan: Patient requires interruption of current crisis with possible medication adjustments in a safe and supportive environment. Addendum: 04/28/23 at 1738 by Garett Villarreal) JERRY CLAIMS INVESTIGATOR documentation: I have reviewed and agree with all interventions, assessments performed and documented by CLAIMS INVESTIGATOR.
[2023-04-28 19:56] VITALS: BP 113/67
[2023-04-28] MEDS: Melatonin 3mg tablet PO SCH (21:03)
[2023-04-28] MEDS: traZODone 50mg tablet PO SCH (21:03)
--- NOTE | 2023-04-29 02:06 | NUR ---
Nursing Progress Note: Problem: Pt admitted to [facility] on 515 written for GD, "confused, thought process is disorganized, and speech is tangential... currently unable to benefit from supports provided by parents." Interventions: Provided 1:1 assessment, maintained a safe and supportive environment, ensured contract for safety, medication administration/education/monitoring, attempted to orient to reality, provided clear and simple instructions, and Q15 minute safety rounds. Response: Received pt. in the [place] socializing with staff at change of shift. Pt. was observed in her room sitting quietly reading and drawing. Pt. requested candy and drawing paper and returned to her room. Pt. is pleasant and cooperative. She continues to deny SI/HI/AH/VH. She is medication compliant. Observed and appears to be sleeping without difficulty. Plan: Patient requires interruption of current crisis with possible medication adjustments in a safe and supportive environment.
[2023-04-29 08:00] VITALS: BP 103/61
[2023-04-29] MEDS: ARIPIPRAZOLE 10 MG TABLET PO SCH (08:56)
[2023-04-29] MEDS: carBAMazepine Ext. Release 200 MG TAB.ER.12H PO SCH ×2 (08:57→20:25)
--- NOTE | 2023-04-29 17:05 | NUR ---
Nursing Progress Note: Problem: Pt admitted to [facility] on 515 written for GD, "confused, thought process is disorganized, and speech is tangential currently unable to benefit from supports provided by parents." Interventions: Provided 1:1 assessment with therapeutic communication and active listening; maintained a safe and supportive environment, medication administration/education/monitoring, attempted to orient to reality, provided clear and simple instructions, and Q15 minute safety rounds. Response: Patient observed sleeping at start of shift. Pt up for all meals and snacks. She is cooperative with medication administration. No complaints. Pt is polite and cooperative. Good affect. Pt spent time in the main room playing a game, drawing and socializing. She slept in the afternoon. She participated in both groups today. Denies A/V/H. Plan: Patient requires interruption of current crisis with possible medication adjustments in a safe and supportive environment.
[2023-04-29 20:00] VITALS: BP 106/62
[2023-04-29] MEDS: Melatonin 3mg tablet PO SCH (20:25)
[2023-04-29] MEDS: traZODone 50mg tablet PO SCH (20:25)
--- NOTE | 2023-04-30 00:06 | NUR ---
Nursing Progress Note: Problem: Pt admitted to [facility] on 515 written for GD, "confused, thought process is disorganized, and speech is tangential currently unable to benefit from supports provided by parents." Interventions: Provided 1:1 assessment with therapeutic communication and active listening; maintained a safe and supportive environment, medication administration/education/monitoring, attempted to orient to reality, provided clear and simple instructions, and Q15 minute safety rounds. Response: Received pt. sitting in bed wearing headphones and reading at change of shift. Pt. is pleasant and cooperative. She was in her room most of the evening except to come out for snack. Pt. states that she feels great and denies SI/HI/AH/VH. Compliant with all medications and went to bed afterwards. Pt. wears headphones while sleeping. Plan: Patient requires interruption of current crisis with possible medication adjustments in a safe and supportive environment.
[2023-04-30] MEDS ORDERED: traZODone 150mg tablet PO ONE (01:40)
--- NOTE | 2023-04-30 05:26 | NUR ---
OPTOMECHANICAL ENGINEER documentation: I have reviewed and agree with all interventions, assessments performed and documented by Giovana Overton LVN.
[2023-04-30 08:00] VITALS: BP 119/55
[2023-04-30] MEDS: carBAMazepine Ext. Release 200 MG TAB.ER.12H PO SCH ×2 (08:55→20:22)
[2023-04-30] MEDS: ARIPIPRAZOLE 10 MG TABLET PO SCH (08:56)
--- NOTE | 2023-04-30 16:36 | NUR ---
Nursing Progress Note: Max Problem: Pt admitted to [facility] on 5150 written for GD, "confused, thought process is disorganized, and speech is tangential currently unable to benefit from supports provided by parents." Interventions: Provided 1:1 assessment with therapeutic communication and active listening; maintained a safe and supportive environment, medication administration/education/monitoring, attempted to orient to reality, provided clear and simple instructions, and Q15 minute safety rounds. Response: Patient is very pleasant and cooperative this shift; she remains med complaint. She continues to deny SI/HI/AVH. Patient observed up on the unit for meals/snacks and group but she often retreats back to her room to rest. She appears to enjoy utilizing headphones. Plan: Patient requires interruption of current crisis with possible medication adjustments in a safe and supportive environment.
--- NOTE | 2023-04-30 17:56 | NUR ---
BACK HAND documentation: I have reviewed all interventions and assessments performed and documented by JULIETH Hermosillo.
[2023-04-30 19:32] VITALS: BP 107/61
[2023-04-30] MEDS: Melatonin 3mg tablet PO SCH (20:22)
[2023-04-30] MEDS: traZODone 50mg tablet PO SCH (20:23)
--- NOTE | 2023-04-30 23:49 | NUR ---
Nursing Progress Note: Max Problem: Pt admitted to [facility] on 5150 written for GD, "confused, thought process is disorganized, and speech is tangential currently unable to benefit from supports provided by parents." Interventions: Provided 1:1 assessment with therapeutic communication and active listening; maintained a safe and supportive environment, medication administration/education/monitoring, attempted to orient to reality, provided clear and simple instructions, and Q15 minute safety rounds. Response: Pt is in her room at change of shift. Pt is pleasant and cooperative, socializes with staff and peers briefly and returns to her room. Pt states "I feel good man! and laughs then explains she is saying "weird things". Pt continues to have some disorganized speech. Pt spent the evening tidying her room. Pt took HS meds and went to bed after saying "Im really tired tonight." Plan: Patient requires interruption of current crisis with possible medication adjustments in a safe and supportive environment.
[2023-05-01 08:00] VITALS: BP 91/64
[2023-05-01] MEDS: carBAMazepine Ext. Release 200 MG TAB.ER.12H PO SCH ×2 (08:17→20:00)
[2023-05-01] MEDS: ARIPIPRAZOLE 10 MG TABLET PO SCH (08:17)
--- NOTE | 2023-05-01 16:54 | NUR ---
Nursing Progress Note: Max Problem: Pt admitted to [facility] on 5150 written for GD, "confused, thought process is disorganized, and speech is tangential currently unable to benefit from supports provided by parents." Interventions: Provided 1:1 assessment with therapeutic communication and active listening; maintained a safe and supportive environment, medication administration/education/monitoring, attempted to orient to reality, provided clear and simple instructions, and Q15 minute safety rounds. Response: Patient is very pleasant, calm, and cooperative this shift; she remains med complaint. She continues to deny SI/HI/AVH. She is observed up on the unit socializing appropriately with peers in the community room and listening to head phones. She appears to enjoy reading and drawing in her room when she is not in the community room. She showered independently and is well groomed. Plan: Patient requires interruption of current crisis with possible medication adjustments in a safe and supportive environment.
--- NOTE | 2023-05-01 17:23 | NUR ---
PALLIATIVE CARE SPECIALIST documentation: I have reviewed all interventions and assessments performed and documented by JULIETH Hermosillo.
[2023-05-01 19:35] VITALS: BP 111/66
[2023-05-01] MEDS: traZODone 50mg tablet PO SCH (21:02)
[2023-05-01] MEDS: Melatonin 3mg tablet PO SCH (21:02)
[2023-05-01] MEDS ORDERED: traZODone 50mg tablet PO ONE (23:44)
--- NOTE | 2023-05-01 23:48 | NUR ---
Nursing Progress Note: Max Problem: Pt admitted to [facility] on 5150 written for GD, "confused, thought process is disorganized, and speech is tangential currently unable to benefit from supports provided by parents." Interventions: Provided 1:1 assessment with therapeutic communication and active listening; maintained a safe and supportive environment, medication administration/education/monitoring, attempted to orient to reality, provided clear and simple instructions, and Q15 minute safety rounds. Response: Pt was in her room at change of shift. Pt states her day was "ok but I don't know what's next. Im kind of sad, because I don't like being this category of person." Pt acknowledges, "I know im better than when I came in, and the medicine is working better for me." Pt reports she still wakes up during the night and lays there for about an hour and this is bothersome for her. Pt was encouraged to request a repeat trazodone if needed. Pt socialized with peers tonight and reports a good mood, stating she likes getting to know people here. Pt had snacks in the group room and took HS meds before going to bed. Pt woke up and requested repeat dose of trazodone and returned to bed. Plan: Patient requires interruption of current crisis with possible medication adjustments in a safe and supportive environment.
[2023-05-02 08:00] VITALS: BP 93/62
[2023-05-02] MEDS: ARIPIPRAZOLE 10 MG TABLET PO SCH (08:35)
[2023-05-02] MEDS: carBAMazepine Ext. Release 200 MG TAB.ER.12H PO SCH ×2 (08:35→22:11)
--- NOTE | 2023-05-02 12:31 | NUR ---
Reassessment: Pt now eating mostly 100% PO intake with occasional 75-100% PO intake meeting estimated nutrient needs. LBM 05/02 per EMR. No nutrition intervention implemented at this time. Will continue to follow. Recommendations: 1) Continue regular diet 2) Bowel care PRN 3) Weekly scaled weights Addendum: 05/02/23 at [address] Amended: Links added.
--- NOTE | 2023-05-02 16:22 | NUR ---
Nursing Progress Note: Max Problem: Pt admitted to [facility] on 5150 written for GD, "confused, thought process is disorganized, and speech is tangential currently unable to benefit from supports provided by parents." Interventions: Provided 1:1 assessment with therapeutic communication and active listening; maintained a safe and supportive environment, medication administration/education/monitoring, attempted to orient to reality, provided clear and simple instructions, and Q15 minute safety rounds. Response: Patient is very pleasant and cooperative this shift; she remains med compliant. She is observed up on the unit socializing appropriately with peers, watching TV in the community room, and occasionally listening to head phones. She is calm and well groomed, she showered independently. Patient reports, I am tired today, I didnt sleep that good last night, but maybe because I napped yesterday. Shes observed taking a nap in her room today. She is up for meals/snacks and group. Plan: Patient requires interruption of current crisis with possible medication adjustments in a safe and supportive environment. Addendum: 05/02/23 at 1745 by Garett Villarreal) JERRY JULIETH documentation: I have reviewed and agree with all interventions, assessments performed and documented by JULIETH
[2023-05-02 19:49] VITALS: BP 105/62
[2023-05-02] MEDS: traZODone 50mg tablet PO SCH (22:10)
[2023-05-02] MEDS: Melatonin 3mg tablet PO SCH (22:10)
--- NOTE | 2023-05-03 05:09 | NUR ---
Nursing Progress Note: Max Problem: Pt admitted to [facility] on 5150 written for GD, "confused, thought process is disorganized, and speech is tangential currently unable to benefit from supports provided by parents." Interventions: Provided 1:1 assessment with therapeutic communication and active listening; maintained a safe and supportive environment, medication administration/education/monitoring, attempted to orient to reality, provided clear and simple instructions, and Q15 minute safety rounds. Response: Upon turn of shift noted patient sitting up in activity room playing cards with cohort. Noted her to be wearing street clothes and socializing well and enjoying herself. Bright affected noted. When greeted patient she gave a big smile and was very pleasant, calm and cooperative. Requested to take meds later in the evening so she doesnt wake up in the middle of the night. Upon 1:1 assessment patient reports her right ear itching. Assessed it and noted markings from headset. Got soapy washcloth, washed and dried it and clean headset. Requested for patient to report back if ear continues to itch. Compliant with HS meds. No PRNs given. Slept better this shift with HS meds being given later in evening. Will continue to monitor. Plan: Patient requires interruption of current crisis with possible medication adjustments in a safe and supportive environment.
[2023-05-03 08:00] VITALS: BP 104/64
[2023-05-03] MEDS: ARIPIPRAZOLE 10 MG TABLET PO SCH (08:26)
[2023-05-03] MEDS: carBAMazepine Ext. Release 200 MG TAB.ER.12H PO SCH ×2 (08:26→21:56)
--- NOTE | 2023-05-03 17:45 | NUR ---
Nursing Progress Note Problem: Pt admitted to [facility] on 5149 written for GD, "confused, thought process is disorganized, and speech is tangential currently unable to benefit from supports provided by parents." Interventions: Provided 1:1 assessment with therapeutic communication and active listening; maintained a safe and supportive environment, medication administration/education/monitoring, attempted to orient to reality, provided clear and simple instructions, and Q15 minute safety rounds. Response: Received Pt in bed sleeping w/o distress at the beginning of this shift. Pt woke for vitals and was cooperative. She was up to [facility] room for breakfast and lunch and ate well. Steffen took AM meds w/o issue and did not request or need PRN meds this shift. Pt cooperative and enjoys talking about her family. She napped in AM and spent time reading and drawing in her room. Pt attended group today and played guitar. Pt currently denies A/VHs and SI/HI. Plan: Patient requires interruption of current crisis with possible medication adjustments in a safe and supportive environment.
[2023-05-03 19:38] VITALS: BP 112/63
[2023-05-03] MEDS: Melatonin 3mg tablet PO SCH (21:56)
[2023-05-03] MEDS: traZODone 50mg tablet PO SCH (21:56)
--- NOTE | 2023-05-04 05:27 | NUR ---
Nursing Progress Note Problem: Pt admitted to [facility] on 5150 written for GD, "confused, thought process is disorganized, and speech is tangential currently unable to benefit from supports provided by parents." Interventions: Provided 1:1 assessment with therapeutic communication and active listening; maintained a safe and supportive environment, medication administration/education/monitoring, attempted to orient to reality, provided clear and simple instructions, and Q15 minute safety rounds. Response: Upon turn of shift met patient in [place] and had conversation. Bright affect and reported that shes going home tomorrow and Renaldo Gonzalez note from last night confirms this. Patient has good hygiene and wearing street clothes. She was very excited. No MH s/sx reported. Encouraged her that she can be who she wants to be. Reports feeling, hopeful, from our conversation. Compliant with meds. Requested for meds to be given around 2200 as she throughout the nightshift the previous night doing this. No PRNs given. Patient reported right ear no longer itches. Slept well this shift. Will continue to monitor. Plan: Patient requires interruption of current crisis with possible medication adjustments in a safe and supportive environment.
[2023-05-04 08:00] VITALS: BP 97/51
[2023-05-04] MEDS: carBAMazepine Ext. Release 200 MG TAB.ER.12H PO SCH (09:51)
[2023-05-04] MEDS: ARIPIPRAZOLE 10 MG TABLET PO SCH (09:52)
--- NOTE | 2023-05-04 16:09 | NUR ---
Nursing Progress Note Problem: Pt admitted to [facility] on 5150 written for GD, "confused, thought process is disorganized, and speech is tangential currently unable to benefit from supports provided by parents." Interventions: Provided 1:1 assessment with therapeutic communication and active listening; maintained a safe and supportive environment, medication administration/education/monitoring, attempted to orient to reality, provided clear and simple instructions, and Q15 minute safety rounds. Response: Upon turn of shift noted patient sleeping in bed. Plans to discharge home today at 1700. No MH s/sx reported. Reports that she slept well last night. Bright affect noted. Noted patient reading a book today and when approached patient has a big smile, grateful to the staff and excited to go home. Played guitar and sang this afternoon. Compliant with meds. No PRNs given. Will continue to monitor. Plan: Patient requires interruption of current crisis with possible medication adjustments in a safe and supportive environment.
[2023-05-04] MEDS ORDERED: TRAZ-251 PO (16:23)
[2023-05-04] MEDS ORDERED: ARIP10TA15 PO (16:23)
[2023-05-04] MEDS ORDERED: CARB400T8 PO (16:23)
--- NOTE | 2023-05-04 17:40 | NUR ---
Patient discharged to mother at this time. Ambulated out without event. Discharge instructions and education provided. Verbalized understanding. Sent electronic prescriptions to her pharmacy in [place] and is aware of her follow-up appointment on 05/18/23. Patient eager to make positive changes.
== END 2023-05-04 17:47 | disposition home or self-care (01) | DRG 750 ==
LOC: ER 19:50 → ED HOLD 04-10 11:17 → ADULT MH 04-10 12:42
PROVIDERS: ADMIT Psychiatry & Neurology Psychiatry; ATTEND Psychiatry & Neurology Psychiatry
DX: F25.0 Schizoaffective disorder, bipolar type (principal); E87.6 Hypokalemia; Z20.822 Contact with and (suspected) exposure to COVID-19; F12.90 Cannabis use, unspecified, uncomplicated; F41.9 Anxiety disorder, unspecified; R11.0 Nausea; Z88.8 Allergy status to other drugs, medicaments and biological substances; Z56.0 Unemployment, unspecified; Z79.899 Other long term (current) drug therapy
CPT/HCPCS: 36415; 80053; 80305; 80320; 81001; 81003; 81025; 85025; 87081; 87811; 99285; C2617; J1200; J1630; J2060

== ENCOUNTER 2023-10-08 18:49 | Inpatient (IN) | payer MEDICAID ==
[~2023-10-08] VITALS: Ht 170.2 cm; Wt 67.3 kg
[~2023-10-08 18:49] MED LIST changes: +ARIP10TA15 PO; -ARIP20TA4 PO; +CARB400T8 PO; -MELA3TAB39 PO; +MELA3TAB70 PO
[2023-10-08 19:27] LABS: URINE HCG NEGATIVE (NEG)
[2023-10-08 19:33] LABS: BILIRUBIN,URINE NEGATIVE (Neg); CLARITY,URINE SLIGHTLY CLOUDY (Clear); COLOR,URINE STRAW (Yellow); GLUCOSE, URINE NEGATIVE (Neg); KETONES,URINE NEGATIVE (Neg); LEUKOCYTE ESTERASE ,URINE NEGATIVE (Neg); NITRITES, URINE NEGATIVE (Neg); OCCULT BLOOD,URINE NEGATIVE (Neg); PROTEIN,URINE NEGATIVE (Neg); UROBILINOGEN,URINE 0.2 E.U/dL (0.2-1.0)
[2023-10-08 19:34] LABS: UA COLLECTION TYPE CLN CATCH MIDSTREAM
[2023-10-08 19:40] LABS: URINE AMPHETAMINE SCREEN NEGATIVE (Neg); URINE BARBITUATE SCREEN NEGATIVE (Neg); URINE BENZODIAZEPINES SCREEN NEGATIVE (Neg); URINE CANNABINOID SCREEN NEGATIVE (Neg); URINE COCAINE SCREEN NEGATIVE (Neg); URINE METHADONE SCREEN NEGATIVE (Neg); URINE OPIATE SCREEN NEGATIVE (Neg); URINE PHENCYCLIDINE SCREEN NEGATIVE (Neg)
[2023-10-08 19:57] LABS: BACTERIA,URINE FEW /HPF (Neg); MUCUS STRANDS NONE SEEN /LPF (Neg); RBC,URINE 0-2 /HPF (0-2); SQUAMOUS EPITHELIAL CELL,UR MANY /LPF (FEW); WBC,URINE 0-4 /HPF (0-4)
[2023-10-08] MEDS ORDERED: ARIP15TA3 PO (20:19)
[2023-10-08] MEDS ORDERED: OLAN5TAB5 PO (20:19)
[2023-10-08 22:02] LABS: BASOPHILS % (AUTO) 0.4 % (0-1); EOSINOPHILS % (AUTO) 0.5 % (0-6); HEMATOCRIT 39.3 % (35.0-45.0); HEMOGLOBIN 13.2 g/dl (12.0-16.0); LYMPHOCYTES # (AUTO) 1.9 X10'3 (1.1-4.8); LYMPHOCYTES % (AUTO) 22.1 % (21-51); MEAN CORPUSCULAR HEMOGLOBIN 30.8 PG (27.0-31.0); MEAN CORPUSCULAR HGB CONC 33.7 g/dL (33.0-36.5); MEAN CORPUSCULAR VOLUME 91.4 FL (78-98); MEAN PLATELET VOLUME 8.4 FL (7.4-10.4); MONOCYTES # (AUTO) 0.4 X10'3 (0-0.9); MONOCYTES % (AUTO) 4.7 % (2-12); NEUTROPHILS # (AUTO) 6.2 X10'3 (1.8-7.7); NEUTROPHILS % (AUTO) 72.3 % (42-75); PLATELET COUNT 241 X10'3 (140-440); RED CELL DISTRIBUTION WIDTH 11.5 % (11.5-14.5); WHITE BLOOD COUNT 8.5 X10'3 (4.5-11.0)
[2023-10-08 22:17] LABS: ALANINE AMINOTRANSFERASE 19 U/L (12-78); ALBUMIN 3.9 G/DL (3.4-5.0); ALBUMIN/GLOBULIN RATIO 1.1 (1.1-1.5); ALKALINE PHOSPHATASE 51 IU/L (46-116); ANION GAP 9 (8-16); ASPARTATE AMINO TRANSFERASE 15 U/L (10-37); BILIRUBIN,TOTAL 0.3 MG/DL (0.1-1.0); BLOOD UREA NITROGEN 10 MG/DL (7-18); BUN/CREATININE RATIO 14.1 (10.0-20.0); CALCIUM 8.7 MG/DL (8.5-10.1); CHLORIDE 103 MMOL/L (99-107); CREATININE 0.71 MG/DL (0.40-0.90); GLUCOSE 107 MG/DL (70-104); POTASSIUM 3.3 MMOL/L (3.5-5.1); SODIUM 138 MMOL/L (135-145); TOTAL CARBON DIOXIDE 25.6 MMOL/L (24-32); TOTAL PROTEIN 7.5 G/DL (6.4-8.2); eCRCL 114 ML/MIN; eGFR > 90 ML/MIN
[2023-10-08] MEDS: ARIPIPRAZOLE 15 MG TABLET PO SCH (22:20)
[2023-10-08] MEDS: OLANZapine 5mg rapidly disint. tablet PO SCH (22:21)
[2023-10-08 22:26] LABS: ETHANOL < 10 MG/DL (<10); THYROID STIMULATING HORMONE 0.87 ulU/ml (0.34-4.50)
[2023-10-09 12:45] VITALS: BP 124/70; PULSE 94; RESP 14; TEMP 98.1; O2SAT 99
[2023-10-09] MEDS ORDERED: acetaminophen 325mg tablet PO PRN (12:50)
[2023-10-09] MEDS ORDERED: magnesium hydroxide 30ml (MOM) UD suspension PO PRN (12:50)
[2023-10-09] MEDS ORDERED: mag hydrox/Alum hydrox/simeth 30ml oral suspension PO PRN (12:50)
[2023-10-09] MEDS ORDERED: loperamide 2mg capsule PO PRN (12:50)
[2023-10-09 13:45] VITALS: RESP 14; O2SAT 99
[2023-10-09 19:30] VITALS: BP 124/58; PULSE 105; RESP 16; TEMP 98.8; O2SAT 95
[2023-10-09] MEDS: OLANZapine 5mg rapidly disint. tablet PO SCH (20:10)
[2023-10-09] MEDS: ARIPIPRAZOLE 15 MG TABLET PO SCH (20:10)
[2023-10-10 07:00] VITALS: BP 108/89; PULSE 90; RESP 12; TEMP 98.9; O2SAT 97
[2023-10-10] MEDS ORDERED: potassium chloride 10mEq ER tablet PO SCH (10:25)
[2023-10-10 12:42] LABS: CHOL/HDL RATIO 2.6 (0.00-4.99); CHOLESTEROL 161 MG/DL (0-200); HDL CHOLESTEROL 63 MG/DL (35-60); LDL CHOLESTEROL 82 MG/DL (50-100); TRIGLYCERIDES 64 MG/DL (20-135)
[2023-10-10 12:45] LABS: HEMOGLOBIN A1C 5.4 % (4.5-6.2)
[2023-10-10 19:30] VITALS: BP 119/69; PULSE 89; RESP 20; TEMP 97.3; O2SAT 97
[2023-10-10] MEDS: ARIPIPRAZOLE 15 MG TABLET PO SCH (20:37)
[2023-10-10] MEDS: OLANZapine 5mg rapidly disint. tablet PO SCH (20:37)
[2023-10-10] MEDS: HALLS - SOOTHE MENTHOL 1.8 MG cough drop LOZENGE MM PRN (21:09)
[2023-10-10] MEDS ORDERED: traZODone 50mg tablet PO PRN (22:00)
[2023-10-11] MEDS ORDERED: traZODone 50mg tablet PO ONE (00:05)
[2023-10-11] MEDS: acetaminophen 325mg tablet PO PRN (05:34)
[2023-10-11 07:00] VITALS: RESP 16; O2SAT 97
[2023-10-11 07:28] VITALS: BP 106/60; PULSE 86; RESP 16; TEMP 98.2; O2SAT 97
[2023-10-11] MEDS ORDERED: potassium chloride 10mEq ER tablet PO SCH (08:00)
[2023-10-11] MEDS: HALLS - SOOTHE MENTHOL 1.8 MG cough drop LOZENGE MM PRN ×2 (14:46→21:40)
[2023-10-11 18:38] LABS: HBSAG SCREEN Negative (Negative); HEP B CORE AB, IGM Negative (Negative); HEP B CORE AB, TOT Negative (Negative)
[2023-10-11 20:00] VITALS: BP 106/60; PULSE 103; RESP 18; TEMP 98; O2SAT 96
[2023-10-11] MEDS: OLANZapine 5mg rapidly disint. tablet PO SCH (20:35)
[2023-10-11] MEDS: ARIPIPRAZOLE 15 MG TABLET PO SCH (20:35)
[2023-10-11] MEDS: traZODone 50mg tablet PO PRN (20:36)
[2023-10-12 07:00] VITALS: RESP 16; O2SAT 97
[2023-10-12 07:32] VITALS: BP 100/60; PULSE 86; RESP 16; TEMP 99.3; O2SAT 97
[2023-10-12] MEDS: HALLS - SOOTHE MENTHOL 1.8 MG cough drop LOZENGE MM PRN ×2 (09:48→14:47)
[2023-10-12 16:00] LABS: ALBUMIN 3.9 G/DL (3.4-5.0); ANION GAP 6 (8-16); BLOOD UREA NITROGEN 10 MG/DL (7-18); BUN/CREATININE RATIO 11.5 (10.0-20.0); CHLORIDE 103 MMOL/L (99-107); CREATININE 0.87 MG/DL (0.40-0.90); GLUCOSE 99 MG/DL (70-104); POTASSIUM 3.6 MMOL/L (3.5-5.1); SODIUM 137 MMOL/L (135-145); TOTAL CARBON DIOXIDE 28.2 MMOL/L (24-32); eCRCL 93 ML/MIN; eGFR 77 ML/MIN
[2023-10-12 19:00] VITALS: RESP 17; O2SAT 99
[2023-10-12 20:00] VITALS: BP 108/61; PULSE 98; RESP 17; TEMP 99; O2SAT 100
[2023-10-12] MEDS: traZODone 50mg tablet PO PRN (21:32)
[2023-10-12] MEDS: ARIPIPRAZOLE 15 MG TABLET PO SCH (21:32)
[2023-10-12] MEDS: OLANZapine 5mg rapidly disint. tablet PO SCH (21:32)
[2023-10-13 07:00] VITALS: BP 114/58; PULSE 94; RESP 16; TEMP 98.7; O2SAT 98
[2023-10-13 19:00] VITALS: BP 111/67; PULSE 85; RESP 16; TEMP 99.1; O2SAT 100
[2023-10-13] MEDS: ARIPIPRAZOLE 15 MG TABLET PO SCH (21:34)
[2023-10-13] MEDS: OLANZapine 5mg rapidly disint. tablet PO SCH (21:35)
[2023-10-13] MEDS: traZODone 50mg tablet PO PRN (21:35)
[2023-10-13] MEDS: HALLS - SOOTHE MENTHOL 1.8 MG cough drop LOZENGE MM PRN (21:36)
[2023-10-14 07:00] VITALS: RESP 16; O2SAT 98
[2023-10-14 08:00] VITALS: BP 122/60; PULSE 84; RESP 16; TEMP 99; O2SAT 98
[2023-10-14] MEDS: HALLS - SOOTHE MENTHOL 1.8 MG cough drop LOZENGE MM PRN ×2 (15:58→20:55)
[2023-10-14 19:00] VITALS: BP 110/74; PULSE 93; RESP 16; TEMP 97.6; O2SAT 98
[2023-10-14] MEDS: ARIPIPRAZOLE 10 MG TABLET PO SCH (20:55)
[2023-10-14] MEDS: OLANZapine 5mg rapidly disint. tablet PO SCH (20:55)
[2023-10-14] MEDS: traZODone 50mg tablet PO PRN (20:56)
[2023-10-14] MEDS ORDERED: traZODone 50mg tablet PO ONE (23:05)
[2023-10-15] MEDS: HALLS - SOOTHE MENTHOL 1.8 MG cough drop LOZENGE MM PRN ×3 (06:56→20:05)
[2023-10-15 07:00] VITALS: RESP 16; O2SAT 98
[2023-10-15 08:00] VITALS: BP 106/59; PULSE 81; RESP 16; TEMP 98.5; O2SAT 98
[2023-10-15] MEDS: acetaminophen 325mg tablet PO PRN (13:30)
[2023-10-15 19:00] VITALS: RESP 16; O2SAT 97
[2023-10-15 20:00] VITALS: BP 126/72; PULSE 84; RESP 16; TEMP 98.9; O2SAT 97
[2023-10-15] MEDS: ARIPIPRAZOLE 10 MG TABLET PO SCH (20:04)
[2023-10-15] MEDS: OLANZapine 5mg rapidly disint. tablet PO SCH (20:05)
[2023-10-16 07:00] VITALS: RESP 16; O2SAT 98
[2023-10-16 08:00] VITALS: BP 125/64; PULSE 74; RESP 16; TEMP 98.7; O2SAT 98
[2023-10-16] MEDS: acetaminophen 325mg tablet PO PRN (09:07)
[2023-10-16] MEDS: HALLS - SOOTHE MENTHOL 1.8 MG cough drop LOZENGE MM PRN ×3 (09:07→20:35)
[2023-10-16 16:00] VITALS: RESP 14; O2SAT 98
[2023-10-16 19:00] VITALS: BP 123/76; PULSE 80; RESP 16; TEMP 98.7; O2SAT 98; O2SAT 99
[2023-10-16] MEDS: OLANZapine 5mg rapidly disint. tablet PO SCH (20:23)
[2023-10-16] MEDS: ARIPIPRAZOLE 10 MG TABLET PO SCH (20:23)
[2023-10-17 07:00] VITALS: RESP 12; O2SAT 99
[2023-10-17 08:00] VITALS: BP 106/57; PULSE 77; RESP 12; TEMP 98.7; O2SAT 99
[2023-10-17] MEDS: HALLS - SOOTHE MENTHOL 1.8 MG cough drop LOZENGE MM PRN (08:20)
[2023-10-17 19:45] VITALS: BP 116/62; PULSE 89; RESP 16; TEMP 97.9; O2SAT 94
[2023-10-17] MEDS: OLANZapine 5mg rapidly disint. tablet PO SCH (20:30)
[2023-10-17] MEDS: ARIPIPRAZOLE 10 MG TABLET PO SCH (20:30)
[2023-10-18 07:00] VITALS: RESP 16; O2SAT 98
[2023-10-18 08:00] VITALS: BP 118/64; PULSE 76; RESP 16; TEMP 97.9; O2SAT 98
[2023-10-18] MEDS: acetaminophen 325mg tablet PO PRN ×2 (10:14→14:54)
[2023-10-18 19:26] VITALS: BP 96/60; PULSE 80; RESP 15; TEMP 98; O2SAT 97
[2023-10-18] MEDS: ARIPIPRAZOLE 10 MG TABLET PO SCH (20:05)
[2023-10-18] MEDS: OLANZapine 5mg rapidly disint. tablet PO SCH (20:05)
[2023-10-18] MEDS: traZODone 50mg tablet PO PRN (20:05)
[2023-10-19 07:00] VITALS: RESP 16; O2SAT 95
[2023-10-19] MEDS ORDERED: OLAN5TAB5 PO (12:23)
[2023-10-19] MEDS ORDERED: ARIP10TA15 PO (12:23)
[2023-10-19] MEDS ORDERED: TRAZ-251 PO (12:23)
== END 2023-10-19 17:40 | disposition home or self-care (01) | DRG 750 ==
LOC: ER 18:50 → ED HOLD 10-09 12:00 → ADULT MH 10-09 12:47
PROVIDERS: ADMIT Psychiatry & Neurology Psychiatry; ATTEND Psychiatry & Neurology Psychiatry
DX: F25.0 Schizoaffective disorder, bipolar type (principal); E87.6 Hypokalemia; Z20.822 Contact with and (suspected) exposure to COVID-19; F41.9 Anxiety disorder, unspecified; Z88.8 Allergy status to other drugs, medicaments and biological substances; Z56.0 Unemployment, unspecified
CPT/HCPCS: 36415; 80048; 80053; 80061; 80305; 80320; 81001; 81025; 83036; 84443; 85025; 86704; 86705; 87081; 87340; 87811; 99285; A6250

== ENCOUNTER 2023-12-06 21:25 | Emergency (ER) | payer MEDICAID ==
[~2023-12-06] VITALS: Ht 167.6 cm; Wt 64.1 kg
[~2023-12-06 21:25] MED LIST changes: -CARB400T8 PO; -MELA3TAB70 PO; +OLAN5TAB5 PO
[2023-12-06] MEDS ORDERED: haloperidol lactate 5mg/ml inj IM ONE (22:55)
[2023-12-06] MEDS ORDERED: diphenhydrAMINE 50 mg/ml inj IM ONE (22:55)
[2023-12-06] MEDS ORDERED: LORazepam 2 mg/ml vial IM ONE (22:55)
[2023-12-06 23:10] LABS: BASOPHILS # (AUTO) 0.1 X10'3 (0-0.2); BASOPHILS % (AUTO) 0.5 % (0-1); EOSINOPHILS # (AUTO) 0.1 X10'3 (0-0.9); EOSINOPHILS % (AUTO) 0.6 % (0-6); HEMATOCRIT 41.1 % (35.0-45.0); HEMOGLOBIN 13.9 g/dl (12.0-16.0); LYMPHOCYTES % (AUTO) 21.5 % (21-51); MEAN CORPUSCULAR HEMOGLOBIN 30.6 PG (27.0-31.0); MEAN CORPUSCULAR HGB CONC 33.8 g/dL (33.0-36.5); MEAN CORPUSCULAR VOLUME 90.5 FL (78-98); MEAN PLATELET VOLUME 8.2 FL (7.4-10.4); MONOCYTES # (AUTO) 0.6 X10'3 (0-0.9); MONOCYTES % (AUTO) 5.9 % (2-12); NEUTROPHILS # (AUTO) 6.7 X10'3 (1.8-7.7); NEUTROPHILS % (AUTO) 71.5 % (42-75); PLATELET COUNT 293 X10'3 (140-440); RED BLOOD COUNT 4.54 X10'6 (4.20-5.60); RED CELL DISTRIBUTION WIDTH 12.7 % (11.5-14.5); WHITE BLOOD COUNT 9.4 X10'3 (4.5-11.0)
[2023-12-07] LABS: LITHIUM < 0.3 MMOL/L (0.8-1.2)
[2023-12-07 00:28] LABS: ALBUMIN 4.4 G/DL (3.4-5.0); ANION GAP 9 (8-16); BLOOD UREA NITROGEN 9 MG/DL (7-18); BUN/CREATININE RATIO 13.4 (10.0-20.0); CALCIUM 9.1 MG/DL (8.5-10.1); CHLORIDE 98 MMOL/L (99-107); CREATININE 0.67 MG/DL (0.40-0.90); ETHANOL < 10 MG/DL (<10); GLUCOSE 102 MG/DL (70-104); POTASSIUM 3.1 MMOL/L (3.5-5.1); SALICYLATE 0.9 MG/DL (4.0-20.0); SODIUM 135 MMOL/L (135-145); THYROID STIMULATING HORMONE 2.29 ulU/ml (0.34-4.50); TOTAL CARBON DIOXIDE 27.8 MMOL/L (24-32); eCRCL 116 ML/MIN; eGFR > 90 ML/MIN
[2023-12-07 00:32] LABS: ACETAMINOPHEN < 2.0 UG/ML (10-30)
[2023-12-07 00:41] LABS: BILIRUBIN,URINE NEGATIVE (Neg); CLARITY,URINE CLEAR (Clear); COLOR,URINE STRAW (Yellow); GLUCOSE, URINE NEGATIVE (Neg); KETONES,URINE NEGATIVE (Neg); LEUKOCYTE ESTERASE ,URINE NEGATIVE (Neg); NITRITES, URINE NEGATIVE (Neg); OCCULT BLOOD,URINE NEGATIVE (Neg); PH,URINE 6.5 (4.8-8.0); PROTEIN,URINE NEGATIVE (Neg); URINE HCG NEGATIVE (NEG); UROBILINOGEN,URINE 0.2 E.U/dL (0.2-1.0)
[2023-12-07] MEDS ORDERED: potassium Cl 20 mEq SR tablet PO STA (00:44)
[2023-12-07] MEDS ORDERED: OLAN15TA35 PO (00:44)
[2023-12-07] MEDS ORDERED: ARIP20TA21 PO (00:44)
[2023-12-07] MEDS ORDERED: TRAZ-256 PO (00:44)
[2023-12-07] MEDS ORDERED: ARIP10TA57 PO (00:44)
[2023-12-07 00:48] LABS: UA COLLECTION TYPE CLN CATCH MIDSTREAM
[2023-12-07] MEDS ORDERED: ARIP20TA4 PO (00:53)
[2023-12-07] MEDS ORDERED: ARIP10TA15 PO (00:55)
[2023-12-07 00:57] LABS: URINE AMPHETAMINE SCREEN NEGATIVE (Neg); URINE BARBITUATE SCREEN NEGATIVE (Neg); URINE BENZODIAZEPINES SCREEN NEGATIVE (Neg); URINE CANNABINOID SCREEN NEGATIVE (Neg); URINE COCAINE SCREEN NEGATIVE (Neg); URINE METHADONE SCREEN NEGATIVE (Neg); URINE OPIATE SCREEN NEGATIVE (Neg); URINE PHENCYCLIDINE SCREEN NEGATIVE (Neg)
[2023-12-07] MEDS ORDERED: traZODone 50mg tablet PO PRN (01:45)
[2023-12-07] MEDS: ARIPIPRAZOLE 10 MG TABLET PO SCH (08:57)
[2023-12-07] MEDS ORDERED: OLANZAPINE 5 MG TABLET PO SCH (21:00)
[2023-12-08 05:52] VITALS: O2SAT 99
[2023-12-08] MEDS: ARIPIPRAZOLE 10 MG TABLET PO SCH (07:51)
[2023-12-08 09:08] VITALS: BP 94/57; PULSE 84; RESP 16; TEMP 97.5
== END 2023-12-08 09:12 ==
LOC: ER 21:26
DX: R45.851 Suicidal ideations (principal); Z20.822 Contact with and (suspected) exposure to COVID-19; E87.6 Hypokalemia; F31.9 Bipolar disorder, unspecified; F20.9 Schizophrenia, unspecified; F12.10 Cannabis abuse, uncomplicated; Z88.8 Allergy status to other drugs, medicaments and biological substances; Z79.899 Other long term (current) drug therapy
CPT/HCPCS: 36415; 80048; 80178; 80305; 80320; 80329; 81003; 81025; 84443; 85025; 87811; 96372; 99285; J1200; J1630; J2060

== ENCOUNTER 2024-01-21 23:13 | Emergency (ER) | payer MEDICAID ==
[~2024-01-21] VITALS: Ht 167.6 cm; Wt 67.1 kg
[~2024-01-21 23:13] MED LIST changes: -ARIP10TA15 PO; +ARIP20TA4 PO; +OLAN15TA35 PO; -OLAN5TAB5 PO; -TRAZ-251 PO; +TRAZ-256 PO
[2024-01-21 23:17] VITALS: BP 131/77; PULSE 83; TEMP 98.4; O2SAT 96
[2024-01-22] MEDS: acetaminophen 325mg tablet PO STA (03:03)
[2024-01-22 03:10] LABS: BASOPHILS % (AUTO) 0.6 % (0-1); EOSINOPHILS # (AUTO) 0.1 X10'3 (0-0.9); EOSINOPHILS % (AUTO) 0.9 % (0-6); HEMATOCRIT 38.3 % (35.0-45.0); HEMOGLOBIN 13.2 g/dl (12.0-16.0); LYMPHOCYTES # (AUTO) 2.3 X10'3 (1.1-4.8); MEAN CORPUSCULAR HEMOGLOBIN 30.9 PG (27.0-31.0); MEAN CORPUSCULAR HGB CONC 34.5 g/dL (33.0-36.5); MEAN CORPUSCULAR VOLUME 89.7 FL (78-98); MEAN PLATELET VOLUME 7.9 FL (7.4-10.4); MONOCYTES # (AUTO) 0.5 X10'3 (0-0.9); MONOCYTES % (AUTO) 6.2 % (2-12); NEUTROPHILS # (AUTO) 4.5 X10'3 (1.8-7.7); NEUTROPHILS % (AUTO) 61.3 % (42-75); PLATELET COUNT 262 X10'3 (140-440); RED BLOOD COUNT 4.27 X10'6 (4.20-5.60); RED CELL DISTRIBUTION WIDTH 12.2 % (11.5-14.5); WHITE BLOOD COUNT 7.3 X10'3 (4.5-11.0)
[2024-01-22 03:21] LABS: ANION GAP 7 (8-16); BLOOD UREA NITROGEN 7 MG/DL (7-18); BUN/CREATININE RATIO 10.1 (10.0-20.0); CALCIUM 8.5 MG/DL (8.5-10.1); CHLORIDE 104 MMOL/L (99-107); CREATININE 0.69 MG/DL (0.40-0.90); ETHANOL < 10 MG/DL (<10); GLUCOSE 93 MG/DL (70-104); POTASSIUM 4.1 MMOL/L (3.5-5.1); SALICYLATE 0.8 MG/DL (4.0-20.0); SODIUM 140 MMOL/L (135-145); TOTAL CARBON DIOXIDE 28.6 MMOL/L (24-32); eCRCL 113 ML/MIN; eGFR > 90 ML/MIN
[2024-01-22 03:28] LABS: ACETAMINOPHEN < 2.0 UG/ML (10-30)
[2024-01-22 03:55] LABS: URINE HCG NEGATIVE (NEG)
[2024-01-22 04:13] LABS: URINE AMPHETAMINE SCREEN NEGATIVE (Neg); URINE BARBITUATE SCREEN NEGATIVE (Neg); URINE BENZODIAZEPINES SCREEN NEGATIVE (Neg); URINE CANNABINOID SCREEN NEGATIVE (Neg); URINE COCAINE SCREEN NEGATIVE (Neg); URINE METHADONE SCREEN NEGATIVE (Neg); URINE OPIATE SCREEN NEGATIVE (Neg); URINE PHENCYCLIDINE SCREEN NEGATIVE (Neg)
[2024-01-22] MEDS ORDERED: traZODone 50mg tablet PO PRN (04:45)
[2024-01-22] MEDS: LORazepam 1 MG tablet PO ONE (05:11)
[2024-01-22 07:42] LABS: BILIRUBIN,URINE NEGATIVE (Neg); CLARITY,URINE SLIGHTLY CLOUDY (Clear); COLOR,URINE STRAW (Yellow); GLUCOSE, URINE NEGATIVE (Neg); KETONES,URINE NEGATIVE (Neg); LEUKOCYTE ESTERASE ,URINE NEGATIVE (Neg); NITRITES, URINE NEGATIVE (Neg); OCCULT BLOOD,URINE NEGATIVE (Neg); PH,URINE 6.5 (4.8-8.0); PROTEIN,URINE NEGATIVE (Neg); UROBILINOGEN,URINE 0.2 E.U/dL (0.2-1.0)
[2024-01-22 07:45] VITALS: RESP 16
[2024-01-22 07:47] LABS: UA COLLECTION TYPE CLN CATCH MIDSTREAM
[2024-01-22 07:48] LABS: BACTERIA,URINE FEW /HPF (Neg); RBC,URINE 0-2 /HPF (0-2); SQUAMOUS EPITHELIAL CELL,UR FEW /LPF (FEW); WBC,URINE 0-4 /HPF (0-4)
[2024-01-22] MEDS ORDERED: OLANZAPINE 5 MG TABLET PO SCH (21:00)
[2024-01-22] MEDS ORDERED: ARIPIPRAZOLE 10 MG TABLET PO SCH (21:00)
== END 2024-01-22 15:32 ==
LOC: ER 23:16
DX: F29 Unspecified psychosis not due to a substance or known physiological condition (principal); Z20.822 Contact with and (suspected) exposure to COVID-19; F31.9 Bipolar disorder, unspecified; F20.9 Schizophrenia, unspecified; F12.10 Cannabis abuse, uncomplicated; Z79.899 Other long term (current) drug therapy; Z88.8 Allergy status to other drugs, medicaments and biological substances
CPT/HCPCS: 36415; 80048; 80305; 80320; 80329; 81001; 81025; 85025; 87811; 99285

== ENCOUNTER 2024-01-23 16:12 | Emergency (ER) | payer MEDICAID ==
[~2024-01-23] VITALS: Ht 327.7 cm; Wt 145.0 kg
[2024-01-23 17:37] LABS: URINE HCG NEGATIVE (NEG)
[2024-01-23 17:38] LABS: BASOPHILS # (AUTO) 0.1 X10'3 (0-0.2); BASOPHILS % (AUTO) 0.8 % (0-1); EOSINOPHILS % (AUTO) 0.2 % (0-6); HEMATOCRIT 38.7 % (35.0-45.0); LYMPHOCYTES # (AUTO) 1.6 X10'3 (1.1-4.8); LYMPHOCYTES % (AUTO) 14.7 % (21-51); MEAN CORPUSCULAR HEMOGLOBIN 30.5 PG (27.0-31.0); MEAN CORPUSCULAR HGB CONC 33.6 g/dL (33.0-36.5); MEAN CORPUSCULAR VOLUME 90.8 FL (78-98); MEAN PLATELET VOLUME 8.4 FL (7.4-10.4); MONOCYTES # (AUTO) 0.7 X10'3 (0-0.9); MONOCYTES % (AUTO) 6.8 % (2-12); NEUTROPHILS # (AUTO) 8.2 X10'3 (1.8-7.7); NEUTROPHILS % (AUTO) 77.5 % (42-75); PLATELET COUNT 272 X10'3 (140-440); RED BLOOD COUNT 4.26 X10'6 (4.20-5.60); RED CELL DISTRIBUTION WIDTH 12.3 % (11.5-14.5); WHITE BLOOD COUNT 10.6 X10'3 (4.5-11.0)
[2024-01-23 17:39] LABS: BILIRUBIN,URINE NEGATIVE (Neg); CLARITY,URINE SLIGHTLY CLOUDY (Clear); COLOR,URINE STRAW (Yellow); GLUCOSE, URINE NEGATIVE (Neg); KETONES,URINE TRACE mg/dl (Neg); LEUKOCYTE ESTERASE ,URINE TRACE (Neg); NITRITES, URINE NEGATIVE (Neg); OCCULT BLOOD,URINE NEGATIVE (Neg); PROTEIN,URINE NEGATIVE (Neg); UROBILINOGEN,URINE 0.2 E.U/dL (0.2-1.0)
[2024-01-23 17:46] LABS: UA COLLECTION TYPE CLN CATCH MIDSTREAM
[2024-01-23 17:47] LABS: SQUAMOUS EPITHELIAL CELL,UR MANY /LPF (FEW)
[2024-01-23 17:48] LABS: BACTERIA,URINE 2+ /HPF (Neg); RBC,URINE 0-2 /HPF (0-2); TRANSITIONAL EPI CELLS,URINE FEW /HPF
[2024-01-23 17:49] LABS: ALBUMIN 4.1 G/DL (3.4-5.0); ANION GAP 8 (8-16); BLOOD UREA NITROGEN 12 MG/DL (7-18); BUN/CREATININE RATIO 15.8 (10.0-20.0); CALCIUM 8.8 MG/DL (8.5-10.1); CHLORIDE 99 MMOL/L (99-107); CREATININE 0.76 MG/DL (0.40-0.90); GLUCOSE 93 MG/DL (70-104); POTASSIUM 3.8 MMOL/L (3.5-5.1); SODIUM 133 MMOL/L (135-145); THYROID STIMULATING HORMONE 0.88 ulU/ml (0.34-4.50); TOTAL CARBON DIOXIDE 25.8 MMOL/L (24-32); eCRCL 114 ML/MIN; eGFR 90 ML/MIN
[2024-01-23 17:55] LABS: ETHANOL < 10 MG/DL (<10)
[2024-01-23 17:55] LABS: URINE AMPHETAMINE SCREEN NEGATIVE (Neg); URINE BARBITUATE SCREEN NEGATIVE (Neg); URINE BENZODIAZEPINES SCREEN NEGATIVE (Neg); URINE CANNABINOID SCREEN NEGATIVE (Neg); URINE COCAINE SCREEN NEGATIVE (Neg); URINE METHADONE SCREEN NEGATIVE (Neg); URINE OPIATE SCREEN NEGATIVE (Neg); URINE PHENCYCLIDINE SCREEN NEGATIVE (Neg)
[2024-01-23] MEDS: ARIPIPRAZOLE 10 MG TABLET PO SCH (22:22)
[2024-01-23] MEDS: OLANZAPINE 5 MG TABLET PO SCH (22:22)
[2024-01-23] MEDS: traZODone 50mg tablet PO PRN (22:23)
[2024-01-24] MEDS: traZODone 50mg tablet PO ONE (00:26)
[2024-01-24] MEDS: acetaminophen 325mg tablet PO SCH (13:18)
[2024-01-24 17:37] VITALS: BP 112/67; PULSE 86; RESP 16; TEMP 98.2; O2SAT 97
== END 2024-01-24 17:35 | disposition still patient (30) ==
LOC: ER 16:13
DX: R41.89 Other symptoms and signs involving cognitive functions and awareness (principal); Z20.822 Contact with and (suspected) exposure to COVID-19; Z86.59 Personal history of other mental and behavioral disorders
CPT/HCPCS: 36415; 80048; 80305; 80320; 81001; 81025; 84443; 85025; 87811; 99285

== ENCOUNTER 2024-03-09 15:41 | Inpatient (IN) | payer MEDICAID ==
[~2024-03-09] VITALS: Ht 170.2 cm; Wt 71.1 kg
[2024-03-09] MEDS ORDERED: OLAN5TAB75 PO (15:47)
[2024-03-09] MEDS ORDERED: OLAN20TA34 PO (15:47)
[2024-03-09] MEDS ORDERED: MIRT-87 PO (15:47)
[2024-03-09 16:19] LABS: BILIRUBIN,URINE NEGATIVE (Neg); COLOR,URINE YELLOW (Yellow); GLUCOSE, URINE NEGATIVE (Neg); KETONES,URINE NEGATIVE (Neg); LEUKOCYTE ESTERASE ,URINE NEGATIVE (Neg); NITRITES, URINE NEGATIVE (Neg); OCCULT BLOOD,URINE LARGE (Neg); PH,URINE 6.5 (4.8-8.0); PROTEIN,URINE NEGATIVE (Neg); URINE HCG NEGATIVE (NEG); UROBILINOGEN,URINE 0.2 E.U/dL (0.2-1.0)
[2024-03-09 16:20] LABS: CLARITY,URINE SLIGHTLY CLOUDY (Clear); UA COLLECTION TYPE CLN CATCH MIDSTREAM
[2024-03-09 16:25] LABS: URINE AMPHETAMINE SCREEN NEGATIVE (Neg); URINE BARBITUATE SCREEN NEGATIVE (Neg); URINE BENZODIAZEPINES SCREEN NEGATIVE (Neg); URINE CANNABINOID SCREEN NEGATIVE (Neg); URINE COCAINE SCREEN NEGATIVE (Neg); URINE METHADONE SCREEN NEGATIVE (Neg); URINE OPIATE SCREEN NEGATIVE (Neg); URINE PHENCYCLIDINE SCREEN NEGATIVE (Neg)
[2024-03-09 16:27] LABS: SQUAMOUS EPITHELIAL CELL,UR MODERATE /LPF (FEW)
[2024-03-09 16:33] LABS: BACTERIA,URINE FEW /HPF (Neg); WBC,URINE 0-4 /HPF (0-4)
[2024-03-09 16:34] LABS: RBC,URINE 0-2 /HPF (0-2)
[2024-03-09 16:48] LABS: BASOPHILS % (AUTO) 0.4 % (0-1); EOSINOPHILS % (AUTO) 0.3 % (0-6); HEMATOCRIT 37.1 % (35.0-45.0); HEMOGLOBIN 12.7 g/dl (12.0-16.0); LYMPHOCYTES # (AUTO) 1.4 X10'3 (1.1-4.8); LYMPHOCYTES % (AUTO) 13.6 % (21-51); MEAN CORPUSCULAR HEMOGLOBIN 31.1 PG (27.0-31.0); MEAN CORPUSCULAR HGB CONC 34.3 g/dL (33.0-36.5); MEAN CORPUSCULAR VOLUME 90.7 FL (78-98); MEAN PLATELET VOLUME 8.4 FL (7.4-10.4); MONOCYTES # (AUTO) 0.5 X10'3 (0-0.9); MONOCYTES % (AUTO) 5.2 % (2-12); NEUTROPHILS # (AUTO) 8.4 X10'3 (1.8-7.7); NEUTROPHILS % (AUTO) 80.5 % (42-75); PLATELET COUNT 247 X10'3 (140-440); RED BLOOD COUNT 4.09 X10'6 (4.20-5.60); RED CELL DISTRIBUTION WIDTH 11.6 % (11.5-14.5); WHITE BLOOD COUNT 10.4 X10'3 (4.5-11.0)
[2024-03-09 16:52] LABS: ALBUMIN 4.1 G/DL (3.4-5.0); ANION GAP 8 (8-16); BLOOD UREA NITROGEN 11 MG/DL (7-18); BUN/CREATININE RATIO 16.2 (10.0-20.0); CALCIUM 8.7 MG/DL (8.5-10.1); CHLORIDE 104 MMOL/L (99-107); CREATININE 0.68 MG/DL (0.40-0.90); ETHANOL < 10 MG/DL (<10); GLUCOSE 104 MG/DL (70-104); POTASSIUM 3.7 MMOL/L (3.5-5.1); SODIUM 140 MMOL/L (135-145); TOTAL CARBON DIOXIDE 27.6 MMOL/L (24-32); eCRCL 119 ML/MIN; eGFR > 90 ML/MIN
[2024-03-09] MEDS ORDERED: non-formulary drug (Olanzapine 1 TAB) PO SCH (21:00)
[2024-03-09] MEDS: OLANZAPINE 5 MG TABLET PO SCH (21:20)
[2024-03-09] MEDS: mirtazapine 15mg tablet PO SCH (21:20)
[2024-03-09] MEDS: traZODone 50mg tablet PO STA (23:33)
[2024-03-10] MEDS: ibuprofen tablet 400 MG TABLET PO PRN (15:05)
[2024-03-10] MEDS ORDERED: OLANZapine 2.5MG tablet PO ONE (21:00)
[2024-03-10] MEDS: olanzapine 10mg tablet PO ONE (21:24)
[2024-03-10 22:41] VITALS: BP 125/83; PULSE 77; RESP 16; TEMP 97.8; O2SAT 99
[2024-03-10] MEDS ORDERED: acetaminophen 325mg tablet PO PRN (23:05)
[2024-03-10] MEDS ORDERED: magnesium hydroxide 30ml (MOM) UD suspension PO PRN (23:10)
[2024-03-10 23:52] VITALS: RESP 16; O2SAT 99
[2024-03-11 07:00] VITALS: RESP 16; O2SAT 97
[2024-03-11 08:00] VITALS: BP 110/65; PULSE 82; RESP 16; TEMP 98.6; O2SAT 97
[2024-03-11 19:00] VITALS: RESP 16; O2SAT 98
[2024-03-11 20:33] VITALS: BP 117/75; PULSE 81; RESP 16; TEMP 98.8; O2SAT 98
[2024-03-12 07:17] VITALS: RESP 16; O2SAT 98
[2024-03-12 08:00] VITALS: BP 111/75; PULSE 95; RESP 18; TEMP 98.2; O2SAT 99
[2024-03-12] MEDS: mag hydrox/Alum hydrox/simeth 30ml oral suspension PO PRN (12:53)
[2024-03-12 16:43] LABS: HBSAG SCREEN Negative (Negative); HEP B CORE AB, IGM Negative (Negative); HEP B CORE AB, TOT Negative (Negative); HEPATITIS C VIRUS ANTIBODY Non Reactive (Non Reactive)
[2024-03-12 19:00] VITALS: RESP 16; O2SAT 98
[2024-03-12 20:42] VITALS: BP 114/74; PULSE 74; RESP 16; TEMP 98.3; O2SAT 98
[2024-03-13 07:00] VITALS: BP 111/53; RESP 15; TEMP 98.9; O2SAT 97
[2024-03-13 20:00] VITALS: BP 137/87; PULSE 125; RESP 16; TEMP 98.3; O2SAT 95
[2024-03-13] MEDS: traZODone 50mg tablet PO ONE ×2 (23:05→23:47)
[2024-03-14 07:50] VITALS: RESP 12; O2SAT 97
[2024-03-14 08:00] VITALS: BP 112/53; PULSE 100; RESP 12; TEMP 97.9; O2SAT 97
[2024-03-14] MEDS: LORazepam 1 MG tablet PO ONE (10:42)
[2024-03-14] MEDS: OLANZAPINE 5 MG TABLET PO ONE (10:42)
[2024-03-14 19:30] VITALS: BP 124/65; PULSE 99; RESP 18; TEMP 99.1; O2SAT 99
[2024-03-14] MEDS: traZODone 50mg tablet PO SCH (21:38)
[2024-03-15 07:00] VITALS: RESP 16; O2SAT 98
[2024-03-15 08:10] VITALS: BP 105/62; PULSE 16; RESP 16; TEMP 98.2; O2SAT 98
[2024-03-15] MEDS ORDERED: miconazole nitrate cream 57gm TP SCH ×2 (14:55→15:28)
[2024-03-15] MEDS ORDERED: miconazole nitrate 28.35 gm derm cream TP SCH (15:27)
[2024-03-15] MEDS: pantoprazole 40mg Tablet.DR PO SCH (16:29)
[2024-03-15 19:30] VITALS: BP 96/72; PULSE 102; RESP 22; TEMP 97.8; O2SAT 97
[2024-03-15] MEDS: OLANZapine 5mg rapidly disint. tablet PO PRN (22:48)
[2024-03-16] MEDS: OLANZapine 5mg rapidly disint. tablet PO ONE ×2 (06:39→06:44)
[2024-03-16 07:00] VITALS: RESP 15; O2SAT 97
[2024-03-16 08:00] VITALS: BP 147/85; PULSE 114; RESP 15; TEMP 99; O2SAT 97
[2024-03-16] MEDS: miconazole nitrate 28.35 gm derm cream TP SCH (08:10)
[2024-03-16] MEDS: OLANZapine 2.5MG tablet PO SCH (08:11)
[2024-03-16 19:00] VITALS: RESP 16
[2024-03-16 20:21] VITALS: BP 128/80; PULSE 100; RESP 16; TEMP 97.5; O2SAT 97
[2024-03-16] MEDS: acetaminophen 325mg tablet PO PRN (22:32)
[2024-03-17 07:00] VITALS: RESP 18
[2024-03-17 08:00] VITALS: RESP 18
[2024-03-17] MEDS: divalproex sodium 500mg tablet.DR PO ONE (10:06)
[2024-03-17] MEDS: LORazepam 1 MG tablet PO ONE (16:47)
[2024-03-17 19:00] VITALS: RESP 16; O2SAT 98
[2024-03-17 20:00] VITALS: BP 112/63; PULSE 97; RESP 16; TEMP 98.9; O2SAT 98
[2024-03-17] MEDS: divalproex sod 250mg ER (24-hour) tablet PO SCH (20:54)
[2024-03-18 07:00] VITALS: RESP 16; O2SAT 99
[2024-03-18 08:00] VITALS: BP 115/74; RESP 16; TEMP 98.5; O2SAT 99
[2024-03-18 19:00] VITALS: RESP 20; O2SAT 96
[2024-03-18 20:24] VITALS: BP 122/64; PULSE 122; RESP 20; TEMP 97.8; O2SAT 96
[2024-03-19 07:00] VITALS: RESP 16; O2SAT 96
[2024-03-19 08:00] VITALS: BP 116/69; PULSE 92; RESP 16; TEMP 98.5; O2SAT 96
[2024-03-19 19:00] VITALS: RESP 16; O2SAT 96
[2024-03-19 20:00] VITALS: BP 111/69; PULSE 92; RESP 20; TEMP 98.1; O2SAT 100
[2024-03-20] MEDS: ondansetron 4mg rapidly disintigrating tab PO ONE (03:41)
[2024-03-20 07:05] VITALS: RESP 19; O2SAT 97
[2024-03-20 08:00] VITALS: BP 114/55; PULSE 107; RESP 19; TEMP 98.2; O2SAT 97
[2024-03-20] MEDS: acetaminophen 325mg tablet PO PRN (13:33)
[2024-03-20 19:00] VITALS: RESP 17; O2SAT 98
[2024-03-20 20:00] VITALS: BP 127/60; PULSE 92; RESP 17; TEMP 98.6; O2SAT 98
[2024-03-21 07:00] VITALS: RESP 16; O2SAT 96
[2024-03-21 07:30] VITALS: BP 96/73; PULSE 100; RESP 16; TEMP 98.2; O2SAT 96
[2024-03-21 19:00] VITALS: RESP 17; O2SAT 97
[2024-03-21 20:00] VITALS: BP 112/69; PULSE 97; RESP 17; TEMP 97.5; O2SAT 97
[2024-03-21] MEDS: miconazole nitrate 28.35 gm derm cream TP SCH (20:16)
[2024-03-21] MEDS: mirtazapine 15mg tablet PO SCH (20:17)
[2024-03-21] MEDS: divalproex sod 250mg ER (24-hour) tablet PO SCH (20:18)
[2024-03-22 07:00] VITALS: RESP 16; O2SAT 96
[2024-03-22 07:30] VITALS: BP 118/65; PULSE 95; RESP 16; TEMP 97; O2SAT 96
[2024-03-22] MEDS: divalproex sod 250mg ER (24-hour) tablet PO SCH (08:40)
[2024-03-22 19:00] VITALS: RESP 22; O2SAT 98
[2024-03-22 20:00] VITALS: BP 134/79; PULSE 95; RESP 16; TEMP 97.9; O2SAT 98
[2024-03-22] MEDS: miconazole nitrate 28.35 gm derm cream TP SCH (20:21)
[2024-03-23 07:00] VITALS: BP 119/69; PULSE 131; RESP 18; TEMP 99.3; O2SAT 96
[2024-03-23 20:42] VITALS: BP 116/64; PULSE 96; RESP 16; TEMP 97.2; O2SAT 98
[2024-03-24 07:00] VITALS: BP 117/68; PULSE 87; RESP 18; TEMP 97.9; O2SAT 96
[2024-03-24 19:00] VITALS: BP 122/69; PULSE 99; RESP 16; TEMP 98; O2SAT 98
[2024-03-25 07:00] VITALS: BP 106/60; PULSE 89; RESP 16; TEMP 98.5; O2SAT 98
[2024-03-25 19:00] VITALS: BP 109/70; PULSE 100; RESP 16; RESP 22; TEMP 98.6; O2SAT 96; O2SAT 98
[2024-03-26 07:00] VITALS: RESP 16; O2SAT 100
[2024-03-26 08:00] VITALS: BP 141/84; PULSE 113; RESP 16; TEMP 97.7; O2SAT 100
[2024-03-26 19:30] VITALS: RESP 14; O2SAT 98
[2024-03-26 20:00] VITALS: BP 115/65; PULSE 98; RESP 14; TEMP 98.8; O2SAT 98
[2024-03-27 07:23] VITALS: RESP 16; O2SAT 100
[2024-03-27 08:00] VITALS: BP 101/59; PULSE 83; RESP 18; TEMP 98.4; O2SAT 98
[2024-03-27 19:35] VITALS: RESP 17; O2SAT 98
[2024-03-27 19:47] VITALS: BP 110/72; PULSE 91; RESP 17; TEMP 97.6; O2SAT 98
[2024-03-28 07:00] VITALS: RESP 16; O2SAT 100
[2024-03-28 08:00] VITALS: BP 117/60; PULSE 72; RESP 16; TEMP 98.5; O2SAT 93
[2024-03-28 19:19] VITALS: RESP 14; O2SAT 98
[2024-03-28 19:51] VITALS: BP 106/70; PULSE 84; RESP 14; TEMP 97.6; O2SAT 98
[2024-03-28] MEDS: mirtazapine 15mg tablet PO SCH (20:45)
[2024-03-29 07:00] VITALS: BP 111/72; PULSE 91; RESP 18; TEMP 98; O2SAT 99
[2024-03-29 19:00] VITALS: RESP 16; O2SAT 99
[2024-03-29 19:34] VITALS: BP 102/67; PULSE 90; RESP 16; TEMP 97.9; O2SAT 99
[2024-03-30 07:00] VITALS: RESP 18; O2SAT 96
[2024-03-30 08:00] VITALS: BP 105/79; PULSE 100; RESP 18; TEMP 98; O2SAT 96
[2024-03-30 19:00] VITALS: RESP 18; O2SAT 99
[2024-03-30 20:00] VITALS: BP 115/73; PULSE 95; RESP 18; TEMP 98.1; O2SAT 99
[2024-03-31 07:00] VITALS: RESP 16; O2SAT 98
[2024-03-31 08:00] VITALS: BP 95/51; PULSE 84; RESP 16; TEMP 98.3; O2SAT 98
[2024-03-31 19:30] VITALS: RESP 16; O2SAT 99
[2024-03-31 20:04] VITALS: BP 102/66; PULSE 82; RESP 16; TEMP 98.4; O2SAT 99
[2024-04-01 07:00] VITALS: RESP 16; O2SAT 99
[2024-04-01 07:30] VITALS: BP 99/68; PULSE 91; RESP 16; TEMP 98.4; O2SAT 99
[2024-04-01 19:43] VITALS: BP 110/61; PULSE 85; RESP 16; TEMP 98.8; O2SAT 98
[2024-04-02 07:00] VITALS: RESP 14; O2SAT 99
[2024-04-02 08:00] VITALS: BP 99/56; PULSE 79; RESP 14; TEMP 98.2; O2SAT 99
[2024-04-02 19:00] VITALS: RESP 18; O2SAT 99
[2024-04-02 19:16] VITALS: BP 109/62; PULSE 92; RESP 18; TEMP 98.7; O2SAT 99
[2024-04-03 08:00] VITALS: BP 96/53; PULSE 104; RESP 16; TEMP 98.1; O2SAT 98
[2024-04-03 19:00] VITALS: RESP 18; O2SAT 98
[2024-04-03 20:00] VITALS: BP 113/70; PULSE 89; RESP 18; TEMP 98; O2SAT 98
[2024-04-04 07:00] VITALS: RESP 16; O2SAT 95
[2024-04-04 07:30] VITALS: BP 112/69; PULSE 82; RESP 16; TEMP 97.8; O2SAT 96
[2024-04-04 19:30] VITALS: BP 101/70; PULSE 78; RESP 18; TEMP 98.1; O2SAT 100
[2024-04-05 07:00] VITALS: RESP 16; O2SAT 98
[2024-04-05 07:18] VITALS: BP 105/62; PULSE 80; RESP 16; TEMP 98.9; O2SAT 98
[2024-04-05 19:20] VITALS: RESP 18; O2SAT 100
[2024-04-05 20:00] VITALS: BP 98/56; PULSE 82; RESP 18; TEMP 96.8; O2SAT 100
[2024-04-06 07:00] VITALS: RESP 16; O2SAT 97
[2024-04-06 08:32] VITALS: BP 91/55; PULSE 80; RESP 16; TEMP 98.8; O2SAT 97
[2024-04-06 19:36] VITALS: BP 95/59; PULSE 80; RESP 16; TEMP 98.1; O2SAT 97
[2024-04-07 07:00] VITALS: BP 105/70; PULSE 82; RESP 16; TEMP 98.9; O2SAT 99
[2024-04-07 19:22] VITALS: BP 96/58; PULSE 80; RESP 18; TEMP 98; O2SAT 99
[2024-04-07 19:26] VITALS: RESP 18; O2SAT 99
[2024-04-08 08:00] VITALS: BP 94/49; PULSE 83; RESP 16; TEMP 98.3; O2SAT 97
[2024-04-08 19:07] VITALS: BP 106/60; PULSE 85; RESP 16; TEMP 98.6; O2SAT 96
[2024-04-08 19:25] VITALS: RESP 16; O2SAT 96
[2024-04-09 07:00] VITALS: BP 101/60; PULSE 98; RESP 16; TEMP 98.6; O2SAT 99
[2024-04-09 19:00] VITALS: BP 97/60; PULSE 85; RESP 16; TEMP 98.4; O2SAT 99
[2024-04-10 07:00] VITALS: BP 98/58; PULSE 76; RESP 16; TEMP 97.9; O2SAT 98
[2024-04-10 07:30] VITALS: RESP 16; O2SAT 98
[2024-04-10 19:00] VITALS: RESP 16; O2SAT 99
[2024-04-10 20:00] VITALS: BP 100/57; PULSE 87; RESP 16; TEMP 98; O2SAT 99
[2024-04-11 07:00] VITALS: BP 107/68; PULSE 81; RESP 14; TEMP 98.6; O2SAT 98
[2024-04-11] MEDS ORDERED: MIRT-87 PO (11:57)
[2024-04-11] MEDS ORDERED: PANT40TA54 PO (11:57)
[2024-04-11] MEDS ORDERED: TRAZ-251 PO (11:57)
[2024-04-11] MEDS ORDERED: DIVA500T9 PO (11:57)
[2024-04-11] MEDS ORDERED: OLAN5TAB29 PO ×2 (11:58)
[2024-04-11] MEDS ORDERED: OLAN20TA34 PO (11:58)
[2024-04-11] MEDS ORDERED: OLAN5TAB75 PO (11:58)
[2024-04-11 19:23] VITALS: BP 108/69; PULSE 74; RESP 18; TEMP 98.1; O2SAT 99
[2024-04-12 07:00] VITALS: RESP 18; O2SAT 98
[2024-04-12 08:48] VITALS: BP 92/50; PULSE 75; RESP 18; TEMP 98.2; O2SAT 98
[2024-04-12 19:00] VITALS: BP 105/56; PULSE 76; RESP 16; TEMP 97.6; O2SAT 97
[2024-04-13 07:00] VITALS: RESP 18; O2SAT 98
[2024-04-13 07:28] VITALS: BP 94/55; PULSE 64; RESP 18; TEMP 98.5; O2SAT 98
[2024-04-13 19:06] VITALS: BP 95/56; PULSE 67; RESP 14; TEMP 98.5; O2SAT 97
[2024-04-14 07:00] VITALS: RESP 18; O2SAT 98
[2024-04-14 08:00] VITALS: BP 97/65; PULSE 80; RESP 16; TEMP 98.8; O2SAT 97
== END 2024-04-14 14:25 | DRG 750 ==
LOC: ER 15:41 → ADULT MH 03-10 16:45
PROVIDERS: ADMIT Psychiatry & Neurology Psychiatry; ATTEND Psychiatry & Neurology Psychiatry
PROC: GZHZZZZ Group Psychotherapy (ICD-10-PCS; principal; 2024-03-22)
PROC: GZ51ZZZ Individual Psychotherapy, Behavioral (ICD-10-PCS; 2024-03-22)
DX: F25.0 Schizoaffective disorder, bipolar type (principal); F29 Unspecified psychosis not due to a substance or known physiological condition; G25.71 Drug induced akathisia; Z20.822 Contact with and (suspected) exposure to COVID-19; F30.9 Manic episode, unspecified; Z87.891 Personal history of nicotine dependence; Z59.00 Homelessness unspecified
CPT/HCPCS: 36415; 71045; 80048; 80164; 80305; 80320; 81001; 81025; 85025; 86704; 86705; 86803; 87081; 87340; 87522; 87811; 93005; 99285; A6250

== ENCOUNTER 2025-03-01 16:21 | Emergency (ER) | payer MEDICAID ==
[~2025-03-01] VITALS: Ht 170.2 cm; Wt 89.3 kg
[~2025-03-01 16:21] MED LIST changes: -ARIP20TA4 PO; +DIVA500T9 PO; +MIRT-87 PO; -OLAN15TA35 PO; +OLAN20TA81 PO; +OLAN5TAB29 PO; +OLAN5TAB75 PO; +PANT40TA54 PO; +TRAZ-251 PO; -TRAZ-256 PO
[2025-03-01 16:25] VITALS: BP 143/82; PULSE 90; RESP 16; TEMP 98; O2SAT 99
[2025-03-01 17:08] LABS: BASOPHILS % (AUTO) 0.6 % (0-1); EOSINOPHILS # (AUTO) 0.1 X10'3 (0-0.9); EOSINOPHILS % (AUTO) 0.9 % (0-6); HEMATOCRIT 39.5 % (35.0-45.0); HEMOGLOBIN 13.6 g/dl (12.0-16.0); LYMPHOCYTES # (AUTO) 1.7 X10'3 (1.1-4.8); LYMPHOCYTES % (AUTO) 22.4 % (21-51); MEAN CORPUSCULAR HEMOGLOBIN 30.3 PG (27.0-31.0); MEAN CORPUSCULAR HGB CONC 34.5 g/dL (33.0-36.5); MEAN PLATELET VOLUME 8.4 FL (7.4-10.4); MONOCYTES # (AUTO) 0.4 X10'3 (0-0.9); MONOCYTES % (AUTO) 5.6 % (2-12); NEUTROPHILS # (AUTO) 5.4 X10'3 (1.8-7.7); NEUTROPHILS % (AUTO) 70.5 % (42-75); PLATELET COUNT 276 X10'3 (140-440); RED BLOOD COUNT 4.49 X10'6 (4.20-5.60); RED CELL DISTRIBUTION WIDTH 12.4 % (11.5-14.5); WHITE BLOOD COUNT 7.7 X10'3 (4.5-11.0)
[2025-03-01 17:19] LABS: ALANINE AMINOTRANSFERASE 79 U/L (12-78); ALBUMIN 4.2 G/DL (3.4-5.0); ALBUMIN/GLOBULIN RATIO 1.1 (1.1-1.5); ALKALINE PHOSPHATASE 71 IU/L (46-116); ANION GAP 8 (8-16); ASPARTATE AMINO TRANSFERASE 34 U/L (10-37); BILIRUBIN,TOTAL 0.3 MG/DL (0.1-1.0); BLOOD UREA NITROGEN 5 MG/DL (7-18); BUN/CREATININE RATIO 7.6 (10.0-20.0); CALCIUM 9.3 MG/DL (8.5-10.1); CHLORIDE 105 MMOL/L (99-107); CREATININE 0.66 MG/DL (0.40-0.90); GLUCOSE 104 MG/DL (70-104); SODIUM 143 MMOL/L (135-145); TOTAL CARBON DIOXIDE 29.9 MMOL/L (24-32); TOTAL PROTEIN 8.2 G/DL (6.4-8.2); eCRCL 121 ML/MIN; eGFR > 90 ML/MIN
[2025-03-01 17:23] LABS: BILIRUBIN,URINE NEGATIVE (Neg); CLARITY,URINE CLEAR (Clear); COLOR,URINE YELLOW (Yellow); GLUCOSE, URINE NEGATIVE (Neg); KETONES,URINE 40 mg/dl (Neg); LEUKOCYTE ESTERASE ,URINE NEGATIVE (Neg); NITRITES, URINE NEGATIVE (Neg); OCCULT BLOOD,URINE NEGATIVE (Neg); PROTEIN,URINE NEGATIVE (Neg); URINE HCG NEGATIVE (NEG); UROBILINOGEN,URINE 0.2 E.U/dL (0.2-1.0)
[2025-03-01 17:24] LABS: UA COLLECTION TYPE CLN CATCH MIDSTREAM
== END 2025-03-01 17:53 | disposition home or self-care (01) ==
LOC: ER 16:22
DX: F99 Mental disorder, not otherwise specified (principal); F20.9 Schizophrenia, unspecified; F31.9 Bipolar disorder, unspecified; F12.90 Cannabis use, unspecified, uncomplicated
CPT/HCPCS: 36415; 80053; 81003; 81025; 85025; 99283

== ENCOUNTER 2025-09-11 13:07 | Emergency (ER) | payer MEDICAID ==
[~2025-09-11] VITALS: Ht 167.6 cm; Wt 86.8 kg
--- NOTE | 2025-09-11 13:26 | Physician Documentation ---
History of Present Illness ~ Chief Complaint: 5149 Stated Complaint: Time Seen by MD: 13:22 Primary Medical Doctor: [facility] HPI Brought in by EMS on 5150. Denies SI/HI. No medical complaints. Medication Reconciliation Allergies: Coded Allergies: asenapine (Verified Allergy, Unknown, 01/21/24) Scheduled Divalproex Sodium (Divalproex Sodium ER), 2 TAB PO HS Mirtazapine (Mirtazapine), 1 TAB PO HS Olanzapine (Olanzapine), 1 TAB PO HS Olanzapine (Olanzapine), 1 TAB PO HS Olanzapine (Olanzapine), 1 TAB PO DAILY Pantoprazole Sodium (Pantoprazole Sodium), 40 MG PO DAILY Trazodone HCl (Trazodone HCl), 50 MG PO HSMR1 Scheduled PRN Olanzapine (Olanzapine), 5 MG PO BID PRN for Agitation, Psychosis Past Medical History Past Medical History: Anxiety, Bipolar, Psychosis, Schizophrenia Past Surgical History: no surgical history Patient History: Patient reports no known family medical history. Alcohol Use: Occasionally Drug Use: marijuana Lives with: Mother, Father Lives In: Home Occupation: student Review of Systems All Other Systems at this time: Reviewed and Negative Physical Exam Vital Signs: RN Vital Signs have been reviewed: Yes, Temperature: 98.0, Source: Temporal, Heart Rate: 100, Respiratory Rate: 16, BP: 119/87, Pulse Oximetry: 97, Weight: 86.820 Oxygen Flow Rate: 0 Physical Exam Gen: no distress HEENT: PERRL, EOMI no neck or facial swelling, uvula midline Skin: w/d/i MSK: no deformity Neuro: nonfocal Psych: normal affect Progress Results/Orders Results/Orders Orders - YOSI EGAN MD Cbc/Diff (09/11/25 13:16) Urinalysis (09/11/25 13:16) Hcg, Ur Ql (09/11/25 13:16) Drug Screen, Urine (09/11/25 13:16) Ethanol (09/11/25 13:16) TSH (09/11/25 13:16) Mh Med Rec (09/11/25 13:16) BMP (09/11/25 13:16) Close Observation Level (09/11/25 13:16) Covid19 Binax Poc Result Entry (09/11/25 13:16) Regular Diet (09/11/25 Dinner) Vital Signs 09/11/25 13:12 Temp 98.0 Pulse 100 Resp 16 B/P (MAP) 119/87 Pulse Ox 97 O2 Flow Rate 0 Medical Decision Making Additional information obtaine: N/A Findings 30 year old female. Medically clear for behavioral health evaluation. Will sign out to oncoming ER physician for continued care and disposition. Differential Dx:Considerations: Include: Alcohol abuse, Anxiety, Bipolar disorder, Conversion disorder, Depression, Encephaloathy, Homicidal, Panic disorder, Personality disorder, Schizophrenia, Substance abuse, Suicidal Departure Disposition: 30 STILL A PATIENT Impression: Primary Impression: Medical clearance for psychiatric admission Condition: Stable Discharge Instructions: Medical Screening Exam Referrals: NO PRIMARY CARE PROVIDER (PCP) Signature Scribe Signature: . Attestation: . YOSI EGAN MD Sep 11, 2025 13:26
[2025-09-11] MEDS ORDERED: OLAN15TA97 PO (13:32)
[2025-09-11] MEDS ORDERED: DIVA250T8 PO (13:32)
[2025-09-11] MEDS ORDERED: MIRT-92 PO (13:43)
[2025-09-11 13:51] LABS: URINE HCG NEGATIVE (NEG)
[2025-09-11 13:54] LABS: LEUKOCYTE ESTERASE ,URINE NEGATIVE (Neg); NITRITES, URINE NEGATIVE (Neg); OCCULT BLOOD,URINE NEGATIVE (Neg)
[2025-09-11 13:55] LABS: UA COLLECTION TYPE NON-SPECIFIED
[2025-09-11 13:56] LABS: URINE AMPHETAMINE SCREEN NEGATIVE (Neg); URINE BARBITUATE SCREEN NEGATIVE (Neg); URINE BENZODIAZEPINES SCREEN NEGATIVE (Neg); URINE CANNABINOID SCREEN NEGATIVE (Neg); URINE COCAINE SCREEN NEGATIVE (Neg); URINE METHADONE SCREEN NEGATIVE (Neg); URINE OPIATE SCREEN NEGATIVE (Neg); URINE PHENCYCLIDINE SCREEN NEGATIVE (Neg)
[2025-09-11 13:57] LABS: MEAN PLATELET VOLUME 8.8 FL (7.4-10.4); RED CELL DISTRIBUTION WIDTH 12.3 % (11.5-14.5)
[2025-09-11 14:11] LABS: CREATININE 0.62 MG/DL (0.40-0.90); ETHANOL < 10 MG/DL (<10); TOTAL CARBON DIOXIDE 31.8 MMOL/L (24-32); eCRCL 123 ML/MIN; eGFR > 90 ML/MIN
[2025-09-11] MEDS: OLANZAPINE 5 MG TABLET PO SCH (21:08)
[2025-09-11] MEDS: divalproex sod 250mg ER (24-hour) tablet PO SCH (21:09)
[2025-09-11 21:55] VITALS: BP 114/82; PULSE 72; RESP 16; TEMP 98; O2SAT 99
== END 2025-09-11 23:18 | disposition still patient (30) ==
LOC: ER 13:07
DX: Z00.8 Encounter for other general examination (principal); F20.9 Schizophrenia, unspecified; F31.9 Bipolar disorder, unspecified; F12.90 Cannabis use, unspecified, uncomplicated; Z20.822 Contact with and (suspected) exposure to COVID-19; Z79.899 Other long term (current) drug therapy
CPT/HCPCS: 36415; 80048; 80305; 80320; 81003; 81025; 84443; 85025; 87811; 99285